=== PATIENT | male | born 1955 | race Hispanic/Latino ===

== ENCOUNTER 2017-12-30 21:04 | Inpatient (IN) | payer MEDICARE, BC ==
[2017-12-30 21:05] VITALS: PULSE 112; BMI 32.5
[2017-12-30 23:00] LABS: BASO % 0.5 % (0.0-2.0); EOS # 0.1 K/uL (0.0-0.7); EOS % 0.5 % (0.0-4.0); HEMOGLOBIN 10.9 g/dL (12.0-18.0); LYMPH # 0.4 K/uL (1.0-4.3); LYMPH % 4.2 % (20.0-40.0); MEAN CELL VOLUME 88.4 fL (80.0-94.0); MEAN CORPUSCULAR HEMOGLOBIN 29.1 pg (27.0-31.0); MEAN PLATELET VOLUME 7.4 fL (7.2-11.7); MONO # 0.8 K/uL (0.0-0.8); MONO % 8.1 % (0.0-10.0); NEUT # 8.3 K/uL (1.8-7.0); NEUT % 86.7 % (50.0-75.0); NRBC % 0.1 % (0.0-2.0); PLATELET COUNT 190 K/uL (130-400); RBC 3.73 Mil/uL (4.40-5.90); RED CELL DISTRIBUTION WIDTH 19.6 % (11.5-14.5); WHITE BLOOD COUNT 9.5 K/uL (4.8-10.8)
[2017-12-30 23:12] LABS: ALBUMIN 3.6 g/dL (3.5-5.0); CALCIUM 8.5 mg/dl (8.6-10.4)
--- NOTE | 2017-12-30 23:18 | C.PDOC ---
History Of Present Illness 62 year old male with a Hx of renal failure on dialysis presents to the ER for an infected port-a-cath. Patient has had multiple hospitalization in the past where they had a hard time getting blood drawn from him so he had a permanent port-a-cath put into his right upper chest wall; however, the port has not been used since 10/2017. Justusight his noticed he had purulent drainage from a pinpoint area on the port which prompted visit, on arrival patient was found with a temperature of 102. Denies cough, abdominal pain, or URI symptoms. Time Seen by Provider: 12/30/17 22:12 Chief Complaint (Nursing): Abnormal Skin Integrity History Per: Patient History/Exam Limitations: no limitations Onset/Duration Of Symptoms: Hrs Current Symptoms Are (Timing): Still Present Location Of Injury: Right: Chest Quality Of Symptoms: Draining Recent travel outside of the [place]: No Past Medical History Reviewed: Historical Data, Nursing Documentation, Vital Signs Vital Signs: Last Vital Signs Temp 102 F H 12/30/17 21:43 Pulse 121 H 12/30/17 21:24 Resp 17 12/30/17 21:24 BP Pulse Ox 100 12/30/17 21:24 - Medical History PMH: Anxiety, Arthritis, Asthma, Atrial Fibrillation, Cardia Arrhythmia (A FIB), CHF, COPD (uses CPAP for sleep apnea), Depression, Diabetes, Fractures, HTN, Malignancy (AML LEUKEMIA), Osteoporosis, Peripheral Edema, End Stage Renal Disease, Chronic Kidney Disease, Sleep Apnea (C-PAP) Surgical History: Back Surgery, Pacemaker - [facility] Procedures (10/29/17) BONE GRAFT NEC (08/23/13) BONE MARROW OPS NEC (08/23/13) CENTRAL VENOUS CATHETER PLACEMENT WITH GUIDANCE (08/23/13) CHEST CAGE BONE BIOPSY (08/23/13) DIALYSIS ARTERIOVENOSTOM (12/08/13) DORSAL & DORSOLUMBAR FUSION OF POSTERIOR COL/TECHNIQUE (08/23/13) DRAINAGE OF RIGHT LOWER LEG SKIN, EXTERNAL APPROACH, DIAGN (06/30/17) DX ULTRASOUND-HEART (08/23/13) EXCISE BONE FOR GFT NEC (08/23/13) EXCISION OF L FOOT SUBCU/FASCIA, OPEN APPROACH (09/15/16) EXCISION OF LEFT FOOT SKIN, EXTERNAL APPROACH (06/30/17) EXCISION OF LEFT TARSAL, OPEN APPROACH, DIAGNOSTIC (12/26/16) EXCISION OF RIGHT FOOT SKIN, EXTERNAL APPROACH (12/26/16) EXCISION OF RIGHT LOWER LEG SKIN, EXTERNAL APPROACH (06/30/17) EXTRACTION OF LEFT FOOT SKIN, EXTERNAL APPROACH (09/15/16) FUSION/REFUS OF 2-3 VERTEBRAE (08/23/13) HEAD SOFT TISS X-RAY NEC (12/08/13) HEMODIALYSIS (11/12/13) INSERTION OF INFUSION DEV INTO SUP VENA CAVA, PERC APPROACH (12/26/16) NON-INVASIVE MECHANICAL VENTILATION (11/12/13) OCCUPATIONAL THERAPY (09/27/13) PACKED CELL TRANSFUSION (08/23/13) PERFORMANCE OF URINARY FILTRATION, MULTIPLE (06/30/16) PHYSICAL THERAPY NEC (09/27/13) RECREATIONAL THERAPY (09/27/13) REPOSITION RIGHT BASILIC VEIN, OPEN APPROACH (06/30/16) SPINAL CANAL EXPLOR NEC (08/23/13) SUPPLEMENT LEFT FOOT WITH NONAUT SUB, OPEN APPROACH (06/30/17) THORACENTESIS (11/12/13) TRANSFUSE NONAUT RED BLOOD CELLS IN PERIPH VEIN, PERC (10/29/17) VACCINATION NEC (11/12/13) VENOUS CATHETERIZATION FOR RENAL DIALYSIS (12/08/13) Family History: States: Unknown Family Hx - Social History Hx Tobacco Use: No Hx Alcohol Use: No Hx Substance Use: No - Immunization History Hx Tetanus Toxoid Vaccination: Yes Hx Influenza Vaccination: Yes Hx Pneumococcal Vaccination: Yes Review Of Systems Constitutional: Positive for: Fever Cardiovascular: Negative for: Chest Pain, Palpitations Respiratory: Negative for: Cough, Shortness of Breath Gastrointestinal: Negative for: Nausea, Vomiting Skin: Positive for: Other (Drainage from right chest port) Physical Exam - Physical Exam Appears: Non-toxic Skin: Warm, Dry Head: Atraumatic, Normacephalic Eye(s): bilateral: Normal Inspection Oral Mucosa: Moist Neck: Normal, Supple Chest: Other (Right port-a-cath with tenderness, erythema, swelling, and purulent drainage) Cardiovascular: Rhythm Regular Respiratory: Normal Breath Sounds, No Rales, No Rhonchi, No Wheezing Gastrointestinal/Abdominal: Soft, No Tenderness Neurological/Psych: Oriented x3, Normal Speech ED Course And Treatment - Laboratory Results Result Diagrams: 12/30/17 22:57 12/30/17 22:57 Lab Interpretation: Abnormal (BUN 45, Cr 3.7,) O2 Sat by Pulse Oximetry: 100 (Room air) Pulse Ox Interpretation: Normal Progress Note: Blood work ordered. Tylenol administered. - Physician Consult Information Time Consulting Physician Contacted: 23:59 Physician Contacted: Jesus Hill Outcome Of Conversation: Patient to be admitted for infected port. Dr Olguin to be consulted for removal. Disposition - Disposition Disposition: HOSPITALIZED Disposition Time: 00:00 Condition: STABLE - POA Present On Arrival: None - Clinical Impression Clinical Impression: Fever, Infection due to Port-A-Cath - Scribe Statement The provider has reviewed the documentation as recorded by the Scribe Rodrigue Ho All medical record entries made by the Scribe were at my direction and personally dictated by me. I have reviewed the chart and agree that the record accurately reflects my personal performance of the history, physical exam, medical decision making, and the department course for this patient. I have also personally directed, reviewed, and agree with the discharge instructions and disposition.
[2017-12-30 23:27] LABS: BANDS 3 % (0-2); LYMPHOCYTE 5 % (20-40); MONOCYTE 4 % (0-10); NEUTROPHIL 88 % (50-75); TOTAL CELLS COUNTED 100
[2017-12-30 23:30] LABS: HYPOCHROMIC SLIGHT; MICROCYTOSIS SLIGHT; OVALOCYTES SLIGHT; PLATELET ESTIMATE NORMAL (NORMAL)
--- NOTE | 2017-12-31 00:27 | CP.PCM.HP ---
<Robyn Lock - Last Filed: 12/31/17 01:12> History of Present Illness - History of Present Illness History of Present Illness: Robyn Lock PG1 H&P for Dr. iNelson Pt is a 62M with PMH ESRD, DM, CHF, A FIB W/RVR, AML, HTN, COPD, sleep apnea presents to ED with port a cath infection s/p HD. He reports feeling a burning sensation two days ago and that today after HD his noticed some pus coming from the site. Pt reports nausea and dry heaving. He denies any fever, abdominal pain, shortness of breath, chest pain, diarrhea, constipation. In the ED, pt was given tylenol for Tmax 102F and BCx and wound Cx were obtained. SxH: back surgery, pacemaker FamH: mom heart disease, DM, dad CAD SocH: denies tobacco, etoh, recreational drug use Allergies: NKDA Meds: coumadin 1 daily, starlix 60 TID, procrit, metoprolol succinate 25 daily PMD: Dr. Rose Present on Admission - Present on Admission Any Indicators Present on Admission: No Review of Systems - Review of Systems Review of Systems: as per HPI Past Patient History - Infectious Disease Hx of Infectious Diseases: None - Tetanus Immunizations Tetanus Immunization: Unknown - Past Medical History & Family History Past Medical History?: Yes - Past Social History Smoking Status: Never Smoked - CARDIAC Hx Atrial Fibrillation: Yes Hx Cardia Arrhythmia: Yes (A FIB) Hx Congestive Heart Failure: Yes Hx Hypertension: Yes Hx Pacemaker: Yes Hx Peripheral Edema: Yes - PULMONARY Hx Asthma: Yes Hx Chronic Obstructive Pulmonary Disease (COPD): Yes (uses CPAP for sleep apnea) Hx Sleep Apnea: Yes (C-PAP) - NEUROLOGICAL Hx Neurological Disorder: Yes (PERIPHERAL NEUROPATHY) Hx Dizziness: Yes - HEENT Hx HEENT Problems: No - RENAL Hx Chronic Kidney Disease: Yes - ENDOCRINE/METABOLIC Hx Diabetes Mellitus Type 2: Yes - HEMATOLOGICAL/ONCOLOGICAL Hx Blood Disorders: Yes Hx Blood Transfusions: Yes Hx Cancer: Yes Hx Chemotherapy: Yes 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) - INTEGUMENTARY Hx Dermatological Problems: Yes Hx Cellulitis: Yes - MUSCULOSKELETAL/RHEUMATOLOGICAL Hx Arthritis: Yes Hx Fractures: Yes Hx Osteoporosis: Yes - GASTROINTESTINAL Hx Gastrointestinal Disorders: Yes Hx Constipation: Yes - GENITOURINARY/GYNECOLOGICAL Hx Genitourinary Disorders: Yes Other/Comment: dialysis TTS - PSYCHIATRIC Hx Anxiety: Yes Hx Depression: Yes Hx Substance Use: No - SURGICAL HISTORY Hx Surgeries: Yes Hx Angiogram: Yes Hx Arteriovenous Shunt: Yes Hx Cardiac Catheterization: Yes Hx Orthopedic Surgery: Yes (KNEE) Hx Vascular Access Device: Yes (RIGHT BOZENA CATH) Other/Comment: hx back surgery T5. defibrillator/pacemaker placement - ANESTHESIA Hx Anesthesia: Yes Hx Anesthesia Reactions: No Hx Malignant Hyperthermia: No Meds Allergies/Adverse Reactions: Allergies Allergy/AdvReac Type Severity Reaction Status Date / Time No Known Allergies Allergy Verified 10/29/17 04:19 Physical Exam - Constitutional Appears: Well, No Acute Distress - Head Exam Head Exam: ATRAUMATIC, NORMOCEPHALIC - Eye Exam Eye Exam: EOMI, PERRL Pupil Exam: NORMAL ACCOMODATION - ENT Exam ENT Exam: Mucous Membranes Moist - Neck Exam Neck exam: Positive for: Normal Inspection - Respiratory Exam Respiratory Exam: Clear to Auscultation Bilateral, NORMAL BREATHING PATTERN. absent: Rales, Rhonchi, Wheezes - Cardiovascular Exam Cardiovascular Exam: +S1, +S2. absent: Systolic Murmur - GI/Abdominal Exam GI & Abdominal Exam: Distended, Normal Bowel Sounds. absent: Soft, Tenderness - Extremities Exam Additional comments: R chest: 2x2cm open wound, draining milky white fluid. surrounding erythema. indurated lower extremities: xerosis, hyperpigmentation, stasis derm changes - Neurological Exam Neurological exam: Alert, Oriented x3 - Psychiatric Exam Psychiatric exam: Normal Affect, Normal Mood - Skin Skin Exam: Dry Results - Vital Signs Recent Vital Signs: Last Vital Signs Temp 102 F H 12/30/17 21:43 Pulse 121 H 12/30/17 21:24 Resp 17 12/30/17 21:24 BP Pulse Ox 100 12/31/17 00:01 - Labs Result Diagrams: 12/30/17 22:57 12/30/17 22:57 Labs: Laboratory Results - last 24 hr 12/30/17 12/30/17 22:57 22:57 WBC 9.5 D RBC 3.73 L Hgb 10.9 L D Hct 33.0 L MCV 88.4 MCH 29.1 MCHC 33.0 RDW 19.6 H Plt Count 190 MPV 7.4 Neut % (Auto) 86.7 H Lymph % (Auto) 4.2 L [place] % (Auto) 8.1 Eos % (Auto) 0.5 Baso % (Auto) 0.5 Neut # (Auto) 8.3 H Lymph # (Auto) 0.4 L [place] # (Auto) 0.8 Eos # (Auto) 0.1 Baso # (Auto) 0.0 Neutrophils % (Manual) 88 H Band Neutrophils % 3 H Lymphocytes % (Manual) 5 L Monocytes % (Manual) 4 Platelet Estimate Normal Hypochromasia (manual) Slight Microcytosis (manual) Slight Ovalocytes Slight Sodium 137 Potassium 3.6 Chloride 93 L Carbon Dioxide 29 Anion Gap 19 BUN 45 H Creatinine 3.7 H Est GFR ( Amer) 20 Est GFR (Non-Af Amer) 17 Random Glucose 126 H Calcium 8.5 L Total Bilirubin 1.6 H AST 16 L D ALT 17 L Alkaline Phosphatase 342 H D Total Protein 7.2 Albumin 3.6 Globulin 3.5 Albumin/Globulin Ratio 1.0 Assessment & Plan - Assessment and Plan (Free Text) Assessment: Pt is a 62M with PMH ESRD, DM, CHF, A FIB W/RVR, AML, HTN, COPD, sleep apnea presents to ED with port a cath infection s/p HD. Pt admitted for further treatment of abscess. Plan: Abscess - pt with port a cath, draining white purulent fluid on R chest - Tmax 1002F - WBC 9.5 - start vanco 1.5 IV daily - start rocephin 1g IV daily - f/u BCx, Wound Cx - hold coumadin - f/u coags - vascular surgery consulted, Dr. Olguin - f/u recs - ID consulted, Dr. Lozano - f/u recs ESRD - s/p HD - BUN 45 - Cr 3.7 - Nephro consulted, Dr. Rice - f/u recs DM - accuchecks q6h - low dose sliding scale - hypoglycemia protocol HTN - BP 97/52 - hold home metoprolol NIKOLE - pt uses CPAP at home - not ammenable to using bipap - to bring home CPAP PPX heparin 5000 SC q8h NPO except meds Pt seen with and case discussed with Dr. Nielson <Oswaldo Nielson P - Last Filed: 12/31/17 06:53> Results - Vital Signs Recent Vital Signs: Last Vital Signs Temp 98.6 F 12/31/17 02:22 Pulse 104 H 12/31/17 02:22 Resp 20 12/31/17 02:22 BP 98/65 L 12/31/17 02:22 Pulse Ox 99 12/31/17 02:22 - Labs Result Diagrams: 12/30/17 22:57 12/30/17 22:57 Labs: Laboratory Results - last 24 hr 12/30/17 12/30/17 12/31/17 22:57 22:57 06:07 WBC 9.5 D RBC 3.73 L Hgb 10.9 L D Hct 33.0 L MCV 88.4 MCH 29.1 MCHC 33.0 RDW 19.6 H Plt Count 190 MPV 7.4 Neut % (Auto) 86.7 H Lymph % (Auto) 4.2 L [place] % (Auto) 8.1 Eos % (Auto) 0.5 Baso % (Auto) 0.5 Neut # (Auto) 8.3 H Lymph # (Auto) 0.4 L [place] # (Auto) 0.8 Eos # (Auto) 0.1 Baso # (Auto) 0.0 Neutrophils % (Manual) 88 H Band Neutrophils % 3 H Lymphocytes % (Manual) 5 L Monocytes % (Manual) 4 Platelet Estimate Normal Hypochromasia (manual) Slight Microcytosis (manual) Slight Ovalocytes Slight Sodium 137 Potassium 3.6 Chloride 93 L Carbon Dioxide 29 Anion Gap 19 BUN 45 H Creatinine 3.7 H Est GFR ( Amer) 20 Est GFR (Non-Af Amer) 17 POC Glucose (mg/dL) 96 Random Glucose 126 H Calcium 8.5 L Total Bilirubin 1.6 H AST 16 L D ALT 17 L Alkaline Phosphatase 342 H D Total Protein 7.2 Albumin 3.6 Globulin 3.5 Albumin/Globulin Ratio 1.0 Attending/Attestation - Attestation I have personally seen and examined this patient.: Yes I have fully participated in the care of the patient.: Yes I have reviewed all pertinent clinical information: Yes Notes (Text): 12/31/17 06:47 All 12 system reviewed and were negative except as mentioned in HPI. Pt is a 62M with PMH ESRD left arm av graft, DM, CHF, A FIB W/RVR s/p AICD and warfarin, HTN, COPD, sleep apnea on CPAP presents to ED with port a cath infection, About 15 ml of puss expressed out from the site of the port, with surrounding erythema and warmth, Patient is mostly bed bound due to his b/l healing ulcers in the leg, DM Neuropathy in hands Chronic anasarca Abd distension suspect ascitis Plan Puss sent for culture Vancomycin and rocephin HD in hospital Surgery consult for port removal Hold on warfarin DVT prophylaxis mean while Will check prior record if need w/u for ascitis Patient is of Dr. Rose, who will resume care in about 2 days. See orders for detail
[2017-12-31] MEDS ORDERED: Dextrose 50% SYRINGE Inj (50 ml) IV PRN (01:24)
[2017-12-31] MEDS ORDERED: Glucagon Recombinant 1 mg Inj IM PRN (01:24)
[2017-12-31] MEDS: (Novolin R) Insulin Human Regular 100 units/ml vial SC SCH ×4 (07:30→22:09)
--- NOTE | 2017-12-31 07:58 | CP.PCM.CON ---
History of Present Illness - History of Present Illness History of Present Illness: General surgery consult for Dr. Clau PEDRAZA. Mr. Tyson is a 62M with a pmh of ESRD, COPD, DM, pacemaker/defibrillator, leukemia, CHF, CO and afib who presented to the ED yesterday because of purulent discharge arising fro his port-a-cath located on the right side of his neck. He reports mild pain at infection site and subjective fevers at home. It all began a few days ago when he felt a pinching/burning sensation to the area. Then yesterday afternoon he notice purulent fluid oozing from the site. Denies trauma, bug bites, dizziness, chest pain, SOB, palpations, or N/V/D/C. At ED, [id number]. The port-a-cath was inserted several months ago for osteomyelitis abx treatment but is currently not is use. Patients last dialysis was yesterday where they removed 3.5L. He is non-ambulatory and currently has at home PT. Pmh: CKD (on dialysis), DM, Pacemaker/defibrillator, CO (11y ago), Afib, AML (remission since 2007) Surg: Back surgery (metal plates), ulcer debridment in feet b/l, port-a-cath placement, AV fistula Family hx: Stated mother "has all his issues and not sure", father from an CO at elderly age. Allergies: none Social hx: smokes a cigar occasionally, no illicit drug use or alcohol. Review of Systems - Review of Systems Review of Systems: As per HPI Past Patient History - Infectious Disease Hx of Infectious Diseases: None - Tetanus Immunizations Tetanus Immunization: Unknown - Past Medical History & Family History Past Medical History?: Yes - Past Social History Smoking Status: Never Smoked - CARDIAC Hx Cardiac Disorders: Yes Hx Atrial Fibrillation: Yes Hx Cardia Arrhythmia: Yes (A FIB) Hx Congestive Heart Failure: Yes Hx Hypertension: Yes Hx Pacemaker: Yes Hx Peripheral Edema: Yes - PULMONARY Hx Respiratory Disorders: Yes Hx Asthma: Yes Hx Chronic Obstructive Pulmonary Disease (COPD): Yes (uses CPAP for sleep apnea) Hx Sleep Apnea: Yes (C-PAP) - NEUROLOGICAL Hx Neurological Disorder: Yes (PERIPHERAL NEUROPATHY) Hx Dizziness: Yes - HEENT Hx HEENT Problems: No - RENAL Hx Chronic Kidney Disease: Yes - ENDOCRINE/METABOLIC Hx Endocrine Disorders: Yes Hx Diabetes Mellitus Type 2: Yes - HEMATOLOGICAL/ONCOLOGICAL Hx Blood Disorders: Yes Hx Blood Transfusions: Yes Hx Cancer: Yes Hx Chemotherapy: Yes 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) - INTEGUMENTARY Hx Dermatological Problems: Yes Hx Cellulitis: Yes - MUSCULOSKELETAL/RHEUMATOLOGICAL Hx Musculoskeletal Disorders: Yes Hx Arthritis: Yes Hx Falls: Yes Hx Fractures: Yes Hx Osteoporosis: Yes - GASTROINTESTINAL Hx Gastrointestinal Disorders: Yes Hx Constipation: Yes - GENITOURINARY/GYNECOLOGICAL Hx Genitourinary Disorders: Yes Other/Comment: dialysis TTS - PSYCHIATRIC Hx Psychophysiologic Disorder: Yes Hx Anxiety: Yes Hx Depression: Yes Hx Substance Use: No - SURGICAL HISTORY Hx Surgeries: Yes Hx Angiogram: Yes Hx Arteriovenous Shunt: Yes Hx Cardiac Catheterization: Yes Hx Orthopedic Surgery: Yes (KNEE) Hx Vascular Access Device: Yes (RIGHT BOZENA CATH) Other/Comment: hx back surgery T5. defibrillator/pacemaker placement - ANESTHESIA Hx Anesthesia: Yes Hx Anesthesia Reactions: No Hx Malignant Hyperthermia: No Meds Allergies/Adverse Reactions: Allergies Allergy/AdvReac Type Severity Reaction Status Date / Time No Known Allergies Allergy Verified 10/29/17 04:19 - Medications Medications: Current Medications Acetaminophen (Tylenol 325mg Tab) 650 mg PO Q6 PRN PRN Reason: Fever >100.4 F Dextrose (Dextrose 50% Inj) 0 ml IV STAT PRN; Protocol PRN Reason: Hypoglycemia Protocol Dextrose (Glutose 15) 0 gm PO ONCE PRN; Protocol PRN Reason: Hypoglycemia Protocol Glucagon (Glucagen Diagnostic Kit) 0 mg IM STAT PRN; Protocol PRN Reason: Hypoglycemia Protocol Heparin Sodium (Porcine) (Heparin) 5,000 units SC Q8 AMBERLY Last Admin: 12/31/17 05:49 Dose: 5,000 units Ceftriaxone Sodium 1 gm/ (Sodium Chloride) 100 mls @ 100 mls/hr IVPB DAILY AMBERLY; Protocol Vancomycin HCl 1.5 gm/ Sodium (Chloride) 250 mls @ 166.7 mls/hr IVPB Q24H AMBERLY; Protocol Last Admin: 12/31/17 02:56 Dose: 166.7 mls/hr Dextrose (Dextrose 5% In Water 1000 Ml) 1,000 mls @ 0 mls/hr IV .Q0M PRN; Protocol PRN Reason: Hypoglycemia Protocol Insulin Human Regular (Novolin R) 0 unit SC ACHS AMBERLY; Protocol Ondansetron HCl (Zofran Inj) 4 mg IVP Q6 PRN PRN Reason: Nausea/Vomiting Physical Exam - Constitutional Appears: Non-toxic, Chronically Ill - Head Exam Head Exam: ATRAUMATIC, NORMOCEPHALIC - Eye Exam Eye Exam: Normal appearance. absent: Conjunctival injection - Neck Exam Neck exam: Positive for: Full Rom Additional comments: Tenderness to the infections site on the r mid clavicular line. - Respiratory Exam Respiratory Exam: Clear to Auscultation Bilateral, NORMAL BREATHING PATTERN. absent: Rales, Rhonchi, Wheezes - Cardiovascular Exam Cardiovascular Exam: REGULAR RHYTHM - GI/Abdominal Exam GI & Abdominal Exam: absent: Tenderness - Extremities Exam Additional comments: AV fistula located on the left upper arm. - Skin Additional comments: Area of infection at mid clavicular line at site of port-a-cath placement. Has mild swelling and erythema but without marked boarders. Expressed purulent fluid , non-bloody. Non-maloderous, no crepitus. Results - Vital Signs Recent Vital Signs: Last Vital Signs Temp 98.6 F 12/31/17 02:22 Pulse 104 H 12/31/17 02:22 Resp 20 12/31/17 02:22 BP 98/65 L 12/31/17 02:22 Pulse Ox 99 12/31/17 02:22 - Labs Result Diagrams: 12/30/17 22:57 12/30/17 22:57 Labs: Laboratory Results - last 24 hr 12/30/17 12/30/17 12/31/17 22:57 22:57 06:07 WBC 9.5 D RBC 3.73 L Hgb 10.9 L D Hct 33.0 L MCV 88.4 MCH 29.1 MCHC 33.0 RDW 19.6 H Plt Count 190 MPV 7.4 Neut % (Auto) 86.7 H Lymph % (Auto) 4.2 L [place] % (Auto) 8.1 Eos % (Auto) 0.5 Baso % (Auto) 0.5 Neut # (Auto) 8.3 H Lymph # (Auto) 0.4 L [place] # (Auto) 0.8 Eos # (Auto) 0.1 Baso # (Auto) 0.0 Neutrophils % (Manual) 88 H Band Neutrophils % 3 H Lymphocytes % (Manual) 5 L Monocytes % (Manual) 4 Platelet Estimate Normal Hypochromasia (manual) Slight Microcytosis (manual) Slight Ovalocytes Slight Sodium 137 Potassium 3.6 Chloride 93 L Carbon Dioxide 29 Anion Gap 19 BUN 45 H Creatinine 3.7 H Est GFR ( Amer) 20 Est GFR (Non-Af Amer) 17 POC Glucose (mg/dL) 96 Random Glucose 126 H Calcium 8.5 L Total Bilirubin 1.6 H AST 16 L D ALT 17 L Alkaline Phosphatase 342 H D Total Protein 7.2 Albumin 3.6 Globulin 3.5 Albumin/Globulin Ratio 1.0 Assessment & Plan - Assessment and Plan (Free Text) Assessment: Mr Tyson is a 62M with an infected port-a-cath. Plan: - Will schedule OR today for removal of the port-a-cath and debridment of any appropriate tissues to the infected site. Consent obtained. - NPO - f/u blood cultures - f/u INR - Pain and nausea control PRN - Continue abx treatment per primary - Continue medical treatment per various specialities. - Date & Time Date: 12/31/17 Time: 07:00
[2017-12-31 08:35] LABS: BASO % 0.6 % (0.0-2.0); EOS # 0.1 K/uL (0.0-0.7); EOS % 0.9 % (0.0-4.0); LYMPH # 0.6 K/uL (1.0-4.3); MEAN CELL VOLUME 88.4 fL (80.0-94.0); MEAN CORPUSCULAR HEMOGLOBIN 28.5 pg (27.0-31.0); MEAN CORPUSCULAR HGB CONC 32.3 g/dL (33.0-37.0); MEAN PLATELET VOLUME 6.9 fL (7.2-11.7); MONO # 0.7 K/uL (0.0-0.8); MONO % 8.9 % (0.0-10.0); NEUT # 6.9 K/uL (1.8-7.0); NEUT % 82.6 % (50.0-75.0); PLATELET COUNT 182 K/uL (130-400); RBC 3.52 Mil/uL (4.40-5.90); RED CELL DISTRIBUTION WIDTH 19.5 % (11.5-14.5); WHITE BLOOD COUNT 8.3 K/uL (4.8-10.8)
[2017-12-31 08:40] LABS: PROTHROMBIN TIME 22.1 SECONDS (9.7-12.2)
[2017-12-31 08:49] LABS: ALB/GLOB RATIO 1.1 (1.0-2.1); ALBUMIN 3.3 g/dL (3.5-5.0)
[2017-12-31 09:18] LABS: LYMPHOCYTE 3 % (20-40); MONOCYTE 3 % (0-10); NEUTROPHIL 94 % (50-75); TOTAL CELLS COUNTED 100
[2017-12-31 09:19] LABS: PLATELET ESTIMATE NORMAL (NORMAL)
[2017-12-31 09:20] LABS: ANISOCYTOSIS SLIGHT; HYPOCHROMIC SLIGHT
[2017-12-31 09:21] LABS: POLYCHROMIC SLIGHT
[2017-12-31 09:22] LABS: OVALOCYTES SLIGHT
--- NOTE | 2017-12-31 10:35 | RAD ---
Date of service: 12/31/2017 HISTORY: preop COMPARISON: Portable chest 06/30/2017. FINDINGS: LUNGS: No active pulmonary disease. Diminished pulmonary volumes identified. PLEURA: No significant pleural effusion identified, no pneumothorax apparent. CARDIOVASCULAR: Cardiomegaly is reiterated with borderline pulmonary vascular congestion. Vascular markings may be accentuated by limited pulmonary volume related overlap with bronchial markings however. Clinically correlate. Permanent pacemaker/AICD reiterated as well as right-sided MediPort placed by right internal jugular approach. OSSEOUS STRUCTURES: Posterior spinal fusion hardware is again seen in the thoracolumbar spine. VISUALIZED UPPER ABDOMEN: Normal. OTHER FINDINGS: None. IMPRESSION: There is pulmonary volumes however no infiltrate is identified bilaterally. Borderline pulmonary vascular congestion appears stable cardiomegaly.
--- NOTE | 2017-12-31 11:08 | CP.PCM.CON ---
History of Present Illness - History of Present Illness History of Present Illness: Pt is a 62M with PMH ESRD, DM, CHF, A FIB W/RVR, AML, HTN, COPD, sleep apnea presents to ED for evaluation of portacath site. He reports feeling a burning sensation two days ago and that today after HD his noticed some pus coming from the site. Pt reports nausea and dry heaving. He denies any fever, abdominal pain, shortness of breath, chest pain, diarrhea, constipation. In the ED, pt was given tylenol for Tmax 102F and BCx and wound Cx were obtained. Last HD yesterday. On anticoagulation for a fib Pt had an indwelling portacath for iv antibiotics and lab draws, difficult stick SxH: back surgery, pacemaker FamH: mom heart disease, DM, dad CAD SocH: denies tobacco, etoh, recreational drug use Allergies: NKDA Meds: coumadin 1 daily, starlix 60 TID, procrit, metoprolol succinate 25 daily Review of Systems - Review of Systems All systems: reviewed and no additional remarkable complaints except (as per HPI) Past Patient History - Infectious Disease Hx of Infectious Diseases: None - Tetanus Immunizations Tetanus Immunization: Unknown - Past Medical History & Family History Past Medical History?: Yes - Past Social History Smoking Status: Never Smoked - CARDIAC Hx Cardiac Disorders: Yes Hx Atrial Fibrillation: Yes Hx Cardia Arrhythmia: Yes (A FIB) Hx Congestive Heart Failure: Yes Hx Hypertension: Yes Hx Pacemaker: Yes Hx Peripheral Edema: Yes - PULMONARY Hx Respiratory Disorders: Yes Hx Asthma: Yes Hx Chronic Obstructive Pulmonary Disease (COPD): Yes (uses CPAP for sleep apnea) Hx Sleep Apnea: Yes (C-PAP) - NEUROLOGICAL Hx Neurological Disorder: Yes (PERIPHERAL NEUROPATHY) Hx Dizziness: Yes - HEENT Hx HEENT Problems: No - RENAL Hx Chronic Kidney Disease: Yes - ENDOCRINE/METABOLIC Hx Endocrine Disorders: Yes Hx Diabetes Mellitus Type 2: Yes - HEMATOLOGICAL/ONCOLOGICAL Hx Blood Disorders: Yes Hx Blood Transfusions: Yes Hx Cancer: Yes Hx Chemotherapy: Yes 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) - INTEGUMENTARY Hx Dermatological Problems: Yes Hx Cellulitis: Yes - MUSCULOSKELETAL/RHEUMATOLOGICAL Hx Musculoskeletal Disorders: Yes Hx Arthritis: Yes Hx Falls: Yes Hx Fractures: Yes Hx Osteoporosis: Yes - GASTROINTESTINAL Hx Gastrointestinal Disorders: Yes Hx Constipation: Yes - GENITOURINARY/GYNECOLOGICAL Hx Genitourinary Disorders: Yes Other/Comment: dialysis TTS - PSYCHIATRIC Hx Psychophysiologic Disorder: Yes Hx Anxiety: Yes Hx Depression: Yes Hx Substance Use: No - SURGICAL HISTORY Hx Surgeries: Yes Hx Angiogram: Yes Hx Arteriovenous Shunt: Yes Hx Cardiac Catheterization: Yes Hx Orthopedic Surgery: Yes (KNEE) Hx Vascular Access Device: Yes (RIGHT BOZENA CATH) Other/Comment: hx back surgery T5. defibrillator/pacemaker placement - ANESTHESIA Hx Anesthesia: Yes Hx Anesthesia Reactions: No Hx Malignant Hyperthermia: No Meds Allergies/Adverse Reactions: Allergies Allergy/AdvReac Type Severity Reaction Status Date / Time No Known Allergies Allergy Verified 10/29/17 04:19 - Medications Medications: Current Medications Acetaminophen (Tylenol 325mg Tab) 650 mg PO Q6 PRN PRN Reason: Fever >100.4 F Dextrose (Dextrose 50% Inj) 0 ml IV STAT PRN; Protocol PRN Reason: Hypoglycemia Protocol Dextrose (Glutose 15) 0 gm PO ONCE PRN; Protocol PRN Reason: Hypoglycemia Protocol Glucagon (Glucagen Diagnostic Kit) 0 mg IM STAT PRN; Protocol PRN Reason: Hypoglycemia Protocol Heparin Sodium (Porcine) (Heparin) 5,000 units SC Q8 [facility] Last Admin: 12/31/17 05:49 Dose: 5,000 units Dextrose (Dextrose 5% In Water 1000 Ml) 1,000 mls @ 0 mls/hr IV .Q0M PRN; Protocol PRN Reason: Hypoglycemia Protocol Cefepime HCl (Maxipime Iv 1 Gm Premix) 1 gm in 50 mls @ 100 mls/hr IVPB ONCE ONE; Protocol Stop: 12/31/17 11:59 Insulin Human Regular (Novolin R) 0 unit SC ACHS [facility]; Protocol Last Admin: 12/31/17 07:30 Dose: Not Given Ondansetron HCl (Zofran Inj) 4 mg IVP Q6 PRN PRN Reason: Nausea/Vomiting Physical Exam - Constitutional Appears: No Acute Distress, Chronically Ill (obese) - Head Exam Head Exam: NORMAL INSPECTION, NORMOCEPHALIC - Eye Exam Eye Exam: Normal appearance, PERRL - ENT Exam ENT Exam: Mucous Membranes Moist, Normal Exam - Neck Exam Neck exam: Positive for: Normal Inspection - Respiratory Exam Respiratory Exam: Clear to Auscultation Bilateral (decreased breath sounds bases. rt chest portacath), NORMAL BREATHING PATTERN - Cardiovascular Exam Cardiovascular Exam: Irregular Rhythm - GI/Abdominal Exam GI & Abdominal Exam: Distended, Normal Bowel Sounds, Soft - Extremities Exam Extremities exam: Positive for: pedal edema (b/l chronic venous stasis. ) - Neurological Exam Neurological exam: Alert, Oriented x3 - Psychiatric Exam Psychiatric exam: Normal Affect, Normal Mood - Skin Skin Exam: Dry, Intact Results - Vital Signs Recent Vital Signs: Last Vital Signs Temp 98.3 F 12/31/17 08:00 Pulse 105 H 12/31/17 10:39 Resp 20 12/31/17 08:00 BP 102/61 12/31/17 10:39 Pulse Ox 97 12/31/17 08:00 - Labs Result Diagrams: 12/31/17 08:23 12/31/17 08:23 Labs: Laboratory Results - last 24 hr 12/30/17 12/30/17 12/31/17 22:57 22:57 06:07 WBC 9.5 D RBC 3.73 L Hgb 10.9 L D Hct 33.0 L MCV 88.4 MCH 29.1 MCHC 33.0 RDW 19.6 H Plt Count 190 MPV 7.4 Neut % (Auto) 86.7 H Lymph % (Auto) 4.2 L [place] % (Auto) 8.1 Eos % (Auto) 0.5 Baso % (Auto) 0.5 Neut # (Auto) 8.3 H Lymph # (Auto) 0.4 L [place] # (Auto) 0.8 Eos # (Auto) 0.1 Baso # (Auto) 0.0 Neutrophils % (Manual) 88 H Band Neutrophils % 3 H Lymphocytes % (Manual) 5 L Monocytes % (Manual) 4 Platelet Estimate Normal Polychromasia Hypochromasia (manual) Slight Anisocytosis (manual) Microcytosis (manual) Slight Ovalocytes Slight PT INR APTT Sodium 137 Potassium 3.6 Chloride 93 L Carbon Dioxide 29 Anion Gap 19 BUN 45 H Creatinine 3.7 H Est GFR ( Amer) 20 Est GFR (Non-Af Amer) 17 POC Glucose (mg/dL) 96 Random Glucose 126 H Calcium 8.5 L Total Bilirubin 1.6 H AST 16 L D ALT 17 L Alkaline Phosphatase 342 H D Total Protein 7.2 Albumin 3.6 Globulin 3.5 Albumin/Globulin Ratio 1.0 12/31/17 12/31/17 12/31/17 08:23 08:23 08:23 WBC 8.3 RBC 3.52 L Hgb 10.0 L Hct 31.1 L MCV 88.4 MCH 28.5 MCHC 32.3 L RDW 19.5 H Plt Count 182 MPV 6.9 L Neut % (Auto) 82.6 H Lymph % (Auto) 7.0 L [place] % (Auto) 8.9 Eos % (Auto) 0.9 Baso % (Auto) 0.6 Neut # (Auto) 6.9 Lymph # (Auto) 0.6 L [place] # (Auto) 0.7 Eos # (Auto) 0.1 Baso # (Auto) 0.0 Neutrophils % (Manual) 94 H Band Neutrophils % Lymphocytes % (Manual) 3 L Monocytes % (Manual) 3 Platelet Estimate Normal Polychromasia Slight Hypochromasia (manual) Slight Anisocytosis (manual) Slight Microcytosis (manual) Ovalocytes Slight PT 22.1 H INR 2.0 APTT 39 H Sodium 135 Potassium 3.5 L Chloride 95 L Carbon Dioxide 27 Anion Gap 16 BUN 50 H Creatinine 4.1 H Est GFR ( Amer) 18 Est GFR (Non-Af Amer) 15 POC Glucose (mg/dL) Random Glucose 88 Calcium 8.0 L Total Bilirubin 1.6 H AST 15 L ALT 20 L Alkaline Phosphatase 288 H Total Protein 6.5 Albumin 3.3 L Globulin 3.1 Albumin/Globulin Ratio 1.1 Assessment & Plan (1) Fever Status: Acute (2) Infection due to Port-A-Cath Status: Acute (3) ESRD (end stage renal disease) Status: Acute (4) A-fib Status: Chronic (5) Anemia Status: Chronic - Assessment and Plan (Free Text) Assessment: maintain hd mwf follow blood cultures. ID evaluation. portacath removal james w/ hd
[2017-12-31] MEDS ORDERED: Cefepime IV 1 gm in Dextrose 1 GM/50 ML BAG IVPB ONE (11:30)
--- NOTE | 2017-12-31 11:30 | CP.PCM.PN ---
<PaolaMerrill - Last Filed: 12/31/17 17:24> Subjective - Date & Time of Evaluation Date of Evaluation: 12/31/17 Time of Evaluation: 09:45 - Subjective Subjective: Medicine Progress Note for Hospitalist Service Pt seen and examined at bedside this am. Denies any acute complaints. NPO, to go to OR today for removal of portacath. Denies fever, chills, pain at infection site, active bleeding, headache, dizziness, chest pain, sob, n/v/d/c, abd pain, urinary complaints, leg edema, or other symptoms. Objective - Vital Signs/Intake and Output Vital Signs (last 24 hours): Temp Pulse Resp BP Pulse Ox 98.3 F 105 H 20 102/61 97 12/31/17 08:00 12/31/17 10:39 12/31/17 08:00 12/31/17 10:39 12/31/17 08:00 - Medications Medications: Current Medications Acetaminophen (Tylenol 325mg Tab) 650 mg PO Q6 PRN PRN Reason: Fever >100.4 F Dextrose (Dextrose 50% Inj) 0 ml IV STAT PRN; Protocol PRN Reason: Hypoglycemia Protocol Dextrose (Glutose 15) 0 gm PO ONCE PRN; Protocol PRN Reason: Hypoglycemia Protocol Glucagon (Glucagen Diagnostic Kit) 0 mg IM STAT PRN; Protocol PRN Reason: Hypoglycemia Protocol Heparin Sodium (Porcine) (Heparin) 5,000 units SC Q8 [facility] Last Admin: 12/31/17 05:49 Dose: 5,000 units Dextrose (Dextrose 5% In Water 1000 Ml) 1,000 mls @ 0 mls/hr IV .Q0M PRN; Protocol PRN Reason: Hypoglycemia Protocol Cefepime HCl (Maxipime Iv 1 Gm Premix) 1 gm in 50 mls @ 100 mls/hr IVPB ONCE ONE; Protocol Stop: 12/31/17 11:59 Insulin Human Regular (Novolin R) 0 unit SC ACHS [facility]; Protocol Last Admin: 12/31/17 07:30 Dose: Not Given Ondansetron HCl (Zofran Inj) 4 mg IVP Q6 PRN PRN Reason: Nausea/Vomiting - Labs Labs: 12/31/17 08:23 12/31/17 08:23 PT 22.1 SECONDS (9.7-12.2) H 12/31/17 08:23 INR 2.0 12/31/17 08:23 APTT 39 SECONDS (21-34) H 12/31/17 08:23 - Constitutional Appears: Non-toxic, No Acute Distress - Head Exam Head Exam: ATRAUMATIC, NORMOCEPHALIC - Eye Exam Eye Exam: EOMI, Normal appearance, PERRL - ENT Exam ENT Exam: Mucous Membranes Moist - Respiratory Exam Respiratory Exam: Clear to Ausculation Bilateral, NORMAL BREATHING PATTERN. absent: Rales, Rhonchi, Wheezes - Cardiovascular Exam Cardiovascular Exam: REGULAR RHYTHM, +S1, +S2. absent: Gallop, Rubs, Murmur - GI/Abdominal Exam GI & Abdominal Exam: Soft, Normal Bowel Sounds. absent: Distended, Firm, Guarding, Rigid, Tenderness, Organomegaly, Rebound - Extremities Exam Extremities Exam: Full ROM, Normal Capillary Refill, Normal Inspection. absent: Calf Tenderness, Pedal Edema - Neurological Exam Neurological Exam: Alert, Awake, CN II-XII Intact, Oriented x3 - Psychiatric Exam Psychiatric exam: Normal Affect, Normal Mood - Skin Skin Exam: Dry, Intact, Warm Additional comments: Site of infected portacath covered with dressing, c/d/i, no active bleeding noted at site Assessment and Plan - Assessment and Plan (Free Text) Assessment: 62M with PMH ESRD, DM, CHF, A FIB W/RVR, AML, HTN, COPD, sleep apnea presents to ED with port a cath infection s/p HD. Pt admitted for further treatment of abscess. Plan: Abscess - Pt with port a cath, draining white purulent fluid on R chest on admission; s/p removal by Surgery today in OR, monitor post-op - Tmax 1002F on admission, cont to monitor temps today, currently afebrile - WBC 9.5 on admission; today 8.5 - C/w vanco 1.5 IV daily - C/w rocephin 1g IV daily - F/u BCx, Wound Cx - Ok to restart coumadin as per surgery - F/u coags - Vascular surgery consulted, Dr. Olguin - f/u recs - ID consulted, Dr. Lozano - f/u recs - Lactate and procal ordered, f/u ESRD - S/p HD - BUN/Cr today 50/4.1 - Nephro consulted, Dr. Rice - f/u recs DM - accuchecks q6h - low dose sliding scale - hypoglycemia protocol HTN - BP 97/52 on admission, BP stable today, pt states his normal bp at home is 90s/50s, currently asymptomatic - Hold home metoprolol NIKOLE - pt uses CPAP at home - not amenable to using bipap - to bring home CPAP today B/l LE Ulcers - On exam today noted in L heel superior aspect, R achilles tendon area - Podiatry consulted (Dr. Nunn) for wound care, recs appreciated Hx Pacemaker, CHF - Pt's noted today that pt has not followed with cardiology outpatient in a while - Cardiology (Dr. Stiles) consulted, recs appreciated - Metoprolol held for low bps, continue to monitor PPX Heparin d/c'd; restart Warfarin 3 mg PO @1800 tonight Renal diet Pt seen, examined with, and plan d/w Dr. Duong, attending physician. Merrill Guevara DO PGY1, Paper Reclaiming Machine Operator Pager #[phone] <John Duong - Last Filed: 01/02/18 18:58> Objective - Vital Signs/Intake and Output Vital Signs (last 24 hours): Temp Pulse Resp BP Pulse Ox 97.6 F 102 H 20 106/70 97 01/02/18 15:05 01/02/18 15:05 01/02/18 15:05 01/02/18 18:37 01/02/18 15:05 Intake and Output: 01/02/18 01/02/18 06:59 18:59 Intake Total 650 Balance 650 - Medications Medications: Current Medications Acetaminophen (Tylenol 325mg Tab) 650 mg PO Q6 PRN PRN Reason: Fever >100.4 F Calcium Acetate (Phoslo) 667 mg PO TIDCC [facility] Last Admin: 01/02/18 17:01 Dose: 667 mg Dextrose (Dextrose 50% Inj) 0 ml IV STAT PRN; Protocol PRN Reason: Hypoglycemia Protocol Dextrose (Glutose 15) 0 gm PO ONCE PRN; Protocol PRN Reason: Hypoglycemia Protocol Glucagon (Glucagen Diagnostic Kit) 0 mg IM STAT PRN; Protocol PRN Reason: Hypoglycemia Protocol Dextrose (Dextrose 5% In Water 1000 Ml) 1,000 mls @ 0 mls/hr IV .Q0M PRN; Protocol PRN Reason: Hypoglycemia Protocol Cefepime HCl 0.5 gm/ Dextrose 50 mls @ 100 mls/hr IVPB DAILY [facility]; Protocol Last Admin: 01/02/18 12:24 Dose: 100 mls/hr Insulin Human Regular (Novolin R) 0 unit SC ACHS [facility]; Protocol Last Admin: 01/02/18 16:30 Dose: Not Given Ondansetron HCl (Zofran Inj) 4 mg IVP Q6 PRN PRN Reason: Nausea/Vomiting - Labs Labs: 01/02/18 07:42 01/02/18 07:42 PT 24.5 SECONDS (9.7-12.2) H 01/02/18 07:42 INR 2.2 01/02/18 07:42 APTT 39 SECONDS (21-34) H 01/02/18 07:42 Attending/Attestation - Attestation I have personally seen and examined this patient.: Yes I have fully participated in the care of the patient.: Yes I have reviewed all pertinent clinical information, including history, physical exam and plan: Yes Notes (Text): 01/02/18 18:57 This is a late entry. Care of this patient was gone over in detail with resident Dr. Paola Duong D.O.
[2017-12-31] MEDS ORDERED: Bupivacaine 0.25% 20 ML INJ IJ ONE (12:33)
[2017-12-31] MEDS ORDERED: Lidocaine 2% MPF (5 ml) Inj ONE (12:33)
[2017-12-31] MEDS ORDERED: ceFAZolin IV 1 gm in Dextrose 0 GM/0 ML BAG IVPB ONE (12:34)
[2017-12-31] MEDS ORDERED: Midazolam 2 MG/2 ML VIAL ONE (12:50)
[2017-12-31] MEDS ORDERED: Phenylephrine 10 mg/ml Inj ONE (13:15)
--- NOTE | 2017-12-31 13:29 | PCM.SURG1 ---
Surgeon's Initial Post Op Note - Surgeon's Notes Surgeon: Dr. Cortez Olguin Fluid Jet Cutter Operator: Kaylan Obando, PGY2; Claudine Joya OMS3 Type of Anesthesia: Moderate Sedation{RN}, Local Pre-Operative Diagnosis: Infected right portacath Operative Findings: port and catheter removed intact, lauren/yellow purulent drainage in the pocket of the port, adequate hemostasis obtained by the end of the case with suture ligature Post-Operative Diagnosis: same Operation Performed: removal of infected portacath Specimen/Specimens Removed: portacath, fluid culture Estimated Blood Loss: EBL {In ML}: 35 Date of Surgery/Procedure: 12/31/17 Time of Surgery/Procedure: 12:30
[2017-12-31] MEDS ORDERED: HYDROmorphone 0.5 mg/0.5 ml ISec IVP PRN (13:47)
--- NOTE | 2017-12-31 19:58 | CP.PCM.CON ---
History of Present Illness - History of Present Illness History of Present Illness: INFECTIOUS DISEASE CONSULTATION IRIS DOMINGUEZ MD, FACP 5T 551-A 12/31/2017 CHART REVIEWED PT EXAMINED CASE DISCUSSED Pt is a 62M with PMH ESRD, DM, CHF, A FIB W/RVR, AML, HTN, COPD, sleep apnea presents to ED for evaluation of portacath site. He reports feeling a burning sensation two days ago and that today after HD his noticed some pus coming from the site. Pt reports nausea and dry heaving. He denies any fever, abdominal pain, shortness of breath, chest pain, diarrhea, constipation. In the ED, pt was given tylenol for Tmax 102F and BCx and wound Cx were obtained. Last HD yesterday. On anticoagulation for a fib Pt had an indwelling portacath for iv antibiotics and lab draws, difficult stick SxH: back surgery, pacemaker FamH: mom heart disease, DM, dad CAD SocH: denies tobacco, etoh, recreational drug use Allergies: NKDA Meds: coumadin 1 daily, starlix 60 TID, procrit, metoprolol succinate 25 daily PLEASE SEE EXTENSIVE ID HX FROM PREVIOUS CHARTS LEUKEMIA NEUROPATHY FROM CHEMIO THERAPY RENAL INSUFFICIENCY-FAILURE HX OF MULTIPLE WOUND INFECTIONS CARDIAC ISSUES PUS REPORTED FROM PORTACATH SITE TEMPS 102 R/O LINE SEPSIS COVER FOR MRSA AND GRAM NEGATIVES RENAL DOSES FOR VANCOMYCIN AND CEFEPIME DAILY IRIS DOMINGUEZ MD. FACP Past Patient History - Infectious Disease Hx of Infectious Diseases: None - Tetanus Immunizations Tetanus Immunization: Unknown - Past Medical History & Family History Past Medical History?: Yes - Past Social History Smoking Status: Never Smoked - CARDIAC Hx Cardiac Disorders: Yes Hx Atrial Fibrillation: Yes Hx Cardia Arrhythmia: Yes (A FIB) Hx Congestive Heart Failure: Yes Hx Hypertension: Yes Hx Pacemaker: Yes Hx Peripheral Edema: Yes - PULMONARY Hx Respiratory Disorders: Yes Hx Asthma: Yes Hx Chronic Obstructive Pulmonary Disease (COPD): Yes (uses CPAP for sleep apnea) Hx Sleep Apnea: Yes (C-PAP) - NEUROLOGICAL Hx Neurological Disorder: Yes (PERIPHERAL NEUROPATHY) Hx Dizziness: Yes - HEENT Hx HEENT Problems: No - RENAL Hx Chronic Kidney Disease: Yes - ENDOCRINE/METABOLIC Hx Endocrine Disorders: Yes Hx Diabetes Mellitus Type 2: Yes - HEMATOLOGICAL/ONCOLOGICAL Hx Blood Disorders: Yes Hx Blood Transfusions: Yes Hx Cancer: Yes Hx Chemotherapy: Yes 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) - INTEGUMENTARY Hx Dermatological Problems: Yes Hx Cellulitis: Yes - MUSCULOSKELETAL/RHEUMATOLOGICAL Hx Musculoskeletal Disorders: Yes Hx Arthritis: Yes Hx Falls: Yes Hx Fractures: Yes Hx Osteoporosis: Yes - GASTROINTESTINAL Hx Gastrointestinal Disorders: Yes Hx Constipation: Yes - GENITOURINARY/GYNECOLOGICAL Hx Genitourinary Disorders: Yes Other/Comment: dialysis TTS - PSYCHIATRIC Hx Psychophysiologic Disorder: Yes Hx Anxiety: Yes Hx Depression: Yes Hx Substance Use: No - SURGICAL HISTORY Hx Surgeries: Yes Hx Angiogram: Yes Hx Arteriovenous Shunt: Yes Hx Cardiac Catheterization: Yes Hx Orthopedic Surgery: Yes (KNEE) Hx Vascular Access Device: Yes (RIGHT BOZENA CATH) Other/Comment: hx back surgery T5. defibrillator/pacemaker placement - ANESTHESIA Hx Anesthesia: Yes Hx Anesthesia Reactions: No Hx Malignant Hyperthermia: No Meds Allergies/Adverse Reactions: Allergies Allergy/AdvReac Type Severity Reaction Status Date / Time No Known Allergies Allergy Verified 10/29/17 04:19 - Medications Medications: Current Medications Acetaminophen (Tylenol 325mg Tab) 650 mg PO Q6 PRN PRN Reason: Fever >100.4 F Calcium Acetate (Phoslo) 667 mg PO [facility] Dextrose (Dextrose 50% Inj) 0 ml IV STAT PRN; Protocol PRN Reason: Hypoglycemia Protocol Dextrose (Glutose 15) 0 gm PO ONCE PRN; Protocol PRN Reason: Hypoglycemia Protocol Glucagon (Glucagen Diagnostic Kit) 0 mg IM STAT PRN; Protocol PRN Reason: Hypoglycemia Protocol Dextrose (Dextrose 5% In Water 1000 Ml) 1,000 mls @ 0 mls/hr IV .Q0M PRN; Protocol PRN Reason: Hypoglycemia Protocol Cefepime HCl 0.5 gm/ Dextrose 50 mls @ 100 mls/hr IVPB DAILY [facility]; Protocol Insulin Human Regular (Novolin R) 0 unit SC ACHS [facility]; Protocol Last Admin: 12/31/17 18:01 Dose: 1 unit Ondansetron HCl (Zofran Inj) 4 mg IVP Q6 PRN PRN Reason: Nausea/Vomiting Results - Vital Signs Recent Vital Signs: Last Vital Signs Temp 97.8 F 12/31/17 15:00 Pulse 96 H 12/31/17 15:00 Resp 20 12/31/17 15:00 BP 111/77 12/31/17 15:00 Pulse Ox 99 12/31/17 15:00 - Labs Result Diagrams: 01/02/18 07:42 01/02/18 07:42 Labs: Laboratory Results - last 24 hr 12/30/17 12/30/17 12/31/17 22:57 22:57 06:07 WBC 9.5 D RBC 3.73 L Hgb 10.9 L D Hct 33.0 L MCV 88.4 MCH 29.1 MCHC 33.0 RDW 19.6 H Plt Count 190 MPV 7.4 Neut % (Auto) 86.7 H Lymph % (Auto) 4.2 L [place] % (Auto) 8.1 Eos % (Auto) 0.5 Baso % (Auto) 0.5 Neut # (Auto) 8.3 H Lymph # (Auto) 0.4 L [place] # (Auto) 0.8 Eos # (Auto) 0.1 Baso # (Auto) 0.0 Neutrophils % (Manual) 88 H Band Neutrophils % 3 H Lymphocytes % (Manual) 5 L Monocytes % (Manual) 4 Platelet Estimate Normal Polychromasia Hypochromasia (manual) Slight Anisocytosis (manual) Microcytosis (manual) Slight Ovalocytes Slight PT INR APTT Sodium 137 Potassium 3.6 Chloride 93 L Carbon Dioxide 29 Anion Gap 19 BUN 45 H Creatinine 3.7 H Est GFR ( Amer) 20 Est GFR (Non-Af Amer) 17 POC Glucose (mg/dL) 96 Random Glucose 126 H Lactic Acid Calcium 8.5 L Total Bilirubin 1.6 H AST 16 L D ALT 17 L Alkaline Phosphatase 342 H D Total Protein 7.2 Albumin 3.6 Globulin 3.5 Albumin/Globulin Ratio 1.0 12/31/17 12/31/17 12/31/17 08:23 08:23 08:23 WBC 8.3 RBC 3.52 L Hgb 10.0 L Hct 31.1 L MCV 88.4 MCH 28.5 MCHC 32.3 L RDW 19.5 H Plt Count 182 MPV 6.9 L Neut % (Auto) 82.6 H Lymph % (Auto) 7.0 L [place] % (Auto) 8.9 Eos % (Auto) 0.9 Baso % (Auto) 0.6 Neut # (Auto) 6.9 Lymph # (Auto) 0.6 L [place] # (Auto) 0.7 Eos # (Auto) 0.1 Baso # (Auto) 0.0 Neutrophils % (Manual) 94 H Band Neutrophils % Lymphocytes % (Manual) 3 L Monocytes % (Manual) 3 Platelet Estimate Normal Polychromasia Slight Hypochromasia (manual) Slight Anisocytosis (manual) Slight Microcytosis (manual) Ovalocytes Slight PT 22.1 H INR 2.0 APTT 39 H Sodium 135 Potassium 3.5 L Chloride 95 L Carbon Dioxide 27 Anion Gap 16 BUN 50 H Creatinine 4.1 H Est GFR ( Amer) 18 Est GFR (Non-Af Amer) 15 POC Glucose (mg/dL) Random Glucose 88 Lactic Acid Calcium 8.0 L Total Bilirubin 1.6 H AST 15 L ALT 20 L Alkaline Phosphatase 288 H Total Protein 6.5 Albumin 3.3 L Globulin 3.1 Albumin/Globulin Ratio 1.1 12/31/17 12/31/17 11:18 17:38 WBC RBC Hgb Hct MCV MCH MCHC RDW Plt Count MPV Neut % (Auto) Lymph % (Auto) [place] % (Auto) Eos % (Auto) Baso % (Auto) Neut # (Auto) Lymph # (Auto) [place] # (Auto) Eos # (Auto) Baso # (Auto) Neutrophils % (Manual) Band Neutrophils % Lymphocytes % (Manual) Monocytes % (Manual) Platelet Estimate Polychromasia Hypochromasia (manual) Anisocytosis (manual) Microcytosis (manual) Ovalocytes PT INR APTT Sodium Potassium Chloride Carbon Dioxide Anion Gap BUN Creatinine Est GFR ( Amer) Est GFR (Non-Af Amer) POC Glucose (mg/dL) 174 H Random Glucose Lactic Acid 0.9 Calcium Total Bilirubin AST ALT Alkaline Phosphatase Total Protein Albumin Globulin Albumin/Globulin Ratio
--- NOTE | 2017-12-31 22:22 | OP ---
PROCEDURE DATE: 12/31/2017 PREOPERATIVE DIAGNOSIS: Possible port infection. PROCEDURE CARRIED OUT: Removal of Port-A-Cath, right chest wall. SURGEON: Jerman Olguin MD ASSISTANTS: None. ANESTHESIOLOGIST: . TYPE OF ANESTHESIA: Local with sedation. INDICATIONS: The patient is a male with multiple medical problems, coming in with a port that has an opening in it and the port is exposed beneath. OPERATIVE FINDINGS: There was a small amount of pus around it, this was cultured, sent for bacteriology and the port inside was removed. Hemostasis was obtained after blood loss of 20 to 30 mL. The wound was partially closed, partially left opened. OPERATION CARRIED OUT: Removal of Port-A-Cath, right chest wall. Jerman Olguin Jr., MD
[2018-01-01] MEDS: (Novolin R) Insulin Human Regular 100 units/ml vial SC SCH ×4 (07:30→21:35)
--- NOTE | 2018-01-01 07:39 | CP.PCM.PN ---
Subjective - Date & Time of Evaluation Date of Evaluation: 01/01/18 Time of Evaluation: 06:50 - Subjective Subjective: Surgery progress note for Dr. Olguin Pt seen and examined at bedside this AM. No acute events overnight. patient denies any pain, fevers, SOB, chest pain Objective - Vital Signs/Intake and Output Vital Signs (last 24 hours): Temp Pulse Resp BP Pulse Ox 100.3 F H 99 H 20 103/52 L 97 01/01/18 07:26 01/01/18 07:26 01/01/18 07:26 01/01/18 07:26 01/01/18 07:26 Intake and Output: 01/01/18 01/01/18 06:59 18:59 Intake Total 100 Output Total 0 Balance 100 - Medications Medications: Current Medications Acetaminophen (Tylenol 325mg Tab) 650 mg PO Q6 PRN PRN Reason: Fever >100.4 F Calcium Acetate (Phoslo) 667 mg PO TIDCC [facility] Dextrose (Dextrose 50% Inj) 0 ml IV STAT PRN; Protocol PRN Reason: Hypoglycemia Protocol Dextrose (Glutose 15) 0 gm PO ONCE PRN; Protocol PRN Reason: Hypoglycemia Protocol Glucagon (Glucagen Diagnostic Kit) 0 mg IM STAT PRN; Protocol PRN Reason: Hypoglycemia Protocol Dextrose (Dextrose 5% In Water 1000 Ml) 1,000 mls @ 0 mls/hr IV .Q0M PRN; Protocol PRN Reason: Hypoglycemia Protocol Cefepime HCl 0.5 gm/ Dextrose 50 mls @ 100 mls/hr IVPB DAILY [facility]; Protocol Insulin Human Regular (Novolin R) 0 unit SC ACHS [facility]; Protocol Last Admin: 12/31/17 22:09 Dose: Not Given Ondansetron HCl (Zofran Inj) 4 mg IVP Q6 PRN PRN Reason: Nausea/Vomiting - Labs Labs: 12/31/17 08:23 12/31/17 08:23 PT 22.1 SECONDS (9.7-12.2) H 12/31/17 08:23 INR 2.0 12/31/17 08:23 APTT 39 SECONDS (21-34) H 12/31/17 08:23 - Constitutional Appears: Well, Non-toxic, No Acute Distress - Head Exam Head Exam: ATRAUMATIC, NORMOCEPHALIC - Eye Exam Eye Exam: Normal appearance. absent: Conjunctival injection, Scleral icterus - ENT Exam ENT Exam: Mucous Membranes Moist, Normal Oropharynx - Respiratory Exam Respiratory Exam: NORMAL BREATHING PATTERN. absent: Accessory Muscle Use, Respiratory Distress - Cardiovascular Exam Cardiovascular Exam: RRR - GI/Abdominal Exam GI & Abdominal Exam: Soft. absent: Distended, Tenderness - Extremities Exam Extremities Exam: absent: Calf Tenderness, Pedal Edema, Tenderness - Neurological Exam Neurological Exam: Alert, Awake, Oriented x3 - Psychiatric Exam Psychiatric exam: Normal Affect, Normal Mood - Skin Skin Exam: Dry, Normal Color, Warm Additional comments: dressing over site of port removal with mild amount of sanguinous saturation Assessment and Plan - Assessment and Plan (Free Text) Assessment: 62M POD#1 s/p infected portacath removal Plan: Continue antibiotics per ID F/U cultures F/U AM labs Medical management per primary No further surgical intervention necessary at this time Discussed with Dr. Clau Obando, PGY2
--- NOTE | 2018-01-01 08:55 | CP.PCM.CON ---
Past Patient History - Infectious Disease Hx of Infectious Diseases: None - Tetanus Immunizations Tetanus Immunization: Unknown - Past Medical History & Family History Past Medical History?: Yes - Past Social History Smoking Status: Never Smoked - CARDIAC Hx Cardiac Disorders: Yes Hx Atrial Fibrillation: Yes Hx Cardia Arrhythmia: Yes (A FIB) Hx Congestive Heart Failure: Yes Hx Hypertension: Yes Hx Pacemaker: Yes Hx Peripheral Edema: Yes - PULMONARY Hx Respiratory Disorders: Yes Hx Asthma: Yes Hx Chronic Obstructive Pulmonary Disease (COPD): Yes (uses CPAP for sleep apnea) Hx Sleep Apnea: Yes (C-PAP) - NEUROLOGICAL Hx Neurological Disorder: Yes (PERIPHERAL NEUROPATHY) Hx Dizziness: Yes - HEENT Hx HEENT Problems: No - RENAL Hx Chronic Kidney Disease: Yes - ENDOCRINE/METABOLIC Hx Endocrine Disorders: Yes Hx Diabetes Mellitus Type 2: Yes - HEMATOLOGICAL/ONCOLOGICAL Hx Blood Disorders: Yes Hx Blood Transfusions: Yes Hx Cancer: Yes Hx Chemotherapy: Yes 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) - INTEGUMENTARY Hx Dermatological Problems: Yes Hx Cellulitis: Yes - MUSCULOSKELETAL/RHEUMATOLOGICAL Hx Musculoskeletal Disorders: Yes Hx Arthritis: Yes Hx Falls: Yes Hx Fractures: Yes Hx Osteoporosis: Yes - GASTROINTESTINAL Hx Gastrointestinal Disorders: Yes Hx Constipation: Yes - GENITOURINARY/GYNECOLOGICAL Hx Genitourinary Disorders: Yes Other/Comment: dialysis TTS - PSYCHIATRIC Hx Psychophysiologic Disorder: Yes Hx Anxiety: Yes Hx Depression: Yes Hx Substance Use: No - SURGICAL HISTORY Hx Surgeries: Yes Hx Angiogram: Yes Hx Arteriovenous Shunt: Yes Hx Cardiac Catheterization: Yes Hx Orthopedic Surgery: Yes (KNEE) Hx Vascular Access Device: Yes (RIGHT BOZENA CATH) Other/Comment: hx back surgery T5. defibrillator/pacemaker placement - ANESTHESIA Hx Anesthesia: Yes Hx Anesthesia Reactions: No Hx Malignant Hyperthermia: No Meds Allergies/Adverse Reactions: Allergies Allergy/AdvReac Type Severity Reaction Status Date / Time No Known Allergies Allergy Verified 10/29/17 04:19 - Medications Medications: Current Medications Acetaminophen (Tylenol 325mg Tab) 650 mg PO Q6 PRN PRN Reason: Fever >100.4 F Calcium Acetate (Phoslo) 667 mg PO TIDCC [facility] Dextrose (Dextrose 50% Inj) 0 ml IV STAT PRN; Protocol PRN Reason: Hypoglycemia Protocol Dextrose (Glutose 15) 0 gm PO ONCE PRN; Protocol PRN Reason: Hypoglycemia Protocol Glucagon (Glucagen Diagnostic Kit) 0 mg IM STAT PRN; Protocol PRN Reason: Hypoglycemia Protocol Dextrose (Dextrose 5% In Water 1000 Ml) 1,000 mls @ 0 mls/hr IV .Q0M PRN; Protocol PRN Reason: Hypoglycemia Protocol Cefepime HCl 0.5 gm/ Dextrose 50 mls @ 100 mls/hr IVPB DAILY [facility]; Protocol Insulin Human Regular (Novolin R) 0 unit SC ACHS [facility]; Protocol Last Admin: 12/31/17 22:09 Dose: Not Given Ondansetron HCl (Zofran Inj) 4 mg IVP Q6 PRN PRN Reason: Nausea/Vomiting Results - Vital Signs Recent Vital Signs: Last Vital Signs Temp 99.3 F 01/01/18 08:20 Pulse 99 H 01/01/18 07:26 Resp 20 01/01/18 07:26 BP 103/52 L 01/01/18 07:26 Pulse Ox 97 01/01/18 07:26 - Labs Result Diagrams: 12/31/17 08:23 12/31/17 08:23 Labs: Laboratory Results - last 24 hr 12/31/17 12/31/17 12/31/17 08:23 11:18 17:38 Neutrophils % (Manual) 94 H Lymphocytes % (Manual) 3 L Monocytes % (Manual) 3 Platelet Estimate Normal Polychromasia Slight Hypochromasia (manual) Slight Anisocytosis (manual) Slight Ovalocytes Slight POC Glucose (mg/dL) 174 H Lactic Acid 0.9 12/31/17 01/01/18 21:17 06:14 Neutrophils % (Manual) Lymphocytes % (Manual) Monocytes % (Manual) Platelet Estimate Polychromasia Hypochromasia (manual) Anisocytosis (manual) Ovalocytes POC Glucose (mg/dL) 135 H 100 Lactic Acid
[2018-01-01 09:45] LABS: BASO # 0.1 K/uL (0.0-0.2); BASO % 1.1 % (0.0-2.0); EOS # 0.1 K/uL (0.0-0.7); EOS % 1.8 % (0.0-4.0); HEMOGLOBIN 9.9 g/dL (12.0-18.0); LYMPH # 0.6 K/uL (1.0-4.3); LYMPH % 9.4 % (20.0-40.0); MEAN CELL VOLUME 88.3 fL (80.0-94.0); MEAN CORPUSCULAR HEMOGLOBIN 29.9 pg (27.0-31.0); MEAN CORPUSCULAR HGB CONC 33.9 g/dL (33.0-37.0); MEAN PLATELET VOLUME 7.1 fL (7.2-11.7); MONO # 0.6 K/uL (0.0-0.8); MONO % 9.5 % (0.0-10.0); NEUT # 5.1 K/uL (1.8-7.0); NEUT % 78.2 % (50.0-75.0); PLATELET COUNT 186 K/uL (130-400); RBC 3.31 Mil/uL (4.40-5.90); RED CELL DISTRIBUTION WIDTH 20.1 % (11.5-14.5); WHITE BLOOD COUNT 6.5 K/uL (4.8-10.8)
[2018-01-01 09:57] LABS: INR 2.5; PROTHROMBIN TIME 27.5 SECONDS (9.7-12.2)
[2018-01-01 09:59] LABS: ALBUMIN 3.1 g/dL (3.5-5.0); CALCIUM 7.8 mg/dl (8.6-10.4)
[2018-01-01 10:18] LABS: BANDS 1 % (0-2); EOSINOPHIL 2 % (0-4); LYMPHOCYTE 10 % (20-40); MONOCYTE 3 % (0-10); NEUTROPHIL 84 % (50-75); TOTAL CELLS COUNTED 100
[2018-01-01 10:19] LABS: ANISOCYTOSIS SLIGHT; HYPOCHROMIC SLIGHT; PLATELET ESTIMATE NORMAL (NORMAL); POLYCHROMIC SLIGHT
[2018-01-01 10:20] LABS: OVALOCYTES SLIGHT
[2018-01-01] MEDS ORDERED: Potassium Chloride 20 mEq/15 ml LIQ UD PO ONE (10:25)
--- NOTE | 2018-01-01 10:38 | CP.PCM.PN ---
<Merrill Guevara - Last Filed: 01/01/18 17:45> Subjective - Date & Time of Evaluation Date of Evaluation: 01/01/18 Time of Evaluation: 09:15 - Subjective Subjective: Medicine Progress Note for Hospitalist Service Pt seen and examined at bedside this am. Denies any acute complaints, resting comfortably at bedside. No acute events reported overnight. S/p removal of portacath by Dr. Olguin POD#1. Pt denies any pain or fevers currently. 12- point ROS obtained, otherwise negative as per pt. Objective - Vital Signs/Intake and Output Vital Signs (last 24 hours): Temp Pulse Resp BP Pulse Ox 98.7 F 119 H 16 110/51 L 100 01/01/18 09:47 01/01/18 10:18 01/01/18 10:18 01/01/18 10:20 01/01/18 09:35 Intake and Output: 01/01/18 01/01/18 06:59 18:59 Intake Total 100 Output Total 0 Balance 100 - Medications Medications: Current Medications Acetaminophen (Tylenol 325mg Tab) 650 mg PO Q6 PRN PRN Reason: Fever >100.4 F Calcium Acetate (Phoslo) 667 mg PO TIDCC [facility] Last Admin: 01/01/18 08:07 Dose: Not Given Dextrose (Dextrose 50% Inj) 0 ml IV STAT PRN; Protocol PRN Reason: Hypoglycemia Protocol Dextrose (Glutose 15) 0 gm PO ONCE PRN; Protocol PRN Reason: Hypoglycemia Protocol Glucagon (Glucagen Diagnostic Kit) 0 mg IM STAT PRN; Protocol PRN Reason: Hypoglycemia Protocol Dextrose (Dextrose 5% In Water 1000 Ml) 1,000 mls @ 0 mls/hr IV .Q0M PRN; Protocol PRN Reason: Hypoglycemia Protocol Cefepime HCl 0.5 gm/ Dextrose 50 mls @ 100 mls/hr IVPB DAILY [facility]; Protocol Last Admin: 01/01/18 10:06 Dose: Not Given Insulin Human Regular (Novolin R) 0 unit SC ACHS [facility]; Protocol Last Admin: 01/01/18 07:30 Dose: Not Given Ondansetron HCl (Zofran Inj) 4 mg IVP Q6 PRN PRN Reason: Nausea/Vomiting - Labs Labs: 01/01/18 09:39 01/01/18 09:39 PT 27.5 SECONDS (9.7-12.2) H D 01/01/18 09:39 INR 2.5 D 01/01/18 09:39 APTT 40 SECONDS (21-34) H 01/01/18 09:39 - Constitutional Appears: Non-toxic, No Acute Distress - Head Exam Head Exam: ATRAUMATIC, NORMOCEPHALIC - Eye Exam Eye Exam: EOMI, Normal appearance, PERRL - ENT Exam ENT Exam: Mucous Membranes Moist - Respiratory Exam Respiratory Exam: Clear to Ausculation Bilateral, NORMAL BREATHING PATTERN. absent: Rales, Rhonchi, Wheezes - Cardiovascular Exam Cardiovascular Exam: REGULAR RHYTHM, +S1, +S2. absent: Gallop, Rubs, Murmur - GI/Abdominal Exam GI & Abdominal Exam: Soft, Normal Bowel Sounds. absent: Distended, Firm, Guarding, Rigid, Tenderness, Organomegaly, Rebound - Extremities Exam Extremities Exam: Full ROM, Normal Capillary Refill. absent: Calf Tenderness, Pedal Edema - Neurological Exam Neurological Exam: Alert, Awake, CN II-XII Intact, Oriented x3 - Psychiatric Exam Psychiatric exam: Normal Affect, Normal Mood - Skin Skin Exam: Dry, Intact, Normal Color, Warm Additional comments: Dressing c/d/i in area of former portacath placement Assessment and Plan - Assessment and Plan (Free Text) Assessment: 62M with PMH ESRD, DM, CHF, A FIB W/RVR, AML, HTN, COPD, sleep apnea presents to ED with port a cath infection s/p HD. Pt admitted for further treatment of abscess. Plan: Abscess - Pt with port a cath, draining white purulent fluid on R chest on admission; s/p removal by Surgery POD#1, pt doing well post-op - Tmax 1002F on admission, cont to monitor temps today, currently afebrile - WBC 9.5 on admission; today 6.5 - Cefepime 0.5 g daily started today as per ID recs - F/u BCx, Wound Cx growing S. aureus (f/u final sensitivities) - INR 2.5 today, will hold coumadin today - F/u coags - Vascular surgery consulted, Dr. Olguin - f/u recs; no further acute surgical management needed at this time - ID consulted, Dr. Lizarraga - f/u recs - Lactate wnl; procal ordered, f/u - 2D echo ordered to r/o endocarditis, f/u results ESRD - HD MWF - BUN/Cr today 59/5.2 - Nephro consulted, Dr. Rice - f/u recs DM - accuchecks q6h - low dose sliding scale - hypoglycemia protocol HTN - BP 97/52 on admission, BP stable today, pt states his normal bp at home is 90s/50s, currently asymptomatic - Hold home metoprolol NIKOLE - pt uses CPAP at home - not amenable to using bipap - to bring home CPAP for use inpatient B/l LE Ulcers - On exam noted in L heel superior aspect, R achilles tendon area - Podiatry consulted (Dr. Nunn) for wound care, recs appreciated Hx Pacemaker, CHF - Per Pt's pt has not followed with cardiology outpatient in a while - Cardiology (Dr. Stiles) consulted, recs appreciated - Metoprolol held for low bps, continue to monitor PPX Warfarin held today due to INR 2.5 Renal diet Pt seen, examined with, and plan d/w Dr. Duong, attending physician. Merrill Guevara DO PGY1, [employer] Pager #[phone] <John Duong - Last Filed: 01/02/18 18:57> Objective - Vital Signs/Intake and Output Vital Signs (last 24 hours): Temp Pulse Resp BP Pulse Ox 97.6 F 102 H 20 106/70 97 01/02/18 15:05 01/02/18 15:05 01/02/18 15:05 01/02/18 18:37 01/02/18 15:05 Intake and Output: 01/02/18 01/02/18 06:59 18:59 Intake Total 650 Balance 650 - Medications Medications: Current Medications Acetaminophen (Tylenol 325mg Tab) 650 mg PO Q6 PRN PRN Reason: Fever >100.4 F Calcium Acetate (Phoslo) 667 mg PO TIDCC [facility] Last Admin: 01/02/18 17:01 Dose: 667 mg Dextrose (Dextrose 50% Inj) 0 ml IV STAT PRN; Protocol PRN Reason: Hypoglycemia Protocol Dextrose (Glutose 15) 0 gm PO ONCE PRN; Protocol PRN Reason: Hypoglycemia Protocol Glucagon (Glucagen Diagnostic Kit) 0 mg IM STAT PRN; Protocol PRN Reason: Hypoglycemia Protocol Dextrose (Dextrose 5% In Water 1000 Ml) 1,000 mls @ 0 mls/hr IV .Q0M PRN; Protocol PRN Reason: Hypoglycemia Protocol Cefepime HCl 0.5 gm/ Dextrose 50 mls @ 100 mls/hr IVPB DAILY [facility]; Protocol Last Admin: 01/02/18 12:24 Dose: 100 mls/hr Insulin Human Regular (Novolin R) 0 unit SC ACHS [facility]; Protocol Last Admin: 01/02/18 16:30 Dose: Not Given Ondansetron HCl (Zofran Inj) 4 mg IVP Q6 PRN PRN Reason: Nausea/Vomiting - Labs Labs: 01/02/18 07:42 01/02/18 07:42 PT 24.5 SECONDS (9.7-12.2) H 01/02/18 07:42 INR 2.2 01/02/18 07:42 APTT 39 SECONDS (21-34) H 01/02/18 07:42 Attending/Attestation - Attestation I have personally seen and examined this patient.: Yes I have fully participated in the care of the patient.: Yes I have reviewed all pertinent clinical information, including history, physical exam and plan: Yes Notes (Text): 01/02/18 18:56 This is a late entry. Care of this patient was gone over in detail with resident Dr. Paola Duong D.O.
[2018-01-01] MEDS ORDERED: Vancomycin 1 gm/NS 200 ml 1 GM/200 ML BAG IVPB ONE (11:25)
--- NOTE | 2018-01-01 13:12 | CP.PCM.PN ---
Subjective - Date & Time of Evaluation Date of Evaluation: 01/01/18 Time of Evaluation: 13:09 - Subjective Subjective: seen and examiendin hd s/p portacath removal afebrile, bp chronically low denies any pain sob cp dizziness palpitations f/c/n/v/d Objective - Vital Signs/Intake and Output Vital Signs (last 24 hours): Temp Pulse Resp BP Pulse Ox 98.7 F 119 H 16 86/32 L 100 01/01/18 09:47 01/01/18 10:18 01/01/18 10:18 01/01/18 11:35 01/01/18 09:35 Intake and Output: 01/01/18 01/01/18 06:59 18:59 Intake Total 100 Output Total 0 Balance 100 - Medications Medications: Current Medications Acetaminophen (Tylenol 325mg Tab) 650 mg PO Q6 PRN PRN Reason: Fever >100.4 F Calcium Acetate (Phoslo) 667 mg PO TIDCC [facility] Last Admin: 01/01/18 08:07 Dose: Not Given Dextrose (Dextrose 50% Inj) 0 ml IV STAT PRN; Protocol PRN Reason: Hypoglycemia Protocol Dextrose (Glutose 15) 0 gm PO ONCE PRN; Protocol PRN Reason: Hypoglycemia Protocol Glucagon (Glucagen Diagnostic Kit) 0 mg IM STAT PRN; Protocol PRN Reason: Hypoglycemia Protocol Dextrose (Dextrose 5% In Water 1000 Ml) 1,000 mls @ 0 mls/hr IV .Q0M PRN; Protocol PRN Reason: Hypoglycemia Protocol Cefepime HCl 0.5 gm/ Dextrose 50 mls @ 100 mls/hr IVPB DAILY [facility]; Protocol Last Admin: 01/01/18 10:06 Dose: Not Given Insulin Human Regular (Novolin R) 0 unit SC ACHS [facility]; Protocol Last Admin: 01/01/18 07:30 Dose: Not Given Ondansetron HCl (Zofran Inj) 4 mg IVP Q6 PRN PRN Reason: Nausea/Vomiting - Labs Labs: 01/01/18 09:39 01/01/18 09:39 PT 27.5 SECONDS (9.7-12.2) H D 01/01/18 09:39 INR 2.5 D 01/01/18 09:39 APTT 40 SECONDS (21-34) H 01/01/18 09:39 - Constitutional Appears: Non-toxic, No Acute Distress, Older Than Stated Age, Chronically Ill - Head Exam Head Exam: NORMAL INSPECTION, NORMOCEPHALIC - Eye Exam Eye Exam: Normal appearance, PERRL - ENT Exam ENT Exam: Mucous Membranes Moist, Normal Exam - Neck Exam Neck Exam: Full ROM, Normal Inspection - Respiratory Exam Respiratory Exam: Decreased Breath Sounds, NORMAL BREATHING PATTERN - Cardiovascular Exam Cardiovascular Exam: Irregular Rhythm - GI/Abdominal Exam GI & Abdominal Exam: Distended, Soft - Extremities Exam Extremities Exam: Normal Inspection, Pedal Edema (chronic stasis skin changes) - Neurological Exam Neurological Exam: Alert, Awake - Psychiatric Exam Psychiatric exam: Normal Affect, Normal Mood - Skin Skin Exam: Intact Assessment and Plan (1) Fever Status: Acute (2) Infection due to Port-A-Cath Status: Acute (3) ESRD (end stage renal disease) Status: Acute (4) A-fib Status: Chronic (5) Anemia Status: Chronic - Assessment and Plan (Free Text) Assessment: staph bacteremia, catheter associated esrd dm hypotension plan: recommend echo - r/o endocarditis, antibiotics hd mwf james w/ hd
--- NOTE | 2018-01-01 19:44 | CP.PCM.PN ---
Subjective - Date & Time of Evaluation Date of Evaluation: 01/01/18 Time of Evaluation: 19:40 - Subjective Subjective: INFECTIOUS DISEASE PROGRESS NOTES IRIS DOMINGUEZ MD, FACP 01/01/2018 CHART REVIEWED PT EXAMINED CASE DISCUSSED ADJUSTING VANCOMYCIN DOSING, KEEP TROUGH LEVELS BETWEEN 15-20. W/U DISCUSSED, C/S STAPH AURUS-SENSITIVITES PENDING. s/p portacath removal afebrile, bp chronically low denies any pain sob cp dizziness palpitations f/c/n/v/d Objective - Vital Signs/Intake and Output Vital Signs (last 24 hours): Temp Pulse Resp BP Pulse Ox 98.7 F 119 H 16 86/32 L 100 01/01/18 09:47 01/01/18 10:18 01/01/18 10:18 01/01/18 11:35 01/01/18 09:35 Intake and Output: 01/01/18 01/01/18 06:59 18:59 Intake Total 100 Output Total 0 Balance 100 - Medications Medications: Current Medications Acetaminophen (Tylenol 325mg Tab) 650 mg PO Q6 PRN PRN Reason: Fever >100.4 F Calcium Acetate (Phoslo) 667 mg PO [facility] Last Admin: 01/01/18 08:07 Dose: Not Given Dextrose (Dextrose 50% Inj) 0 ml IV STAT PRN; Protocol PRN Reason: Hypoglycemia Protocol Dextrose (Glutose 15) 0 gm PO ONCE PRN; Protocol PRN Reason: Hypoglycemia Protocol Glucagon (Glucagen Diagnostic Kit) 0 mg IM STAT PRN; Protocol PRN Reason: Hypoglycemia Protocol Dextrose (Dextrose 5% In Water 1000 Ml) 1,000 mls @ 0 mls/hr IV .Q0M PRN; Protocol PRN Reason: Hypoglycemia Protocol Cefepime HCl 0.5 gm/ Dextrose 50 mls @ 100 mls/hr IVPB DAILY [facility]; Protocol Last Admin: 01/01/18 10:06 Dose: Not Given Insulin Human Regular (Novolin R) 0 unit SC ACHS [facility]; Protocol Last Admin: 01/01/18 07:30 Dose: Not Given Ondansetron HCl (Zofran Inj) 4 mg IVP Q6 PRN PRN Reason: Nausea/Vomiting - Labs Labs: 01/01/18 09:39 01/01/18 09:39 PT 27.5 SECONDS (9.7-12.2) H D 01/01/18 09:39 INR 2.5 D 01/01/18 09:39 APTT 40 SECONDS (21-34) H 01/01/18 09:39 - Constitutional Appears: Non-toxic, No Acute Distress, Older Than Stated Age, Chronically Ill - Head Exam Head Exam: NORMAL INSPECTION, NORMOCEPHALIC - Eye Exam Eye Exam: Normal appearance, PERRL - ENT Exam ENT Exam: Mucous Membranes Moist, Normal Exam - Neck Exam Neck Exam: Full ROM, Normal Inspection - Respiratory Exam Respiratory Exam: Decreased Breath Sounds, NORMAL BREATHING PATTERN - Cardiovascular Exam Cardiovascular Exam: Irregular Rhythm - GI/Abdominal Exam GI & Abdominal Exam: Distended, Soft - Extremities Exam Extremities Exam: Normal Inspection, Pedal Edema (chronic stasis skin changes) - Neurological Exam Neurological Exam: Alert, Awake - Psychiatric Exam Psychiatric exam: Normal Affect, Normal Mood - Skin Skin Exam: Intact Assessment and Plan (1) Fever Status: Acute (2) Infection due to Port-A-Cath Status: Acute (3) ESRD (end stage renal disease) Status: Acute (4) A-fib Status: Chronic (5) Anemia Status: Chronic - Assessment and Plan (Free Text) Assessment: staph bacteremia, catheter associated esrd dm hypotension plan: recommend echo - r/o endocarditis, antibiotics hd mwf james w/ hd Objective - Vital Signs/Intake and Output Vital Signs (last 24 hours): Temp Pulse Resp BP Pulse Ox 98.1 F 119 H 20 106/74 98 01/01/18 15:00 01/01/18 15:00 01/01/18 15:00 01/01/18 15:00 01/01/18 15:00 - Medications Medications: Current Medications Acetaminophen (Tylenol 325mg Tab) 650 mg PO Q6 PRN PRN Reason: Fever >100.4 F Calcium Acetate (Phoslo) 667 mg PO [facility] Last Admin: 01/01/18 17:53 Dose: 667 mg Dextrose (Dextrose 50% Inj) 0 ml IV STAT PRN; Protocol PRN Reason: Hypoglycemia Protocol Dextrose (Glutose 15) 0 gm PO ONCE PRN; Protocol PRN Reason: Hypoglycemia Protocol Glucagon (Glucagen Diagnostic Kit) 0 mg IM STAT PRN; Protocol PRN Reason: Hypoglycemia Protocol Dextrose (Dextrose 5% In Water 1000 Ml) 1,000 mls @ 0 mls/hr IV .Q0M PRN; Protocol PRN Reason: Hypoglycemia Protocol Cefepime HCl 0.5 gm/ Dextrose 50 mls @ 100 mls/hr IVPB DAILY [facility]; Protocol Last Admin: 01/01/18 14:05 Dose: 100 mls/hr Insulin Human Regular (Novolin R) 0 unit SC ACHS [facility]; Protocol Last Admin: 01/01/18 17:53 Dose: Not Given Ondansetron HCl (Zofran Inj) 4 mg IVP Q6 PRN PRN Reason: Nausea/Vomiting - Labs Labs: 01/01/18 09:39 01/01/18 09:39 PT 27.5 SECONDS (9.7-12.2) H D 01/01/18 09:39 INR 2.5 D 01/01/18 09:39 APTT 40 SECONDS (21-34) H 01/01/18 09:39
--- NOTE | 2018-01-01 21:24 | CARD ---
APPROVED REPORT Date of service: 01/01/2018 EXAM: Two-dimensional and M-mode echocardiogram with Doppler and color Doppler. Other Information Quality : TDSRhythm : INDICATION Infection:Rule out subacute bacterial endocarditis ESRD 2D DIMENSIONS IVSd1.1 (0.7-1.1cm)LVDd4.6 (3.9-5.9cm) PWd1.1 (0.7-1.1cm)LVDs3.4 (2.5-4.0cm) FS (%) 26.5 %LVEF (%)51.9 (>50%) LVEF (Downing's)50 % M-Mode DIMENSIONS Left Atrium (MM)5.38 (2.5-4.0cm)IVSd1.18 (0.7-1.1cm) Aortic Root3.51 (2.2-3.7cm)LVDd4.48 (4.0-5.6cm) Aortic Cusp Exc.1.46 (1.5-2.0cm)PWd1.18 (0.7-1.1cm) FS (%) 27 %LVDs3.28 (2.0-3.8cm) LVEF (%)53 (>50%) Mitral Valve MV E Fgfjgdid68.5cm/sMV A Ezvqokbo55.0cm/sE/A ratio3.1 TDI Lateral E' Peak V11.34cm/sMedial E' Peak V6.42cm/sE/Lateral E'7.4 E/Medial E'13.0 Tricuspid Valve TR Peak Plhyetyk170ps/sTR Peak Gr.[id number] LEFT VENTRICLE The left ventricle is normal size. There is mildly increasedleft ventricular wall thickness. The left ventricular function is mils to modderately reduced, with anteroseptal hypokinesis, and septal flattening c/w elevated RV pressure. The left ventricular ejection fraction is about 40-45% The left ventricular diastolic function is indeterminate No left ventricle thrombus noted on this study. There is no ventricular septal defect visualized. There is no left ventricular aneurysm. There is no mass noted in the left ventricle. RIGHT VENTRICLE The right ventricle is severely dilated. Systolic function is severely reduced. A ppm wire is noted. ATRIA The left atrium size is normal. The right atrium size is normal. The interatrial septum is intact with no evidence for an atrial septal defect. AORTIC VALVE The aortic valve is calcified, and demonstrates mildly to moderately reduced opening. Peak gradient was 12 mm Hg, valve area was not performed. No aortic regurgitation is present. There is no aortic valvular vegetation. MITRAL VALVE The mitral valve is normal in structure and function. There is no evidence of mitral valve prolapse. There is no mitral valve stenosis. There is no mitral valve regurgitation noted. TRICUSPID VALVE The tricuspid valve is normal in structure and function. There is mild tricuspid valve regurgitation noted. Gradient is 30 mm H. There is no tricuspid valve prolapse or vegetation. There is no tricuspid valve stenosis. PULMONIC VALVE The pulmonary valve is normal in structure and function. There is no pulmonic valvular regurgitation. There is no pulmonic valvular stenosis. GREAT VESSELS The aortic root is normal in size. The ascending aorta is normal in size. The pulmonary artery is normal. The IVC is dilated n size and collapses <50% with inspiration. PERICARDIAL EFFUSION The pericardium appears normal. There is no pleural effusion. <Conclusion> The left ventricular function is mild to moderately reduced, with anteroseptal hypokinesis, and septal flattening c/w elevated RV pressure. The aortic valve is calcified, and demonstrates mildly to moderately reduced opening. Peak gradient was 12 mm Hg, valve area was not performed. There is mildly increasedleft ventricular wall thickness. The right ventricle is severely dilated. Systolic function is severely reduced. There is likely severe pulmonary HTN, underestimated by coppler.
--- NOTE | 2018-01-01 23:11 | CP.PCM.CON ---
History of Present Illness - History of Present Illness History of Present Illness: This is a 62 years old male who is hospitalized for a fever, and appearance of pus at the site of the bozena-cath for the past 3 days. He is known to have a chronic atrial fibrillation, a cardiomyopathy, a COPD, an NIKOLE, a leukemia in [place], a ventricular with ICD insertion. Blood culture revealed Gram positive bacteria. An echocardiogram done today shows a slightly hypertrophic LV with a hypokinetic septum, and a slightly reduced overall LVEF, a severe pulmonary hypertension, with dilated RV,RA, IVC. The aortic valve is sclerotic with mild stenosis, no obvious vegetation, no insufficiency. There is also mild MR, TR and LA dilatation. PT: INR: 2.5 Review of Systems - Constitutional Constitutional: Fatigue, Fever - Musculoskeletal Additional comments: Edema of both lower legs. Past Patient History - Infectious Disease Hx of Infectious Diseases: None - Tetanus Immunizations Tetanus Immunization: Unknown - Past Medical History & Family History Past Medical History?: Yes - Past Social History Smoking Status: Never Smoked Alcohol: None Drugs: Denies Home Situation {Lives}: With Family Domestic Violence: Negative - CARDIAC Hx Cardiac Disorders: Yes Hx Atrial Fibrillation: Yes Hx Cardia Arrhythmia: Yes (A FIB) Hx Congestive Heart Failure: Yes Hx Hypertension: Yes Hx Internal Defibrillator: Yes Hx Pacemaker: Yes Hx Peripheral Edema: Yes - PULMONARY Hx Respiratory Disorders: Yes Hx Asthma: Yes Hx Chronic Obstructive Pulmonary Disease (COPD): Yes (uses CPAP for sleep apnea) Hx Sleep Apnea: Yes (C-PAP) - NEUROLOGICAL Hx Neurological Disorder: Yes (PERIPHERAL NEUROPATHY) Hx Dizziness: Yes - HEENT Hx HEENT Problems: No - RENAL Hx Chronic Kidney Disease: Yes - ENDOCRINE/METABOLIC Hx Endocrine Disorders: Yes Hx Diabetes Mellitus Type 2: Yes - HEMATOLOGICAL/ONCOLOGICAL Hx Blood Disorders: Yes Hx Blood Transfusions: Yes Hx Cancer: Yes Hx Chemotherapy: Yes 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) - INTEGUMENTARY Hx Dermatological Problems: Yes Hx Cellulitis: Yes - MUSCULOSKELETAL/RHEUMATOLOGICAL Hx Musculoskeletal Disorders: Yes Hx Arthritis: Yes Hx Falls: Yes Hx Fractures: Yes Hx Osteoporosis: Yes - GASTROINTESTINAL Hx Gastrointestinal Disorders: Yes Hx Constipation: Yes - GENITOURINARY/GYNECOLOGICAL Hx Genitourinary Disorders: Yes Other/Comment: dialysis TTS - PSYCHIATRIC Hx Psychophysiologic Disorder: Yes Hx Anxiety: Yes Hx Depression: Yes Hx Substance Use: No - SURGICAL HISTORY Hx Surgeries: Yes Hx Angiogram: Yes Hx Arteriovenous Shunt: Yes Hx Cardiac Catheterization: Yes Hx Musculoskeletal Surgery: Yes (spinal surgery for an abscess of the yhoracic spines.) Hx Orthopedic Surgery: Yes (KNEE) Hx Vascular Access Device: Yes (RIGHT BOZENA CATH) Other/Comment: hx back surgery T5. defibrillator/pacemaker placement - ANESTHESIA Hx Anesthesia: Yes Hx Anesthesia Reactions: No Hx Malignant Hyperthermia: No Meds Allergies/Adverse Reactions: Allergies Allergy/AdvReac Type Severity Reaction Status Date / Time No Known Allergies Allergy Verified 10/29/17 04:19 - Medications Medications: Current Medications Acetaminophen (Tylenol 325mg Tab) 650 mg PO Q6 PRN PRN Reason: Fever >100.4 F Calcium Acetate (Phoslo) 667 mg PO TIDCC [facility] Last Admin: 01/01/18 17:53 Dose: 667 mg Dextrose (Dextrose 50% Inj) 0 ml IV STAT PRN; Protocol PRN Reason: Hypoglycemia Protocol Dextrose (Glutose 15) 0 gm PO ONCE PRN; Protocol PRN Reason: Hypoglycemia Protocol Glucagon (Glucagen Diagnostic Kit) 0 mg IM STAT PRN; Protocol PRN Reason: Hypoglycemia Protocol Dextrose (Dextrose 5% In Water 1000 Ml) 1,000 mls @ 0 mls/hr IV .Q0M PRN; Protocol PRN Reason: Hypoglycemia Protocol Cefepime HCl 0.5 gm/ Dextrose 50 mls @ 100 mls/hr IVPB DAILY [facility]; Protocol Last Admin: 01/01/18 14:05 Dose: 100 mls/hr Insulin Human Regular (Novolin R) 0 unit SC ACHS [facility]; Protocol Last Admin: 01/01/18 21:35 Dose: Not Given Ondansetron HCl (Zofran Inj) 4 mg IVP Q6 PRN PRN Reason: Nausea/Vomiting Physical Exam - Constitutional Appears: Toxic, No Acute Distress, Chronically Ill - Head Exam Head Exam: NORMAL INSPECTION - Eye Exam Eye Exam: Normal appearance Pupil Exam: NORMAL ACCOMODATION - Neck Exam Neck exam: Positive for: Normal Inspection - Respiratory Exam Respiratory Exam: Clear to Auscultation Bilateral - Cardiovascular Exam Cardiovascular Exam: Tachycardia, Irregular Rhythm, Systolic Murmur - GI/Abdominal Exam GI & Abdominal Exam: Normal Bowel Sounds - Rectal Exam Rectal Exam: Deferred - Extremities Exam Extremities exam: Positive for: pedal edema - Back Exam Back exam: NORMAL INSPECTION - Neurological Exam Neurological exam: Alert, Oriented x3 - Psychiatric Exam Psychiatric exam: Anxious - Skin Skin Exam: Dry, Intact, Warm Results - Vital Signs Recent Vital Signs: Last Vital Signs Temp 98.1 F 01/01/18 15:00 Pulse 119 H 01/01/18 15:00 Resp 20 01/01/18 15:00 BP 106/74 01/01/18 15:00 Pulse Ox 98 01/01/18 15:00 - Labs Result Diagrams: 01/01/18 09:39 01/01/18 09:39 Labs: Laboratory Results - last 24 hr 01/01/18 01/01/18 01/01/18 06:14 09:39 09:39 WBC 6.5 RBC 3.31 L Hgb 9.9 L Hct 29.3 L MCV 88.3 MCH 29.9 MCHC 33.9 RDW 20.1 H Plt Count 186 MPV 7.1 L Neut % (Auto) 78.2 H Lymph % (Auto) 9.4 L [place] % (Auto) 9.5 Eos % (Auto) 1.8 Baso % (Auto) 1.1 Neut # (Auto) 5.1 Lymph # (Auto) 0.6 L [place] # (Auto) 0.6 Eos # (Auto) 0.1 Baso # (Auto) 0.1 Neutrophils % (Manual) 84 H Band Neutrophils % 1 Lymphocytes % (Manual) 10 L Monocytes % (Manual) 3 Eosinophils % (Manual) 2 Platelet Estimate Normal Polychromasia Slight Hypochromasia (manual) Slight Anisocytosis (manual) Slight Ovalocytes Slight PT INR APTT Sodium Potassium Chloride Carbon Dioxide Anion Gap BUN Creatinine Est GFR ( Amer) Est GFR (Non-Af Amer) POC Glucose (mg/dL) 100 Random Glucose Calcium Total Bilirubin AST ALT Alkaline Phosphatase Total Protein Albumin Globulin Albumin/Globulin Ratio Procalcitonin 4.31 H Random Vancomycin 01/01/18 01/01/18 01/01/18 09:39 09:39 09:39 WBC RBC Hgb Hct MCV MCH MCHC RDW Plt Count MPV Neut % (Auto) Lymph % (Auto) [place] % (Auto) Eos % (Auto) Baso % (Auto) Neut # (Auto) Lymph # (Auto) [place] # (Auto) Eos # (Auto) Baso # (Auto) Neutrophils % (Manual) Band Neutrophils % Lymphocytes % (Manual) Monocytes % (Manual) Eosinophils % (Manual) Platelet Estimate Polychromasia Hypochromasia (manual) Anisocytosis (manual) Ovalocytes PT 27.5 H D INR 2.5 D APTT 40 H Sodium 132 Potassium 3.5 L Chloride 93 L Carbon Dioxide 24 Anion Gap 19 BUN 59 H Creatinine 5.2 H Est GFR ( Amer) 14 Est GFR (Non-Af Amer) 11 POC Glucose (mg/dL) Random Glucose 167 H Calcium 7.8 L Total Bilirubin 1.1 AST 18 ALT 20 L Alkaline Phosphatase 307 H Total Protein 6.3 Albumin 3.1 L Globulin 3.1 Albumin/Globulin Ratio 1.0 Procalcitonin Random Vancomycin 7.4 01/01/18 01/01/18 01/01/18 11:10 16:17 21:07 WBC RBC Hgb Hct MCV MCH MCHC RDW Plt Count MPV Neut % (Auto) Lymph % (Auto) [place] % (Auto) Eos % (Auto) Baso % (Auto) Neut # (Auto) Lymph # (Auto) [place] # (Auto) Eos # (Auto) Baso # (Auto) Neutrophils % (Manual) Band Neutrophils % Lymphocytes % (Manual) Monocytes % (Manual) Eosinophils % (Manual) Platelet Estimate Polychromasia Hypochromasia (manual) Anisocytosis (manual) Ovalocytes PT INR APTT Sodium Potassium Chloride Carbon Dioxide Anion Gap BUN Creatinine Est GFR ( Amer) Est GFR (Non-Af Amer) POC Glucose (mg/dL) 132 H 223 H 160 H Random Glucose Calcium Total Bilirubin AST ALT Alkaline Phosphatase Total Protein Albumin Globulin Albumin/Globulin Ratio Procalcitonin Random Vancomycin Assessment & Plan (1) Sepsis associated with vascular access catheter Assessment and Plan: Patient is on Cefepime by Dr Lizarraga. Status: Acute (2) Fever Status: Acute (3) ESRD needing dialysis Status: Acute (4) Atrial fibrillation Assessment and Plan: Coumadin is on hold for possible bozena-cath insertion after sepsis is eradicate d. To start IV heparin instead, if PT/INR start to go down. Status: Acute
[2018-01-02] MEDS: (Novolin R) Insulin Human Regular 100 units/ml vial SC SCH ×4 (07:37→21:33)
[2018-01-02 07:52] LABS: BASO % 0.7 % (0.0-2.0); EOS # 0.3 K/uL (0.0-0.7); EOS % 4.4 % (0.0-4.0); HEMOGLOBIN 9.8 g/dL (12.0-18.0); LYMPH # 0.8 K/uL (1.0-4.3); LYMPH % 12.9 % (20.0-40.0); MEAN CELL VOLUME 88.8 fL (80.0-94.0); MEAN CORPUSCULAR HEMOGLOBIN 28.2 pg (27.0-31.0); MEAN CORPUSCULAR HGB CONC 31.8 g/dL (33.0-37.0); MEAN PLATELET VOLUME 7.2 fL (7.2-11.7); MONO # 0.7 K/uL (0.0-0.8); NEUT # 4.1 K/uL (1.8-7.0); NRBC % 0.1 % (0.0-2.0); RBC 3.49 Mil/uL (4.40-5.90); RED CELL DISTRIBUTION WIDTH 19.4 % (11.5-14.5); WHITE BLOOD COUNT 5.9 K/uL (4.8-10.8)
[2018-01-02 08:14] LABS: INR 2.2; PROTHROMBIN TIME 24.5 SECONDS (9.7-12.2)
[2018-01-02 08:22] LABS: CALCIUM 7.9 mg/dl (8.6-10.4)
--- NOTE | 2018-01-02 08:38 | CP.PCM.PN ---
Subjective - Date & Time of Evaluation Date of Evaluation: 01/02/18 Time of Evaluation: 07:10 - Subjective Subjective: surgery progress note for Dr. Olguin Pt seen and examined this AM. No adverse events overnight. Pt denies any chest pain, SOB, fevers or chills. Objective - Vital Signs/Intake and Output Vital Signs (last 24 hours): Temp Pulse Resp BP Pulse Ox 98.5 F 118 H 20 104/70 97 01/02/18 08:10 01/02/18 08:10 01/02/18 08:10 01/02/18 08:10 01/02/18 08:10 - Medications Medications: Current Medications Acetaminophen (Tylenol 325mg Tab) 650 mg PO Q6 PRN PRN Reason: Fever >100.4 F Calcium Acetate (Phoslo) 667 mg PO TIDCC [facility] Last Admin: 01/01/18 17:53 Dose: 667 mg Dextrose (Dextrose 50% Inj) 0 ml IV STAT PRN; Protocol PRN Reason: Hypoglycemia Protocol Dextrose (Glutose 15) 0 gm PO ONCE PRN; Protocol PRN Reason: Hypoglycemia Protocol Glucagon (Glucagen Diagnostic Kit) 0 mg IM STAT PRN; Protocol PRN Reason: Hypoglycemia Protocol Dextrose (Dextrose 5% In Water 1000 Ml) 1,000 mls @ 0 mls/hr IV .Q0M PRN; Protocol PRN Reason: Hypoglycemia Protocol Cefepime HCl 0.5 gm/ Dextrose 50 mls @ 100 mls/hr IVPB DAILY [facility]; Protocol Last Admin: 01/01/18 14:05 Dose: 100 mls/hr Insulin Human Regular (Novolin R) 0 unit SC ACHS [facility]; Protocol Last Admin: 01/02/18 07:37 Dose: Not Given Ondansetron HCl (Zofran Inj) 4 mg IVP Q6 PRN PRN Reason: Nausea/Vomiting - Labs Labs: 01/02/18 07:42 01/02/18 07:42 PT 24.5 SECONDS (9.7-12.2) H 01/02/18 07:42 INR 2.2 01/02/18 07:42 APTT 39 SECONDS (21-34) H 01/02/18 07:42 - Constitutional Appears: Well, Non-toxic, No Acute Distress - Head Exam Head Exam: ATRAUMATIC, NORMOCEPHALIC - Eye Exam Eye Exam: Normal appearance. absent: Conjunctival injection, Scleral icterus - ENT Exam ENT Exam: Mucous Membranes Moist, Normal Oropharynx - Respiratory Exam Respiratory Exam: NORMAL BREATHING PATTERN. absent: Accessory Muscle Use, Respiratory Distress - Cardiovascular Exam Cardiovascular Exam: Tachycardia, REGULAR RHYTHM - GI/Abdominal Exam GI & Abdominal Exam: Soft. absent: Distended - Neurological Exam Neurological Exam: Alert, Awake, Oriented x3 - Psychiatric Exam Psychiatric exam: Anxious, Normal Affect - Skin Skin Exam: Dry, Warm Additional comments: incision site in the right upper chest with minimal erythema, no purulent drainage expressed, no bleeding Assessment and Plan - Assessment and Plan (Free Text) Assessment: 62M with infected portacath POD#2 s/p removal of portacath Plan: Continue antibiotics per ID F/U wound cultures from OR PRN pain medication Daily dressing changes Medical management per primary Discussed with Dr. Clau Obando, PGY2
--- NOTE | 2018-01-02 09:41 | CP.PCM.CON ---
<Isreal Nunn - Last Filed: 01/02/18 09:41> Past Patient History - Infectious Disease Hx of Infectious Diseases: None - Tetanus Immunizations Tetanus Immunization: Unknown - Past Medical History & Family History Past Medical History?: Yes - Past Social History Smoking Status: Never Smoked Alcohol: None Drugs: Denies Home Situation {Lives}: With Family Domestic Violence: Negative - CARDIAC Hx Cardiac Disorders: Yes Hx Atrial Fibrillation: Yes Hx Cardia Arrhythmia: Yes (A FIB) Hx Congestive Heart Failure: Yes Hx Hypertension: Yes Hx Internal Defibrillator: Yes Hx Pacemaker: Yes Hx Peripheral Edema: Yes - PULMONARY Hx Respiratory Disorders: Yes Hx Asthma: Yes Hx Chronic Obstructive Pulmonary Disease (COPD): Yes (uses CPAP for sleep apnea) Hx Sleep Apnea: Yes (C-PAP) - NEUROLOGICAL Hx Neurological Disorder: Yes (PERIPHERAL NEUROPATHY) Hx Dizziness: Yes - HEENT Hx HEENT Problems: No - RENAL Hx Chronic Kidney Disease: Yes - ENDOCRINE/METABOLIC Hx Endocrine Disorders: Yes Hx Diabetes Mellitus Type 2: Yes - HEMATOLOGICAL/ONCOLOGICAL Hx Blood Disorders: Yes Hx Blood Transfusions: Yes Hx Cancer: Yes Hx Chemotherapy: Yes 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) - INTEGUMENTARY Hx Dermatological Problems: Yes Hx Cellulitis: Yes - MUSCULOSKELETAL/RHEUMATOLOGICAL Hx Musculoskeletal Disorders: Yes Hx Arthritis: Yes Hx Falls: Yes Hx Fractures: Yes Hx Osteoporosis: Yes - GASTROINTESTINAL Hx Gastrointestinal Disorders: Yes Hx Constipation: Yes - GENITOURINARY/GYNECOLOGICAL Hx Genitourinary Disorders: Yes Other/Comment: dialysis TTS - PSYCHIATRIC Hx Psychophysiologic Disorder: Yes Hx Anxiety: Yes Hx Depression: Yes Hx Substance Use: No - SURGICAL HISTORY Hx Surgeries: Yes Hx Angiogram: Yes Hx Arteriovenous Shunt: Yes Hx Cardiac Catheterization: Yes Hx Musculoskeletal Surgery: Yes (spinal surgery for an abscess of the yhoracic spines.) Hx Orthopedic Surgery: Yes (KNEE) Hx Vascular Access Device: Yes (RIGHT BOZENA CATH) Other/Comment: hx back surgery T5. defibrillator/pacemaker placement - ANESTHESIA Hx Anesthesia: Yes Hx Anesthesia Reactions: No Hx Malignant Hyperthermia: No Meds Allergies/Adverse Reactions: Allergies Allergy/AdvReac Type Severity Reaction Status Date / Time No Known Allergies Allergy Verified 10/29/17 04:19 - Medications Medications: Current Medications Acetaminophen (Tylenol 325mg Tab) 650 mg PO Q6 PRN PRN Reason: Fever >100.4 F Calcium Acetate (Phoslo) 667 mg PO TIDCC [facility] Last Admin: 01/02/18 09:12 Dose: Not Given Dextrose (Dextrose 50% Inj) 0 ml IV STAT PRN; Protocol PRN Reason: Hypoglycemia Protocol Dextrose (Glutose 15) 0 gm PO ONCE PRN; Protocol PRN Reason: Hypoglycemia Protocol Glucagon (Glucagen Diagnostic Kit) 0 mg IM STAT PRN; Protocol PRN Reason: Hypoglycemia Protocol Dextrose (Dextrose 5% In Water 1000 Ml) 1,000 mls @ 0 mls/hr IV .Q0M PRN; Protocol PRN Reason: Hypoglycemia Protocol Cefepime HCl 0.5 gm/ Dextrose 50 mls @ 100 mls/hr IVPB DAILY [facility]; Protocol Last Admin: 01/01/18 14:05 Dose: 100 mls/hr Insulin Human Regular (Novolin R) 0 unit SC ACHS [facility]; Protocol Last Admin: 01/02/18 07:37 Dose: Not Given Ondansetron HCl (Zofran Inj) 4 mg IVP Q6 PRN PRN Reason: Nausea/Vomiting Results - Vital Signs Recent Vital Signs: Last Vital Signs Temp 98.5 F 01/02/18 08:10 Pulse 118 H 01/02/18 08:10 Resp 20 01/02/18 08:10 BP 104/70 01/02/18 08:10 Pulse Ox 97 01/02/18 08:10 - Labs Result Diagrams: 01/02/18 07:42 01/02/18 07:42 Labs: Laboratory Results - last 24 hr 01/01/18 01/01/18 01/01/18 09:39 09:39 09:39 WBC 6.5 RBC 3.31 L Hgb 9.9 L Hct 29.3 L MCV 88.3 MCH 29.9 MCHC 33.9 RDW 20.1 H Plt Count 186 MPV 7.1 L Neut % (Auto) 78.2 H Lymph % (Auto) 9.4 L [place] % (Auto) 9.5 Eos % (Auto) 1.8 Baso % (Auto) 1.1 Neut # (Auto) 5.1 Lymph # (Auto) 0.6 L [place] # (Auto) 0.6 Eos # (Auto) 0.1 Baso # (Auto) 0.1 Neutrophils % (Manual) 84 H Band Neutrophils % 1 Lymphocytes % (Manual) 10 L Monocytes % (Manual) 3 Eosinophils % (Manual) 2 Platelet Estimate Normal Polychromasia Slight Hypochromasia (manual) Slight Anisocytosis (manual) Slight Ovalocytes Slight PT 27.5 H D INR 2.5 D APTT 40 H Sodium Potassium Chloride Carbon Dioxide Anion Gap BUN Creatinine Est GFR ( Amer) Est GFR (Non-Af Amer) POC Glucose (mg/dL) Random Glucose Calcium Total Bilirubin AST ALT Alkaline Phosphatase Total Protein Albumin Globulin Albumin/Globulin Ratio Procalcitonin 4.31 H Random Vancomycin 01/01/18 01/01/18 01/01/18 09:39 09:39 11:10 WBC RBC Hgb Hct MCV MCH MCHC RDW Plt Count MPV Neut % (Auto) Lymph % (Auto) [place] % (Auto) Eos % (Auto) Baso % (Auto) Neut # (Auto) Lymph # (Auto) [place] # (Auto) Eos # (Auto) Baso # (Auto) Neutrophils % (Manual) Band Neutrophils % Lymphocytes % (Manual) Monocytes % (Manual) Eosinophils % (Manual) Platelet Estimate Polychromasia Hypochromasia (manual) Anisocytosis (manual) Ovalocytes PT INR APTT Sodium 132 Potassium 3.5 L Chloride 93 L Carbon Dioxide 24 Anion Gap 19 BUN 59 H Creatinine 5.2 H Est GFR ( Amer) 14 Est GFR (Non-Af Amer) 11 POC Glucose (mg/dL) 132 H Random Glucose 167 H Calcium 7.8 L Total Bilirubin 1.1 AST 18 ALT 20 L Alkaline Phosphatase 307 H Total Protein 6.3 Albumin 3.1 L Globulin 3.1 Albumin/Globulin Ratio 1.0 Procalcitonin Random Vancomycin 7.4 01/01/18 01/01/18 01/02/18 16:17 21:07 06:24 WBC RBC Hgb Hct MCV MCH MCHC RDW Plt Count MPV Neut % (Auto) Lymph % (Auto) [place] % (Auto) Eos % (Auto) Baso % (Auto) Neut # (Auto) Lymph # (Auto) [place] # (Auto) Eos # (Auto) Baso # (Auto) Neutrophils % (Manual) Band Neutrophils % Lymphocytes % (Manual) Monocytes % (Manual) Eosinophils % (Manual) Platelet Estimate Polychromasia Hypochromasia (manual) Anisocytosis (manual) Ovalocytes PT INR APTT Sodium Potassium Chloride Carbon Dioxide Anion Gap BUN Creatinine Est GFR ( Amer) Est GFR (Non-Af Amer) POC Glucose (mg/dL) 223 H 160 H 137 H Random Glucose Calcium Total Bilirubin AST ALT Alkaline Phosphatase Total Protein Albumin Globulin Albumin/Globulin Ratio Procalcitonin Random Vancomycin 01/02/18 01/02/18 01/02/18 07:42 07:42 07:42 WBC 5.9 RBC 3.49 L Hgb 9.8 L Hct 31.0 L MCV 88.8 MCH 28.2 MCHC 31.8 L RDW 19.4 H Plt Count 195 MPV 7.2 Neut % (Auto) 70.0 Lymph % (Auto) 12.9 L [place] % (Auto) 12.0 H Eos % (Auto) 4.4 H Baso % (Auto) 0.7 Neut # (Auto) 4.1 Lymph # (Auto) 0.8 L [place] # (Auto) 0.7 Eos # (Auto) 0.3 Baso # (Auto) 0.0 Neutrophils % (Manual) Band Neutrophils % Lymphocytes % (Manual) Monocytes % (Manual) Eosinophils % (Manual) Platelet Estimate Polychromasia Hypochromasia (manual) Anisocytosis (manual) Ovalocytes PT 24.5 H INR 2.2 APTT 39 H Sodium 135 Potassium 3.9 Chloride 96 L Carbon Dioxide 24 Anion Gap 19 BUN 47 H Creatinine 4.0 H Est GFR ( Amer) 19 Est GFR (Non-Af Amer) 15 POC Glucose (mg/dL) Random Glucose 119 H Calcium 7.9 L Total Bilirubin 0.9 AST 21 ALT 21 Alkaline Phosphatase 281 H Total Protein 6.2 L Albumin 3.0 L Globulin 3.2 Albumin/Globulin Ratio 1.0 Procalcitonin Random Vancomycin <Caryn Weems - Last Filed: 01/02/18 12:38> History of Present Illness - History of Present Illness History of Present Illness: Podiatry Consult Note for Dr. Nunn 61 yo male patient, seen and evaluated at bedside for B/L lower extremity ulcerations. Patient present to ED with port a cath infection s/p HD; patient admitted for further treatment of abscess. Patient is AAOx3, in NAD, and well known to Dr. Nunn. He reports getting his dressing changed daily by his at home. Denies any pain to b/l lower extremities. Denies N/V/F. Review of Systems - Review of Systems Review of Systems: As per HPI Meds - Medications Medications: Current Medications Acetaminophen (Tylenol 325mg Tab) 650 mg PO Q6 PRN PRN Reason: Fever >100.4 F Calcium Acetate (Phoslo) 667 mg PO TIDCC [facility] Last Admin: 01/02/18 12:24 Dose: 667 mg Dextrose (Dextrose 50% Inj) 0 ml IV STAT PRN; Protocol PRN Reason: Hypoglycemia Protocol Dextrose (Glutose 15) 0 gm PO ONCE PRN; Protocol PRN Reason: Hypoglycemia Protocol Glucagon (Glucagen Diagnostic Kit) 0 mg IM STAT PRN; Protocol PRN Reason: Hypoglycemia Protocol Dextrose (Dextrose 5% In Water 1000 Ml) 1,000 mls @ 0 mls/hr IV .Q0M PRN; Protocol PRN Reason: Hypoglycemia Protocol Cefepime HCl 0.5 gm/ Dextrose 50 mls @ 100 mls/hr IVPB DAILY [facility]; Protocol Last Admin: 01/02/18 12:24 Dose: 100 mls/hr Insulin Human Regular (Novolin R) 0 unit SC ACHS [facility]; Protocol Last Admin: 01/02/18 12:04 Dose: Not Given Ondansetron HCl (Zofran Inj) 4 mg IVP Q6 PRN PRN Reason: Nausea/Vomiting Physical Exam - Constitutional Appears: Well, Non-toxic, No Acute Distress - Head Exam Head Exam: ATRAUMATIC, NORMOCEPHALIC - Extremities Exam Additional comments: Vasc: Nonpalpable pulses to the DP and PT, delayed CFT to the digits, temperature gradient WNL, +1 pitting pedal edema Derm: chronic skin changes with hyperpigmented skin to entire lower extremity, skin thickening and flaking bilateral lower legs. Left: Left posterior heel ulceration with mixture granular and fibrotic wound base to the posterior distal lower extremity. Right: Full thickness ulceration measuring approximately 3x2x.3, with mixture granular and fibrotic wound base. Serous drainage noted to the ulceration. No fluctuance noted. Minor ibeth-wound erythem, non- streaking appreciated. Neuro: Gross sensation absent bilaterally, protective sensation absent Ortho: no pain appreciated with palpation to surrounding ulceration sites. No pain with calf palpation bilaterally. Results - Vital Signs Recent Vital Signs: Last Vital Signs Temp 98.5 F 01/02/18 08:10 Pulse 118 H 01/02/18 08:10 Resp 20 01/02/18 08:10 BP 104/70 01/02/18 08:10 Pulse Ox 97 01/02/18 08:10 - Labs Result Diagrams: 01/02/18 07:42 01/02/18 07:42 Labs: Laboratory Results - last 24 hr 01/01/18 01/01/18 01/01/18 09:39 11:10 16:17 WBC RBC Hgb Hct MCV MCH MCHC RDW Plt Count MPV Neut % (Auto) Lymph % (Auto) [place] % (Auto) Eos % (Auto) Baso % (Auto) Neut # (Auto) Lymph # (Auto) [place] # (Auto) Eos # (Auto) Baso # (Auto) PT INR APTT Sodium Potassium Chloride Carbon Dioxide Anion Gap BUN Creatinine Est GFR ( Amer) Est GFR (Non-Af Amer) POC Glucose (mg/dL) 132 H 223 H Random Glucose Calcium Total Bilirubin AST ALT Alkaline Phosphatase Total Protein Albumin Globulin Albumin/Globulin Ratio Procalcitonin 4.31 H 01/01/18 01/02/18 01/02/18 21:07 06:24 07:42 WBC 5.9 RBC 3.49 L Hgb 9.8 L Hct 31.0 L MCV 88.8 MCH 28.2 MCHC 31.8 L RDW 19.4 H Plt Count 195 MPV 7.2 Neut % (Auto) 70.0 Lymph % (Auto) 12.9 L [place] % (Auto) 12.0 H Eos % (Auto) 4.4 H Baso % (Auto) 0.7 Neut # (Auto) 4.1 Lymph # (Auto) 0.8 L [place] # (Auto) 0.7 Eos # (Auto) 0.3 Baso # (Auto) 0.0 PT INR APTT Sodium Potassium Chloride Carbon Dioxide Anion Gap BUN Creatinine Est GFR ( Amer) Est GFR (Non-Af Amer) POC Glucose (mg/dL) 160 H 137 H Random Glucose Calcium Total Bilirubin AST ALT Alkaline Phosphatase Total Protein Albumin Globulin Albumin/Globulin Ratio Procalcitonin 01/02/18 01/02/18 01/02/18 07:42 07:42 11:07 WBC RBC Hgb Hct MCV MCH MCHC RDW Plt Count MPV Neut % (Auto) Lymph % (Auto) [place] % (Auto) Eos % (Auto) Baso % (Auto) Neut # (Auto) Lymph # (Auto) [place] # (Auto) Eos # (Auto) Baso # (Auto) PT 24.5 H INR 2.2 APTT 39 H Sodium 135 Potassium 3.9 Chloride 96 L Carbon Dioxide 24 Anion Gap 19 BUN 47 H Creatinine 4.0 H Est GFR ( Amer) 19 Est GFR (Non-Af Amer) 15 POC Glucose (mg/dL) 97 Random Glucose 119 H Calcium 7.9 L Total Bilirubin 0.9 AST 21 ALT 21 Alkaline Phosphatase 281 H Total Protein 6.2 L Albumin 3.0 L Globulin 3.2 Albumin/Globulin Ratio 1.0 Procalcitonin Assessment & Plan - Assessment and Plan (Free Text) Assessment: 61 yo male patient, seen and evaluated at bedside for B/L lower extremity ulcerations. Plan: Patient seen and evaluated with Dr. Nunn Patient afebrile, absent leukocytosis Evaluation of b/l lower exremitiy ulcerations and local wound care: wounds cleansed with saline and dressed with DSD - Wounds stable, no current signs of infection No surgical intervention at this time Patient to wear multipodus boots at all times while in bed Will continue to follow Thank you for the consult - Date & Time Date: 01/02/18 Time: 12:36
--- NOTE | 2018-01-02 11:06 | CP.PCM.PN ---
Subjective - Date & Time of Evaluation Date of Evaluation: 01/02/18 Time of Evaluation: 11:03 - Subjective Subjective: Notes reviewed Awakes on command Sleepy, does not want to speak much No distress Tolerating diallysis treatments 10 point ROS negative when questioned Objective - Vital Signs/Intake and Output Vital Signs (last 24 hours): Temp Pulse Resp BP Pulse Ox 98.5 F 118 H 20 104/70 97 01/02/18 08:10 01/02/18 08:10 01/02/18 08:10 01/02/18 08:10 01/02/18 08:10 - Medications Medications: Current Medications Acetaminophen (Tylenol 325mg Tab) 650 mg PO Q6 PRN PRN Reason: Fever >100.4 F Calcium Acetate (Phoslo) 667 mg PO TIDCC [facility] Last Admin: 01/02/18 09:12 Dose: Not Given Dextrose (Dextrose 50% Inj) 0 ml IV STAT PRN; Protocol PRN Reason: Hypoglycemia Protocol Dextrose (Glutose 15) 0 gm PO ONCE PRN; Protocol PRN Reason: Hypoglycemia Protocol Glucagon (Glucagen Diagnostic Kit) 0 mg IM STAT PRN; Protocol PRN Reason: Hypoglycemia Protocol Dextrose (Dextrose 5% In Water 1000 Ml) 1,000 mls @ 0 mls/hr IV .Q0M PRN; Protocol PRN Reason: Hypoglycemia Protocol Cefepime HCl 0.5 gm/ Dextrose 50 mls @ 100 mls/hr IVPB DAILY [facility]; Protocol Last Admin: 01/01/18 14:05 Dose: 100 mls/hr Insulin Human Regular (Novolin R) 0 unit SC ACHS [facility]; Protocol Last Admin: 01/02/18 07:37 Dose: Not Given Ondansetron HCl (Zofran Inj) 4 mg IVP Q6 PRN PRN Reason: Nausea/Vomiting - Labs Labs: 01/02/18 07:42 01/02/18 07:42 PT 24.5 SECONDS (9.7-12.2) H 01/02/18 07:42 INR 2.2 01/02/18 07:42 APTT 39 SECONDS (21-34) H 01/02/18 07:42 - Constitutional Appears: Non-toxic, Chronically Ill - Head Exam Head Exam: ATRAUMATIC, NORMAL INSPECTION - Eye Exam Eye Exam: EOMI, Normal appearance - ENT Exam ENT Exam: Mucous Membranes Moist, Normal Oropharynx - Neck Exam Neck Exam: absent: Lymphadenopathy, Thyromegaly - Respiratory Exam Respiratory Exam: absent: Rales, Rhonchi - Cardiovascular Exam Cardiovascular Exam: +S1, +S2. absent: Rubs - GI/Abdominal Exam GI & Abdominal Exam: Soft, Normal Bowel Sounds - Extremities Exam Extremities Exam: Pedal Edema. absent: Joint Swelling - Neurological Exam Neurological Exam: Awake - Psychiatric Exam Psychiatric exam: Flat Affect - Skin Skin Exam: Dry, Intact Assessment and Plan (1) Atrial fibrillation Status: Acute (2) Fever Status: Acute (3) Infection due to Port-A-Cath Status: Acute (4) Sepsis associated with vascular access catheter Status: Acute (5) ESRD (end stage renal disease) Status: Acute (6) ESRD needing dialysis Status: Acute - Assessment and Plan (Free Text) Assessment: Maintain dialysis schedule Abx as ordered Monitor bp Labs with dialysis NAZ with dialysis Continue supportive care
--- NOTE | 2018-01-02 15:33 | CP.PCM.PN ---
<Karolina Mason P - Last Filed: 01/02/18 17:20> Subjective - Date & Time of Evaluation Date of Evaluation: 01/02/18 Time of Evaluation: 15:19 - Subjective Subjective: PGY-[address] Fito Duong. Patient seen and examined at bedside. Patient is resting comfortably in bed in no acute distress. Denies fever, chills, chest pain, shortness of breath, nausea, vomiting, abdominal pain and extremity pain. Objective - Vital Signs/Intake and Output Vital Signs (last 24 hours): Temp Pulse Resp BP Pulse Ox 98.5 F 118 H 20 104/70 97 01/02/18 08:10 01/02/18 08:10 01/02/18 08:10 01/02/18 08:10 01/02/18 08:10 Intake and Output: 01/02/18 01/02/18 06:59 18:59 Intake Total 530 Balance 530 - Medications Medications: Current Medications Acetaminophen (Tylenol 325mg Tab) 650 mg PO Q6 PRN PRN Reason: Fever >100.4 F Calcium Acetate (Phoslo) 667 mg PO TIDCC [facility] Last Admin: 01/02/18 12:24 Dose: 667 mg Dextrose (Dextrose 50% Inj) 0 ml IV STAT PRN; Protocol PRN Reason: Hypoglycemia Protocol Dextrose (Glutose 15) 0 gm PO ONCE PRN; Protocol PRN Reason: Hypoglycemia Protocol Glucagon (Glucagen Diagnostic Kit) 0 mg IM STAT PRN; Protocol PRN Reason: Hypoglycemia Protocol Dextrose (Dextrose 5% In Water 1000 Ml) 1,000 mls @ 0 mls/hr IV .Q0M PRN; Protocol PRN Reason: Hypoglycemia Protocol Cefepime HCl 0.5 gm/ Dextrose 50 mls @ 100 mls/hr IVPB DAILY [facility]; Protocol Last Admin: 01/02/18 12:24 Dose: 100 mls/hr Insulin Human Regular (Novolin R) 0 unit SC ACHS [facility]; Protocol Last Admin: 01/02/18 12:04 Dose: Not Given Ondansetron HCl (Zofran Inj) 4 mg IVP Q6 PRN PRN Reason: Nausea/Vomiting - Labs Labs: 01/02/18 07:42 01/02/18 07:42 PT 24.5 SECONDS (9.7-12.2) H 01/02/18 07:42 INR 2.2 01/02/18 07:42 APTT 39 SECONDS (21-34) H 01/02/18 07:42 - Constitutional Appears: Non-toxic, No Acute Distress - Head Exam Head Exam: ATRAUMATIC, NORMOCEPHALIC - Eye Exam Eye Exam: EOMI, Normal appearance - ENT Exam ENT Exam: Mucous Membranes Moist - Neck Exam Neck Exam: Normal Inspection - Respiratory Exam Respiratory Exam: Clear to Ausculation Bilateral. absent: Rales, Rhonchi, Wheezes - Cardiovascular Exam Cardiovascular Exam: Irregular Rhythm, +S1, +S2 - GI/Abdominal Exam GI & Abdominal Exam: Soft, Normal Bowel Sounds. absent: Guarding, Tenderness, Rebound - Extremities Exam Extremities Exam: Pedal Edema (1+ bilaterally). absent: Normal Inspection (chronic venous stasis changes bilaterally), Tenderness Additional comments: heel protecting boots in place - Neurological Exam Neurological Exam: Alert, Awake, Oriented x3 - Psychiatric Exam Psychiatric exam: Normal Affect, Normal Mood - Skin Skin Exam: Dry, Normal Color (except for stated in extremities exam), Warm Additional comments: dressing to previous kimi cath site is clean, dry and intact. Assessment and Plan - Assessment and Plan (Free Text) Plan: 62M with PMH ESRD, DM, CHF, A FIB W/RVR, AML, HTN, COPD, sleep apnea presents to ED with port a cath infection s/p HD. Pt admitted for further treatment of abscess. Abscess - Pt with port a cath, draining white purulent fluid on R chest on admission; s/p removal by Surgery POD#2, pt doing well post-op - Tmax 100.2F on admission, cont to monitor temps today, currently afebrile - WBC 9.5 on admission; today 5.9 - Cefepime 0.5 g daily started today as per ID recs - BCx: NGTD - Wound Cx growing S. aureus - INR 2.5 01/01-> 2.2 01/02, will hold coumadin - F/u repeat INR - Vascular surgery consulted, Dr. Olguin - f/u recs; no further acute surgical management needed at this time - ID consulted, Dr. Lizarraga - f/u recs - Lactate wnl; procal: 4.31 elevated - 2D echo ordered to r/o endocarditis: LVEF 53%, LV function is mild to moderately reduced with anteroseptal hypokinesis, and septal flattening c/w elevated RV pressure. The aortic root is calcified and demonstrates mildly to moderately reduced opening. Peak gradient was 12mmHg, valve area was not performed. There is mildly increased left ventricular wall thickness. The right ventricle is severely dilated. Systolic function is severely reduced. There is likely severe pulmonary HTN, underestimated by doppler. ESRD - HD MWF - BUN/Cr today 47/4.0 - Nephro consulted, Dr. Rice - f/u recs DM - accuchecks q6h - low dose sliding scale - hypoglycemia protocol HTN - BP 97/52 on admission, BP stable today, pt states his normal bp at home is 90s/50s, currently asymptomatic - Hold home metoprolol NIKOLE - pt uses CPAP at home - not amenable to using bipap - to bring home CPAP for use inpatient B/l LE Ulcers - On exam noted in L heel superior aspect, R achilles tendon area - Podiatry consulted (Dr. Nunn) for wound care, recs appreciated Hx Pacemaker, CHF - Per Pt's pt has not followed with cardiology outpatient in a while - Cardiology (Dr. Stiles) consulted, recs appreciated Coumadin on hold for possible portacath insertion - Metoprolol held for low bps, continue to monitor PPX Warfarin held today due to INR 2.2 Renal diet <John Duong - Last Filed: 01/02/18 18:56> Objective - Vital Signs/Intake and Output Vital Signs (last 24 hours): Temp Pulse Resp BP Pulse Ox 97.6 F 102 H 20 106/70 97 01/02/18 15:05 01/02/18 15:05 01/02/18 15:05 01/02/18 18:37 01/02/18 15:05 Intake and Output: 01/02/18 01/02/18 06:59 18:59 Intake Total 650 Balance 650 - Medications Medications: Current Medications Acetaminophen (Tylenol 325mg Tab) 650 mg PO Q6 PRN PRN Reason: Fever >100.4 F Calcium Acetate (Phoslo) 667 mg PO TIDCC [facility] Last Admin: 01/02/18 17:01 Dose: 667 mg Dextrose (Dextrose 50% Inj) 0 ml IV STAT PRN; Protocol PRN Reason: Hypoglycemia Protocol Dextrose (Glutose 15) 0 gm PO ONCE PRN; Protocol PRN Reason: Hypoglycemia Protocol Glucagon (Glucagen Diagnostic Kit) 0 mg IM STAT PRN; Protocol PRN Reason: Hypoglycemia Protocol Dextrose (Dextrose 5% In Water 1000 Ml) 1,000 mls @ 0 mls/hr IV .Q0M PRN; Protocol PRN Reason: Hypoglycemia Protocol Cefepime HCl 0.5 gm/ Dextrose 50 mls @ 100 mls/hr IVPB DAILY [facility]; Protocol Last Admin: 01/02/18 12:24 Dose: 100 mls/hr Insulin Human Regular (Novolin R) 0 unit SC ACHS [facility]; Protocol Last Admin: 01/02/18 16:30 Dose: Not Given Ondansetron HCl (Zofran Inj) 4 mg IVP Q6 PRN PRN Reason: Nausea/Vomiting - Labs Labs: 01/02/18 07:42 01/02/18 07:42 PT 24.5 SECONDS (9.7-12.2) H 01/02/18 07:42 INR 2.2 01/02/18 07:42 APTT 39 SECONDS (21-34) H 01/02/18 07:42 Attending/Attestation - Attestation I have personally seen and examined this patient.: Yes I have fully participated in the care of the patient.: Yes I have reviewed all pertinent clinical information, including history, physical exam and plan: Yes Notes (Text): 01/02/18 18:45 Patient was seen and examined at 4:30 PM 01/02/18 551 A Care of this patient was gone over in detail with resident Dr. Mason. Also on Exam: At time of my exam, patient asked if I could bypass examination of his feet as the bandages were already changed by Podiatry Team earlier today, so they were not examined. Cardio: irregularly irregular Resp: CTA B/L, NO R/R/W GI: Central Obesity, Soft, NT, Liver and Spleen could not be palpated, NO guarding/rebound tenderness Ext: Right Arm AVF with (+) [facility] and patient is on Cefepime as per Dr. Padilla. Blood Culture is negative to date. Will need to follow up with Vascular Surgery Dr. Olguin as to when they plan to reinsert catheter after finalization of blood culture Spoke with Dining Room Server Dr. Stiles on 01/01/18 and he recommended patient be Eliquis. I also spoke with patient's on 01/01/18 and she would prefer the patient not be on Eliquis as patient has been on Coumadin for some time and she does not want to change regimen. Currently Coumadin on hold due to potential PortaCath reinsertion. INR is 2.2 and this should be followed daily Home Medications as confirmed with : Metoprolol XR 25 mg PO 1x/day is being held due to low blood pressure Sensipar 30 mg PO 1x/day is being held due low calcium Netiglinide 60 mg PO 3x/day is being held due to not being carried by our pharmacy Coumadin 3 mg PO 1x/day is being held due to reasons mentioned in previous paragraph Calcium Acetate 667 mg PO 3x/day with meals is currently on board John Duong D.O.
--- NOTE | 2018-01-02 23:44 | CP.PCM.PN ---
Subjective - Date & Time of Evaluation Date of Evaluation: 01/02/18 Time of Evaluation: 17:00 - Subjective Subjective: Patient has no complaint, on IV Cefepime, receiving HD. Warfarin on hold. PT/INR: 2.2. Will start IV Heparin if New portacath is contemplated soon. Objective - Vital Signs/Intake and Output Vital Signs (last 24 hours): Temp Pulse Resp BP Pulse Ox 97.6 F 102 H 20 106/70 97 01/02/18 15:05 01/02/18 15:05 01/02/18 15:05 01/02/18 18:37 01/02/18 15:05 Intake and Output: 01/02/18 01/03/18 18:59 06:59 Intake Total 650 Balance 650 - Medications Medications: Current Medications Acetaminophen (Tylenol 325mg Tab) 650 mg PO Q6 PRN PRN Reason: Fever >100.4 F Calcium Acetate (Phoslo) 667 mg PO TIDCC [facility] Last Admin: 01/02/18 17:01 Dose: 667 mg Dextrose (Dextrose 50% Inj) 0 ml IV STAT PRN; Protocol PRN Reason: Hypoglycemia Protocol Dextrose (Glutose 15) 0 gm PO ONCE PRN; Protocol PRN Reason: Hypoglycemia Protocol Glucagon (Glucagen Diagnostic Kit) 0 mg IM STAT PRN; Protocol PRN Reason: Hypoglycemia Protocol Dextrose (Dextrose 5% In Water 1000 Ml) 1,000 mls @ 0 mls/hr IV .Q0M PRN; Protocol PRN Reason: Hypoglycemia Protocol Cefepime HCl 0.5 gm/ Dextrose 50 mls @ 100 mls/hr IVPB DAILY [facility]; Protocol Last Admin: 01/02/18 12:24 Dose: 100 mls/hr [facility]ulin [facility]; Protocol Last Admin: 01/02/18 21:33 Dose: Not Given Ondansetron HCl (Zofran Inj) 4 mg IVP Q6 PRN PRN Reason: Nausea/Vomiting - Labs Labs: 01/02/18 07:42 01/02/18 07:42 PT 24.5 SECONDS (9.7-12.2) H 01/02/18 07:42 INR 2.2 01/02/18 07:42 APTT 39 SECONDS (21-34) H 01/02/18 07:42 - Constitutional Appears: No Acute Distress, Chronically Ill - Head Exam Head Exam: NORMAL INSPECTION - Eye Exam Eye Exam: Normal appearance - ENT Exam ENT Exam: Normal Exam - Neck Exam Neck Exam: Normal Inspection - Respiratory Exam Respiratory Exam: Clear to Ausculation Bilateral - Cardiovascular Exam Cardiovascular Exam: Irregular Rhythm, Murmur - GI/Abdominal Exam GI & Abdominal Exam: Soft, Normal Bowel Sounds - Rectal Exam Rectal Exam: Deferred - Extremities Exam Additional comments: 2-3 + pedal edema. - Back Exam Back Exam: NORMAL INSPECTION - Neurological Exam Neurological Exam: Awake, Oriented x3 - Psychiatric Exam Psychiatric exam: Anxious - Skin Skin Exam: Dry, Intact, Warm Assessment and Plan (1) Sepsis associated with vascular access catheter Status: Acute (2) Fever Status: Acute (3) ESRD needing dialysis Status: Acute (4) Atrial fibrillation Status: Acute
--- NOTE | 2018-01-02 23:57 | CP.PCM.PN ---
Subjective - Date & Time of Evaluation Date of Evaluation: 01/02/18 Time of Evaluation: 21:00 - Subjective Subjective: INFECTIOUS DISEASE PROGRESS NOTE IRIS DOMINGUEZ MD, FACP 01/02/2018 5T 551-A CHART REVIEWED EXAMINE NOTED Awakes on command Sleepy, does not want to speak much No distress Tolerating diallysis treatments 10 point ROS negative when questioned RECEIVING VANCOMYCIN WITH DIALYSIS AND CEFEPIME DAILY CLINICALLY STABLE OFFERS NO COMPLAINTS BUT APPEARS DEPRESSED WILL DISCUSSED FURTHER RX ID OPTIONS RECHECK VANCO RANDOM LEVEL THURSDAY AFTER DISLYSIS OBSERVE RESPONSE Objective - Vital Signs/Intake and Output Vital Signs (last 24 hours): Temp Pulse Resp BP Pulse Ox 97.6 F 102 H 20 106/70 97 01/02/18 15:05 01/02/18 15:05 01/02/18 15:05 01/02/18 18:37 01/02/18 15:05 Intake and Output: 01/02/18 01/03/18 18:59 06:59 Intake Total 650 Balance 650 - Medications Medications: Current Medications Acetaminophen (Tylenol 325mg Tab) 650 mg PO Q6 PRN PRN Reason: Fever >100.4 F Calcium Acetate (Phoslo) 667 mg PO TIDCC [facility] Last Admin: 01/02/18 17:01 Dose: 667 mg Dextrose (Dextrose 50% Inj) 0 ml IV STAT PRN; Protocol PRN Reason: Hypoglycemia Protocol Dextrose (Glutose 15) 0 gm PO ONCE PRN; Protocol PRN Reason: Hypoglycemia Protocol Glucagon (Glucagen Diagnostic Kit) 0 mg IM STAT PRN; Protocol PRN Reason: Hypoglycemia Protocol Dextrose (Dextrose 5% In Water 1000 Ml) 1,000 mls @ 0 mls/hr IV .Q0M PRN; Protocol PRN Reason: Hypoglycemia Protocol Cefepime HCl 0.5 gm/ Dextrose 50 mls @ 100 mls/hr IVPB DAILY [facility]; Protocol Last Admin: 01/02/18 12:24 Dose: 100 mls/hr Insulin Human Regular (Novolin R) 0 unit SC ACHS [facility]; Protocol Last Admin: 01/02/18 21:33 Dose: Not Given Ondansetron HCl (Zofran Inj) 4 mg IVP Q6 PRN PRN Reason: Nausea/Vomiting - Labs Labs: 01/02/18 07:42 01/02/18 07:42 PT 24.5 SECONDS (9.7-12.2) H 01/02/18 07:42 INR 2.2 01/02/18 07:42 APTT 39 SECONDS (21-34) H 01/02/18 07:42
[2018-01-03] MEDS: (Novolin R) Insulin Human Regular 100 units/ml vial SC SCH ×4 (07:00→21:24)
[2018-01-03 08:36] LABS: BASO # 0.1 K/uL (0.0-0.2); BASO % 1.2 % (0.0-2.0); EOS # 0.3 K/uL (0.0-0.7); EOS % 6.4 % (0.0-4.0); HEMOGLOBIN 10.3 g/dL (12.0-18.0); LYMPH # 0.7 K/uL (1.0-4.3); LYMPH % 14.4 % (20.0-40.0); MEAN CELL VOLUME 88.3 fL (80.0-94.0); MEAN CORPUSCULAR HEMOGLOBIN 28.7 pg (27.0-31.0); MEAN CORPUSCULAR HGB CONC 32.5 g/dL (33.0-37.0); MEAN PLATELET VOLUME 7.1 fL (7.2-11.7); MONO # 0.6 K/uL (0.0-0.8); NEUT # 3.5 K/uL (1.8-7.0); NRBC % 0.1 % (0.0-2.0); RBC 3.59 Mil/uL (4.40-5.90); RED CELL DISTRIBUTION WIDTH 19.1 % (11.5-14.5); WHITE BLOOD COUNT 5.2 K/uL (4.8-10.8)
[2018-01-03 08:43] LABS: INR 1.8; PROTHROMBIN TIME 19.2 SECONDS (9.7-12.2)
--- NOTE | 2018-01-03 08:50 | CP.PCM.PN ---
Subjective - Date & Time of Evaluation Date of Evaluation: 01/03/18 Time of Evaluation: 06:40 - Subjective Subjective: Surgery progress note for Dr. Olguin Pt seen and examined at bedside this AM. Denies any pain, SOB, chest pain, fevers Objective - Vital Signs/Intake and Output Vital Signs (last 24 hours): Temp Pulse Resp BP Pulse Ox 97.4 F L 92 H 20 99/49 L 98 01/03/18 07:36 01/03/18 07:36 01/03/18 07:36 01/03/18 07:36 01/03/18 07:36 - Medications Medications: Current Medications Acetaminophen (Tylenol 325mg Tab) 650 mg PO Q6 PRN PRN Reason: Fever >100.4 F Calcium Acetate (Phoslo) 667 mg PO TIDCC [facility] Last Admin: 01/02/18 17:01 Dose: 667 mg Dextrose (Dextrose 50% Inj) 0 ml IV STAT PRN; Protocol PRN Reason: Hypoglycemia Protocol Dextrose (Glutose 15) 0 gm PO ONCE PRN; Protocol PRN Reason: Hypoglycemia Protocol Glucagon (Glucagen Diagnostic Kit) 0 mg IM STAT PRN; Protocol PRN Reason: Hypoglycemia Protocol Dextrose (Dextrose 5% In Water 1000 Ml) 1,000 mls @ 0 mls/hr IV .Q0M PRN; Protocol PRN Reason: Hypoglycemia Protocol Cefepime HCl 0.5 gm/ Dextrose 50 mls @ 100 mls/hr IVPB DAILY [facility]; Protocol Last Admin: 01/02/18 12:24 Dose: 100 mls/hr Insulin Human Regular (Novolin R) 0 unit SC ACHS [facility]; Protocol Last Admin: 01/03/18 07:00 Dose: Not Given Ondansetron HCl (Zofran Inj) 4 mg IVP Q6 PRN PRN Reason: Nausea/Vomiting - Labs Labs: 01/03/18 08:24 01/02/18 07:42 PT 19.2 SECONDS (9.7-12.2) H D 01/03/18 08:24 INR 1.8 01/03/18 08:24 APTT 40 SECONDS (21-34) H 01/03/18 08:24 - Constitutional Appears: Non-toxic, No Acute Distress, Chronically Ill - Head Exam Head Exam: ATRAUMATIC, NORMOCEPHALIC - Eye Exam Eye Exam: Normal appearance. absent: Conjunctival injection, Scleral icterus - ENT Exam ENT Exam: Mucous Membranes Moist, Normal Oropharynx - Respiratory Exam Respiratory Exam: NORMAL BREATHING PATTERN. absent: Accessory Muscle Use, Respiratory Distress - Cardiovascular Exam Cardiovascular Exam: RRR - GI/Abdominal Exam GI & Abdominal Exam: Soft. absent: Distended - Neurological Exam Neurological Exam: Alert, Awake, Oriented x3 - Psychiatric Exam Psychiatric exam: Normal Affect, Normal Mood - Skin Skin Exam: Dry, Warm Additional comments: surgical site with minimal erythema, no active drainage, no fluctuance or edema Assessment and Plan - Assessment and Plan (Free Text) Assessment: 62M POD#3 S/P removal of infected portacath Plan: Patient improving, no sign of active infection and surgical site Continue medical management per primary and ID PRN pain medications No further surgical intervention indicated at this time. Please re-contact the surgery team for any further questions or concerns Discussed with Dr. Clau Obando, PGY2
[2018-01-03 08:56] LABS: ALBUMIN 3.2 g/dL (3.5-5.0); CALCIUM 8.3 mg/dl (8.6-10.4)
--- NOTE | 2018-01-03 12:18 | CP.PCM.PN ---
<Karolina Mason P - Last Filed: 01/03/18 13:40> Subjective - Date & Time of Evaluation Date of Evaluation: 01/03/18 Time of Evaluation: 09:00 - Subjective Subjective: PGY-[address] Duong. Patient seen with Dr. Duong. Patient laying in bed, in no acute distress. He states he does not want to have the portacath replaced. He denies chest pain, shortness of breath, dizziness, lightheadedness, weakness, nausea, vomiting, abdominal pain, change in vision, numbness, tingling, fevers and chills. Patient complaining of having multiple providers examining him daily, it was explained to him that daily exams are a necessity, however he declined a full examination. Objective - Vital Signs/Intake and Output Vital Signs (last 24 hours): Temp Pulse Resp BP Pulse Ox 97.4 F L 92 H 20 99/49 L 98 01/03/18 07:36 01/03/18 07:36 01/03/18 07:36 01/03/18 07:36 01/03/18 07:36 - Medications Medications: Current Medications Acetaminophen (Tylenol 325mg Tab) 650 mg PO Q6 PRN PRN Reason: Fever >100.4 F Calcium Acetate (Phoslo) 667 mg PO TIDCC [facility] Last Admin: 01/03/18 08:53 Dose: 667 mg Dextrose (Dextrose 50% Inj) 0 ml IV STAT PRN; Protocol PRN Reason: Hypoglycemia Protocol Dextrose (Glutose 15) 0 gm PO ONCE PRN; Protocol PRN Reason: Hypoglycemia Protocol Glucagon (Glucagen Diagnostic Kit) 0 mg IM STAT PRN; Protocol PRN Reason: Hypoglycemia Protocol Dextrose (Dextrose 5% In Water 1000 Ml) 1,000 mls @ 0 mls/hr IV .Q0M PRN; Protocol PRN Reason: Hypoglycemia Protocol Cefepime HCl 0.5 gm/ Dextrose 50 mls @ 100 mls/hr IVPB DAILY [facility]; Protocol Last Admin: 01/03/18 11:32 Dose: 100 mls/hr Vancomycin HCl 1 gm/ Sodium (Chloride) 250 mls @ 166.7 mls/hr IVPB MWF [facility]; Protocol Insulin Human Regular (Novolin R) 0 unit SC ACHS [facility]; Protocol Last Admin: 01/03/18 07:00 Dose: Not Given Ondansetron HCl (Zofran Inj) 4 mg IVP Q6 PRN PRN Reason: Nausea/Vomiting Warfarin Sodium (Coumadin) 3 mg PO 1800 [facility] Stop: 01/03/18 18:01 - Labs Labs: 01/03/18 08:24 01/03/18 08:24 PT 19.2 SECONDS (9.7-12.2) H D 01/03/18 08:24 INR 1.8 01/03/18 08:24 APTT 40 SECONDS (21-34) H 01/03/18 08:24 - Constitutional Appears: No Acute Distress - Head Exam Head Exam: ATRAUMATIC, NORMOCEPHALIC - Respiratory Exam Respiratory Exam: Clear to Ausculation Bilateral, NORMAL BREATHING PATTERN. absent: Rales, Rhonchi, Wheezes - Cardiovascular Exam Cardiovascular Exam: Irregular Rhythm, +S1, +S2 Additional comments: dressing to previous R chest kimi cath site is clean, dry and intact. - GI/Abdominal Exam GI & Abdominal Exam: Soft. absent: Guarding, Tenderness, Rebound - Psychiatric Exam Additional comments: uncooperative - Additional Findings Additional findings: Other than listed above, unable to fully assess as patient declined remainder of exam. Assessment and Plan - Assessment and Plan (Free Text) Plan: 62M with PMH ESRD, DM, CHF, A FIB W/RVR, AML, HTN, COPD, sleep apnea presents to ED with port a cath infection s/p HD. Pt admitted for further treatment of abscess. Abscess - Pt with port a cath, draining white purulent fluid on R chest on admission; s/p removal by Surgery POD#3, pt doing well post-op. No further surgical interventions needed at this time. - Tmax 100.2F on admission, cont to monitor temps today, currently afebrile - WBC 9.5 on admission; today 5.2 - Cefepime 0.5 g daily started today as per ID recs - Added vanco 1gm MWF with HD as per ID recs f/u random vanco levels 18:00 on 01/04 - BCx: NG x3 days - Wound Cx: S. aureus - INR 2.5 01/01-> 1.8 01/03, Will restart coumadin as no further surgical interventions planned. - F/u repeat INR - Vascular surgery consulted, Dr. Olguin - f/u recs; no further acute surgical management needed at this time - ID consulted, Dr. Lizarraga - f/u recs - Lactate wnl; procal: 4.31 elevated - 2D echo ordered to r/o endocarditis: LVEF 53%, LV function is mild to moderately reduced with anteroseptal hypokinesis, and septal flattening c/w elevated RV pressure. The aortic root is calcified and demonstrates mildly to moderately reduced opening. Peak gradient was 12mmHg, valve area was not performed. There is mildly increased left ventricular wall thickness. The right ventricle is severely dilated. Systolic function is severely reduced. There is likely severe pulmonary HTN, underestimated by doppler. ESRD - HD MWF - BUN/Cr today 59/5.3 - Nephro consulted, Dr. Rice - f/u recs DM - accuchecks q6h - low dose sliding scale - hypoglycemia protocol HTN - BP 97/52 on admission, BP stable today, pt states his normal bp at home is 90s/50s, currently asymptomatic - Hold home metoprolol NIKOLE - pt uses CPAP at home - not amenable to using bipap - to bring home CPAP for use inpatient B/l LE Ulcers - On exam noted in L heel superior aspect, R achilles tendon area - Podiatry consulted (Dr. Nunn) for wound care, recs appreciated Hx Pacemaker, CHF - Per Pt's pt has not followed with cardiology outpatient in a while - Cardiology (Dr. Stiles) consulted, recs appreciated - Metoprolol held for low bps, continue to monitor PPX Warfarin 3mg PO daily restarted today, as no further surgical interventions are planned. Renal diet Dispo: Blood cultures negative x3. Vancomycin 1g IV MWF added. Possible discharge after negative blood cultures x 5 days and clearance from ID. Case discussed with attending, Dr. Fito Duong. <John Duong - Last Filed: 01/03/18 18:44> Objective - Vital Signs/Intake and Output Vital Signs (last 24 hours): Temp Pulse Resp BP Pulse Ox 97.8 F 98 H 20 104/63 99 01/03/18 15:00 01/03/18 15:00 01/03/18 15:00 01/03/18 15:00 01/03/18 15:00 Intake and Output: 01/03/18 01/03/18 06:59 18:59 Intake Total 730 Balance 730 - Medications Medications: Current Medications Acetaminophen (Tylenol 325mg Tab) 650 mg PO Q6 PRN PRN Reason: Fever >100.4 F Calcium Acetate (Phoslo) 667 mg PO TIDCC [facility] Last Admin: 01/03/18 17:27 Dose: 667 mg Dextrose (Dextrose 50% Inj) 0 ml IV STAT PRN; Protocol PRN Reason: Hypoglycemia Protocol Dextrose (Glutose 15) 0 gm PO ONCE PRN; Protocol PRN Reason: Hypoglycemia Protocol Glucagon (Glucagen Diagnostic Kit) 0 mg IM STAT PRN; Protocol PRN Reason: Hypoglycemia Protocol Dextrose (Dextrose 5% In Water 1000 Ml) 1,000 mls @ 0 mls/hr IV .Q0M PRN; Protocol PRN Reason: Hypoglycemia Protocol Cefepime HCl 0.5 gm/ Dextrose 50 mls @ 100 mls/hr IVPB DAILY [facility]; Protocol Last Admin: 01/03/18 11:32 Dose: 100 mls/hr Vancomycin HCl 1 gm/ Sodium (Chloride) 250 mls @ 166.7 mls/hr [facility]; Protocol Insulin Human Regular (Novolin R) 0 unit SC ACHS [facility]; Protocol Last Admin: 01/03/18 16:56 Dose: Not Given Ondansetron HCl (Zofran Inj) 4 mg IVP Q6 PRN PRN Reason: Nausea/Vomiting - Labs Labs: 01/03/18 08:24 01/03/18 08:24 PT 19.2 SECONDS (9.7-12.2) H D 01/03/18 08:24 INR 1.8 01/03/18 08:24 APTT 40 SECONDS (21-34) H 01/03/18 08:24 Attending/Attestation - Attestation I have personally seen and examined this patient.: Yes I have fully participated in the care of the patient.: Yes I have reviewed all pertinent clinical information, including history, physical exam and plan: Yes Notes (Text): 01/03/18 18:37 Patient was seen and examined with resident Dr. Mason Care of this patient was gone over in detail with resident Dr. Mason. Please see note above for details Wound Culture from [facility] shows S. aureus and patient is on Cefepime as per Dr. Padilla and Vancomycin has been added to be given at the time of HD Blood Culture is negative to date. Patient has expressed that he does NOT want PortACath reinserted. Spoke with his via phone after exam today and informed her and updated her. Therefore we have restarted the Warfarin 3 mg PO 1x/day evening starting tonight 01/03/18 Spoke with Helicopter Pilot Dr. Stiles on 01/01/18 and he recommended patient be Eliquis. I also spoke with patient's on 01/01/18 and she would prefer the patient not be on Eliquis as patient has been on Coumadin for some time and she does not want to change regimen. When is here, she performs the daily wound care to his chronic bilateral lower leg ulcers. Currently being performed by his outpatient Building And Construction Manager Dr. Nunn. Please be aware that the patient has not allowed examination of these areas by me. Plan would be to make sure that the blood culture is finalized as negative, update ID Dr. Lizarraga and get his recommendations for IV to PO switch of appropriate antibiotic (consider fluoroquinole with renal dosing?) Please make sure that upon discharge, patient is instructed on proper use of over the counter probiotic. Home Medications as confirmed with at the time of admission: Metoprolol XR 25 mg PO 1x/day is being held due to low blood pressure Sensipar 30 mg PO 1x/day is being held due low calcium Netiglinide 60 mg PO 3x/day is being held due to not being carried by our pharmacy Coumadin 3 mg PO 1x/day is being held due to reasons mentioned in previous paragraph Calcium Acetate 667 mg PO 3x/day with meals is currently on board John Duong D.O.
--- NOTE | 2018-01-03 12:42 | CP.PCM.PN ---
Subjective - Date & Time of Evaluation Date of Evaluation: 01/03/18 Time of Evaluation: 12:42 - Subjective Subjective: Podiatry Progress Note for Dr. Nunn 61 yo male patient, seen and evaluated at bedside for B/L lower extremity ulcerations. Patient present to ED with port a cath infection s/p HD; patient admitted for further treatment of abscess. Patient is AAOx3, in NAD, and well known to Dr. Nunn. He reports getting his dressing changed daily by his at home. Denies any pain to b/l lower extremities. Denies N/V/F. Vasc: Nonpalpable pulses to the DP and PT, delayed CFT to the digits, temperature gradient WNL, +1 pitting pedal edema Derm: chronic skin changes with hyperpigmented skin to entire lower extremity, skin thickening and flaking bilateral lower legs. Left: Left posterior heel ulceration with mixture granular and fibrotic wound base to the posterior distal lower extremity. Right: Full thickness ulceration measuring approximately 3x2x.3, with mixture granular and fibrotic wound base. Serous drainage noted to the ulceration. No fluctuance noted. Minor ibeth-wound erythem, non- streaking appreciated. Neuro: Gross sensation absent bilaterally, protective sensation absent Ortho: no pain appreciated with palpation to surrounding ulceration sites. No pain with calf palpation bilaterally. 61 yo male patient, seen and evaluated at bedside for B/L lower extremity ulcerations. Patient seen and evaluated with Dr. Nunn Patient afebrile, absent leukocytosis Evaluation of b/l lower exremitiy ulcerations and local wound care: wounds cleansed with saline and dressed with DSD - Wounds stable, no current signs of infection No surgical intervention at this time Patient to wear multipodus boots at all times while in bed Will continue to follow Thank you for the consult Objective - Vital Signs/Intake and Output Vital Signs (last 24 hours): Temp Pulse Resp BP Pulse Ox 97.4 F L 92 H 20 99/49 L 98 01/03/18 07:36 01/03/18 07:36 01/03/18 07:36 01/03/18 07:36 01/03/18 07:36 - Medications Medications: Current Medications Acetaminophen (Tylenol 325mg Tab) 650 mg PO Q6 PRN PRN Reason: Fever >100.4 F Calcium Acetate (Phoslo) 667 mg PO T[facility]CC [facility] Last Admin: 10/21/18 08:53 Dose: 667 mg Dextrose (Dextrose 50% Inj) 0 ml IV STAT PRN; Protocol PRN Reason: Hypoglycemia Protocol Dextrose (Glutose 15) 0 gm PO ONCE PRN; Protocol PRN Reason: Hypoglycemia Protocol Glucagon (Glucagen Diagnostic Kit) 0 mg IM STAT PRN; Protocol PRN Reason: Hypoglycemia Protocol Dextrose (Dextrose 5% In Water 1000 Ml) 1,000 mls @ 0 mls/hr IV .Q0M PRN; Protocol PRN Reason: Hypoglycemia Protocol Cefepime HCl 0.5 gm/ Dextrose 50 mls @ 100 mls/hr IVPB DAILY [facility]; Protocol Last Admin: 01/03/18 11:32 Dose: 100 mls/hr Vancomycin HCl 1 gm/ Sodium (Chloride) 250 mls @ 166.7 mls/hr IVPB MWF [facility]; Protocol Insulin Human Regular (Novolin R) 0 unit SC ACHS [facility]; Protocol Last Admin: 01/03/18 12:23 Dose: Not Given Ondansetron HCl (Zofran Inj) 4 mg IVP Q6 PRN PRN Reason: Nausea/Vomiting Warfarin Sodium (Coumadin) 3 mg PO 1800 [facility] Stop: 01/03/18 18:01 - Labs Labs: 01/03/18 08:24 01/03/18 08:24 PT 19.2 SECONDS (9.7-12.2) H D 01/03/18 08:24 INR 1.8 01/03/18 08:24 APTT 40 SECONDS (21-34) H 01/03/18 08:24
[2018-01-04] MEDS: (Novolin R) Insulin Human Regular 100 units/ml vial SC SCH ×4 (07:33→22:50)
--- NOTE | 2018-01-04 08:15 | CP.PCM.PN ---
<Ankush Sy - Last Filed: 01/04/18 16:48> Subjective - Date & Time of Evaluation Date of Evaluation: 01/04/18 Time of Evaluation: 11:03 - Subjective Subjective: PGY-[address] Cuevas Patient seen and examined in dialysis this morning. Patient has no medical complaints at this time. No acute events overnight. Patient states he is tired of being questioned and examined by health care providers. Patient stating that he does not want to have portacath replaced. Patient denies any fevers, chills, shortness of breath, headaches, nausea, vomiting, chest pain, back pain. Objective - Vital Signs/Intake and Output Vital Signs (last 24 hours): Temp Pulse Resp BP Pulse Ox 97.4 F L 90 20 98/49 L 100 01/03/18 23:00 01/03/18 23:00 01/03/18 23:00 01/03/18 23:00 01/03/18 23:00 Intake and Output: 01/04/18 01/04/18 06:59 18:59 Output Total 0 Balance 0 - Medications Medications: Current Medications Acetaminophen (Tylenol 325mg Tab) 650 mg PO Q6 PRN PRN Reason: Fever >100.4 F Calcium Acetate (Phoslo) 667 mg PO TIDCC [facility] Last Admin: 01/03/18 17:27 Dose: 667 mg Dextrose (Dextrose 50% Inj) 0 ml IV STAT PRN; Protocol PRN Reason: Hypoglycemia Protocol Dextrose (Glutose 15) 0 gm PO ONCE PRN; Protocol PRN Reason: Hypoglycemia Protocol Glucagon (Glucagen Diagnostic Kit) 0 mg IM STAT PRN; Protocol PRN Reason: Hypoglycemia Protocol Dextrose (Dextrose 5% In Water 1000 Ml) 1,000 mls @ 0 mls/hr IV .Q0M PRN; Protocol PRN Reason: Hypoglycemia Protocol Cefepime HCl 0.5 gm/ Dextrose 50 mls @ 100 mls/hr IVPB DAILY [facility]; Protocol Last Admin: 01/03/18 11:32 Dose: 100 mls/hr Vancomycin HCl 1 gm/ Sodium (Chloride) 250 mls @ 166.7 mls/hr IVPB MWF [facility]; Protocol Insulin Human Regular (Novolin R) 0 unit SC ACHS [facility]; Protocol Last Admin: 01/03/18 21:24 Dose: Not Given Ondansetron HCl (Zofran Inj) 4 mg IVP Q6 PRN PRN Reason: Nausea/Vomiting - Labs Labs: 01/03/18 08:24 01/03/18 08:24 PT 19.2 SECONDS (9.7-12.2) H D 01/03/18 08:24 INR 1.8 01/03/18 08:24 APTT 40 SECONDS (21-34) H 01/03/18 08:24 - Constitutional Appears: Well, Non-toxic - Head Exam Head Exam: ATRAUMATIC, NORMAL INSPECTION - Eye Exam Eye Exam: EOMI, Normal appearance - ENT Exam ENT Exam: Mucous Membranes Moist - Neck Exam Neck Exam: Full ROM, Normal Inspection. absent: Tenderness - Respiratory Exam Additional comments: Patient declined respiratory exam - Cardiovascular Exam Cardiovascular Exam: REGULAR RHYTHM, +S1, +S2. absent: Murmur Additional comments: Dressing to previous R chest kimi cath site is clean, dry and intact. No erythema or exudates at former portacath site. - GI/Abdominal Exam GI & Abdominal Exam: Soft, Normal Bowel Sounds. absent: Tenderness Additional comments: Obese - Extremities Exam Extremities Exam: Pedal Edema (1+ Pedal edema b/l). absent: Tenderness Additional comments: chronic venous stasis changes b/l LE - Neurological Exam Neurological Exam: Alert, Awake, CN II-XII Intact, Oriented x3 - Psychiatric Exam Psychiatric exam: Anxious, Normal Affect - Skin Skin Exam: Dry, Intact, Warm Additional comments: Chronic venous stasis changes b/l LE Assessment and Plan - Assessment and Plan (Free Text) Assessment: Plan: 62M with PMH ESRD, DM, CHF, A FIB W/RVR, AML, HTN, COPD, sleep apnea presents to ED with port a cath infection s/p HD. Pt admitted for further treatment of abscess. Abscess/Infection of Portacath - Pt with port a cath, draining white purulent fluid on R chest on admission; s/p removal by Surgery POD#4, pt doing well post-op. No further surgical int erventions needed at this time. - Tmax 100.2F on admission, cont to monitor temps today, currently afebrile - WBC 9.5 on admission; today 5.4 - Continue Cefepime 0.5 g per ID recs - Continue Vanco 1gm MWF with HD as per ID recs f/u random vanco levels 18:00 - BCx: NG x4 days - Wound Cx: S. aureus - INR 2.5 01/01-> 1.8 01/03, Will restart coumadin as no further surgical interventions planned. - F/u repeat INR - Vascular surgery consulted, Dr. Olguin - f/u recs; no further acute surgical management needed at this time - ID consulted, Dr. Lizarraga - f/u recs - Lactate wnl; procal: 4.31 elevated - 2D echo ordered to r/o endocarditis: LVEF 53%, LV function is mild to moderately reduced with anteroseptal hypokinesis, and septal flattening c/w elevated RV pressure. The aortic root is calcified and demonstrates mildly to moderately reduced opening. Peak gradient was 12mmHg, valve area was not performed. There is mildly increased left ventricular wall thickness. The right ventricle is severely dilated. Systolic function is severely reduced. There is likely severe pulmonary HTN, underestimated by doppler. ESRD - HD MWF - BUN/Cr today 59/5.3 - Nephro consulted, Dr. Rice - f/u recs DM - accuchecks q6h - low dose sliding scale - hypoglycemia protocol HTN - BP 97/52 on admission, BP stable today, pt states his normal bp at home is 90s/50s, currently asymptomatic - Hold home metoprolol - Avoid IV fluid boluses if possible NIKOLE - pt uses CPAP at home - not amenable to using bipap - to bring home CPAP for use inpatient B/l LE Ulcers - On exam noted in L heel superior aspect, R achilles tendon area - Podiatry consulted (Dr. Nunn) for wound care, recs appreciated Hx Pacemaker, CHF - Per Pt's pt has not followed with cardiology outpatient in a while - Cardiology (Dr. Stiles) consulted, recs appreciated - Metoprolol held for low bps, continue to monitor PPX Warfarin 3mg PO daily restarted today, as no further surgical interventions are planned. Renal diet Dispo: Blood cultures negative x4. Vancomycin 1g IV MWF added. Possible discharge after negative blood cultures x 5 days and clearance from ID. Case discussed with attending, Dr. Cuevas <Jody Cuevas V - Last Filed: 01/04/18 22:32> Objective - Vital Signs/Intake and Output Vital Signs (last 24 hours): Temp Pulse Resp BP Pulse Ox 97.6 F 86 20 105/53 L 97 01/04/18 16:25 01/04/18 16:25 01/04/18 16:25 01/04/18 18:16 01/04/18 16:25 - Medications Medications: Current Medications Acetaminophen (Tylenol 325mg Tab) 650 mg PO Q6 PRN PRN Reason: Fever >100.4 F Calcium Acetate (Phoslo) 667 mg PO TIDCC [facility] Last Admin: 01/04/18 18:10 Dose: 667 mg Dextrose (Dextrose 50% Inj) 0 ml IV STAT PRN; Protocol PRN Reason: Hypoglycemia Protocol Dextrose (Glutose 15) 0 gm PO ONCE PRN; Protocol PRN Reason: Hypoglycemia Protocol Glucagon (Glucagen Diagnostic Kit) 0 mg IM STAT PRN; Protocol PRN Reason: Hypoglycemia Protocol Dextrose (Dextrose 5% In Water 1000 Ml) 1,000 mls @ 0 mls/hr IV .Q0M PRN; Protocol PRN Reason: Hypoglycemia Protocol Cefepime HCl 0.5 gm/ Dextrose 50 mls @ 100 mls/hr IVPB DAILY [facility]; Protocol Last Admin: 01/04/18 13:49 Dose: 100 mls/hr Vancomycin HCl 1 gm/ Sodium (Chloride) 250 mls @ 166.7 mls/hr IVPB MWF [facility]; Protocol Last Admin: 01/04/18 11:15 Dose: 166.7 mls/hr Insulin Human Regular (Novolin R) 0 unit SC ACHS [facility]; Protocol Last Admin: 01/04/18 17:33 Dose: Not Given Ondansetron HCl (Zofran Inj) 4 mg IVP Q6 PRN PRN Reason: Nausea/Vomiting - Labs Labs: 01/04/18 09:39 01/04/18 09:39 PT 18.4 SECONDS (9.7-12.2) H 01/04/18 09:39 INR 1.7 01/04/18 09:39 APTT 38 SECONDS (21-34) H 01/04/18 09:39 Attending/Attestation - Attestation I have personally seen and examined this patient.: Yes I have fully participated in the care of the patient.: Yes I have reviewed all pertinent clinical information, including history, physical exam and plan: Yes Notes (Text): Patient seen and case discussed with day-time resident. Patient refused physical examination from me. He is quite anxious and reports he is seeing too many doctors. I did indicate to him I work with Dr. Duong who is my partner and we alternate weekly. Patient had finished dialysis this morning and had a bowel movement which he was eager to shoo us away to give him time to recuperate. Patient had received coumadin last night; INR: 1.7; we have reordered for Coumadin 3mg PO once for tonight. We have ordered for vancomycin level. I have spoken with Dr. Hill given he does see the patient but there was an issue regarding the blue list which prevent from admitting the patient to his service. Surgery and podiatry have both signed off. Patient seen by his hand shaker who is aware family refused Eliquis; only Coumadin. Patient was seen by infectious disease Wound Culture from [facility] shows S. aureus and patient is on Cefepime as per Dr. Padilla and Vancomycin has been added to be given at the time of HD Blood Culture is negative to date. Infectious disease noting: MAY CONSIDER SWITCHING TO ANCEF 2GM DAILY WITH 1 GM GIVEN POST DIALYSIS, TO CHECK WITH PHARMACY. and on IV vanco for MSSA in wound, due to cath infection. patient is very eager to go home as soon as possible.
[2018-01-04 09:53] LABS: BASO # 0.1 K/uL (0.0-0.2); EOS # 0.3 K/uL (0.0-0.7); EOS % 5.6 % (0.0-4.0); HEMOGLOBIN 9.5 g/dL (12.0-18.0); LYMPH # 0.6 K/uL (1.0-4.3); LYMPH % 11.7 % (20.0-40.0); MEAN CELL VOLUME 87.1 fL (80.0-94.0); MEAN CORPUSCULAR HEMOGLOBIN 28.9 pg (27.0-31.0); MEAN CORPUSCULAR HGB CONC 33.2 g/dL (33.0-37.0); MEAN PLATELET VOLUME 7.4 fL (7.2-11.7); MONO # 0.6 K/uL (0.0-0.8); MONO % 10.5 % (0.0-10.0); NEUT # 3.8 K/uL (1.8-7.0); NEUT % 71.2 % (50.0-75.0); RBC 3.29 Mil/uL (4.40-5.90); RED CELL DISTRIBUTION WIDTH 19.2 % (11.5-14.5); WHITE BLOOD COUNT 5.4 K/uL (4.8-10.8)
[2018-01-04 10:01] LABS: INR 1.7; PROTHROMBIN TIME 18.4 SECONDS (9.7-12.2)
[2018-01-04 10:25] LABS: ALB/GLOB RATIO 1.1 (1.0-2.1); ALBUMIN 3.3 g/dL (3.5-5.0)
--- NOTE | 2018-01-04 12:07 | CP.PCM.PN ---
Subjective - Date & Time of Evaluation Date of Evaluation: 01/04/18 Time of Evaluation: 12:05 - Subjective Subjective: Seen at HD Still very weak On IV vanco for MSSA in wound, due to cath infection UF 3400ml with HD Objective - Vital Signs/Intake and Output Vital Signs (last 24 hours): Temp Pulse Resp BP Pulse Ox 97.3 F L 99 H 16 100/45 L 100 01/04/18 09:10 01/04/18 09:10 01/04/18 09:10 01/04/18 10:10 01/04/18 09:10 Intake and Output: 01/04/18 01/04/18 06:59 18:59 Output Total 0 Balance 0 - Medications Medications: Current Medications Acetaminophen (Tylenol 325mg Tab) 650 mg PO Q6 PRN PRN Reason: Fever >100.4 F Calcium Acetate (Phoslo) 667 mg PO TIDCC [facility] Last Admin: 01/04/18 08:44 Dose: Not Given Dextrose (Dextrose 50% Inj) 0 ml IV STAT PRN; Protocol PRN Reason: Hypoglycemia Protocol Dextrose (Glutose 15) 0 gm PO ONCE PRN; Protocol PRN Reason: Hypoglycemia Protocol Glucagon (Glucagen Diagnostic Kit) 0 mg IM STAT PRN; Protocol PRN Reason: Hypoglycemia Protocol Dextrose (Dextrose 5% In Water 1000 Ml) 1,000 mls @ 0 mls/hr IV .Q0M PRN; Protocol PRN Reason: Hypoglycemia Protocol Cefepime HCl 0.5 gm/ Dextrose 50 mls @ 100 mls/hr IVPB DAILY [facility]; Protocol Last Admin: 01/03/18 11:32 Dose: 100 mls/hr Vancomycin HCl 1 gm/ Sodium (Chloride) 250 mls @ 166.7 mls/hr IVPB MWF [facility]; Protocol Last Admin: 01/04/18 11:15 Dose: 166.7 mls/hr Insulin Human Regular (Novolin R) 0 unit SC ACHS [facility]; Protocol Last Admin: 01/04/18 07:33 Dose: Not Given Ondansetron HCl (Zofran Inj) 4 mg IVP Q6 PRN PRN Reason: Nausea/Vomiting - Labs Labs: 01/04/18 09:39 01/04/18 09:39 PT 18.4 SECONDS (9.7-12.2) H 01/04/18 09:39 INR 1.7 01/04/18 09:39 APTT 38 SECONDS (21-34) H 01/04/18 09:39 - Constitutional Appears: No Acute Distress, Chronically Ill - Head Exam Head Exam: ATRAUMATIC, NORMAL INSPECTION - Eye Exam Eye Exam: EOMI, Normal appearance - Neck Exam Neck Exam: Normal Inspection. absent: Tenderness - Respiratory Exam Respiratory Exam: Clear to Ausculation Bilateral, NORMAL BREATHING PATTERN - Cardiovascular Exam Cardiovascular Exam: REGULAR RHYTHM, +S1 - GI/Abdominal Exam GI & Abdominal Exam: Soft. absent: Tenderness - Extremities Exam Extremities Exam: Normal Inspection. absent: Tenderness - Neurological Exam Neurological Exam: Alert, CN II-XII Intact - Skin Skin Exam: Dry, Warm Assessment and Plan (1) Infection due to Port-A-Cath Status: Acute (2) ESRD (end stage renal disease) Status: Acute (3) Fluid overload Status: Acute (4) History of non-Hodgkin's lymphoma Status: Acute - Assessment and Plan (Free Text) Plan: Same dialysis MWF Adequate UF with HD IV ABs as per ID
--- NOTE | 2018-01-04 12:50 | CP.PCM.PN ---
Subjective - Date & Time of Evaluation Date of Evaluation: 01/04/18 Time of Evaluation: 12:48 - Subjective Subjective: INFECTIOUS DISEASE PROGRESS NOTES IRIS DOMINGUEZ MD, FACP 01/05/2108 CHART REVIEWED PT EXAMINED CASE DISCUSSED WITH HD AND DR PORTILLO, Seen at HD, MAY CONSIDER SWITCHING TO ANCEF 2GM DAILY WITH 1 GM GIVEN POST DIALYSIS, TO CHECK WITH PHARMACY. Still very weak On IV vanco for MSSA in wound, due to cath infection UF 3400ml with HD Objective - Vital Signs/Intake and Output Vital Signs (last 24 hours): Temp Pulse Resp BP Pulse Ox 97.3 F L 99 H 16 100/45 L 100 01/04/18 09:10 01/04/18 09:10 01/04/18 09:10 01/04/18 10:10 01/04/18 09:10 Intake and Output: 01/04/18 01/04/18 06:59 18:59 Output Total 0 Balance 0 - Medications Medications: Current Medications Acetaminophen (Tylenol 325mg Tab) 650 mg PO Q6 PRN PRN Reason: Fever >100.4 F Calcium Acetate (Phoslo) 667 mg PO TIDCC [facility] Last Admin: 01/04/18 08:44 Dose: Not Given Dextrose (Dextrose 50% Inj) 0 ml IV STAT PRN; Protocol PRN Reason: Hypoglycemia Protocol Dextrose (Glutose 15) 0 gm PO ONCE PRN; Protocol PRN Reason: Hypoglycemia Protocol Glucagon (Glucagen Diagnostic Kit) 0 mg IM STAT PRN; Protocol PRN Reason: Hypoglycemia Protocol Dextrose (Dextrose 5% In Water 1000 Ml) 1,000 mls @ 0 mls/hr IV .Q0M PRN; Protocol PRN Reason: Hypoglycemia Protocol Cefepime HCl 0.5 gm/ Dextrose 50 mls @ 100 mls/hr IVPB DAILY [facility]; Protocol Last Admin: 01/03/18 11:32 Dose: 100 mls/hr Vancomycin HCl 1 gm/ Sodium (Chloride) 250 mls @ 166.7 mls/hr IVPB MWF [facility]; Protocol Last Admin: 01/04/18 11:15 Dose: 166.7 mls/hr Insulin Human Regular (Novolin R) 0 unit SC ACHS [facility]; Protocol Last Admin: 01/04/18 07:33 Dose: Not Given Ondansetron HCl (Zofran Inj) 4 mg IVP Q6 PRN PRN Reason: Nausea/Vomiting - Labs Labs: 01/04/18 09:39 01/04/18 09:39 PT 18.4 SECONDS (9.7-12.2) H 01/04/18 09:39 INR 1.7 01/04/18 09:39 APTT 38 SECONDS (21-34) H 01/04/18 09:39 - Constitutional Appears: No Acute Distress, Chronically Ill - Head Exam Head Exam: ATRAUMATIC, NORMAL INSPECTION - Eye Exam Eye Exam: EOMI, Normal appearance - Neck Exam Neck Exam: Normal Inspection. absent: Tenderness - Respiratory Exam Respiratory Exam: Clear to Ausculation Bilateral, NORMAL BREATHING PATTERN - Cardiovascular Exam Cardiovascular Exam: REGULAR RHYTHM, +S1 - GI/Abdominal Exam GI & Abdominal Exam: Soft. absent: Tenderness - Extremities Exam Extremities Exam: Normal Inspection. absent: Tenderness - Neurological Exam Neurological Exam: Alert, CN II-XII Intact - Skin Skin Exam: Dry, Warm Assessment and Plan (1) Infection due to Port-A-Cath Status: Acute (2) ESRD (end stage renal disease) Status: Acute (3) Fluid overload Status: Acute (4) History of non-Hodgkin's lymphoma Status: Acute - Assessment and Plan (Free Text) Plan: Same dialysis MWF Adequate UF with HD IV ABs as per ID Objective - Vital Signs/Intake and Output Vital Signs (last 24 hours): Temp Pulse Resp BP Pulse Ox 97.3 F L 99 H 16 83/75 L 100 01/04/18 09:10 01/04/18 09:10 01/04/18 09:10 01/04/18 11:40 01/04/18 09:10 Intake and Output: 01/04/18 01/04/18 06:59 18:59 Output Total 0 Balance 0 - Medications Medications: Current Medications Acetaminophen (Tylenol 325mg Tab) 650 mg PO Q6 PRN PRN Reason: Fever >100.4 F Calcium Acetate (Phoslo) 667 mg PO TIDCC [facility] Last Admin: 01/04/18 08:44 Dose: Not Given Dextrose (Dextrose 50% Inj) 0 ml IV STAT PRN; Protocol PRN Reason: Hypoglycemia Protocol Dextrose (Glutose 15) 0 gm PO ONCE PRN; Protocol PRN Reason: Hypoglycemia Protocol Glucagon (Glucagen Diagnostic Kit) 0 mg IM STAT PRN; Protocol PRN Reason: Hypoglycemia Protocol Dextrose (Dextrose 5% In Water 1000 Ml) 1,000 mls @ 0 mls/hr IV .Q0M PRN; Protocol PRN Reason: Hypoglycemia Protocol Cefepime HCl 0.5 gm/ Dextrose 50 mls @ 100 mls/hr IVPB DAILY [facility]; Protocol Last Admin: 01/03/18 11:32 Dose: 100 mls/hr Vancomycin HCl 1 gm/ Sodium (Chloride) 250 mls @ 166.7 mls/hr IVPB MWF [facility]; Protocol Last Admin: 01/04/18 11:15 Dose: 166.7 mls/hr Insulin Human Regular (Novolin R) 0 unit SC ACHS [facility]; Protocol Last Admin: 01/04/18 07:33 Dose: Not Given Ondansetron HCl (Zofran Inj) 4 mg IVP Q6 PRN PRN Reason: Nausea/Vomiting - Labs Labs: 01/04/18 09:39 01/04/18 09:39 PT 18.4 SECONDS (9.7-12.2) H 01/04/18 09:39 INR 1.7 01/04/18 09:39 APTT 38 SECONDS (21-34) H 01/04/18 09:39
--- NOTE | 2018-01-04 21:47 | CP.PCM.PN ---
Subjective - Date & Time of Evaluation Date of Evaluation: 01/04/18 Time of Evaluation: 13:30 - Subjective Subjective: Patient still weak but afebrile, on Vancomycin IV, refuses a new Fran-cath. Patient was started on Warfarin ( he refuses Eliquis ), Objective - Vital Signs/Intake and Output Vital Signs (last 24 hours): Temp Pulse Resp BP Pulse Ox 97.6 F 86 20 105/53 L 97 01/04/18 16:25 01/04/18 16:25 01/04/18 16:25 01/04/18 18:16 01/04/18 16:25 - Medications Medications: Current Medications Acetaminophen (Tylenol 325mg Tab) 650 mg PO Q6 PRN PRN Reason: Fever >100.4 F Calcium Acetate (Phoslo) 667 mg PO TIDCC [facility] Last Admin: 01/04/18 18:10 Dose: 667 mg Dextrose (Dextrose 50% Inj) 0 ml IV STAT PRN; Protocol PRN Reason: Hypoglycemia Protocol Dextrose (Glutose 15) 0 gm PO ONCE PRN; Protocol PRN Reason: Hypoglycemia Protocol Glucagon (Glucagen Diagnostic Kit) 0 mg IM STAT PRN; Protocol PRN Reason: Hypoglycemia Protocol Dextrose (Dextrose 5% In Water 1000 Ml) 1,000 mls @ 0 mls/hr IV .Q0M PRN; Protocol PRN Reason: Hypoglycemia Protocol Cefepime HCl 0.5 gm/ Dextrose 50 mls @ 100 mls/hr IVPB DAILY [facility]; Protocol Last Admin: 01/04/18 13:49 Dose: 100 mls/hr Vancomycin HCl 1 gm/ Sodium (Chloride) 250 mls @ 166.7 mls/hr IVPB MWF [facility]; Protocol Last Admin: 01/04/18 11:15 Dose: 166.7 mls/hr Insulin Human Regular (Novolin R) 0 unit SC ACHS [facility]; Protocol Last Admin: 01/04/18 17:33 Dose: Not Given Ondansetron HCl (Zofran Inj) 4 mg IVP Q6 PRN PRN Reason: Nausea/Vomiting - Labs Labs: 01/04/18 09:39 01/04/18 09:39 PT 18.4 SECONDS (9.7-12.2) H 01/04/18 09:39 INR 1.7 01/04/18 09:39 APTT 38 SECONDS (21-34) H 01/04/18 09:39 - Constitutional Appears: No Acute Distress, Chronically Ill - Head Exam Head Exam: NORMAL INSPECTION - Eye Exam Eye Exam: Normal appearance - ENT Exam ENT Exam: Normal Exam - Neck Exam Neck Exam: Normal Inspection - Respiratory Exam Respiratory Exam: Clear to Ausculation Bilateral, NORMAL BREATHING PATTERN - Cardiovascular Exam Cardiovascular Exam: Irregular Rhythm - GI/Abdominal Exam GI & Abdominal Exam: Soft, Normal Bowel Sounds - Rectal Exam Rectal Exam: Deferred - Extremities Exam Extremities Exam: Pedal Edema - Back Exam Back Exam: NORMAL INSPECTION - Neurological Exam Neurological Exam: Alert, Awake, Oriented x3 - Psychiatric Exam Psychiatric exam: Anxious - Skin Skin Exam: Dry, Intact, Warm Assessment and Plan (1) Sepsis associated with vascular access catheter Assessment & Plan: On IV Vancomycin. Status: Resolved (2) Fever Status: Resolved (3) ESRD needing dialysis Status: Acute (4) Atrial fibrillation Assessment & Plan: Back on Warfarin. Status: Acute
[2018-01-05 07:35] LABS: BASO # 0.1 K/uL (0.0-0.2); BASO % 0.9 % (0.0-2.0); EOS # 0.2 K/uL (0.0-0.7); EOS % 4.4 % (0.0-4.0); HEMOGLOBIN 9.9 g/dL (12.0-18.0); LYMPH # 0.7 K/uL (1.0-4.3); LYMPH % 11.6 % (20.0-40.0); MEAN CELL VOLUME 87.6 fL (80.0-94.0); MEAN CORPUSCULAR HEMOGLOBIN 28.9 pg (27.0-31.0); MEAN CORPUSCULAR HGB CONC 33.1 g/dL (33.0-37.0); MEAN PLATELET VOLUME 7.3 fL (7.2-11.7); MONO # 0.5 K/uL (0.0-0.8); MONO % 8.9 % (0.0-10.0); NEUT # 4.2 K/uL (1.8-7.0); NEUT % 74.2 % (50.0-75.0); RBC 3.4 Mil/uL (4.40-5.90); RED CELL DISTRIBUTION WIDTH 19.2 % (11.5-14.5); WHITE BLOOD COUNT 5.7 K/uL (4.8-10.8)
[2018-01-05 07:41] LABS: INR 1.6; PROTHROMBIN TIME 17.9 SECONDS (9.7-12.2)
[2018-01-05] MEDS: (Novolin R) Insulin Human Regular 100 units/ml vial SC SCH ×4 (07:41→22:16)
[2018-01-05 08:10] LABS: ALBUMIN 3.2 g/dL (3.5-5.0); CALCIUM 8.1 mg/dl (8.6-10.4)
--- NOTE | 2018-01-05 09:37 | CP.PCM.PN ---
<Ankush Sy - Last Filed: 01/05/18 14:14> Subjective - Date & Time of Evaluation Date of Evaluation: 01/05/18 Time of Evaluation: 14:28 - Subjective Subjective: PGY-[address] Cuevas Patient seen and examined at bedside. Patient appears comfortable and much less anxious than yesterday. He is tolerating meals. Patient is amenable to staying in hospital until he is medically optimized. Patient has no other complaints. Denies chest pain, fevers, headaches, fatigue, nausea, vomiting, dizziness. Objective - Vital Signs/Intake and Output Vital Signs (last 24 hours): Temp Pulse Resp BP Pulse Ox 98.3 F 112 H 20 97/61 L 98 01/05/18 07:00 01/05/18 07:00 01/05/18 07:00 01/05/18 07:00 01/05/18 07:00 Intake and Output: 01/05/18 01/05/18 06:59 18:59 Intake Total 480 Balance 480 - Medications Medications: Current Medications Acetaminophen (Tylenol 325mg Tab) 650 mg PO Q6 PRN PRN Reason: Fever >100.4 F Calcium Acetate (Phoslo) 667 mg PO TIDCC [facility] Last Admin: 01/05/18 08:37 Dose: 667 mg Dextrose (Dextrose 50% Inj) 0 ml IV STAT PRN; Protocol PRN Reason: Hypoglycemia Protocol Dextrose (Glutose 15) 0 gm PO ONCE PRN; Protocol PRN Reason: Hypoglycemia Protocol Glucagon (Glucagen Diagnostic Kit) 0 mg IM STAT PRN; Protocol PRN Reason: Hypoglycemia Protocol Dextrose (Dextrose 5% In Water 1000 Ml) 1,000 mls @ 0 mls/hr IV .Q0M PRN; Protocol PRN Reason: Hypoglycemia Protocol Cefepime HCl 0.5 gm/ Dextrose 50 mls @ 100 mls/hr IVPB DAILY [facility]; Protocol Last Admin: 01/04/18 13:49 Dose: 100 mls/hr Vancomycin HCl 1 gm/ Sodium (Chloride) 250 mls @ 166.7 mls/hr IVPB MWF [facility]; Protocol Last Admin: 01/04/18 11:15 Dose: 166.7 mls/hr Insulin Human Regular (Novolin R) 0 unit SC ACHS [facility]; Protocol Last Admin: 01/05/18 07:41 Dose: Not Given Ondansetron HCl (Zofran Inj) 4 mg IVP Q6 PRN PRN Reason: Nausea/Vomiting - Labs Labs: 01/05/18 07:17 01/05/18 07:17 PT 17.9 SECONDS (9.7-12.2) H 01/05/18 07:17 INR 1.6 01/05/18 07:17 APTT 37 SECONDS (21-34) H 01/05/18 07:17 - Constitutional Appears: Non-toxic, No Acute Distress, Other (Obese) - Head Exam Head Exam: ATRAUMATIC, NORMOCEPHALIC - Eye Exam Eye Exam: EOMI, Normal appearance Pupil Exam: PERRL - ENT Exam ENT Exam: Mucous Membranes Moist - Neck Exam Neck Exam: Full ROM. absent: Tenderness - Respiratory Exam Respiratory Exam: Clear to Ausculation Bilateral, NORMAL BREATHING PATTERN - Cardiovascular Exam Cardiovascular Exam: +S1, +S2. absent: Murmur Additional comments: Dressing to previous R chest kimi cath site is clean, dry and intact. No erythema or exudates at former portacath site. - GI/Abdominal Exam GI & Abdominal Exam: Soft, Normal Bowel Sounds. absent: Tenderness - Extremities Exam Extremities Exam: Full ROM Additional comments: chronic venous stasis changes b/l LE - Neurological Exam Neurological Exam: Alert, Awake, CN II-XII Intact, Oriented x3 - Psychiatric Exam Psychiatric exam: Normal Affect, Normal Mood - Skin Skin Exam: Dry, Intact Additional comments: chronic venous stasis changes b/l LE Assessment and Plan - Assessment and Plan (Free Text) Assessment: 62M with PMH ESRD, DM, CHF, A FIB W/RVR, AML, HTN, COPD, sleep apnea presents to ED with port a cath infection s/p HD. Pt admitted for further treatment of abscess. Abscess/Infection of Portacath - Pt with port a cath, draining white purulent fluid on R chest on admission; s/p removal by Surgery POD#5, pt doing well post-op. No further surgical interventions needed at this time. - Tmax 100.3F on admission, cont to monitor temps today, currently afebrile - Leukocytosis resolved - ID consulted, Dr. Lizarraga - Continue Cefepime 0.5 g per ID recs - Continue Vanco 1gm MWF with HD as per ID recs random vanc level 10/22 18:00 11.9 - Per ID, will consider switching to Ancef 2mg IV daily with 1mg additional dose given after dialysis. - BCx: NG x4 days - Wound Cx: S. aureus - INR 2.5 01/01-> 1.8 01/03 --> 1.6 01/05. Patient has been receiving daily co umadin 3mg PO with INR continuing to decrease. 5mg Coumadin to be given tonight, will recheck INR tomorrow and continue to monitor. - Vascular surgery consulted, Dr. Ogluin - f/u recs; no further acute surgical management needed at this time - Lactate wnl; procal: 4.31 elevated - 2D echo ordered to r/o endocarditis: LVEF 53%, LV function is mild to moderately reduced with anteroseptal hypokinesis, and septal flattening c/w elevated RV pressure. The aortic root is calcified and demonstrates mildly to moderately reduced opening. Peak gradient was 12mmHg, valve area was not performed. There is mildly increased left ventricular wall thickness. The right ventricle is severely dilated. Systolic function is severely reduced. There is likely severe pulmonary HTN, underestimated by doppler. ESRD - HD MWF - BUN/Cr today 59/5.4 - Nephro consulted, Dr. Rice - f/u recs DM - accuchecks q6h - low dose sliding scale - hypoglycemia protocol HTN - BP 97/52 on admission, BP stable today, pt states his normal bp at home is 90s/50s, currently asymptomatic - Home metoprolol held - Avoid IV fluid boluses if possible NIKOLE - pt uses CPAP at home - not amenable to using bipap - to bring home CPAP for use inpatient B/l LE Ulcers - On exam noted in L heel superior aspect, R achilles tendon area - Podiatry consulted (Dr. Nunn) for wound care, recs appreciated Hx Pacemaker, CHF - Per Pt's pt has not followed with cardiology outpatient in a while - Cardiology (Dr. Stiles) consulted, recs appreciated - Metoprolol held for low bps, continue to monitor PPX Warfarin 5mg PO daily Renal diet Dispo: Blood cultures negative x5. INR has not been optimized on Coumadin 3mg daily. To receive 5mg PO Coumadin dose tonight and reassess tomorrow. Case discussed with attending, Dr. Mason Sy, PGY-1 <Jody Cuevas V - Last Filed: 01/06/18 16:40> Objective - Vital Signs/Intake and Output Vital Signs (last 24 hours): Temp Pulse Resp BP Pulse Ox 97.8 F 112 H 20 95/54 L 99 01/06/18 16:00 01/06/18 16:00 01/06/18 16:00 01/06/18 16:00 01/06/18 16:00 Intake and Output: 01/06/18 01/06/18 06:59 18:59 Intake Total 100 Output Total 0 Balance 100 - Medications Medications: Current Medications Acetaminophen (Tylenol 325mg Tab) 650 mg PO Q6 PRN PRN Reason: Fever >100.4 F Calcium Acetate (Phoslo) 667 mg PO TIDCC [facility] Last Admin: 01/06/18 12:00 Dose: Not Given Dextrose (Dextrose 50% Inj) 0 ml IV STAT PRN; Protocol PRN Reason: Hypoglycemia Protocol Dextrose (Glutose 15) 0 gm PO ONCE PRN; Protocol PRN Reason: Hypoglycemia Protocol Glucagon (Glucagen Diagnostic Kit) 0 mg IM STAT PRN; Protocol PRN Reason: Hypoglycemia Protocol Cefepime HCl 0.5 gm/ Dextrose 50 mls @ 100 mls/hr IVPB DAILY [facility]; Protocol Last Admin: 01/06/18 12:57 Dose: 100 mls/hr Vancomycin HCl 1 gm/ Sodium (Chloride) 250 mls @ 166.7 mls/hr IVPB MWF [facility]; Protocol Last Admin: 01/06/18 10:48 Dose: 166.7 mls/hr Insulin Human Regular (Novolin R) 0 unit SC ACHS [facility]; Protocol Last Admin: 01/06/18 11:30 Dose: Not Given Ondansetron HCl (Zofran Inj) 4 mg IVP Q6 PRN PRN Reason: Nausea/Vomiting Warfarin Sodium (Coumadin) 5 mg PO 1800 [facility] Stop: 01/06/18 18:01 - Labs Labs: 01/06/18 09:15 01/06/18 09:15 PT 15.9 SECONDS (9.7-12.2) H 01/06/18 09:15 INR 1.5 01/06/18 09:15 APTT 36 SECONDS (21-34) H 01/06/18 09:15 Attending/Attestation - Attestation I have personally seen and examined this patient.: Yes I have fully participated in the care of the patient.: Yes I have reviewed all pertinent clinical information, including history, physical exam and plan: Yes Notes (Text): This is late computer entry for 01/05/18. Patient seen and case discussed with day-time resident. Patient seen this morning. Patient very eager to go home. I saw patient again in the afternoon. Patient upset over heparin drip. He is very concerned about bleeding. I did indicate to him that his INR is not at a therapuetic level to send him home and it would be temporary as we bridge him back to Coumadin. I spoke with his as well last night to explain that the heparin drip and again echoed concerns regarding bleeding given prior hospitalization and reque sting heme onc to be involved. I spoke with Dr. Samuel who will come see the patient. I did indicate to her that in spite of the daily coumadin dose, he is not therapuetic but he refusing the heparin bridge. We agreed to increase to 5mg and will comes and see the patient. Patient to continue Iv abx until cleared by infectious disease.
--- NOTE | 2018-01-05 11:00 | CP.PCM.PN ---
Subjective - Date & Time of Evaluation Date of Evaluation: 01/05/18 Time of Evaluation: 11:00 - Subjective Subjective: Podiatry Progress Note- Dr. Nunn 62 y/o male seen at bedside this morning for bilateral lower extremity ulcerations. Pt has multipodus boots and dressings in place. He states he feels fine and has no discomfort or pain in the lower extremities. Denies F/C/N/V/CP/SOB Objective - Vital Signs/Intake and Output Vital Signs (last 24 hours): Temp Pulse Resp BP Pulse Ox 98.3 F 112 H 20 97/61 L 98 01/05/18 07:00 01/05/18 07:00 01/05/18 07:00 01/05/18 07:00 01/05/18 07:00 Intake and Output: 01/05/18 01/05/18 06:59 18:59 Intake Total 480 Balance 480 - Medications Medications: Current Medications Acetaminophen (Tylenol 325mg Tab) 650 mg PO Q6 PRN PRN Reason: Fever >100.4 F Calcium Acetate (Phoslo) 667 mg PO TIDCC [facility] Last Admin: 01/05/18 08:37 Dose: 667 mg Dextrose (Dextrose 50% Inj) 0 ml IV STAT PRN; Protocol PRN Reason: Hypoglycemia Protocol Dextrose (Glutose 15) 0 gm PO ONCE PRN; Protocol PRN Reason: Hypoglycemia Protocol Glucagon (Glucagen Diagnostic Kit) 0 mg IM STAT PRN; Protocol PRN Reason: Hypoglycemia Protocol Dextrose (Dextrose 5% In Water 1000 Ml) 1,000 mls @ 0 mls/hr IV .Q0M PRN; Protocol PRN Reason: Hypoglycemia Protocol Cefepime HCl 0.5 gm/ Dextrose 50 mls @ 100 mls/hr IVPB DAILY [facility]; Protocol Last Admin: 01/04/18 13:49 Dose: 100 mls/hr Vancomycin HCl 1 gm/ Sodium (Chloride) 250 mls @ 166.7 mls/hr IVPB MWF [facility]; Protocol Last Admin: 01/04/18 11:15 Dose: 166.7 mls/hr Insulin Human Regular (Novolin R) 0 unit SC ACHS [facility]; Protocol Last Admin: 01/05/18 07:41 Dose: Not Given Ondansetron HCl (Zofran Inj) 4 mg IVP Q6 PRN PRN Reason: Nausea/Vomiting - Labs Labs: 01/05/18 07:17 01/05/18 07:17 PT 17.9 SECONDS (9.7-12.2) H 01/05/18 07:17 INR 1.6 01/05/18 07:17 APTT 37 SECONDS (21-34) H 01/05/18 07:17 - Constitutional Appears: Well, Non-toxic, No Acute Distress - Extremities Exam Additional comments: Lower extremity focused exam: Vasc: Nonpalpable pulses to the DP and PT, delayed CFT to the digits, temperature gradient WNL, +1 pitting pedal edema Derm: chronic skin changes with hyperpigmented skin to entire lower extremity, skin thickening and flaking bilateral lower legs. Left: Left posterior heel ulceration now fully healed with overlying thin fragile skin. Mild dark discoloration noted to skin area at site of prior ulceration. Right: Full thickness ulceration noted to posterior ankle at level of Achilles insertion measuring approximately 3 cm x 2 cm x 0.3cm, with mixture granular and fibrotic wound base. No active drainage noted. No fluctuance noted. Minor ibeth- wound erythema, no streaking appreciated. Neuro: Gross sensation absent B/L. protective sensation absent Ortho: no pain appreciated with palpation to surrounding ulceration sites. No pain with calf palpation bilaterally. - Neurological Exam Neurological Exam: Alert, Awake, Oriented x3 - Psychiatric Exam Psychiatric exam: Normal Affect, Normal Mood Assessment and Plan - Assessment and Plan (Free Text) Assessment: 61 y/o male patient, seen and evaluated at bedside for B/L lower extremity ulcerations Plan: Patient seen and evaluated at bedside Discussed plan with Dr. Nunn Patient afebrile, absent leukocytosis Will continue with local wound care: wounds cleansed with saline and dressed with ABD, DSD; betadine applied to right posterior heel wound Wounds stable, no current signs of infection No surgical intervention at this time Patient to wear multipodus boots at all times while in bed Will continue to follow
--- NOTE | 2018-01-05 11:01 | CP.PCM.PN ---
Subjective - Date & Time of Evaluation Date of Evaluation: 01/05/18 Time of Evaluation: 11:00 - Subjective Subjective: seen and examined afebrile denies any pain n/v/d/f/c/dizziness/headache Objective - Vital Signs/Intake and Output Vital Signs (last 24 hours): Temp Pulse Resp BP Pulse Ox 98.3 F 112 H 20 97/61 L 98 01/05/18 07:00 01/05/18 07:00 01/05/18 07:00 01/05/18 07:00 01/05/18 07:00 Intake and Output: 01/05/18 01/05/18 06:59 18:59 Intake Total 480 Balance 480 - Medications Medications: Current Medications Acetaminophen (Tylenol 325mg Tab) 650 mg PO Q6 PRN PRN Reason: Fever >100.4 F Calcium Acetate (Phoslo) 667 mg PO TIDCC [facility] Last Admin: 01/05/18 08:37 Dose: 667 mg Dextrose (Dextrose 50% Inj) 0 ml IV STAT PRN; Protocol PRN Reason: Hypoglycemia Protocol Dextrose (Glutose 15) 0 gm PO ONCE PRN; Protocol PRN Reason: Hypoglycemia Protocol Glucagon (Glucagen Diagnostic Kit) 0 mg IM STAT PRN; Protocol PRN Reason: Hypoglycemia Protocol Dextrose (Dextrose 5% In Water 1000 Ml) 1,000 mls @ 0 mls/hr IV .Q0M PRN; Protocol PRN Reason: Hypoglycemia Protocol Cefepime HCl 0.5 gm/ Dextrose 50 mls @ 100 mls/hr IVPB DAILY [facility]; Protocol Last Admin: 01/04/18 13:49 Dose: 100 mls/hr Vancomycin HCl 1 gm/ Sodium (Chloride) 250 mls @ 166.7 mls/hr IVPB MWF [facility]; Pro tocol Last Admin: 01/04/18 11:15 Dose: 166.7 mls/hr Insulin Human Regular (Novolin R) 0 unit SC ACHS [facility]; Protocol Last Admin: 01/05/18 07:41 Dose: Not Given Ondansetron HCl (Zofran Inj) 4 mg IVP Q6 PRN PRN Reason: Nausea/Vomiting - Labs Labs: 01/05/18 07:17 01/05/18 07:17 PT 17.9 SECONDS (9.7-12.2) H 01/05/18 07:17 INR 1.6 01/05/18 07:17 APTT 37 SECONDS (21-34) H 01/05/18 07:17 - Constitutional Appears: Non-toxic, No Acute Distress, Chronically Ill - Head Exam Head Exam: NORMAL INSPECTION - Eye Exam Eye Exam: Normal appearance, PERRL - ENT Exam ENT Exam: Mucous Membranes Moist, Normal Exam - Neck Exam Neck Exam: Normal Inspection - Respiratory Exam Respiratory Exam: Clear to Ausculation Bilateral, NORMAL BREATHING PATTERN - Cardiovascular Exam Cardiovascular Exam: Irregular Rhythm - GI/Abdominal Exam GI & Abdominal Exam: Distended, Soft - Extremities Exam Extremities Exam: Pedal Edema (b/l LE edema stasis) - Neurological Exam Neurological Exam: Alert, Awake, Oriented x3 - Psychiatric Exam Psychiatric exam: Normal Affect, Normal Mood - Skin Skin Exam: Intact, Warm Assessment and Plan (1) Fever Status: Resolved (2) Infection due to Port-A-Cath Status: Acute (3) ESRD (end stage renal disease) Status: Acute (4) A-fib Status: Chronic (5) Anemia Status: Chronic - Assessment and Plan (Free Text) Assessment: hd mwf antibiotics per ID, blood cultures negative
[2018-01-05] MEDS ORDERED: Heparin25000 units/250ml 1/2NS 25,000 UNITS/250 ML BAG IV PRN (13:24)
--- NOTE | 2018-01-05 19:39 | CARD ---
APPROVED REPORT Date of service: 12/31/2017 EKG Measurement Heart [id number] <Conclusion> Atrial fibrillation with premature ventricular or aberrantly conducted complexes Left axis deviation Low voltage QRS Inferior infarct, age undetermined Possible Anterolateral infarct, age undetermined Abnormal ECG
[2018-01-06] MEDS: (Novolin R) Insulin Human Regular 100 units/ml vial SC SCH ×4 (08:26→21:53)
--- NOTE | 2018-01-06 09:04 | CP.PCM.PN ---
<Ankush Sy - Last Filed: 01/06/18 15:40> Subjective - Date & Time of Evaluation Date of Evaluation: 01/06/18 Time of Evaluation: 15:40 - Subjective Subjective: PGY-[address] Cuevas Patient seen and examined at bedside. Patient has no medical complaints at this time, in no acute distress. No acute events overnight. He is tolerating meals. Heparin bridge was ordered yesterday as INR is sub-therapeutic in lieu of history of A Fib, however patient refused heparin. I Spoke on the phone with Dr. Samuel, who has been consulted and her help is much appreciated. She will see the patient and speak with the patient's family in hopes that he will agree to heparin bridge. Otherwise patient will have to remain hospitalized until coumadin levels become therapeutic without bridge. Patient denies chest pain, palpitations, headache, dizziness, nausea, vomiting. Objective - Vital Signs/Intake and Output Vital Signs (last 24 hours): Temp Pulse Resp BP Pulse Ox 97.9 F 100 H 20 99/43 L 99 01/06/18 07:00 01/06/18 07:00 01/06/18 07:00 01/06/18 07:00 01/06/18 07:00 Intake and Output: 01/06/18 01/06/18 06:59 18:59 Intake Total 100 Output Total 0 Balance 100 - Medications Medications: Current Medications Acetaminophen (Tylenol 325mg Tab) 650 mg PO Q6 PRN PRN Reason: Fever >100.4 F Calcium Acetate (Phoslo) 667 mg PO TIDCC [facility] Last Admin: 01/06/18 08:26 Dose: Not Given Dextrose (Dextrose 50% Inj) 0 ml IV STAT PRN; Protocol PRN Reason: Hypoglycemia Protocol Dextrose (Glutose 15) 0 gm PO ONCE PRN; Protocol PRN Reason: Hypoglycemia Protocol Glucagon (Glucagen Diagnostic Kit) 0 mg IM STAT PRN; Protocol PRN Reason: Hypoglycemia Protocol Cefepime HCl 0.5 gm/ Dextrose 50 mls @ 100 mls/hr IVPB DAILY [facility]; Protocol Last Admin: 01/05/18 10:39 Dose: 100 mls/hr Vancomycin HCl 1 gm/ Sodium (Chloride) 250 mls @ 166.7 mls/hr IVPB MWF [facility]; Protocol Last Admin: 01/04/18 11:15 Dose: 166.7 mls/hr Insulin Human Regular (Novolin R) 0 unit SC ACHS [facility]; Protocol Last Admin: 01/06/18 08:26 Dose: Not Given Ondansetron HCl (Zofran Inj) 4 mg IVP Q6 PRN PRN Reason: Nausea/Vomiting - Labs Labs: 01/05/18 07:17 01/05/18 07:17 PT 17.9 SECONDS (9.7-12.2) H 01/05/18 07:17 INR 1.6 01/05/18 07:17 APTT 37 SECONDS (21-34) H 01/05/18 07:17 - Constitutional Appears: No Acute Distress, Other (Obese) - Head Exam Head Exam: ATRAUMATIC, NORMAL INSPECTION - Eye Exam Eye Exam: EOMI, Normal appearance - ENT Exam ENT Exam: Mucous Membranes Moist - Respiratory Exam Respiratory Exam: Clear to Ausculation Bilateral, NORMAL BREATHING PATTERN - Cardiovascular Exam Cardiovascular Exam: RRR, +S1, +S2. absent: Murmur - GI/Abdominal Exam GI & Abdominal Exam: Soft, Normal Bowel Sounds. absent: Tenderness - Extremities Exam Additional comments: chronic venous stasis changes b/l LE - Neurological Exam Neurological Exam: Alert, Awake, Oriented x3 - Psychiatric Exam Psychiatric exam: Normal Affect, Normal Mood - Skin Skin Exam: Dry, Intact Assessment and Plan - Assessment and Plan (Free Text) Assessment: 62M with PMH ESRD, DM, CHF, A FIB W/RVR, AML, HTN, COPD, sleep apnea who presented with permacath ifection, now s/p removal of port-a-cath. INR is sub- therapeutic in setting of A Fib with RVR. Abscess/Infection of Portacath - Pt with portacath, draining white purulent fluid on R chest on admission; s/p removal by Surgery POD#6, pt doing well post-op. No further surgical interventions needed at this time. - Tmax 100.3F on admission. Now afebrile x5 days - Leukocytosis resolved - ID consulted, Dr. Lizarraga - Continue Cefepime 0.5 g per ID recs - Continue Vanco 1gm MWF with HD as per ID recs random vanc level 01/04 18:00 11.9 - Spoke with Dr. Lozano will recheck random vanc Thursday before dialysis. If vancomycin is at safe blood levels, then patient may be treated as an outpatient with vancomycin MWF, thus not requiring daily Abx. - BCx: NG x5 days - Wound Cx: S. aureus - INR 2.5 01/01-> 1.8 01/03 --> 1.6 01/05 --> 1.5 01/06. Patient has been receiving daily coumadin 3mg PO with INR continuing to decrease. 5mg Coumadin given yesterday as patient refused heparin bridge. INR continues to decrease. -I Spoke with Dr. Samuel, who has been consulted and her help is much appreciated. She will see the patient and speak with the patient's family in hopes that he will agree to heparin bridge, otherwise patient will have to rem ain hospitalized until coumadin levels become therapeutic without bridge. - Vascular surgery consulted, Dr. Olguin - no further acute surgical management needed at this time - 2D echo ordered to r/o endocarditis: LVEF 53%, LV function is mild to moderately reduced with anteroseptal hypokinesis, and septal flattening c/w elevated RV pressure. The aortic root is calcified and demonstrates mildly to moderately reduced opening. Peak gradient was 12mmHg, valve area was not performed. There is mildly increased left ventricular wall thickness. The right ventricle is severely dilated. Systolic function is severely reduced. There is likely severe pulmonary HTN, underestimated by doppler. ESRD - Nephro consulted, Dr. Rice, help appreciated. Pt to continue HD MWF. - BUN/Cr today 70/5.6 DM - accuchecks q6h - low dose sliding scale - hypoglycemia protocol HTN - BP 97/52 on admission, BP stable today, pt states his normal bp at home is 90s/50s, currently asymptomatic - Home metoprolol held - Avoid IV fluid boluses if possible NIKOLE - pt uses CPAP at home - not amenable to using bipap - to bring home CPAP for use inpatient B/l LE Ulcers - On exam noted in L heel superior aspect, R achilles tendon area - Podiatry consulted (Dr. Nunn) for wound care, recs appreciated - Podiatry c/w wound care. Wounds stable, no signs of infection, no surgical intervention indicated. Hx Pacemaker, CHF - Per Pt's pt has not followed with cardiology outpatient in a while - Cardiology (Dr. Stiles) consulted, recs appreciated - Metoprolol held for low bps, continue to monitor PPX Warfarin 5mg PO daily Renal diet Dispo: Blood cultures negative x5. INR had not been optimized on Coumadin 3mg daily. 5mg Coumadin given yesterday as patient refused heparin. If patient is amenable to heparin, will initiate bridge, otherwise continue coumadin only until therapeutic levels are reached. Case discussed with attending, Dr. Mason Sy, PGY-1 <Jody Cuevas V - Last Filed: 01/06/18 16:55> Objective - Vital Signs/Intake and Output Vital Signs (last 24 hours): Temp Pulse Resp BP Pulse Ox 97.8 F 112 H 20 95/54 L 99 01/06/18 16:00 01/06/18 16:00 01/06/18 16:00 01/06/18 16:00 01/06/18 16:00 Intake and Output: 01/06/18 01/06/18 06:59 18:59 Intake Total 100 Output Total 0 Balance 100 - Medications Medications: Current Medications Acetaminophen (Tylenol 325mg Tab) 650 mg PO Q6 PRN PRN Reason: Fever >100.4 F Calcium Acetate (Phoslo) 667 mg PO TIDCC [facility] Last Admin: 01/06/18 12:00 Dose: Not Given Dextrose (Dextrose 50% Inj) 0 ml IV STAT PRN; Protocol PRN Reason: Hypoglycemia Protocol Dextrose (Glutose 15) 0 gm PO ONCE PRN; Protocol PRN Reason: Hypoglycemia Protocol Glucagon (Glucagen Diagnostic Kit) 0 mg IM STAT PRN; Protocol PRN Reason: Hypoglycemia Protocol Cefepime HCl 0.5 gm/ Dextrose 50 mls @ 100 mls/hr IVPB DAILY [facility]; Protocol Last Admin: 01/06/18 12:57 Dose: 100 mls/hr Vancomycin HCl 1 gm/ Sodium (Chloride) 250 mls @ 166.7 mls/hr IVPB MWF [facility]; Protocol Last Admin: 01/06/18 10:48 Dose: 166.7 mls/hr Insulin Human Regular (Novolin R) 0 unit SC ACHS [facility]; Protocol Last Admin: 01/06/18 11:30 Dose: Not Given Ondansetron HCl (Zofran Inj) 4 mg IVP Q6 PRN PRN Reason: Nausea/Vomiting Warfarin Sodium (Coumadin) 5 mg PO 1800 [facility] Stop: 01/06/18 18:01 - Labs Labs: 01/06/18 09:15 01/06/18 09:15 PT 15.9 SECONDS (9.7-12.2) H 01/06/18 09:15 INR 1.5 01/06/18 09:15 APTT 36 SECONDS (21-34) H 01/06/18 09:15 Attending/Attestation - Attestation I have personally seen and examined this patient.: Yes I have fully participated in the care of the patient.: Yes I have reviewed all pertinent clinical information, including history, physical exam and plan: Yes Notes (Text): Patient seen, examined and case discussed with clinical specialist medical device. Patient seen this morning during dialysis. Patient is very calm and sleeping at dialysis. Vitals are stable. Patient's INR subtherapeutic at 1.5 in spite of increase in Coumadin level; resident has followed-up with heme-onc to see if he will agree to bridge since patient is subtherapuetic while on Coumadin for atrial fibrillation. Resident has also reached out to infectious disease, will have random vancomycin level post dialysis on Thursday to determine antibiotics with dialysis only for discharge planning. Assessment/Plan 1) Abscess and nfection of Portacath Assessment/Plan * Pt with portacath, draining white purulent fluid on R chest on admission; s/p removal by Surgery on 12/31/17 pt doing well post-op. No further surgical interventions needed at this time. * Remains afebrile since initial fever at 102F * Infectious Disease (Dr. Lizarraga) on board--> help appreciated * Cefepime 0.5gm IVPB qdaily (active since 01/01/18) * Vancomycin 1gm IVPB MWF (active since 01/04/18) * Resident spoke with Dr. Lozano will recheck random vanc Thursday before dialysis. If vancomycin is at safe blood levels, then patient may be treated as an outpatient with vancomycin MWF, thus not requiring daily Abx. * Blood culture (12/30/17): no growth after 5 days X2 * Skin/Chest (12/30/17): Staph Aureus * Chest (12/31/17): Staph Aureus * Echocardiogram: LVEF 53%, LV function is mild to moderately reduced with anteroseptal hypokinesis, and septal flattening c/w elevated RV pressure. The aortic root is calcified and demonstrates mildly to moderately reduced opening. Peak gradient was 12mmHg, valve area was not performed. There is mildly increased left ventricular wall thickness. The right ventricle is severely dilated. Systolic function is severely reduced. There is likely severe pulmonary HTN, underestimated by doppler. 2) Atrial Fibrillation Subtherapuetic INR Assessment/Plan * Dr. Samuel (Heme-oncology) on board-->help appreciated * I explained to her patient and had refused Eliquis because of bleeding risk and had refused heparin drip because of bleeding risk * Dr. Stiles (Cardiology) on board-->help appreciated * Recommended for Eliquis; patient and refused * Echo: LVEF 53%, LV function is mild to moderately reduced with anteroseptal hypokinesis, and septal flattening c/w elevated RV pressure. The aortic root is calcified and demonstrates mildly to moderately reduced opening. Peak gradient was 12mmHg, valve area was not performed. There is mildly increased left ventricular wall thickness. The right ventricle is severely dilated. Systolic function is severely reduced. There is likely severe pulmonary HTN, underestimated by doppler. * Patient refusing heparin bridge secondary to bleeding risk; though he is not therapuetic on Coumadin * Patient ordered for Coumadin 5mg tonight; INR: 1.5 * off rate control agent secondary to borderline low BP 3) ESRD Assessment/Plan * Nephro consulted, Dr. Rice, help appreciated. Pt to continue HD MWF. * BUN/Cr today 70/5.6 * Phoslo 667mg PO TIDCC 4) Diabetes Assessment/Plan * accuchecks q6h * low dose sliding scale * hypoglycemia protocol * check a1c 5) HTN Assessment/Plan * BP 97/52 on admission, BP stable today, pt states his normal bp at home is 90s/50s, currently asymptomatic * Home metoprolol held 6. History of NIKOLE Assessment/Plan * pt uses CPAP at home * not amenable to using bipap * to bring home CPAP for use inpatient 7. B/l LE Ulcers Assessment/Plan * On exam noted in L heel superior aspect, R achilles tendon area * Podiatry consulted (Dr. Nunn) for wound care, recs appreciated * Podiatry c/w wound care. Wounds stable, no signs of infection, no surgical intervention indicated. 8. Hx Pacemaker, Systolic CHF Assessment/Plan * Per Pt's pt has not followed with cardiology outpatient in a while * Cardiology (Dr. Stiles) consulted, recs appreciated * Metoprolol held for low bps, continue to monitor * Echo: LVEF 53%, LV function is mild to moderately reduced with anteroseptal hypokinesis, and septal flattening c/w elevated RV pressure. The aortic root is calcified and demonstrates mildly to moderately reduced opening. Peak gradient was 12mmHg, valve area was not performed. There is mildly increased left ventricular wall thickness. The right ventricle is severely dilated. Systolic function is severely reduced. There is likely severe pulmonary HTN, underestimated by doppler. 9. PPX * Warfarin 5mg PO daily; patient is refusing heparin drip; heme-oncology to speak with him * Renal diet Dispo: Blood cultures negative x5. INR had not been optimized on Coumadin 3mg daily. 5mg Coumadin given yesterday as patient refused heparin drip. If patient is amenable to heparin drip, will initiate bridge, otherwise continue coumadin only until therapeutic levels are reached. hematology to speak with patient and . Patient is awaiting ID clearance regarding determine antibiotics with dialysis.
--- NOTE | 2018-01-06 09:14 | CP.PCM.DIS ---
Provider - Provider Date of Admission: 12/31/17 00:01 Attending physician: Jody Cuevas DO Time Spent in preparation of Discharge (in minutes): 45 Diagnosis - Discharge Diagnosis (1) Infection due to Port-A-Cath Status: Acute Hospital Course - Lab Results Lab Results: Micro Results 12/30/17 09:33 Blood Blood Culture - Final NO GROWTH AFTER 5 DAYS 12/30/17 09:33 Blood Gram Stain - Final TEST NOT PERFORMED 12/30/17 09:33 Blood Blood Culture - Final NO GROWTH AFTER 5 DAYS 12/30/17 09:33 Blood Gram Stain - Final TEST NOT PERFORMED 12/31/17 Unknown Chest Gram Stain - Final 12/31/17 Unknown Chest Wound Culture - Final Staphylococcus Aureus 12/30/17 Unknown Skin - Chest Gram Stain - Final 12/30/17 Unknown Skin - Chest Wound Culture - Final Staphylococcus Aureus Most Recent Lab Values WBC 5.7 K/uL (4.8-10.8) 01/05/18 07:17 RBC 3.40 Mil/uL (4.40-5.90) L 01/05/18 07:17 Hgb 9.9 g/dL (12.0-18.0) L 01/05/18 07:17 Hct 29.8 % (35.0-51.0) L 01/05/18 07:17 MCV 87.6 fL (80.0-94.0) 01/05/18 07:17 MCH 28.9 pg (27.0-31.0) 01/05/18 07:17 MCHC 33.1 g/dL (33.0-37.0) 01/05/18 07:17 RDW 19.2 % (11.5-14.5) H 01/05/18 07:17 Plt Count 207 K/uL (130-400) 01/05/18 07:17 MPV 7.3 fL (7.2-11.7) 01/05/18 07:17 Neut % (Auto) 74.2 % (50.0-75.0) 01/05/18 07:17 Lymph % (Auto) 11.6 % (20.0-40.0) L 01/05/18 07:17 Davie % (Auto) 8.9 % (0.0-10.0) 01/05/18 07:17 Eos % (Auto) 4.4 % (0.0-4.0) H 01/05/18 07:17 Baso % (Auto) 0.9 % (0.0-2.0) 01/05/18 07:17 Neut # (Auto) 4.2 K/uL (1.8-7.0) 01/05/18 07:17 Lymph # (Auto) 0.7 K/uL (1.0-4.3) L 01/05/18 07:17 Davie # (Auto) 0.5 K/uL (0.0-0.8) 01/05/18 07:17 Eos # (Auto) 0.2 K/uL (0.0-0.7) 01/05/18 07:17 Baso # (Auto) 0.1 K/uL (0.0-0.2) 01/05/18 07:17 Neutrophils % (Manual) 84 % (50-75) H 01/01/18 09:39 Band Neutrophils % 1 % (0-2) 01/01/18 09:39 Lymphocytes % (Manual) 10 % (20-40) L 01/01/18 09:39 Monocytes % (Manual) 3 % (0-10) 01/01/18 09:39 Eosinophils % (Manual) 2 % (0-4) 01/01/18 09:39 Platelet Estimate Normal (NORMAL) 01/01/18 09:39 Polychromasia Slight 01/01/18 09:39 Hypochromasia (manual) Slight 01/01/18 09:39 Anisocytosis (manual) Slight 01/01/18 09:39 Microcytosis (manual) Slight 12/30/17 22:57 Ovalocytes Slight 01/01/18 09:39 PT 17.9 SECONDS (9.7-12.2) H 01/05/18 07:17 INR 1.6 01/05/18 07:17 APTT 37 SECONDS (21-34) H 01/05/18 07:17 Sodium 137 mmol/L (132-148) 01/05/18 07:17 Potassium 4.2 mmol/L (3.6-5.2) 01/05/18 07:17 Chloride 97 mmol/L (98-107) L 01/05/18 07:17 Carbon Dioxide 25 mmol/L (22-30) 01/05/18 07:17 Anion Gap 19 (10-20) 01/05/18 07:17 BUN 59 mg/dL (9-20) H 01/05/18 07:17 Creatinine 4.4 mg/dL (0.8-1.5) H 01/05/18 07:17 Est GFR ( Amer) 17 01/05/18 07:17 Est GFR (Non-Af Amer) 14 01/05/18 07:17 POC Glucose (mg/dL) 160 mg/dL (65-110) H 01/05/18 16:27 Random Glucose 115 mg/dL (75-110) H 01/05/18 07:17 Lactic Acid 0.9 mmol/L (0.7-2.1) 12/31/17 11:18 Calcium 8.1 mg/dl (8.6-10.4) L 01/05/18 07:17 Total Bilirubin 1.0 mg/dL (0.2-1.3) 01/05/18 07:17 AST 26 U/L (17-59) 01/05/18 07:17 ALT 19 U/L (21-72) L 01/05/18 07:17 Alkaline Phosphatase 314 U/L (38-126) H 01/05/18 07:17 Total Protein 6.5 g/dL (6.3-8.3) 01/05/18 07:17 Albumin 3.2 g/dL (3.5-5.0) L 01/05/18 07:17 Globulin 3.3 gm/dL (2.2-3.9) 01/05/18 07:17 Albumin/Globulin Ratio 1.0 (1.0-2.1) 01/05/18 07:17 Procalcitonin 4.31 NG/ML (0.19-0.49) H 01/01/18 09:39 Random Vancomycin 11.9 ug/mL 01/04/18 16:49 - Hospital Course Hospital Course: Initial HPI: Pt is a 62M with PMH ESRD, DM, CHF, A FIB W/RVR, AML, HTN, COPD, sleep apnea presents to ED with port a cath infection s/p HD. He reports feeling a burning sensation two days ago and that today after HD his noticed some pus coming from the site. Pt reports nausea and dry heaving. He denies any fever, abdominal pain, shortness of breath, chest pain, diarrhea, constipation. In the ED, pt was given tylenol for Tmax 102F and BCx and wound Cx were obtained. SxH: back surgery, pacemaker FamH: mom heart disease, DM, dad CAD SocH: denies tobacco, etoh, recreational drug use Allergies: NKDA Meds: coumadin 1 daily, starlix 60 TID, procrit, metoprolol succinate 25 daily PMD: Dr. Rose This patient had initially presented to [facility] for port-a-cath infection, was treated with antibiotics, and then patient signed out AMA as he felt that the infection was improving. When the infection began to worsen again, patient came to [facility] ER on 12/30 and was admitted for infection/abscess of port-a-cath site with fever of 102.0. Patient had port-a-cath placed due to difficulty obtaining vascular access during patient's multiple prior hospitalizations. Of note, patient has a history of multiple hospitalizations for infected wounds Surgery was consulted (Dr. Olguin) for possible I&D/port-a-cath removal. Port-a-cath was removed by the surgical team on 12/31, and a large amount of purulent drainage was pulled out within the pocket of the port. It was recommended to the patient that he have a new port-a-cath placed following removal, however patient refused. ID was consulted (Dr. Lizarraga), and per his recommendations, patient was treated throughout hospital course with IV Cefepime daily and IV Vancomycin MWF. Aside from initial temperature of 102.0, patient remained afebrile for the remainder of his hospital course. 2D echo was ordered to rule out endocarditis, and was negative for any valvular lesions or calcifications. Patient's has a history of hypertension, however was persistently hypotensive during hospital course with lower readings of about 90s/50-60s. Patient stated that these were normal pressures for him, and he remained assymptomatic. Home metoprolol was held. Podiatry was consulted for b/l LE ulcerations and wound care. Wounds were cleaned and dressed, requiring no further intervention. Patient is on chronic anticoagulation for Afib. Discharge Exam - Head Exam Head Exam: ATRAUMATIC, NORMOCEPHALIC Discharge Plan - Follow Up Plan Condition: STABLE Disposition: HOME/ ROUTINE Instructions: Heart Failure, Adult (DC), Central Line Infections (DC) Referrals: Radha Lizarraga MD [Staff Provider] - Peng Rice MD [Staff Provider] - Isreal Nunn DPM [Staff Provider] -
[2018-01-06 09:18] LABS: BASO # 0.1 K/uL (0.0-0.2); BASO % 1.5 % (0.0-2.0); EOS # 0.3 K/uL (0.0-0.7); EOS % 4.8 % (0.0-4.0); HEMOGLOBIN 9.6 g/dL (12.0-18.0); LYMPH # 0.7 K/uL (1.0-4.3); LYMPH % 11.3 % (20.0-40.0); MEAN CELL VOLUME 87.9 fL (80.0-94.0); MEAN CORPUSCULAR HEMOGLOBIN 28.4 pg (27.0-31.0); MEAN CORPUSCULAR HGB CONC 32.3 g/dL (33.0-37.0); MEAN PLATELET VOLUME 7.1 fL (7.2-11.7); MONO # 0.5 K/uL (0.0-0.8); MONO % 8.7 % (0.0-10.0); NEUT # 4.3 K/uL (1.8-7.0); NEUT % 73.7 % (50.0-75.0); NRBC % 0.1 % (0.0-2.0); RBC 3.39 Mil/uL (4.40-5.90); WHITE BLOOD COUNT 5.9 K/uL (4.8-10.8)
[2018-01-06 09:28] LABS: INR 1.5; PROTHROMBIN TIME 15.9 SECONDS (9.7-12.2)
[2018-01-06 09:43] LABS: ALB/GLOB RATIO 1.1 (1.0-2.1); ALBUMIN 3.3 g/dL (3.5-5.0); CALCIUM 8.3 mg/dl (8.6-10.4)
--- NOTE | 2018-01-06 13:43 | CP.PCM.PN ---
Subjective - Date & Time of Evaluation Date of Evaluation: 01/06/18 Time of Evaluation: 13:41 - Subjective Subjective: seen on HD tolerated treatment 3 kg UF not toxic cleared for discharge no f/c no n/v/d no headache no rash no sinus tenderness Objective - Vital Signs/Intake and Output Vital Signs (last 24 hours): Temp Pulse Resp BP Pulse Ox 97.9 F 110 H 20 92/57 L 97 01/06/18 13:00 01/06/18 13:00 01/06/18 13:00 01/06/18 13:00 01/06/18 13:00 Intake and Output: 01/06/18 01/06/18 06:59 18:59 Intake Total 100 Output Total 0 Balance 100 - Medications Medications: Current Medications Acetaminophen (Tylenol 325mg Tab) 650 mg PO Q6 PRN PRN Reason: Fever >100.4 F Calcium Acetate (Phoslo) 667 mg PO TIDCC [facility] Last Admin: 01/06/18 12:00 Dose: Not Given Dextrose (Dextrose 50% Inj) 0 ml IV STAT PRN; Protocol PRN Reason: Hypoglycemia Protocol Dextrose (Glutose 15) 0 gm PO ONCE PRN; Protocol PRN Reason: Hypoglycemia Protocol Glucagon (Glucagen Diagnostic Kit) 0 mg IM STAT PRN; Protocol PRN Reason: Hypoglycemia Protocol Cefepime HCl 0.5 gm/ Dextrose 50 mls @ 100 mls/hr IVPB DAILY [facility]; Protocol Last Admin: 01/06/18 12:57 Dose: 100 mls/hr Vancomycin HCl 1 gm/ Sodium (Chloride) 250 mls @ 166.7 mls/hr IVPB MWF [facility]; Protocol Last Admin: 01/06/18 10:48 Dose: 166.7 mls/hr Insulin Human Regular (Novolin R) 0 unit SC ACHS [facility]; Protocol Last Admin: 01/06/18 11:30 Dose: Not Given Ondansetron HCl (Zofran Inj) 4 mg IVP Q6 PRN PRN Reason: Nausea/Vomiting - Labs Labs: 01/06/18 09:15 01/06/18 09:15 PT 15.9 SECONDS (9.7-12.2) H 01/06/18 09:15 INR 1.5 01/06/18 09:15 APTT 36 SECONDS (21-34) H 01/06/18 09:15 - Constitutional Appears: No Acute Distress, Chronically Ill - Head Exam Head Exam: ATRAUMATIC, NORMAL INSPECTION - Eye Exam Eye Exam: EOMI - Neck Exam Neck Exam: Full ROM. absent: Lymphadenopathy - Cardiovascular Exam Cardiovascular Exam: REGULAR RHYTHM. absent: Rubs - GI/Abdominal Exam GI & Abdominal Exam: Distended. absent: Tenderness - Extremities Exam Extremities Exam: Pedal Edema - Neurological Exam Neurological Exam: Alert, Awake, Oriented x3 Assessment and Plan - Assessment and Plan (Free Text) Assessment: esrd, maint therapy s/p AB for portacath related bacteremia chronic leg cellullitis
--- NOTE | 2018-01-06 19:37 | CP.PCM.CON ---
History of Present Illness - History of Present Illness History of Present Illness: This is a a 62M with PMH ESRD, DM, CHF, A FIB W/RVR, AML, HTN, COPD, sleep apnea, h/o AML s/p chemotherapy around 10 years ago, came to the ED for evaluation of portacath site. He reports feeling a burning sensation two days ago and that today after HD his noticed some pus coming from the site. Pt reports nausea and dry heaving. He denies any fever, abdominal pain, shortness of breath, chest pain, diarrhea, constipation. In the ED, pt was given tylenol for Tmax 102F and BCx and wound Cx were obtained. Last HD yesterday. On anticoagulation for a fib Pt had an indwelling portacath for iv antibiotics and lab draws, difficult stick. Heme called because of the difficulty in getting the INR to therapeutic levels and because of the patient's reluctance in getting the Heparin and concern about bleeding. SxH: back surgery, pacemaker FamH: mom heart disease, DM, dad CAD SocH: denies tobacco, etoh, recreational drug use Allergies: NKDA Meds: coumadin 1 daily, starlix 60 TID, procrit, metoprolol succinate 25 daily Past Patient History - Infectious Disease Hx of Infectious Diseases: None - Tetanus Immunizations Tetanus Immunization: Unknown - Past Medical History & Family History Past Medical History?: Yes - Past Social History Smoking Status: Never Smoked - CARDIAC Hx Cardiac Disorders: Yes Hx Atrial Fibrillation: Yes Hx Cardia Arrhythmia: Yes (A FIB) Hx Congestive Heart Failure: Yes Hx Hypertension: Yes Hx Pacemaker: Yes Hx Peripheral Edema: Yes - PULMONARY Hx Respiratory Disorders: Yes Hx Asthma: Yes Hx Chronic Obstructive Pulmonary Disease (COPD): Yes (uses CPAP for sleep apnea) Hx Sleep Apnea: Yes (C-PAP) - NEUROLOGICAL Hx Neurological Disorder: Yes (PERIPHERAL NEUROPATHY) Hx Dizziness: Yes - HEENT Hx HEENT Problems: No - RENAL Hx Chronic Kidney Disease: Yes - ENDOCRINE/METABOLIC Hx Endocrine Disorders: Yes Hx Diabetes Mellitus Type 2: Yes - HEMATOLOGICAL/ONCOLOGICAL Hx Blood Disorders: Yes Hx Blood Transfusions: Yes Hx Cancer: Yes Hx Chemotherapy: Yes 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) - INTEGUMENTARY Hx Dermatological Problems: Yes Hx Cellulitis: Yes - MUSCULOSKELETAL/RHEUMATOLOGICAL Hx Musculoskeletal Disorders: Yes Hx Arthritis: Yes Hx Falls: Yes Hx Fractures: Yes Hx Osteoporosis: Yes - GASTROINTESTINAL Hx Gastrointestinal Disorders: Yes Hx Constipation: Yes - GENITOURINARY/GYNECOLOGICAL Hx Genitourinary Disorders: Yes Other/Comment: dialysis TTS - PSYCHIATRIC Hx Psychophysiologic Disorder: Yes Hx Anxiety: Yes Hx Depression: Yes Hx Substance Use: No - SURGICAL HISTORY Hx Surgeries: Yes Hx Angiogram: Yes Hx Arteriovenous Shunt: Yes Hx Cardiac Catheterization: Yes Hx Orthopedic Surgery: Yes (KNEE) Hx Vascular Access Device: Yes (RIGHT BOZENA CATH) Other/Comment: hx back surgery T5. defibrillator/pacemaker placement - ANESTHESIA Hx Anesthesia: Yes Hx Anesthesia Reactions: No Hx Malignant Hyperthermia: No Meds Allergies/Adverse Reactions: Allergies Allergy/AdvReac Type Severity Reaction Status Date / Time No Known Allergies Allergy Verified 10/29/17 04:19 - Medications Medications: Current Medications Acetaminophen (Tylenol 325mg Tab) 650 mg PO Q6 PRN PRN Reason: Fever >100.4 F Calcium Acetate (Phoslo) 667 mg PO TIDCC [facility] Last Admin: 01/06/18 17:00 Dose: 667 mg Dextrose (Dextrose 50% Inj) 0 ml IV STAT PRN; Protocol PRN Reason: Hypoglycemia Protocol Dextrose (Glutose 15) 0 gm PO ONCE PRN; Protocol PRN Reason: Hypoglycemia Protocol Glucagon (Glucagen Diagnostic Kit) 0 mg IM STAT PRN; Protocol PRN Reason: Hypoglycemia Protocol Cefepime HCl 0.5 gm/ Dextrose 50 mls @ 100 mls/hr IVPB DAILY [facility]; Protocol Last Admin: 01/06/18 12:57 Dose: 100 mls/hr Vancomycin HCl 1 gm/ Sodium (Chloride) 250 mls @ 166.7 mls/hr IVPB MWF [facility]; Protocol Last Admin: 01/06/18 10:48 Dose: 166.7 mls/hr Insulin Human Regular (Novolin R) 0 unit SC ACHS [facility]; Protocol Last Admin: 01/06/18 19:23 Dose: Not Given Ondansetron HCl (Zofran Inj) 4 mg IVP Q6 PRN PRN Reason: Nausea/Vomiting Warfarin Sodium (Coumadin) 5 mg PO 1800 [facility] Stop: 01/07/18 19:46 Results - Vital Signs Recent Vital Signs: Last Vital Signs Temp 97.8 F 01/06/18 16:00 Pulse 112 H 01/06/18 16:00 Resp 20 01/06/18 16:00 BP 95/54 L 01/06/18 16:00 Pulse Ox 99 01/06/18 16:00 - Labs Result Diagrams: 01/06/18 09:15 01/06/18 09:15 Labs: Laboratory Results - last 24 hr 01/05/18 01/06/18 01/06/18 21:10 06:03 09:15 WBC 5.9 RBC 3.39 L Hgb 9.6 L Hct 29.8 L MCV 87.9 MCH 28.4 MCHC 32.3 L RDW 19.0 H Plt Count 213 MPV 7.1 L Neut % (Auto) 73.7 Lymph % (Auto) 11.3 L Clayton % (Auto) 8.7 Eos % (Auto) 4.8 H Baso % (Auto) 1.5 Neut # (Auto) 4.3 Lymph # (Auto) 0.7 L Clayton # (Auto) 0.5 Eos # (Auto) 0.3 Baso # (Auto) 0.1 PT INR APTT Sodium Potassium Chloride Carbon Dioxide Anion Gap BUN Creatinine Est GFR ( Amer) Est GFR (Non-Af Amer) POC Glucose (mg/dL) 141 H 97 Random Glucose Calcium Magnesium Total Bilirubin AST ALT Alkaline Phosphatase Total Protein Albumin Globulin Albumin/Globulin Ratio 01/06/18 01/06/18 01/06/18 09:15 09:15 11:09 WBC RBC Hgb Hct MCV MCH MCHC RDW Plt Count MPV Neut % (Auto) Lymph % (Auto) Clayton % (Auto) Eos % (Auto) Baso % (Auto) Neut # (Auto) Lymph # (Auto) Clayton # (Auto) Eos # (Auto) Baso # (Auto) PT 15.9 H INR 1.5 APTT 36 H Sodium 135 Potassium 4.1 Chloride 98 Carbon Dioxide 21 L Anion Gap 21 H BUN 70 H Creatinine 5.6 H Est GFR ( Amer) 13 Est GFR (Non-Af Amer) 10 POC Glucose (mg/dL) 114 H Random Glucose 121 H Calcium 8.3 L Magnesium 2.1 Total Bilirubin 1.0 AST 21 ALT 20 L Alkaline Phosphatase 311 H Total Protein 6.5 Albumin 3.3 L Globulin 3.2 Albumin/Globulin Ratio 1.1 01/06/18 16:40 WBC RBC Hgb Hct MCV MCH MCHC RDW Plt Count MPV Neut % (Auto) Lymph % (Auto) Clayton % (Auto) Eos % (Auto) Baso % (Auto) Neut # (Auto) Lymph # (Auto) Clayton # (Auto) Eos # (Auto) Baso # (Auto) PT INR APTT Sodium Potassium Chloride Carbon Dioxide Anion Gap BUN Creatinine Est GFR ( Amer) Est GFR (Non-Af Amer) POC Glucose (mg/dL) 223 H Random Glucose Calcium Magnesium Total Bilirubin AST ALT Alkaline Phosphatase Total Protein Albumin Globulin Albumin/Globulin Ratio Assessment & Plan (1) On Coumadin for atrial fibrillation Assessment and Plan: 62 yo man with atrial fibrillation, restarted on Coumadin after recent port removal, with difficulty in getting the INR to therapeutic levels, had discussion with the patient who is concerned about he risks of heparin and the need for phlebotomy several times a day. Have informed the patient that the Coumadin alone may take several days to get to therapeutic level and that the bridging with Heparin will decrease the time, also that he has the outpatient option of low dose Eliquis , so he can avoid weekly phlebotomy, but the Factor Xa level monitoring may be necessary. Also spoke to his over the phone, he is still undecided and said he will discuss with his and let us know by tomorrow Status: Acute
[2018-01-07 07:29] LABS: BASO # 0.1 K/uL (0.0-0.2); EOS # 0.3 K/uL (0.0-0.7); EOS % 4.4 % (0.0-4.0); HEMOGLOBIN 9.6 g/dL (12.0-18.0); LYMPH # 0.7 K/uL (1.0-4.3); LYMPH % 11.3 % (20.0-40.0); MEAN CELL VOLUME 87.7 fL (80.0-94.0); MEAN CORPUSCULAR HGB CONC 33.1 g/dL (33.0-37.0); MEAN PLATELET VOLUME 7.2 fL (7.2-11.7); MONO # 0.6 K/uL (0.0-0.8); MONO % 8.9 % (0.0-10.0); NEUT # 4.7 K/uL (1.8-7.0); NEUT % 74.4 % (50.0-75.0); RBC 3.31 Mil/uL (4.40-5.90); RED CELL DISTRIBUTION WIDTH 19.3 % (11.5-14.5); WHITE BLOOD COUNT 6.4 K/uL (4.8-10.8)
[2018-01-07 07:34] LABS: INR 1.6; PROTHROMBIN TIME 17.1 SECONDS (9.7-12.2)
[2018-01-07] MEDS: (Novolin R) Insulin Human Regular 100 units/ml vial SC SCH ×4 (07:39→21:23)
[2018-01-07 08:05] LABS: ALB/GLOB RATIO 1.1 (1.0-2.1); ALBUMIN 3.4 g/dL (3.5-5.0); CALCIUM 8.5 mg/dl (8.6-10.4)
--- NOTE | 2018-01-07 09:27 | CP.PCM.PN ---
Subjective - Date & Time of Evaluation Date of Evaluation: 01/07/18 Time of Evaluation: 09:25 - Subjective Subjective: s/p dialysis 01/06 Seen by miri suarez being considered on IV ABs for cath infection as per ID appears same Objective - Vital Signs/Intake and Output Vital Signs (last 24 hours): Temp Pulse Resp BP Pulse Ox 98.3 F 105 H 20 86/56 L 100 01/07/18 08:28 01/07/18 08:28 01/07/18 08:28 01/07/18 09:20 01/07/18 08:28 Intake and Output: 01/07/18 01/07/18 06:59 18:59 Intake Total 240 Balance 240 - Medications Medications: Current Medications Acetaminophen (Tylenol 325mg Tab) 650 mg PO Q6 PRN PRN Reason: Fever >100.4 F Calcium Acetate (Phoslo) 667 mg PO TIDCC [facility] Last Admin: 01/07/18 08:44 Dose: 667 mg Dextrose (Dextrose 50% Inj) 0 ml IV STAT PRN; Protocol PRN Reason: Hypoglycemia Protocol Dextrose (Glutose 15) 0 gm PO ONCE PRN; Protocol PRN Reason: Hypoglycemia Protocol Glucagon (Glucagen Diagnostic Kit) 0 mg IM STAT PRN; Protocol PRN Reason: Hypoglycemia Protocol Cefepime HCl 0.5 gm/ Dextrose 50 mls @ 100 mls/hr IVPB DAILY [facility]; Protocol Last Admin: 01/06/18 12:57 Dose: 100 mls/hr Vancomycin HCl 1 gm/ Sodium (Chloride) 250 mls @ 166.7 mls/hr IVPB MWF [facility]; Protocol Last Admin: 01/06/18 10:48 Dose: 166.7 mls/hr Insulin Human Regular (Novolin R) 0 unit SC ACHS [facility]; Protocol Last Admin: 01/07/18 07:39 Dose: Not Given Ondansetron HCl (Zofran Inj) 4 mg IVP Q6 PRN PRN Reason: Nausea/Vomiting - Labs Labs: 01/07/18 07:20 01/07/18 07:20 PT 17.1 SECONDS (9.7-12.2) H 01/07/18 07:20 INR 1.6 01/07/18 07:20 APTT 38 SECONDS (21-34) H 01/07/18 07:20 - Constitutional Appears: No Acute Distress, Chronically Ill - Head Exam Head Exam: ATRAUMATIC, NORMAL INSPECTION - Eye Exam Eye Exam: EOMI, Normal appearance - Neck Exam Neck Exam: Normal Inspection. absent: Tenderness - Respiratory Exam Respiratory Exam: Clear to Ausculation Bilateral, NORMAL BREATHING PATTERN - Cardiovascular Exam Cardiovascular Exam: REGULAR RHYTHM, +S1 - GI/Abdominal Exam GI & Abdominal Exam: Soft. absent: Tenderness - Extremities Exam Extremities Exam: Normal Inspection. absent: Tenderness - Neurological Exam Neurological Exam: Awake, CN II-XII Intact - Skin Skin Exam: Dry, Warm Assessment and Plan (1) Infection due to Port-A-Cath Status: Acute (2) ESRD (end stage renal disease) Status: Acute (3) Fluid overload Status: Acute (4) History of non-Hodgkin's lymphoma Status: Acute - Assessment and Plan (Free Text) Plan: Dialysis MWF IV ABs Considering eliquis for AFib
--- NOTE | 2018-01-07 14:30 | CP.PCM.PN ---
Subjective - Date & Time of Evaluation Date of Evaluation: 01/07/18 Time of Evaluation: 14:30 - Subjective Subjective: Podiatry Progress Note- Dr. Nunn 62 y/o male seen at bedside this morning for bilateral lower extremity ulcerations. Pt has multipodus boots and dressings in place. Pt asleep at time of visit in NAD. Denies pain to his lower extremities. Denies F/C/N/V/CP/SOB Objective - Vital Signs/Intake and Output Vital Signs (last 24 hours): Temp Pulse Resp BP Pulse Ox 98.3 F 105 H 20 86/56 L 100 01/07/18 08:28 01/07/18 08:28 01/07/18 08:28 01/07/18 09:20 01/07/18 08:28 Intake and Output: 01/07/18 01/07/18 06:59 18:59 Intake Total 240 Balance 240 - Medications Medications: Current Medications Acetaminophen (Tylenol 325mg Tab) 650 mg PO Q6 PRN PRN Reason: Fever >100.4 F Calcium Acetate (Phoslo) 667 mg PO TIDCC [facility] Last Admin: 01/07/18 12:34 Dose: Not Given Dextrose (Dextrose 50% Inj) 0 ml IV STAT PRN; Protocol PRN Reason: Hypoglycemia Protocol Dextrose (Glutose 15) 0 gm PO ONCE PRN; Protocol PRN Reason: Hypoglycemia Protocol Glucagon (Glucagen Diagnostic Kit) 0 mg IM STAT PRN; Protocol PRN Reason: Hypoglycemia Protocol Cefepime HCl 0.5 gm/ Dextrose 50 mls @ 100 mls/hr IVPB DAILY [facility]; Protocol Last Admin: 01/07/18 10:23 Dose: 100 mls/hr Vancomycin HCl 1 gm/ Sodium (Chloride) 250 mls @ 166.7 mls/hr IVPB MWF [facility]; Protocol Last Admin: 01/06/18 10:48 Dose: 166.7 mls/hr Insulin Human Regular (Novolin R) 0 unit SC ACHS [facility]; Protocol Last Admin: 01/07/18 11:30 Dose: Not Given Ondansetron HCl (Zofran Inj) 4 mg IVP Q6 PRN PRN Reason: Nausea/Vomiting - Labs Labs: 01/07/18 07:20 01/07/18 07:20 PT 17.1 SECONDS (9.7-12.2) H 01/07/18 07:20 INR 1.6 01/07/18 07:20 APTT 38 SECONDS (21-34) H 01/07/18 07:20 - Constitutional Appears: Well, Non-toxic, No Acute Distress - Extremities Exam Additional comments: Lower extremity focused exam: Vasc: Nonpalpable pulses to the DP and PT, delayed CFT to the digits, temperatur e gradient WNL, +1 pitting pedal edema Derm: chronic skin changes with hyperpigmented skin to entire lower extremity, skin thickening and flaking bilateral lower legs. Left: Left posterior heel ulceration now fully healed with overlying thin fragile skin. Mild dark discoloration noted to skin area at site of prior ulceration. Right: Full thickness ulceration noted to posterior ankle at level of Achilles insertion measuring approximately 3 cm x 2 cm x 0.3cm, with mixture granular and fibrotic wound base. No active drainage noted. No fluctuance noted. Minor ibeth- wound erythema, no streaking appreciated. Neuro: Gross sensation absent B/L. protective sensation absent Ortho: no pain appreciated with palpation to surrounding ulceration sites. No pain with calf palpation bilaterally. - Neurological Exam Neurological Exam: Alert, Awake, Oriented x3 - Psychiatric Exam Psychiatric exam: Normal Affect, Normal Mood Assessment and Plan - Assessment and Plan (Free Text) Assessment: 61 y/o male patient, seen and evaluated at bedside for B/L lower extremity ulcerations Plan: Patient seen and evaluated at bedside Discussed plan with Dr. Nunn Patient afebrile, absent leukocytosis Podiatry to continue with local wound care: wounds cleansed with saline and dressed with ABD, DSD; betadine applied to R posterior ankle wound Wounds stable, no current signs of infection No surgical intervention at this time Patient to wear multipodus boots at all times while in bed Will continue to follow
--- NOTE | 2018-01-07 14:31 | CP.PCM.PN ---
Subjective - Date & Time of Evaluation Date of Evaluation: 01/07/18 Time of Evaluation: 14:57 - Subjective Subjective: PGY-[address] Cuevas Patient seen and examined at bedside. Patient appears slightly anxious and states he has not been able to sleep. We discussed with patient and his and explained that the anticoagulation options are Coumadin alone vs. Heparin bride vs. low-dose eliquis (renal dosing). Patient and patient's were explained the relevant risks and benefits of all options and patient is still deciding which option he prefers. Patient is apprehensive because of past experience where he was discharged and subsequently had a major bleed. Will continue to assess. Will continue to follow up regarding patient choice of anticoagulation. Per nursing, patient has been experiencing some watery non- bloody diarrhea, but is not complaining of any other symptoms including abdominal pain, nausea, vomiting, or fevers. Patient denies any dizziness or lightheadedness, chest pain, palpitations. Objective - Vital Signs/Intake and Output Vital Signs (last 24 hours): Temp Pulse Resp BP Pulse Ox 98.3 F 105 H 20 86/56 L 100 01/07/18 08:28 01/07/18 08:28 01/07/18 08:28 01/07/18 09:20 01/07/18 08:28 Intake and Output: 01/07/18 01/07/18 06:59 18:59 Intake Total 240 Balance 240 - Medications Medications: Current Medications Acetaminophen (Tylenol 325mg Tab) 650 mg PO Q6 PRN PRN Reason: Fever >100.4 F Calcium Acetate (Phoslo) 667 mg PO TIDCC [facility] Last Admin: 01/07/18 12:34 Dose: Not Given Dextrose (Dextrose 50% Inj) 0 ml IV STAT PRN; Protocol PRN Reason: Hypoglycemia Protocol Dextrose (Glutose 15) 0 gm PO ONCE PRN; Protocol PRN Reason: Hypoglycemia Protocol Glucagon (Glucagen Diagnostic Kit) 0 mg IM STAT PRN; Protocol PRN Reason: Hypoglycemia Protocol Cefepime HCl 0.5 gm/ Dextrose 50 mls @ 100 mls/hr IVPB DAILY [facility]; Protocol Last Admin: 01/07/18 10:23 Dose: 100 mls/hr Vancomycin HCl 1 gm/ Sodium (Chloride) 250 mls @ 166.7 mls/hr IVPB MWF [facility]; Protocol Last Admin: 01/06/18 10:48 Dose: 166.7 mls/hr Insulin Human Regular (Novolin R) 0 unit SC ACHS [facility]; Protocol Last Admin: 01/07/18 11:30 Dose: Not Given Ondansetron HCl (Zofran Inj) 4 mg IVP Q6 PRN PRN Reason: Nausea/Vomiting - Labs Labs: 01/07/18 07:20 01/07/18 07:20 PT 17.1 SECONDS (9.7-12.2) H 01/07/18 07:20 INR 1.6 01/07/18 07:20 APTT 38 SECONDS (21-34) H 01/07/18 07:20 - Constitutional Appears: Non-toxic, Other (Obese) - Head Exam Head Exam: ATRAUMATIC, NORMAL INSPECTION - Eye Exam Eye Exam: EOMI, Normal appearance Pupil Exam: NORMAL ACCOMODATION, PERRL - ENT Exam ENT Exam: Mucous Membranes Moist - Respiratory Exam Respiratory Exam: Clear to Ausculation Bilateral, NORMAL BREATHING PATTERN. absent: Rales, Wheezes - Cardiovascular Exam Cardiovascular Exam: RRR, +S1, +S2. absent: Murmur - GI/Abdominal Exam GI & Abdominal Exam: Soft, Normal Bowel Sounds. absent: Tenderness - Extremities Exam Additional comments: Chronic venous stasis changes bilaterally - Neurological Exam Neurological Exam: Alert, Awake, Oriented x3 - Psychiatric Exam Psychiatric exam: Normal Affect, Normal Mood - Skin Skin Exam: Dry, Intact, Normal Color, Warm Assessment and Plan - Assessment and Plan (Free Text) Assessment: Assessment: 62M with PMH ESRD, DM, CHF, A FIB W/RVR, AML, HTN, COPD, sleep apnea who presented with portacath infection, now s/p removal of portacath. INR is sub- therapeutic in setting of A Fib with RVR. Abscess/Infection of Portacath - Pt with portacath, draining white purulent fluid on R chest on admission; s/p removal by Surgery POD#7, pt doing well post-op. No further surgical interventions needed at this time. - Tmax 100.3F on admission. Now afebrile x6 days - Leukocytosis resolved - ID consulted, Dr. Lizarraga - Continue Cefepime 0.5 g per ID recs - Continue Vanco 1gm MWF with HD as per ID recs random vanc level 10/22 18:00 11.9 - Spoke with Dr. Lozano will recheck random vanc Thursday before dialysis. If vancomycin is at safe blood levels, then patient may be treated as an outpatient with vancomycin MWF, thus not requiring daily Abx. - BCx: NG - FINAL - Wound Cx: S. aureus - 2D echo ordered to r/o endocarditis: LVEF 53%, LV function is mild to moderately reduced with anteroseptal hypokinesis, and septal flattening c/w elevated RV pressure. The aortic root is calcified and demonstrates mildly to moderately reduced opening. Peak gradient was 12mmHg, valve area was not performed. There is mildly increased left ventricular wall thickness. The right ventricle is severely dilated. Systolic function is severely reduced. There is likely severe pulmonary HTN, underestimated by doppler. - INR 2.5 01/01-> 1.8 01/03 --> 1.6 01/05 --> 1.5 01/06. --> 1.6 01/07 --Patient had been receiving daily coumadin 3mg PO with INR continuing to decrease. 5mg Coumadin given yesterday. -I Spoke with Dr. Samuel, who has been consulted and her help is much appreciated. She will see the patient and speak with the patient's family in hopes that he will agree to heparin bridge or low-dose Eliquis otherwise patient will have to remain hospitalized until Coumadin levels become therapeutic without bridge. -Anticoagulation options are Coumadin alone vs. Heparin bride vs. low-dose eliquis (renal dosing). Patient and patient's were explained the relevant risks and benefits of all options and patient is still deciding which option he prefers. Patient is apprehensive because of past experience where he was discharged and subsequently had a major bleed. Will continue to follow up regarding patient choice of anticoagulation. ESRD - Nephro consulted, Dr. Rice, help appreciated. Pt to continue HD MWF. - BUN/Cr today 54/4.6 DM - accuchecks q6h - low dose sliding scale - hypoglycemia protocol HTN - BP 97/52 on admission, BP 86/56 this morning today, but patient remains asymptomatic. Patient states his normal bp at home is 90s/50s. - Home metoprolol held - Avoid IV fluid boluses if possible NIKOLE - Patient uses CPAP at home - not amenable to using bipap - to bring home CPAP for use inpatient B/l LE Ulcers - On exam noted in L heel superior aspect, R achilles tendon area - Podiatry consulted (Dr. Nunn) for wound care, recs appreciated - Podiatry c/w wound care. Wounds stable, no signs of infection, no surgical intervention indicated. Hx Pacemaker, CHF - Per Pt's pt has not followed with cardiology outpatient in a while - Cardiology (Dr. Stiles) consulted, recs appreciated - Metoprolol held for low bps, continue to monitor PPX Warfarin 5mg PO daily Renal diet Dispo: Blood cultures negative x5. INR had not been optimized on Coumadin 3mg daily. 5mg Coumadin given yesterday as patient refused heparin. If patient is amenable to heparin or low-dose eliquis, we will adjust anticoagulation. Otherwise continue Coumadin only until therapeutic levels are reached. Case discussed with attending, Dr. Mason Sy, PGY-1
--- NOTE | 2018-01-08 07:18 | CP.PCM.PN ---
Addendum entered and electronically signed by Murtaza Leyva 01/08/18 23:20: Patient was questioning about Coumadin. Dr. Martinez who is covering for Dr. Samuel ordered Eliquis 5mg BID. Patient received Eliquis instead of Coumadin. Will continue Eliquis 5mg PO BID for patient and discontinue Coumadin. Original Note: <Murtaza Leyva - Last Filed: 01/08/18 18:09> Subjective - Date & Time of Evaluation Date of Evaluation: 01/08/18 Time of Evaluation: 07:18 - Subjective Subjective: Murtaza Leyva Medicine progress note for Dr. Cuevas Patient seen and examined at bedside. No acute events overnight. Patient has no complaints at this time. He denies fevers, chills, shortness of breath, chest pain, abdominal pain, nausea, or vomiting. Objective - Vital Signs/Intake and Output Vital Signs (last 24 hours): Temp Pulse Resp BP Pulse Ox 98.1 F 96 H 20 118/80 98 01/07/18 15:00 01/07/18 15:00 01/07/18 15:00 01/07/18 15:00 01/07/18 15:00 - Medications Medications: Current Medications Acetaminophen (Tylenol 325mg Tab) 650 mg PO Q6 PRN PRN Reason: Fever >100.4 F Calcium Acetate (Phoslo) 667 mg PO TIDCC [facility] Last Admin: 01/07/18 17:39 Dose: 667 mg Dextrose (Dextrose 50% Inj) 0 ml IV STAT PRN; Protocol PRN Reason: Hypoglycemia Protocol Dextrose (Glutose 15) 0 gm PO ONCE PRN; Protocol PRN Reason: Hypoglycemia Protocol Glucagon (Glucagen Diagnostic Kit) 0 mg IM STAT PRN; Protocol PRN Reason: Hypoglycemia Protocol Cefepime HCl 0.5 gm/ Dextrose 50 mls @ 100 mls/hr IVPB DAILY [facility]; Protocol Last Admin: 01/07/18 10:23 Dose: 100 mls/hr Vancomycin HCl 1 gm/ Sodium (Chloride) 250 mls @ 166.7 mls/hr IVPB MWF [facility]; Protocol Last Admin: 01/06/18 10:48 Dose: 166.7 mls/hr Insulin Human Regular (Novolin R) 0 unit SC ACHS [facility]; Protocol Last Admin: 01/07/18 21:23 Dose: Not Given Ondansetron HCl (Zofran Inj) 4 mg IVP Q6 PRN PRN Reason: Nausea/Vomiting - Labs Labs: 01/07/18 07:20 01/07/18 07:20 PT 17.1 SECONDS (9.7-12.2) H 01/07/18 07:20 INR 1.6 01/07/18 07:20 APTT 38 SECONDS (21-34) H 01/07/18 07:20 - Additional Findings Additional findings: - Constitutional Appears: Non-toxic, Other (Obese) - Head Exam Head Exam: ATRAUMATIC, NORMAL INSPECTION - Eye Exam Eye Exam: EOMI, Normal appearance Pupil Exam: NORMAL ACCOMODATION, PERRL - ENT Exam ENT Exam: Mucous Membranes Moist - Respiratory Exam Respiratory Exam: Clear to Ausculation Bilateral, NORMAL BREATHING PATTERN. absent: Rales, Wheezes - Cardiovascular Exam Cardiovascular Exam: RRR, +S1, +S2. absent: Murmur - GI/Abdominal Exam GI & Abdominal Exam: Soft, Normal Bowel Sounds. absent: Tenderness - Extremities Exam Additional comments: Chronic venous stasis changes bilaterally - Neurological Exam Neurological Exam: Alert, Awake, Oriented x3 - Psychiatric Exam Psychiatric exam: Normal Affect, Normal Mood - Skin Skin Exam: Dry, Intact, Normal Color, Warm Assessment and Plan - Assessment and Plan (Free Text) Assessment: Patient is a 62 year old male with PMH of ESRD on HD, DM, CHF, A Fib, AML, HTN, COPD, and sleep apnea presenting with portacath infection, now s/p removal of portacath. INR is sub-therapeutic in setting of A Fib with RVR. Plan: Abscess/Infection of Portacath: - Patient with portacath, draining white purulent fluid on right chest on admission - Surgery, Dr. Olguin consulted - S/p removal by surgery, no further surgical interventions needed at this time - ID consulted, Dr. Lizarraga - C/w Cefepime 0.5 g IV QD - Random Vancomycin level (01/08): 9.4 - Increase dose to Vancomycin 1.5gm IV MWF with HD as per ID - Spoke with Dr. Lozano will recheck random vanc Thursday before dialysis. If vancomycin is at safe blood levels, then patient may be treated as an outpatient with vancomycin MWF, thus not requiring daily Abx. - Blood culture: negative - Wound Culture: S. aureus - 2D echo (01/01): LVEF 53%, LV function is mild to moderately reduced with anteroseptal hypokinesis, and septal flattening c/w elevated RV pressure. The aortic root is calcified and demonstrates mildly to moderately reduced opening. Peak gradient was 12mmHg, valve area was not performed. There is mildly increased left ventricular wall thickness. The right ventricle is severely dilated. Systolic function is severely reduced. There is likely severe pulmonary HTN, underestimated by doppler. Sub-therapeutic INR: - INR: 1.6 (01/05) --> 1.5 (01/06) --> 1.6 (01/07) --> 1.8 (01/08) - C/w 5mg Coumadin PO QD - Heme/onc, Dr. Samuel consulted - Spoke with Dr. Samuel, will continue 5mg of Coumadin since INR is going up. 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 Rice - BUN/Cr today 64/5.4 DM: - Accuchecks q6h - ISS low - Hypoglycemia protocol HTN: - Home metoprolol held due to blood pressure in the 90's/50's - Avoid IV fluid boluses if possible NIKOLE: - Patient uses CPAP at home - Not amenable to using bipap - to bring home CPAP for use inpatient B/l LE Ulcers: - Podiatry, Dr. Nunn consulted - C/w local wound care, no signs of infection, no surgical intervention indicated CHF: - Patient has a pacemaker - Cardiology, Dr. Stiles consulted - Metoprolol held for hypotension - Continue to monitor Prophylaxis/diet: - Warfarin 5mg PO daily - Renal diet Case discussed with Dr. Mason Leyva PGY-1 <Jody Cuevas V - Last Filed: 01/09/18 19:43> Objective - Vital Signs/Intake and Output Vital Signs (last 24 hours): Temp Pulse Resp BP Pulse Ox 98.2 F 99 H 20 103/44 L 100 01/09/18 15:00 01/09/18 15:00 01/09/18 15:00 01/09/18 15:00 01/09/18 15:00 - Medications Medications: Current Medications Acetaminophen (Tylenol 325mg Tab) 650 mg PO Q6 PRN PRN Reason: Fever >100.4 F Apixaban (Eliquis) 2.5 mg PO BID [facility] Last Admin: 01/09/18 17:47 Dose: 2.5 mg Calcium Acetate (Phoslo) 667 mg PO TIDCC [facility] Last Admin: 01/09/18 17:47 Dose: 667 mg Dextrose (Dextrose 50% Inj) 0 ml IV STAT PRN; Protocol PRN Reason: Hypoglycemia Protocol Dextrose (Glutose 15) 0 gm PO ONCE PRN; Protocol PRN Reason: Hypoglycemia Protocol Glucagon (Glucagen Diagnostic Kit) 0 mg IM STAT PRN; Protocol PRN Reason: Hypoglycemia Protocol Cefepime HCl 0.5 gm/ Dextrose 50 mls @ 100 mls/hr IVPB DAILY [facility]; Protocol Last Admin: 01/09/18 10:13 Dose: 100 mls/hr Vancomycin HCl 1.5 gm/ Sodium (Chloride) 500 mls @ 166.7 mls/hr IVPB MWF [facility]; Protocol Insulin Human Regular (Novolin R) 0 unit SC ACHS [facility]; Protocol Last Admin: 01/09/18 17:47 Dose: Not Given Ondansetron HCl (Zofran Inj) 4 mg IVP Q6 PRN PRN Reason: Nausea/Vomiting - Labs Labs: 01/09/18 06:29 01/09/18 06:29 PT 28.2 SECONDS (9.7-12.2) H D 01/09/18 06:29 INR 2.6 D 01/09/18 06:29 APTT 43 SECONDS (21-34) H D 01/09/18 06:29 Attending/Attestation - Attestation I have personally seen and examined this patient.: Yes I have fully participated in the care of the patient.: Yes I have reviewed all pertinent clinical information, including history, physical exam and plan: Yes Notes (Text): This is late computer entry for 01/08/18. Patient seen, examined and case discussed with medical safety director. Patient seen this morning during dialysis. Patient is very calm and sleeping at dialysis. Vitals are stable. Patient's INR subtherapeutic at 1.8 status post coumadin 5mg last night. Hematology-oncology has had a discussion with family; they have ultimately decided for Eliquis. Will cancel our coumadin dose for tonight. I have spoken with Dr. Lizarraga; patient is not therapuetic on Vancomycin; recommends increase to Vancomycin 1.5gm MWF. Patient is pending ID clearance for discharge planning. Assessment/Plan 1) Abscess and nfection of Portacath Assessment/Plan * Pt with portacath, draining white purulent fluid on R chest on admission; s/p removal by Surgery on 12/31/17 pt doing well post-op. No further surgical interventions needed at this time. * Remains afebrile since initial fever at 102F * Infectious Disease (Dr. Lizarraga) on board--> help appreciated * Cefepime 0.5gm IVPB qdaily (active since 01/01/18) * Increase Vancomycin 1.5gm IVPB MWF (active since 01/08/18) * I have spoke with Dr. Lizarraga in light of random vanc Thursday before dialysis. Increase in Vancomycin to 1.5gm. * Blood culture (12/30/17): no growth after 5 days X2 * Skin/Chest (12/30/17): Staph Aureus * Chest (12/31/17): Staph Aureus * Echocardiogram: LVEF 53%, LV function is mild to moderately reduced with anteroseptal hypokinesis, and septal flattening c/w elevated RV pressure. The aortic root is calcified and demonstrates mildly to moderately reduced opening. Peak gradient was 12mmHg, valve area was not performed. There is m ildly increased left ventricular wall thickness. The right ventricle is severely dilated. Systolic function is severely reduced. There is likely severe pulmonary HTN, underestimated by doppler. 2) Atrial Fibrillation Subtherapuetic INR Assessment/Plan * Dr. Samuel (Heme-oncology) on board-->help appreciated * I explained to her patient and had refused Eliquis because of bleeding risk and had refused heparin drip because of bleeding risk * Heme oncology has had discussion with family-->they have decided on Eliquis. * Dr. Stiles (Cardiology) on board-->help appreciated * Recommended for Eliquis; patient and refused * Echo: LVEF 53%, LV function is mild to moderately reduced with anteroseptal hypokinesis, and septal flattening c/w elevated RV pressure. The aortic root is calcified and demonstrates mildly to moderately reduced opening. Peak gradient was 12mmHg, valve area was not performed. There is mildly increased left ventricular wall thickness. The right ventricle is severely dilated. Systolic function is severely reduced. There is likely severe pulmonary HTN, underestimated by doppler. 3) ESRD Assessment/Plan * Nephro consulted, Dr. Rice, help appreciated. Pt to continue HD MWF. * Phoslo 667mg PO TIDCC 4) Diabetes Assessment/Plan * accuchecks q6h * low dose sliding scale * hypoglycemia protocol * a1c: 4.8 5) HTN Assessment/Plan * monitor vital signs * Home metoprolol held 6. History of NIKOLE Assessment/Plan * pt uses CPAP at home * not amenable to using bipap * to bring home CPAP for use inpatient 7. B/l LE Ulcers Assessment/Plan * On exam noted in L heel superior aspect, R achilles tendon area * Podiatry consulted (Dr. Nunn) for wound care, recs appreciated * Podiatry c/w wound care. Wounds stable, no signs of infection, no surgical intervention indicated. 8. Hx Pacemaker, Systolic CHF Assessment/Plan * Per Pt's pt has not followed with cardiology outpatient in a while * Cardiology (Dr. Stiles) consulted, recs appreciated * Metoprolol held for low bps, continue to monitor * Echo: LVEF 53%, LV function is mild to moderately reduced with anteroseptal h ypokinesis, and septal flattening c/w elevated RV pressure. The aortic root is calcified and demonstrates mildly to moderately reduced opening. Peak gradient was 12mmHg, valve area was not performed. There is mildly increased left ventricular wall thickness. The right ventricle is severely dilated. Systolic function is severely reduced. There is likely severe pulmonary HTN, underestimated by doppler. 9. PPX * upon discussion between patient and hematology, ultimately decided on Eliquis. * Renal diet Dispo: Awaiting infectious disease clearance in light of non therapuetic dosing of Vancomycin. Vancomycin increased per discussion with ID.
[2018-01-08] MEDS: (Novolin R) Insulin Human Regular 100 units/ml vial SC SCH ×4 (08:11→22:44)
[2018-01-08 09:45] LABS: BASO # 0.1 K/uL (0.0-0.2); BASO % 1.2 % (0.0-2.0); EOS # 0.2 K/uL (0.0-0.7); HEMOGLOBIN 9.6 g/dL (12.0-18.0); LYMPH # 0.6 K/uL (1.0-4.3); LYMPH % 10.6 % (20.0-40.0); MEAN CELL VOLUME 88.6 fL (80.0-94.0); MEAN CORPUSCULAR HGB CONC 32.7 g/dL (33.0-37.0); MEAN PLATELET VOLUME 7.1 fL (7.2-11.7); MONO # 0.4 K/uL (0.0-0.8); MONO % 7.3 % (0.0-10.0); NEUT # 4.1 K/uL (1.8-7.0); NEUT % 76.9 % (50.0-75.0); RBC 3.3 Mil/uL (4.40-5.90); RED CELL DISTRIBUTION WIDTH 19.2 % (11.5-14.5); WHITE BLOOD COUNT 5.3 K/uL (4.8-10.8)
[2018-01-08 09:54] LABS: INR 1.8; PROTHROMBIN TIME 19.9 SECONDS (9.7-12.2)
[2018-01-08 09:58] LABS: ALBUMIN 3.3 g/dL (3.5-5.0); CALCIUM 8.4 mg/dl (8.6-10.4)
--- NOTE | 2018-01-08 13:49 | CP.PCM.PN ---
Subjective - Date & Time of Evaluation Date of Evaluation: 01/08/18 Time of Evaluation: 13:47 - Subjective Subjective: Stable dialysis now; tolerated well Afebrile course can give IV ABs at outpt HD if ok with ID pt agrees for eliquis in lieu of coumadin no new complaint Objective - Vital Signs/Intake and Output Vital Signs (last 24 hours): Temp Pulse Resp BP Pulse Ox 96.8 F L 102 H 16 87/38 L 99 01/08/18 09:54 01/08/18 09:54 01/08/18 09:54 01/08/18 10:30 01/08/18 08:00 - Medications Medications: Current Medications Acetaminophen (Tylenol 325mg Tab) 650 mg PO Q6 PRN PRN Reason: Fever >100.4 F Calcium Acetate (Phoslo) 667 mg PO TIDCC [facility] Last Admin: 01/08/18 11:36 Dose: Not Given Dextrose (Dextrose 50% Inj) 0 ml IV STAT PRN; Protocol PRN Reason: Hypoglycemia Protocol Dextrose (Glutose 15) 0 gm PO ONCE PRN; Protocol PRN Reason: Hypoglycemia Protocol Glucagon (Glucagen Diagnostic Kit) 0 mg IM STAT PRN; Protocol PRN Reason: Hypoglycemia Protocol Cefepime HCl 0.5 gm/ Dextrose 50 mls @ 100 mls/hr IVPB DAILY [facility]; Protocol Last Admin: 01/07/18 10:23 Dose: 100 mls/hr Vancomycin HCl 1 gm/ Sodium (Chloride) 250 mls @ 166.7 mls/hr IVPB MWF [facility]; Protocol Last Admin: 01/08/18 11:34 Dose: 166.7 mls/hr Insulin Human Regular (Novolin R) 0 unit SC ACHS [facility]; Protocol Last Admin: 01/08/18 11:36 Dose: Not Given Ondansetron HCl (Zofran Inj) 4 mg IVP Q6 PRN PRN Reason: Nausea/Vomiting - Labs Labs: 01/08/18 09:39 01/08/18 09:39 PT 19.9 SECONDS (9.7-12.2) H 01/08/18 09:39 INR 1.8 01/08/18 09:39 APTT 38 SECONDS (21-34) H 01/08/18 09:39 - Constitutional Appears: No Acute Distress, Chronically Ill - Head Exam Head Exam: ATRAUMATIC, NORMAL INSPECTION - Eye Exam Eye Exam: EOMI, Normal appearance - Neck Exam Neck Exam: Normal Inspection. absent: Tenderness - Respiratory Exam Respiratory Exam: Clear to Ausculation Bilateral, NORMAL BREATHING PATTERN - Cardiovascular Exam Cardiovascular Exam: REGULAR RHYTHM, +S1 - GI/Abdominal Exam GI & Abdominal Exam: Soft. absent: Tenderness - Extremities Exam Extremities Exam: Normal Inspection. absent: Tenderness - Neurological Exam Neurological Exam: Awake, CN II-XII Intact - Skin Skin Exam: Dry, Warm Assessment and Plan (1) Infection due to Port-A-Cath Status: Acute (2) ESRD (end stage renal disease) Status: Acute (3) Fluid overload Status: Acute (4) History of non-Hodgkin's lymphoma Status: Acute - Assessment and Plan (Free Text) Plan: Same dialysis MWF Consider eliquis- as per heme ABs as per ID
[2018-01-08] MEDS ORDERED: Vancomycin 1.5 GM in Sodium Chloride 0.9% 500 ML IVPB SCH (16:00)
[2018-01-09 06:43] LABS: BASO # 0.1 K/uL (0.0-0.2); BASO % 1.2 % (0.0-2.0); EOS # 0.2 K/uL (0.0-0.7); HEMOGLOBIN 9.5 g/dL (12.0-18.0); LYMPH # 0.7 K/uL (1.0-4.3); LYMPH % 12.3 % (20.0-40.0); MEAN CELL VOLUME 88.8 fL (80.0-94.0); MEAN CORPUSCULAR HEMOGLOBIN 28.5 pg (27.0-31.0); MEAN CORPUSCULAR HGB CONC 32.2 g/dL (33.0-37.0); MONO # 0.5 K/uL (0.0-0.8); MONO % 9.3 % (0.0-10.0); NEUT # 4.2 K/uL (1.8-7.0); NEUT % 73.2 % (50.0-75.0); NRBC % 0.1 % (0.0-2.0); RBC 3.34 Mil/uL (4.40-5.90); RED CELL DISTRIBUTION WIDTH 19.5 % (11.5-14.5); WHITE BLOOD COUNT 5.7 K/uL (4.8-10.8)
[2018-01-09 06:45] LABS: INR 2.6; PROTHROMBIN TIME 28.2 SECONDS (9.7-12.2)
[2018-01-09 06:53] LABS: ALBUMIN 3.2 g/dL (3.5-5.0); CALCIUM 8.5 mg/dl (8.6-10.4)
[2018-01-09] MEDS: (Novolin R) Insulin Human Regular 100 units/ml vial SC SCH ×4 (07:30→21:20)
--- NOTE | 2018-01-09 10:18 | CP.PCM.PN ---
Subjective - Date & Time of Evaluation Date of Evaluation: 01/09/18 Time of Evaluation: 10:20 - Subjective Subjective: afebrile dialysis last PM no leukocytosis comfortable in bed ROS no chills fever no chest pain or sob no abd pain,n,v,d anuric Objective - Vital Signs/Intake and Output Vital Signs (last 24 hours): Temp Pulse Resp BP Pulse Ox 98.2 F 102 H 20 91/42 L 96 01/09/18 07:57 01/09/18 07:57 01/09/18 07:57 01/09/18 07:57 01/09/18 07:57 - Medications Medications: Current Medications Acetaminophen (Tylenol 325mg Tab) 650 mg PO Q6 PRN PRN Reason: Fever >100.4 F Apixaban (Eliquis) 5 mg PO BID [facility] Last Admin: 01/08/18 19:42 Dose: 5 mg Calcium Acetate (Phoslo) 667 mg PO TIDCC [facility] Last Admin: 01/09/18 08:51 Dose: 667 mg Dextrose (Dextrose 50% Inj) 0 ml IV STAT PRN; Protocol PRN Reason: Hypoglycemia Protocol Dextrose (Glutose 15) 0 gm PO ONCE PRN; Protocol PRN Reason: Hypoglycemia Protocol Glucagon (Glucagen Diagnostic Kit) 0 mg IM STAT PRN; Protocol PRN Reason: Hypoglycemia Protocol Cefepime HCl 0.5 gm/ Dextrose 50 mls @ 100 mls/hr IVPB DAILY [facility]; Protocol Last Admin: 01/08/18 13:58 Dose: 100 mls/hr Vancomycin HCl 1.5 gm/ Sodium (Chloride) 500 mls @ 166.7 mls/hr IVPB MWF [facility]; Protocol Insulin Human Regular (Novolin R) 0 unit SC ACHS [facility]; Protocol Last Admin: 01/09/18 07:30 Dose: Not Given Ondansetron HCl (Zofran Inj) 4 mg IVP Q6 PRN PRN Reason: Nausea/Vomiting - Labs Labs: 01/09/18 06:29 01/09/18 06:29 PT 28.2 SECONDS (9.7-12.2) H D 01/09/18 06:29 INR 2.6 D 01/09/18 06:29 APTT 43 SECONDS (21-34) H D 01/09/18 06:29 - Constitutional Appears: No Acute Distress - ENT Exam ENT Exam: Mucous Membranes Moist - Respiratory Exam Respiratory Exam: Clear to Ausculation Bilateral, NORMAL BREATHING PATTERN - Cardiovascular Exam Cardiovascular Exam: Irregular Rhythm - GI/Abdominal Exam GI & Abdominal Exam: Distended, Soft. absent: Tenderness Additional comments: dull distended - Extremities Exam Additional comments: feet in boots 1-2+ leg edema - Neurological Exam Neurological Exam: Alert - Psychiatric Exam Psychiatric exam: Flat Affect - Skin Skin Exam: Dry Assessment and Plan (1) Atrial fibrillation Status: Acute (2) Sepsis associated with vascular access catheter Status: Resolved (3) Cellulitis Status: Acute (4) ESRD needing dialysis Status: Acute (5) Non-ischemic cardiomyopathy Status: Acute (6) PVD (peripheral vascular disease) Status: Acute - Assessment and Plan (Free Text) Plan: continue supportive care follow cardiology recommendations next dialysis 01/11
--- NOTE | 2018-01-09 10:56 | CP.PCM.PN ---
Subjective - Date & Time of Evaluation Date of Evaluation: 01/09/18 Time of Evaluation: 10:56 Objective - Vital Signs/Intake and Output Vital Signs (last 24 hours): Temp Pulse Resp BP Pulse Ox 98.2 F 102 H 20 91/42 L 96 01/09/18 07:57 01/09/18 07:57 01/09/18 07:57 01/09/18 07:57 01/09/18 07:57 - Medications Medications: Current Medications Acetaminophen (Tylenol 325mg Tab) 650 mg PO Q6 PRN PRN Reason: Fever >100.4 F Apixaban (Eliquis) 5 mg PO BID [facility] Last Admin: 01/09/18 10:15 Dose: 5 mg Calcium Acetate (Phoslo) 667 mg PO TIDCC [facility] Last Admin: 01/09/18 08:51 Dose: 667 mg Dextrose (Dextrose 50% Inj) 0 ml IV STAT PRN; Protocol PRN Reason: Hypoglycemia Protocol Dextrose (Glutose 15) 0 gm PO ONCE PRN; Protocol PRN Reason: Hypoglycemia Protocol Glucagon (Glucagen Diagnostic Kit) 0 mg IM STAT PRN; Protocol PRN Reason: Hypoglycemia Protocol Cefepime HCl 0.5 gm/ Dextrose 50 mls @ 100 mls/hr IVPB DAILY [facility]; Protocol Last Admin: 01/09/18 10:13 Dose: 100 mls/hr Vancomycin HCl 1.5 gm/ Sodium (Chloride) 500 mls @ 166.7 mls/hr IVPB MWF [facility]; Protocol Insulin Human Regular (Novolin R) 0 unit SC ACHS [facility]; Protocol Last Admin: 01/09/18 07:30 Dose: Not Given Ondansetron HCl (Zofran Inj) 4 mg IVP Q6 PRN PRN Reason: Nausea/Vomiting - Labs Labs: 01/09/18 06:29 01/09/18 06:29 PT 28.2 SECONDS (9.7-12.2) H D 01/09/18 06:29 INR 2.6 D 01/09/18 06:29 APTT 43 SECONDS (21-34) H D 01/09/18 06:29
--- NOTE | 2018-01-09 16:10 | CP.PCM.PN ---
Subjective - Date & Time of Evaluation Date of Evaluation: 01/09/18 Time of Evaluation: 16:09 - Subjective Subjective: Podiatry Progress Note- Dr. Nunn 62 y/o male seen at bedside this morning for bilateral lower extremity ulcerations. Dressing is clean, dry and intact. multipodus boots are on. NAD. Denies pain to his lower extremities. Denies F/C/N/V/CP/SOB Objective - Vital Signs/Intake and Output Vital Signs (last 24 hours): Temp Pulse Resp BP Pulse Ox 98.2 F 102 H 20 91/42 L 96 01/09/18 07:57 01/09/18 07:57 01/09/18 07:57 01/09/18 07:57 01/09/18 07:57 - Medications Medications: Current Medications Acetaminophen (Tylenol 325mg Tab) 650 mg PO Q6 PRN PRN Reason: Fever >100.4 F Apixaban (Eliquis) 2.5 mg PO BID [facility] Calcium Acetate (Phoslo) 667 mg PO TIDCC [facility] Last Admin: 01/09/18 12:19 Dose: 667 mg Dextrose (Dextrose 50% Inj) 0 ml IV STAT PRN; Protocol PRN Reason: Hypoglycemia Protocol Dextrose (Glutose 15) 0 gm PO ONCE PRN; Protocol PRN Reason: Hypoglycemia Protocol Glucagon (Glucagen Diagnostic Kit) 0 mg IM STAT PRN; Protocol PRN Reason: Hypoglycemia Protocol Cefepime HCl 0.5 gm/ Dextrose 50 mls @ 100 mls/hr IVPB DAILY [facility]; Protocol Last Admin: 01/09/18 10:13 Dose: 100 mls/hr Vancomycin HCl 1.5 gm/ Sodium (Chloride) 500 mls @ 166.7 mls/hr IVPB MWF [facility]; Protocol Insulin Human Regular (Novolin R) 0 unit SC ACHS [facility]; Protocol Last Admin: 01/09/18 12:40 Dose: Not Given Ondansetron HCl (Zofran Inj) 4 mg IVP Q6 PRN PRN Reason: Nausea/Vomiting - Labs Labs: 01/09/18 06:29 01/09/18 06:29 PT 28.2 SECONDS (9.7-12.2) H D 01/09/18 06:29 INR 2.6 D 01/09/18 06:29 APTT 43 SECONDS (21-34) H D 01/09/18 06:29 - Constitutional Appears: Well, Non-toxic - Head Exam Head Exam: ATRAUMATIC - Extremities Exam Additional comments: Lower extremity focused exam: Vasc: Nonpalpable pulses to the DP and PT, delayed CFT to the digits, tempe rature gradient WNL, +1 pitting pedal edema Derm: chronic skin changes with hyperpigmented skin to entire lower extremity, skin thickening and flaking bilateral lower legs. Left: Left posterior heel ulceration now fully healed with overlying thin fragile skin. Mild dark discoloration noted to skin area at site of prior ulceration. Right: Full thickness ulceration noted to posterior ankle at level of Achilles insertion measuring approximately 3 cm x 2 cm x 0.3cm, with mixture granular and fibrotic wound base. No active drainage noted. No fluctuance noted. Minor ibeth- wound erythema, no streaking appreciated. Neuro: Gross sensation absent B/L. protective sensation absent Ortho: no pain appreciated with palpation to surrounding ulceration sites. No pain with calf palpation bilaterally. Assessment and Plan - Assessment and Plan (Free Text) Assessment: 61 y/o male patient, seen and evaluated at bedside for B/L lower extremity ulcerations Plan: Patient seen and evaluated at bedside Discussed plan with Dr. Nunn Patient afebrile, absent leukocytosis Podiatry to continue with local wound care: wounds cleansed with saline and dressed with ABD, DSD; betadine applied to R posterior ankle wound Wounds stable, no current signs of infection plan: No surgical intervention at this time Patient to wear multipodus boots at all times while in bed Will continue to follow
--- NOTE | 2018-01-09 17:26 | CP.PCM.PN ---
<Alanis Cody - Last Filed: 01/09/18 17:23> Subjective - Date & Time of Evaluation Date of Evaluation: 01/09/18 Time of Evaluation: 17:23 - Subjective Subjective: Patient seen and examined at bedside this morning. He was resting in bed and wants to go to sleep. He did not want to see another physician provider at the time. Denies chest pain, palpitations, shortness of breath, abdominal pain. Objective - Vital Signs/Intake and Output Vital Signs (last 24 hours): Temp Pulse Resp BP Pulse Ox 98.2 F 99 H 20 103/44 L 100 01/09/18 15:00 01/09/18 15:00 01/09/18 15:00 01/09/18 15:00 01/09/18 15:00 - Medications Medications: Current Medications Acetaminophen (Tylenol 325mg Tab) 650 mg PO Q6 PRN PRN Reason: Fever >100.4 F Apixaban (Eliquis) 2.5 mg PO BID [facility] Calcium Acetate (Phoslo) 667 mg PO TIDCC [facility] Last Admin: 01/09/18 12:19 Dose: 667 mg Dextrose (Dextrose 50% Inj) 0 ml IV STAT PRN; Protocol PRN Reason: Hypoglycemia Protocol Dextrose (Glutose 15) 0 gm PO ONCE PRN; Protocol PRN Reason: Hypoglycemia Protocol Glucagon (Glucagen Diagnostic Kit) 0 mg IM STAT PRN; Protocol PRN Reason: Hypoglycemia Protocol Cefepime HCl 0.5 gm/ Dextrose 50 mls @ 100 mls/hr IVPB DAILY [facility]; Protocol Last Admin: 01/09/18 10:13 Dose: 100 mls/hr Vancomycin HCl 1.5 gm/ Sodium (Chloride) 500 mls @ 166.7 mls/hr IVPB MWF [facility]; Protocol Insulin Human Regular (Novolin R) 0 unit SC ACHS [facility]; Protocol Last Admin: 01/09/18 12:40 Dose: Not Given Ondansetron HCl (Zofran Inj) 4 mg IVP Q6 PRN PRN Reason: Nausea/Vomiting - Labs Labs: 01/09/18 06:29 01/09/18 06:29 PT 28.2 SECONDS (9.7-12.2) H D 01/09/18 06:29 INR 2.6 D 01/09/18 06:29 APTT 43 SECONDS (21-34) H D 01/09/18 06:29 - Constitutional Appears: No Acute Distress - Head Exam Head Exam: ATRAUMATIC, NORMAL INSPECTION - Eye Exam Eye Exam: EOMI, Normal appearance - Neck Exam Neck Exam: Normal Inspection - Respiratory Exam Respiratory Exam: Clear to Ausculation Bilateral, NORMAL BREATHING PATTERN - Cardiovascular Exam Cardiovascular Exam: Irregular Rhythm - GI/Abdominal Exam GI & Abdominal Exam: Soft, Normal Bowel Sounds - Extremities Exam Additional comments: feet had multipodus boots on bilaterally - Neurological Exam Neurological Exam: Alert, Awake - Psychiatric Exam Psychiatric exam: Normal Affect, Normal Mood Assessment and Plan - Assessment and Plan (Free Text) Assessment: Patient is a 62 year old male with PMH of ESRD on HD, DM, CHF, A Fib, HTN, COPD, and NIKOLE now s/p removal of infected portacath. Abscess/Infection of Portacath: - S/p removal by surgery - ID consulted, Dr. Lizarraga - Continue with Cefepime 0.5 g IV QD - Vancomycin level 01/08: 9.4, subtherapeutic (ideal 15-20). Order trough 30 min to 1 hour before MWF vanc schedule. Ordered for Thursday 01/11. - Increase dose to Vancomycin 1.5gm IV MWF with HD per ID recs - Per ID patient can be discharged once random vanc is at target level hx Afib at therapeutic INR: - INR: 1.8 (01/08) -> 2.6 (01/09) -goal range 2-2.5, has been on coumadin and was recommended for INR check twice a week as outpatient - patient agrees to take 5 mg apixaban instead of 5mg warfarin PO QD - Heme/onc following ESRD: - HD on MWF - Nephro consulted, Dr. Rice seen 01/08 - BUN/Cr downtrending 64/5.4 -> 48/4.1 DM: -BG has been 100s and well-controlled - ISS - Hypoglycemia protocol CHF: - Patient has a pacemaker - Cardiology, Dr. Stiles consulted - Metoprolol held for hypotension - Continue to monitor NIKOLE/pHTN: - ECHO 01/01: LVEF 53%, LV function is mild to moderately reduced with anteroseptal hypokinesis, and septal flattening c/w elevated RV pressure. The aortic root is calcified and demonstrates mildly to moderately reduced opening. Peak gradient was 12mmHg, valve area was not performed. There is mildly increased left ventricular wall thickness. The right ventricle is severely dilated. Systolic function is severely reduced. There is likely severe pulmonary HTN, underestimated by doppler. - Patient uses CPAP at home HTN: - Home metoprolol held due to blood pressure in the 90's/50's - Avoid IV fluid boluses if possible B/l LE Ulcers: - Podiatry, Dr. Nunn consulted and was seen by podiatry today - Continue local wound care -has on multipodus boots bilaterally Case discussed with Dr. Mason Cody PGY-1 <Jody Cuevas V - Last Filed: 01/09/18 19:45> Objective - Vital Signs/Intake and Output Vital Signs (last 24 hours): Temp Pulse Resp BP Pulse Ox 98.2 F 99 H 20 103/44 L 100 01/09/18 15:00 01/09/18 15:00 01/09/18 15:00 01/09/18 15:00 01/09/18 15:00 - Medications Medications: Current Medications Acetaminophen (Tylenol 325mg Tab) 650 mg PO Q6 PRN PRN Reason: Fever >100.4 F Apixaban (Eliquis) 2.5 mg PO BID [facility] Last Admin: 01/09/18 17:47 Dose: 2.5 mg Calcium Acetate (Phoslo) 667 mg PO TIDCC [facility] Last Admin: 01/09/18 17:47 Dose: 667 mg Dextrose (Dextrose 50% Inj) 0 ml IV STAT PRN; Protocol PRN Reason: Hypoglycemia Protocol Dextrose (Glutose 15) 0 gm PO ONCE PRN; Protocol PRN Reason: Hypoglycemia Protocol Glucagon (Glucagen Diagnostic Kit) 0 mg IM STAT PRN; Protocol PRN Reason: Hypoglycemia Protocol Cefepime HCl 0.5 gm/ Dextrose 50 mls @ 100 mls/hr IVPB DAILY [facility]; Protocol Last Admin: 01/09/18 10:13 Dose: 100 mls/hr Vancomycin HCl 1.5 gm/ Sodium (Chloride) 500 mls @ 166.7 mls/hr IVPB MWF [facility]; Protocol Insulin Human Regular (Novolin R) 0 unit SC ACHS [facility]; Protocol Last Admin: 01/09/18 17:47 Dose: Not Given Ondansetron HCl (Zofran Inj) 4 mg IVP Q6 PRN PRN Reason: Nausea/Vomiting - Labs Labs: 01/09/18 06:29 01/09/18 06:29 PT 28.2 SECONDS (9.7-12.2) H D 01/09/18 06:29 INR 2.6 D 01/09/18 06:29 APTT 43 SECONDS (21-34) H D 01/09/18 06:29 Attending/Attestation - Attestation I have personally seen and examined this patient.: Yes I have fully participated in the care of the patient.: Yes I have reviewed all pertinent clinical information, including history, physical exam and plan: Yes Notes (Text): Patient seen, examined and case discussed with day-time resident. Patient seen with resident this morning during my rounds. patient denies acute complaints. Patient denies bleeding episodes. I have adjusted Eliquis to 2.5mg PO bid in light of dialysis. We are awaiting infectious disease clearance for discharge planning. Assessment/Plan 1) Abscess and nfection of Portacath Assessment/Plan * Pt with portacath, draining white purulent fluid on R chest on admission; s/p removal by Surgery on 12/31/17 pt doing well post-op. No further surgical interventions needed at this time. * Remains afebrile since initial fever at 102F * Infectious Disease (Dr. Lizarraga) on board--> help appreciated * Cefepime 0.5gm IVPB qdaily (active since 01/01/18) * Increase Vancomycin 1.5gm IVPB MWF (active since 01/08/18) * I have spoke with Dr. Lizarraga in light of random vanc Thursday before dialysis. Increase in Vancomycin to 1.5gm. * Blood culture (12/30/17): no growth after 5 days X2 * Skin/Chest (12/30/17): Staph Aureus * Chest (12/31/17): Staph Aureus * Echocardiogram: LVEF 53%, LV function is mild to moderately reduced with anteroseptal hypokinesis, and septal flattening c/w elevated RV pressure. The aortic root is calcified and demonstrates mildly to moderately reduced opening. Peak gradient was 12mmHg, valve area was not performed. There is m ildly increased left ventricular wall thickness. The right ventricle is severely dilated. Systolic function is severely reduced. There is likely severe pulmonary HTN, underestimated by doppler. 2) Atrial Fibrillation-->therapuetic Assessment/Plan * Dr. Samuel (Heme-oncology) on board-->help appreciated * I explained to her patient and had refused Eliquis because of bleeding risk and had refused heparin drip because of bleeding risk * Heme oncology has had discussion with family-->they have decided on Eliquis. * Dr. Stiles (Cardiology) on board-->help appreciated * Recommended for Eliquis; patient and refused * Echo: LVEF 53%, LV function is mild to moderately reduced with anteroseptal hypokinesis, and septal flattening c/w elevated RV pressure. The aortic root is calcified and demonstrates mildly to moderately reduced opening. Peak gradient was 12mmHg, valve area was not performed. There is mildly increased left ventricular wall thickness. The right ventricle is severely dilated. Systolic function is severely reduced. There is likely severe pulmonary HTN, underestimated by doppler. 3) ESRD Assessment/Plan * Nephro consulted, Dr. Rice, help appreciated. Pt to continue HD MWF. * Phoslo 667mg PO TIDCC 4) Diabetes Assessment/Plan * accuchecks q6h * low dose sliding scale * hypoglycemia protocol * a1c: 4.8 5) HTN Assessment/Plan * monitor vital signs * Home metoprolol held 6. History of NIKOLE Assessment/Plan * pt uses CPAP at home * not amenable to using bipap * to bring home CPAP for use inpatient 7. B/l LE Ulcers Assessment/Plan * On exam noted in L heel superior aspect, R achilles tendon area * Podiatry consulted (Dr. Nunn) for wound care, recs appreciated * Podiatry c/w wound care. Wounds stable, no signs of infection, no surgical intervention indicated. 8. Hx Pacemaker, Systolic CHF Assessment/Plan * Per Pt's pt has not followed with cardiology outpatient in a while * Cardiology (Dr. Stiles) consulted, recs appreciated * Metoprolol held for low bps, continue to monitor * Echo: LVEF 53%, LV function is mild to moderately reduced with anteroseptal hypokinesis, and septal flattening c/w elevated RV pressure. The aortic root is calcified and demonstrates mildly to moderately reduced opening. Peak gradient was 12mmHg, valve area was not performed. There is mildly increased left ventricular wall thickness. The right ventricle is severely dilated. Systolic function is severely reduced. There is likely severe pulmonary HTN, underestimated by doppler. 9. PPX * upon discussion between patient and hematology, ultimately decided on Eliquis. * Renal diet Dispo: Awaiting infectious disease clearance in light of non therapuetic dosing of Vancomycin. Vancomycin increased per discussion with ID.
[2018-01-10] MEDS: (Novolin R) Insulin Human Regular 100 units/ml vial SC SCH ×4 (07:20→23:37)
[2018-01-10 07:33] LABS: BASO # 0.1 K/uL (0.0-0.2); BASO % 1.2 % (0.0-2.0); EOS # 0.2 K/uL (0.0-0.7); EOS % 4.3 % (0.0-4.0); HEMOGLOBIN 9.6 g/dL (12.0-18.0); INR 2.6; LYMPH # 0.6 K/uL (1.0-4.3); LYMPH % 11.4 % (20.0-40.0); MEAN CELL VOLUME 88.1 fL (80.0-94.0); MEAN CORPUSCULAR HEMOGLOBIN 28.7 pg (27.0-31.0); MEAN CORPUSCULAR HGB CONC 32.6 g/dL (33.0-37.0); MONO # 0.5 K/uL (0.0-0.8); NEUT # 4.1 K/uL (1.8-7.0); NEUT % 74.1 % (50.0-75.0); PROTHROMBIN TIME 28.1 SECONDS (9.7-12.2); RBC 3.34 Mil/uL (4.40-5.90); RED CELL DISTRIBUTION WIDTH 19.1 % (11.5-14.5); WHITE BLOOD COUNT 5.6 K/uL (4.8-10.8)
[2018-01-10 07:50] LABS: ALBUMIN 3.1 g/dL (3.5-5.0); CALCIUM 8.5 mg/dl (8.6-10.4)
--- NOTE | 2018-01-10 20:39 | CP.PCM.PN ---
Subjective - Date & Time of Evaluation Date of Evaluation: 01/10/18 Time of Evaluation: 20:37 - Subjective Subjective: Patient without any pain. Without any complaints. Objective - Vital Signs/Intake and Output Vital Signs (last 24 hours): Temp Pulse Resp BP Pulse Ox 98.2 F 100 H 20 108/52 L 99 01/10/18 16:00 01/10/18 16:00 01/10/18 16:00 01/10/18 16:00 01/10/18 16:00 - Medications Medications: Current Medications Acetaminophen (Tylenol 325mg Tab) 650 mg PO Q6 PRN PRN Reason: Fever >100.4 F Apixaban (Eliquis) 2.5 mg PO BID [facility] Last Admin: 01/10/18 17:46 Dose: 2.5 mg Calcium Acetate (Phoslo) 667 mg PO TIDCC [facility] Last Admin: 01/10/18 17:46 Dose: 667 mg Dextrose (Dextrose 50% Inj) 0 ml IV STAT PRN; Protocol PRN Reason: Hypoglycemia Protocol Dextrose (Glutose 15) 0 gm PO ONCE PRN; Protocol PRN Reason: Hypoglycemia Protocol Glucagon (Glucagen Diagnostic Kit) 0 mg IM STAT PRN; Protocol PRN Reason: Hypoglycemia Protocol Cefepime HCl 0.5 gm/ Dextrose 50 mls @ 100 mls/hr IVPB DAILY [facility]; Protocol Last Admin: 01/10/18 10:01 Dose: 100 mls/hr Vancomycin HCl 1.5 gm/ Sodium (Chloride) 500 mls @ 166.7 mls/hr IVPB MWF [facility]; Protocol Insulin Human Regular (Novolin R) 0 unit SC ACHS [facility]; Protocol Last Admin: 01/10/18 17:46 Dose: Not Given Ondansetron HCl (Zofran Inj) 4 mg IVP Q6 PRN PRN Reason: Nausea/Vomiting - Labs Labs: 01/10/18 07:19 01/10/18 07:19 PT 28.1 SECONDS (9.7-12.2) H 01/10/18 07:19 INR 2.6 01/10/18 07:19 APTT 43 SECONDS (21-34) H 01/10/18 07:19 - Head Exam Head Exam: ATRAUMATIC, NORMAL INSPECTION - Eye Exam Eye Exam: EOMI, Normal appearance - Respiratory Exam Respiratory Exam: Clear to Ausculation Bilateral, NORMAL BREATHING PATTERN - Cardiovascular Exam Cardiovascular Exam: REGULAR RHYTHM - GI/Abdominal Exam GI & Abdominal Exam: Soft, Normal Bowel Sounds - Extremities Exam Additional comments: mutipodus boots on bilaterally - Psychiatric Exam Psychiatric exam: Normal Affect, Normal Mood Assessment and Plan - Assessment and Plan (Free Text) Assessment: Patient is a 62 year old male with PMH of ESRD on HD, DM, CHF, A Fib, HTN, COPD, and NIKOLE now s/p removal of infected portacath. Abscess/Infection of Portacath: - S/p removal by surgery - ID consulted, Dr. Lizarraga - Continue with Cefepime 0.5 g IV QD - Vancomycin level 01/08: 9.4. Order trough 30 min to 1 hour before MWF vanc schedule. Ordered for Thursday 01/11. Confirmed verbally with RN today to ensure it be done. - Increase dose to Vancomycin 1.5gm IV MWF with HD per ID recs - Per ID patient can be discharged once random vanc is at target level hx Afib at therapeutic INR: - INR: 1.8 (01/08) -> 2.6 (01/09) -> 2.6 on 01/10 -goal range 2-2.5, has been on coumadin and was recommended for INR check twice a week as outpatient - patient agrees to take 5 mg apixaban instead of 5mg warfarin PO QD - Heme/onc following ESRD: - HD on MWF - Nephro consulted, Dr. Rice seen 01/08 - BUN/Cr downtrending 64/5.4 -> 48/4.1 DM: -BG has been 100s and well-controlled - ISS - Hypoglycemia protocol CHF: - Patient has a pacemaker - Cardiology, Dr. Stiles consulted - Metoprolol held for hypotension - Continue to monitor NIKOLE/pHTN: - ECHO 01/01: LVEF 53%, LV function is mild to moderately reduced with anteroseptal hypokinesis, and septal flattening c/w elevated RV pressure. The aortic root is calcified and demonstrates mildly to moderately reduced opening. Peak gradient was 12mmHg, valve area was not performed. There is mildly increased left ventricular wall thickness. The right ventricle is severely dilated. Systolic function is severely reduced. There is likely severe pulmonary HTN, underestimated by doppler. - Patient uses CPAP at home HTN: - Home metoprolol held due to blood pressure in the 90's/50's - Avoid IV fluid boluses if possible B/l LE Ulcers: - Podiatry, Dr. Nunn consulted and was seen by podiatry today - Continue local wound care -has on multipodus boots bilaterally Case discussed with Dr. Mason Cody PGY-1
[2018-01-11 07:51] LABS: BASO # 0.1 K/uL (0.0-0.2); BASO % 1.4 % (0.0-2.0); EOS # 0.2 K/uL (0.0-0.7); EOS % 3.4 % (0.0-4.0); HEMOGLOBIN 9.5 g/dL (12.0-18.0); LYMPH # 0.8 K/uL (1.0-4.3); LYMPH % 11.3 % (20.0-40.0); MEAN CELL VOLUME 88.7 fL (80.0-94.0); MEAN CORPUSCULAR HEMOGLOBIN 28.4 pg (27.0-31.0); MONO # 0.5 K/uL (0.0-0.8); NEUT # 5.1 K/uL (1.8-7.0); NEUT % 75.9 % (50.0-75.0); NRBC % 0.1 % (0.0-2.0); RBC 3.35 Mil/uL (4.40-5.90); RED CELL DISTRIBUTION WIDTH 19.5 % (11.5-14.5); WHITE BLOOD COUNT 6.7 K/uL (4.8-10.8)
[2018-01-11 07:57] LABS: INR 2.1; PROTHROMBIN TIME 23.3 SECONDS (9.7-12.2)
[2018-01-11 08:07] LABS: ALB/GLOB RATIO 1.1 (1.0-2.1); ALBUMIN 3.3 g/dL (3.5-5.0); CALCIUM 8.4 mg/dl (8.6-10.4)
[2018-01-11] MEDS: (Novolin R) Insulin Human Regular 100 units/ml vial SC SCH ×4 (08:13→21:41)
[2018-01-11] MEDS: Vancomycin 1.5 GM in Sodium Chloride 0.9% 500 ML IVPB SCH ×2 (11:21→18:03)
--- NOTE | 2018-01-11 11:55 | CP.PCM.PN ---
Subjective - Date & Time of Evaluation Date of Evaluation: 01/11/18 Time of Evaluation: 13:27 - Subjective Subjective: PGY-[address] Prajapati Patient seen and examamined at dialysis. Patient appeared comfortable. Nurse endorsed to me that his most recent blood pressure was in 60s/20s. However patient did not appear symptomatic on review of systems or on exam. When asked if patient felt at all dizzy or lightheaded, he responded "I'm fine". Subsequent blood pressures have increased to a normal range. Patient denies any chest pain, shortness of breath, headaches, nausea, vomiting. Objective - Vital Signs/Intake and Output Vital Signs (last 24 hours): Temp Pulse Resp BP Pulse Ox 97.4 F L 112 H 18 141/45 L 100 01/11/18 09:15 01/11/18 09:15 01/11/18 09:15 01/11/18 11:15 01/11/18 09:15 - Medications Medications: Current Medications Acetaminophen (Tylenol 325mg Tab) 650 mg PO Q6 PRN PRN Reason: Fever >100.4 F Apixaban (Eliquis) 2.5 mg PO BID [facility] Last Admin: 01/11/18 10:17 Dose: Not Given Calcium Acetate (Phoslo) 667 mg PO TIDCC [facility] Last Admin: 01/11/18 08:46 Dose: 667 mg Dextrose (Dextrose 50% Inj) 0 ml IV STAT PRN; Protocol PRN Reason: Hypoglycemia Protocol Dextrose (Glutose 15) 0 gm PO ONCE PRN; Protocol PRN Reason: Hypoglycemia Protocol Glucagon (Glucagen Diagnostic Kit) 0 mg IM STAT PRN; Protocol PRN Reason: Hypoglycemia Protocol Vancomycin HCl 1.5 gm/ Sodium (Chloride) 500 mls @ 166.7 mls/hr IVPB MWF [facility]; Protocol Last Admin: 01/11/18 11:21 Dose: 166.7 mls/hr Insulin Human Regular (Novolin R) 0 unit SC [facility]; Protocol Last Admin: 01/11/18 08:13 Dose: Not Given Ondansetron HCl (Zofran Inj) 4 mg IVP Q6 PRN PRN Reason: Nausea/Vomiting - Labs Labs: 01/11/18 07:44 01/11/18 07:44 PT 23.3 SECONDS (9.7-12.2) H 01/11/18 07:44 INR 2.1 D 01/11/18 07:44 APTT 40 SECONDS (21-34) H 01/11/18 07:44 - Constitutional Appears: Non-toxic, No Acute Distress - Head Exam Head Exam: ATRAUMATIC, NORMAL INSPECTION - Eye Exam Eye Exam: EOMI, Normal appearance - ENT Exam ENT Exam: Mucous Membranes Moist - Respiratory Exam Respiratory Exam: Clear to Ausculation Bilateral, NORMAL BREATHING PATTERN - Cardiovascular Exam Cardiovascular Exam: RRR, +S1, +S2 - GI/Abdominal Exam GI & Abdominal Exam: Soft, Normal Bowel Sounds. absent: Tenderness Additional comments: Obese - Extremities Exam Additional comments: Chronic venous stasis changes b/l - Neurological Exam Neurological Exam: Alert, Awake, Oriented x3 - Psychiatric Exam Psychiatric exam: Normal Affect, Normal Mood - Skin Skin Exam: Dry, Intact Assessment and Plan - Assessment and Plan (Free Text) Assessment: Assessment: 62M with PMH ESRD, DM, CHF, A FIB W/RVR, AML, HTN, COPD, sleep apnea who presented with portacath infection, now s/p removal of portacath. INR therapeutic on low-dose eliquis. Vancomycin levels sub-therapeutic. Abscess/Infection of Portacath - Pt with portacath, draining white purulent fluid on R chest on admission; s/p removal by Surgery - Tmax 100.3F on admission. Patient continue to be afebrile. - Leukocytosis resolved - ID consulted, Dr. Lizarraga, help appreciated. - Cefepime discontinued - Vancomycin increased to 1.5 gm MWF with HD as per ID recs random vanc level 01/08 18:00 9.4; Random vanc level today 9.2, continues to be subtherapeutic. Will recheck a vanc level Thursday before dialysis. Per Dr. Lizarraga, patient may be discharged to receive IV vanc MWF at dialysis once he is at a therapeutic dose (ideally 15-20). - BCx: NG - FINAL - Wound Cx: S. aureus, penicillin resistent - 2D echo ordered to r/o endocarditis: LVEF 53%, LV function is mild to moderately reduced with anteroseptal hypokinesis, and septal flattening c/w elevated RV pressure. The aortic root is calcified and demonstrates mildly to moderately reduced opening. Peak gradient was 12mmHg, valve area was not performed. There is mildly increased left ventricular wall thickness. The right ventricle is severely dilated. Systolic function is severely reduced. There is likely severe pulmonary HTN, underestimated by doppler. ESRD - Nephro consulted, Dr. Rice, help appreciated. Pt to continue HD MWF. - BUN/Cr today 54/4.6 Atrial Fibrillation - INR now therapeutic at 2.1 - recommended for INR check twice a week as outpatient - Patient now amenanable to low-dose eliquis - receiving 2.5 mg PO BID - Coumadin discontinued - Heme/onc following DM - accuchecks q6h - low dose sliding scale - hypoglycemia protocol HTN - BP 97/52 on admission, BP 110/74 - 141/45 today. Patient states his normal bp at home is 90s/50s. - Home metoprolol held for asymptomatic hypotension - Avoid IV fluid boluses if possible NIKOLE - Using home CPAP B/l LE Ulcers - On exam noted in L heel superior aspect, R achilles tendon area - Podiatry consulted (Dr. Nunn) for wound care, recs appreciated - Podiatry c/w wound care. Wounds stable, no signs of infection, no surgical intervention indicated. - Multipodus boots Hx Pacemaker, CHF - Per Pt's pt has not followed with cardiology outpatient in a while - Cardiology (Dr. Stiles) consulted, recs appreciated - Metoprolol held for low bps, continue to monitor PPX Eliquis 2.5 mg PO BID Renal diet Dispo: Blood cultures final. INR is now therapeutic. Vancomycin levels remain sub-therapeutic. Recheck vanc levels Thursday prior to HD. Case discussed with Dr. Alo Sy, PGY-1
--- NOTE | 2018-01-11 11:58 | CP.PCM.PN ---
Subjective - Date & Time of Evaluation Date of Evaluation: 01/11/18 Time of Evaluation: 11:56 - Subjective Subjective: Seen at dialysis Trying UF 3500ml Feels better Accepted eliquis use On IV vanco for cath infection No new complaint Objective - Vital Signs/Intake and Output Vital Signs (last 24 hours): Temp Pulse Resp BP Pulse Ox 97.4 F L 112 H 18 141/45 L 100 01/11/18 09:15 01/11/18 09:15 01/11/18 09:15 01/11/18 11:15 01/11/18 09:15 - Medications Medications: Current Medications Acetaminophen (Tylenol 325mg Tab) 650 mg PO Q6 PRN PRN Reason: Fever >100.4 F Apixaban (Eliquis) 2.5 mg PO BID [facility] Last Admin: 01/11/18 10:17 Dose: Not Given Calcium Acetate (Phoslo) 667 mg PO TIDCC [facility] Last Admin: 01/11/18 11:54 Dose: Not Given Dextrose (Dextrose 50% Inj) 0 ml IV STAT PRN; Protocol PRN Reason: Hypoglycemia Protocol Dextrose (Glutose 15) 0 gm PO ONCE PRN; Protocol PRN Reason: Hypoglycemia Protocol Glucagon (Glucagen Diagnostic Kit) 0 mg IM STAT PRN; Protocol PRN Reason: Hypoglycemia Protocol Vancomycin HCl 1.5 gm/ Sodium (Chloride) 500 mls @ 166.7 mls/hr IVPB MWF [facility]; Protocol Last Admin: 01/11/18 11:21 Dose: 166.7 mls/hr Insulin Human Regular (Novolin R) 0 unit SC [facility]; Protocol Last Admin: 01/11/18 11:54 Dose: Not Given Ondansetron HCl (Zofran Inj) 4 mg IVP Q6 PRN PRN Reason: Nausea/Vomiting - Labs Labs: 01/11/18 07:44 01/11/18 07:44 PT 23.3 SECONDS (9.7-12.2) H 01/11/18 07:44 INR 2.1 D 01/11/18 07:44 APTT 40 SECONDS (21-34) H 01/11/18 07:44 - Constitutional Appears: No Acute Distress, Chronically Ill - Head Exam Head Exam: ATRAUMATIC, NORMAL INSPECTION - Eye Exam Eye Exam: EOMI, Normal appearance - Neck Exam Neck Exam: Normal Inspection. absent: Tenderness - Respiratory Exam Respiratory Exam: Clear to Ausculation Bilateral, NORMAL BREATHING PATTERN - Cardiovascular Exam Cardiovascular Exam: REGULAR RHYTHM, +S1 - GI/Abdominal Exam GI & Abdominal Exam: Soft. absent: Tenderness - Extremities Exam Extremities Exam: Normal Inspection. absent: Tenderness - Neurological Exam Neurological Exam: Awake, CN II-XII Intact - Skin Skin Exam: Dry, Warm Assessment and Plan (1) Infection due to Port-A-Cath Status: Acute (2) ESRD (end stage renal disease) Status: Acute (3) Fluid overload Status: Acute (4) History of non-Hodgkin's lymphoma Status: Acute - Assessment and Plan (Free Text) Plan: Same dialysis MWF IV vanco uf goal recently increased
--- NOTE | 2018-01-11 13:37 | CP.PCM.PN ---
Subjective - Date & Time of Evaluation Date of Evaluation: 01/11/18 Time of Evaluation: 13:34 - Subjective Subjective: PGY-[address] Prajapati Patient seen and examined at bedside. Patient was receiving duoneb treatment during encounter. She stated that her breathing has been much better today. Patient also endorsed that she has not had any vaginal bleeding since around midnight last night. She has been feeling comfortable, has been tolerating meals. Patient denies chest pain, headache, dizziness, lightheadedness, nausea, vomiting. Objective - Vital Signs/Intake and Output Vital Signs (last 24 hours): Temp Pulse Resp BP Pulse Ox 97.9 F 83 18 90/56 L 100 01/11/18 12:45 01/11/18 12:45 01/11/18 12:45 01/11/18 12:45 01/11/18 12:45 - Medications Medications: Current Medications Acetaminophen (Tylenol 325mg Tab) 650 mg PO Q6 PRN PRN Reason: Fever >100.4 F Apixaban (Eliquis) 2.5 mg PO BID [facility] Last Admin: 01/11/18 10:17 Dose: Not Given Calcium Acetate (Phoslo) 667 mg PO TIDCC [facility] Last Admin: 01/11/18 11:54 Dose: Not Given Dextrose (Dextrose 50% Inj) 0 ml IV STAT PRN; Protocol PRN Reason: Hypoglycemia Protocol Dextrose (Glutose 15) 0 gm PO ONCE PRN; Protocol PRN Reason: Hypoglycemia Protocol Glucagon (Glucagen Diagnostic Kit) 0 mg IM STAT PRN; Protocol PRN Reason: Hypoglycemia Protocol Vancomycin HCl 1.5 gm/ Sodium (Chloride) 500 mls @ 166.7 mls/hr IVPB MWF [facility]; Protocol Last Admin: 01/11/18 11:21 Dose: 166.7 mls/hr Insulin Human Regular (Novolin R) 0 unit SC ACHS [facility]; Protocol Last Admin: 01/11/18 11:54 Dose: Not Given Ondansetron HCl (Zofran Inj) 4 mg IVP Q6 PRN PRN Reason: Nausea/Vomiting - Labs Labs: 01/11/18 07:44 01/11/18 07:44 PT 23.3 SECONDS (9.7-12.2) H 01/11/18 07:44 INR 2.1 D 01/11/18 07:44 APTT 40 SECONDS (21-34) H 01/11/18 07:44
--- NOTE | 2018-01-11 15:19 | CP.PCM.PN ---
Subjective - Date & Time of Evaluation Date of Evaluation: 01/05/18 Time of Evaluation: 20:15 - Subjective Subjective: INFECTIOUS DISEASE 5T 551-A PROGRESS NOTES IRIS DOMINGUEZ MD, FACP 5T 551-A 01/05/2018 CHART REVIEWED PT EXAMINED CASE DISCUSSED afebrile denies any pain n/v/d/f/c/dizziness/headache reviewed with staff, including RN'S. Objective - Vital Signs/Intake and Output Vital Signs (last 24 hours): Temp Pulse Resp BP Pulse Ox 98.3 F 112 H 20 97/61 L 98 01/05/18 07:00 01/05/18 07:00 01/05/18 07:00 01/05/18 07:00 01/05/18 07:00 Intake and Output: 01/05/18 01/05/18 06:59 18:59 Intake Total 480 Balance 480 - Medications Medications: Current Medications Acetaminophen (Tylenol 325mg Tab) 650 mg PO Q6 PRN PRN Reason: Fever >100.4 F Calcium Acetate (Phoslo) 667 mg PO TIDCC [facility] Last Admin: 01/05/18 08:37 Dose: 667 mg Dextrose (Dextrose 50% Inj) 0 ml IV STAT PRN; Protocol PRN Reason: Hypoglycemia Protocol Dextrose (Glutose 15) 0 gm PO ONCE PRN; Protocol PRN Reason: Hypoglycemia Protocol Glucagon (Glucagen Diagnostic Kit) 0 mg IM STAT PRN; Protocol PRN Reason: Hypoglycemia Protocol Dextrose (Dextrose 5% In Water 1000 Ml) 1,000 mls @ 0 mls/hr IV .Q0M PRN; Protocol PRN Reason: Hypoglycemia Protocol Cefepime HCl 0.5 gm/ Dextrose 50 mls @ 100 mls/hr IVPB DAILY [facility]; Protocol Last Admin: 01/04/18 13:49 Dose: 100 mls/hr Vancomycin HCl 1 gm/ Sodium (Chloride) 250 mls @ 166.7 mls/hr IVPB MWF [facility]; Protocol Last Admin: 01/04/18 11:15 Dose: 166.7 mls/hr Insulin Human Regular (Novolin R) 0 unit SC ACHS [facility]; Protocol Last Admin: 01/05/18 07:41 Dose: Not Given Ondansetron HCl (Zofran Inj) 4 mg IVP Q6 PRN PRN Reason: Nausea/Vomiting - Labs Labs: 01/05/18 07:17 01/05/18 07:17 PT 17.9 SECONDS (9.7-12.2) H 01/05/18 07:17 INR 1.6 01/05/18 07:17 APTT 37 SECONDS (21-34) H 01/05/18 07:17 - Constitutional Appears: Non-toxic, No Acute Distress, Chronically Ill - Head Exam Head Exam: NORMAL INSPECTION - Eye Exam Eye Exam: Normal appearance, PERRL - ENT Exam ENT Exam: Mucous Membranes Moist, Normal Exam - Neck Exam Neck Exam: Normal Inspection - Respiratory Exam Respiratory Exam: Clear to Ausculation Bilateral, NORMAL BREATHING PATTERN - Cardiovascular Exam Cardiovascular Exam: Irregular Rhythm, WOUND HEALING - GI/Abdominal Exam GI & Abdominal Exam: Distended, Soft - Extremities Exam Extremities Exam: Pedal Edema (b/l LE edema stasis) - Neurological Exam Neurological Exam: Alert, Awake, Oriented x3 - Psychiatric Exam Psychiatric exam: Normal Affect, Normal Mood - Skin Skin Exam: Intact, Warm Assessment and Plan (1) Fever Status: Resolved (2) Infection due to Port-A-Cath Status: Acute (3) ESRD (end stage renal disease) Status: Acute (4) A-fib Status: Chronic (5) Anemia Status: Chronic - Assessment and Plan (Free Text) Assessment: hd mwf, PLEAE ADJUST VANCOMYCIN AND KEEP THE LEVEL AROUND 15 OR SO. Bienvenido DOMINGUEZ MD, FACP Objective - Vital Signs/Intake and Output Vital Signs (last 24 hours): Temp Pulse Resp BP Pulse Ox 96.9 F L 115 H 20 134/91 H 98 01/11/18 13:48 01/11/18 13:48 01/11/18 13:48 01/11/18 13:48 01/11/18 13:48 - Medications Medications: Current Medications Acetaminophen (Tylenol 325mg Tab) 650 mg PO Q6 PRN PRN Reason: Fever >100.4 F Apixaban (Eliquis) 2.5 mg PO BID [facility] Last Admin: 01/11/18 10:17 Dose: Not Given Calcium Acetate (Phoslo) 667 mg PO TIDCC [facility] Last Admin: 01/11/18 11:54 Dose: Not Given Dextrose (Dextrose 50% Inj) 0 ml IV STAT PRN; Protocol PRN Reason: Hypoglycemia Protocol Dextrose (Glutose 15) 0 gm PO ONCE PRN; Protocol PRN Reason: Hypoglycemia Protocol Glucagon (Glucagen Diagnostic Kit) 0 mg IM STAT PRN; Protocol PRN Reason: Hypoglycemia Protocol Vancomycin HCl 1.5 gm/ Sodium (Chloride) 500 mls @ 166.7 mls/hr IVPB [facility]; Protocol Last Admin: 01/11/18 11:21 Dose: 166.7 mls/hr Insulin Human Regular (Novolin R) 0 unit SC [facility]; Protocol Last Admin: 01/11/18 11:54 Dose: Not Given Ondansetron HCl (Zofran Inj) 4 mg IVP Q6 PRN PRN Reason: Nausea/Vomiting - Labs Labs: 01/11/18 07:44 01/11/18 07:44 PT 23.3 SECONDS (9.7-12.2) H 01/11/18 07:44 INR 2.1 D 01/11/18 07:44 APTT 40 SECONDS (21-34) H 01/11/18 07:44
--- NOTE | 2018-01-11 15:27 | CP.PCM.PN ---
Subjective - Date & Time of Evaluation Date of Evaluation: 01/06/18 Time of Evaluation: 15:22 - Subjective Subjective: INFECTIOUS DISEASE PROGRESS NOTES IRIS LIZARRAGA MD, FACP 5T 551-A CHART REVIEWED PT EXAMINED CASE DISCUSSED CLINCIALLY RESPONDING TO IV VANCOMYCIN GIVEN AT THE END OF DIALYSIS WOUND RESPONDING KEEP THE VANCO RANDOM LEVEL AROUND 15! Assessment/Plan 1) Abscess and nfection of Portacath Assessment/Plan * Pt with portacath, draining white purulent fluid on R chest on admission; s/p removal by Surgery on 12/31/17 pt doing well post-op. No further surgical interventions needed at this time. * Remains afebrile since initial fever at 102F * Infectious Disease (Dr. Lizarraga) on board--> help appreciated * Cefepime 0.5gm IVPB qdaily (active since 01/01/18) * Vancomycin 1gm IVPB MWF (active since 01/04/18) * Resident spoke with Dr. Lozano will recheck random vanc Thursday before dialysis. If vancomycin is at safe blood levels, then patient may be treated as an outpatient with vancomycin MWF, thus not requiring daily Abx. * Blood culture (12/30/17): no growth after 5 days X2 * Skin/Chest (12/30/17): Staph Aureus * Chest (12/31/17): Staph Aureus * Echocardiogram: LVEF 53%, LV function is mild to moderately reduced with anteroseptal hypokinesis, and septal flattening c/w elevated RV pressure. The aortic root is calcified and demonstrates mildly to moderately reduced opening. Peak gradient was 12mmHg, valve area was not performed. There is mildly increased left ventricular wall thickness. The right ventricle is severely dilated. Systolic function is severely reduced. There is likely severe pulmonary HTN, underestimated by doppler. 2) Atrial Fibrillation Subtherapuetic INR Assessment/Plan * Dr. Samuel (Heme-oncology) on board-->help appreciated * I explained to her patient and had refused Eliquis because of bleeding risk and had refused heparin drip because of bleeding risk * Dr. Stiles (Cardiology) on board-->help appreciated * Recommended for Eliquis; patient and refused * Echo: LVEF 53%, LV function is mild to moderately reduced with anteroseptal hypokinesis, and septal flattening c/w elevated RV pressure. The aortic root is calcified and demonstrates mildly to moderately reduced opening. Peak gradient was 12mmHg, valve area was not performed. There is mildly increased left ventricular wall thickness. The right ventricle is severely dilated. Systolic function is severely reduced. There is likely severe pulmonary HTN, underestimated by doppler. * Patient refusing heparin bridge secondary to bleeding risk; though he is not therapuetic on Coumadin * Patient ordered for Coumadin 5mg tonight; INR: 1.5 * off rate control agent secondary to borderline low BP 3) ESRD Assessment/Plan * Nephro consulted, Dr. Rice, help appreciated. Pt to continue HD MWF. * BUN/Cr today 70/5.6 * Phoslo 667mg PO TIDCC 4) Diabetes Assessment/Plan * accuchecks q6h * low dose sliding scale * hypoglycemia protocol * check a1c 5) HTN Assessment/Plan * BP 97/52 on admission, BP stable today, pt states his normal bp at home is 90s/50s, currently asymptomatic * Home metoprolol held 6. History of NIKOLE Assessment/Plan * pt uses CPAP at home * not amenable to using bipap * to bring home CPAP for use inpatient 7. B/l LE Ulcers Assessment/Plan * On exam noted in L heel superior aspect, R achilles tendon area * Podiatry consulted (Dr. Nunn) for wound care, recs appreciated * Podiatry c/w wound care. Wounds stable, no signs of infection, no surgical intervention indicated. 8. Hx Pacemaker, Systolic CHF Assessment/Plan * Per Pt's pt has not followed with cardiology outpatient in a while * Cardiology (Dr. Stiles) consulted, recs appreciated * Metoprolol held for low bps, continue to monitor * Echo: LVEF 53%, LV function is mild to moderately reduced with anteroseptal hypokinesis, and septal flattening c/w elevated RV pressure. The aortic root is calcified and demonstrates mildly to moderately reduced opening. Peak gradient was 12mmHg, valve area was not performed. There is mildly increased left ventricular wall thickness. The right ventricle is severely dilated. Systolic function is severely reduced. There is likely severe pulmonary HTN, underestimated by doppler. 9. PPX * Warfarin 5mg PO daily; patient is refusing heparin drip; heme-oncology to speak with him * Renal diet Dispo: Blood cultures negative x5. INR had not been optimized on Coumadin 3mg daily. 5mg Coumadin given yesterday as patient refused heparin drip. If patient is amenable to heparin drip, will initiate bridge, otherwise continue coumadin only until therapeutic levels are reached. hematology to speak with patient and . RESIDENTS AND HOSPITALIST AWARE OF ID RECOMMENDATIONS! IRIS LIZARRAGA MD, FACP Objective - Vital Signs/Intake and Output Vital Signs (last 24 hours): Temp Pulse Resp BP Pulse Ox 96.9 F L 115 H 20 134/91 H 98 01/11/18 13:48 01/11/18 13:48 01/11/18 13:48 01/11/18 13:48 01/11/18 13:48 - Medications Medications: Current Medications Acetaminophen (Tylenol 325mg Tab) 650 mg PO Q6 PRN PRN Reason: Fever >100.4 F Apixaban (Eliquis) 2.5 mg PO BID [facility] Last Admin: 01/11/18 10:17 Dose: Not Given Calcium Acetate (Phoslo) 667 mg PO TIDCC [facility] Last Admin: 01/11/18 11:54 Dose: Not Given Dextrose (Dextrose 50% Inj) 0 ml IV STAT PRN; Protocol PRN Reason: Hypoglycemia Protocol Dextrose (Glutose 15) 0 gm PO ONCE PRN; Protocol PRN Reason: Hypoglycemia Protocol Glucagon (Glucagen Diagnostic Kit) 0 mg IM STAT PRN; Protocol PRN Reason: Hypoglycemia Protocol Vancomycin HCl 1.5 gm/ Sodium (Chloride) 500 mls @ 166.7 mls/hr IVPB [facility]; Protocol Last Admin: 01/11/18 11:21 Dose: 166.7 mls/hr Insulin Human Regular (Novolin R) 0 unit SC [facility]; Protocol Last Admin: 01/11/18 11:54 Dose: Not Given Ondansetron HCl (Zofran Inj) 4 mg IVP Q6 PRN PRN Reason: Nausea/Vomiting - Labs Labs: 01/11/18 07:44 01/11/18 07:44 PT 23.3 SECONDS (9.7-12.2) H 01/11/18 07:44 INR 2.1 D 01/11/18 07:44 APTT 40 SECONDS (21-34) H 01/11/18 07:44
--- NOTE | 2018-01-11 15:33 | CP.PCM.PN ---
Subjective - Date & Time of Evaluation Date of Evaluation: 01/08/18 Time of Evaluation: 19:30 - Subjective Subjective: INFECTIOUS DISEASE PROGRESS NOTES IRIS DOMINGUEZ MD, FACP 01/08/2018 5T 551-A CHART REVIEWED PT EXAMINED CASE DISCUSSED WITH DR CLOVIS MARTE This is a a 62M with PMH ESRD, DM, CHF, A FIB W/RVR, AML, HTN, COPD, sleep apnea, h/o AML s/p chemotherapy around 10 years ago, came to the ED for evaluation of portacath site. He reports feeling a burning sensation two days ago and that today after HD his noticed some pus coming from the site. Pt reports nausea and dry heaving. He denies any fever, abdominal pain, shortness of breath, chest pain, diarrhea, constipation. In the ED, pt was given tylenol for Tmax 102F and BCx and wound Cx were obtained. Last HD yesterday. On anticoagulation for a fib Pt had an indwelling portacath for iv antibiotics and lab draws, difficult stick. Heme called because of the difficulty in getting the INR to therapeutic levels and because of the patient's reluctance in getting the Heparin and concern about bleeding. SxH: back surgery, pacemaker FamH: mom heart disease, DM, dad CAD SocH: denies tobacco, etoh, recreational drug use Allergies: NKDA Meds: coumadin 1 daily, starlix 60 TID, procrit, metoprolol succinate 25 daily Past Patient History - Infectious Disease Hx of Infectious Diseases: None - Tetanus Immunizations Tetanus Immunization: Unknown - Past Medical History & Family History Past Medical History?: Yes - Past Social History Smoking Status: Never Smoked - CARDIAC Hx Cardiac Disorders: Yes Hx Atrial Fibrillation: Yes Hx Cardia Arrhythmia: Yes (A FIB) Hx Congestive Heart Failure: Yes Hx Hypertension: Yes Hx Pacemaker: Yes Hx Peripheral Edema: Yes - PULMONARY Hx Respiratory Disorders: Yes Hx Asthma: Yes Hx Chronic Obstructive Pulmonary Disease (COPD): Yes (uses CPAP for sleep apnea) Hx Sleep Apnea: Yes (C-PAP) - NEUROLOGICAL Hx Neurological Disorder: Yes (PERIPHERAL NEUROPATHY) Hx Dizziness: Yes - HEENT Hx HEENT Problems: No - RENAL Hx Chronic Kidney Disease: Yes - ENDOCRINE/METABOLIC Hx Endocrine Disorders: Yes Hx Diabetes Mellitus Type 2: Yes - HEMATOLOGICAL/ONCOLOGICAL Hx Blood Disorders: Yes Hx Blood Transfusions: Yes Hx Cancer: Yes Hx Chemotherapy: Yes 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) - INTEGUMENTARY Hx Dermatological Problems: Yes Hx Cellulitis: Yes - MUSCULOSKELETAL/RHEUMATOLOGICAL Hx Musculoskeletal Disorders: Yes Hx Arthritis: Yes Hx Falls: Yes Hx Fractures: Yes Hx Osteoporosis: Yes - GASTROINTESTINAL Hx Gastrointestinal Disorders: Yes Hx Constipation: Yes - GENITOURINARY/GYNECOLOGICAL Hx Genitourinary Disorders: Yes Other/Comment: dialysis TTS - PSYCHIATRIC Hx Psychophysiologic Disorder: Yes Hx Anxiety: Yes Hx Depression: Yes Hx Substance Use: No - SURGICAL HISTORY Hx Surgeries: Yes Hx Angiogram: Yes Hx Arteriovenous Shunt: Yes Hx Cardiac Catheterization: Yes Hx Orthopedic Surgery: Yes (KNEE) Hx Vascular Access Device: Yes (RIGHT BOZENA CATH) Other/Comment: hx back surgery T5. defibrillator/pacemaker placement - ANESTHESIA Hx Anesthesia: Yes Hx Anesthesia Reactions: No Hx Malignant Hyperthermia: No Meds Allergies/Adverse Reactions: Allergies Allergy/AdvReac Type Severity Reaction Status Date / Time No Known Allergies Allergy Verified 10/29/17 04:19 - Medications Medications: Current Medications Acetaminophen (Tylenol 325mg Tab) 650 mg PO Q6 PRN PRN Reason: Fever >100.4 F Calcium Acetate (Phoslo) 667 mg PO TIDCC [facility] Last Admin: 01/06/18 17:00 Dose: 667 mg Dextrose (Dextrose 50% Inj) 0 ml IV STAT PRN; Protocol PRN Reason: Hypoglycemia Protocol Dextrose (Glutose 15) 0 gm PO ONCE PRN; Protocol PRN Reason: Hypoglycemia Protocol Glucagon (Glucagen Diagnostic Kit) 0 mg IM STAT PRN; Protocol PRN Reason: Hypoglycemia Protocol Cefepime HCl 0.5 gm/ Dextrose 50 mls @ 100 mls/hr IVPB DAILY [facility]; Protocol Last Admin: 01/06/18 12:57 Dose: 100 mls/hr Vancomycin HCl 1 gm/ Sodium (Chloride) 250 mls @ 166.7 mls/hr IVPB MWF [facility]; Protocol Last Admin: 01/06/18 10:48 Dose: 166.7 mls/hr Insulin Human Regular (Novolin R) 0 unit SC ACHS [facility]; Protocol Last Admin: 01/06/18 19:23 Dose: Not Given Ondansetron HCl (Zofran Inj) 4 mg IVP Q6 PRN PRN Reason: Nausea/Vomiting Warfarin Sodium (Coumadin) 5 mg PO 1800 [facility] Stop: 01/07/18 19:46 Results - Vital Signs Recent Vital Signs: Last Vital Signs Temp 97.8 F 01/06/18 16:00 Pulse 112 H 01/06/18 16:00 Resp 20 01/06/18 16:00 BP 95/54 L 01/06/18 16:00 Pulse Ox 99 01/06/18 16:00 - Labs Result Diagrams: 01/06/18 09:15 01/06/18 09:15 Labs: Laboratory Results - last 24 hr 01/05/18 01/06/18 01/06/18 21:10 06:03 09:15 WBC 5.9 RBC 3.39 L Hgb 9.6 L Hct 29.8 L MCV 87.9 MCH 28.4 MCHC 32.3 L RDW 19.0 H Plt Count 213 MPV 7.1 L Neut % (Auto) 73.7 Lymph % (Auto) 11.3 L [place] % (Auto) 8.7 Eos % (Auto) 4.8 H Baso % (Auto) 1.5 Neut # (Auto) 4.3 Lymph # (Auto) 0.7 L [place] # (Auto) 0.5 Eos # (Auto) 0.3 Baso # (Auto) 0.1 PT INR APTT Sodium Potassium Chloride Carbon Dioxide Anion Gap BUN Creatinine Est GFR ( Amer) Est GFR (Non-Af Amer) POC Glucose (mg/dL) 141 H 97 Random Glucose Calcium Magnesium Total Bilirubin AST ALT Alkaline Phosphatase Total Protein Albumin Globulin Albumin/Globulin Ratio 01/06/18 01/06/18 01/06/18 09:15 09:15 11:09 WBC RBC Hgb Hct MCV MCH MCHC RDW Plt Count MPV Neut % (Auto) Lymph % (Auto) [place] % (Auto) Eos % (Auto) Baso % (Auto) Neut # (Auto) Lymph # (Auto) [place] # (Auto) Eos # (Auto) Baso # (Auto) PT 15.9 H INR 1.5 APTT 36 H Sodium 135 Potassium 4.1 Chloride 98 Carbon Dioxide 21 L Anion Gap 21 H BUN 70 H Creatinine 5.6 H Est GFR ( Amer) 13 Est GFR (Non-Af Amer) 10 POC Glucose (mg/dL) 114 H Random Glucose 121 H Calcium 8.3 L Magnesium 2.1 Total Bilirubin 1.0 AST 21 ALT 20 L Alkaline Phosphatase 311 H Total Protein 6.5 Albumin 3.3 L Globulin 3.2 Albumin/Globulin Ratio 1.1 01/06/18 16:40 WBC RBC Hgb Hct MCV MCH MCHC RDW Plt Count MPV Neut % (Auto) Lymph % (Auto) [place] % (Auto) Eos % (Auto) Baso % (Auto) Neut # (Auto) Lymph # (Auto) [place] # (Auto) Eos # (Auto) Baso # (Auto) PT INR APTT Sodium Potassium Chloride Carbon Dioxide Anion Gap BUN Creatinine Est GFR ( Amer) Est GFR (Non-Af Amer) POC Glucose (mg/dL) 223 H Random Glucose Calcium Magnesium Total Bilirubin AST ALT Alkaline Phosphatase Total Protein Albumin Globulin Albumin/Globulin Ratio Assessment & Plan (1) On Coumadin for atrial fibrillation Assessment and Plan: 62 yo man with atrial fibrillation, restarted on Coumadin after recent port removal, with difficulty in getting the INR to therapeutic levels, had discussion with the patient who is concerned about he risks of heparin and the need for phlebotomy several times a day. Have informed the patient that the Coumadin alone may take several days to get to therapeutic level and that the bridging with Heparin will decrease the time, also that he has the outpatient option of low dose Eliquis , so he can avoid weekly phlebotomy, but the Factor Xa level monitoring may be necessary. Also spoke to his over the phone, he is still undecided and said he will discuss with his and let us know by tomorrow Status: Acute MONITOR VANCOMYCIN LEVELS DISCUSSED WITH PHARMACY CONCERNING THE FLUX DIALYSIS SYSTEM, DISCUSSION WITH DR RANKIN TO BE DONE. PLEASE STOP THE CEFEPIME IRIS DOMINGUEZ MD Objective - Vital Signs/Intake and Output Vital Signs (last 24 hours): Temp Pulse Resp BP Pulse Ox 96.9 F L 115 H 20 134/91 H 98 01/11/18 13:48 01/11/18 13:48 01/11/18 13:48 01/11/18 13:48 01/11/18 13:48 - Medications Medications: Current Medications Acetaminophen (Tylenol 325mg Tab) 650 mg PO Q6 PRN PRN Reason: Fever >100.4 F Apixaban (Eliquis) 2.5 mg PO BID [facility] Last Admin: 01/11/18 10:17 Dose: Not Given Calcium Acetate (Phoslo) 667 mg PO TIDCC [facility] Last Admin: 01/11/18 11:54 Dose: Not Given Dextrose (Dextrose 50% Inj) 0 ml IV STAT PRN; Protocol PRN Reason: Hypoglycemia Protocol Dextrose (Glutose 15) 0 gm PO ONCE PRN; Protocol PRN Reason: Hypoglycemia Protocol Glucagon (Glucagen Diagnostic Kit) 0 mg IM STAT PRN; Protocol PRN Reason: Hypoglycemia Protocol Vancomycin HCl 1.5 gm/ Sodium (Chloride) 500 mls @ 166.7 mls/hr IVPB MWF [facility]; Protocol Last Admin: 01/11/18 11:21 Dose: 166.7 mls/hr Insulin Human Regular (Novolin R) 0 unit SC [facility]; Protocol Last Admin: 01/11/18 11:54 Dose: Not Given Ondansetron HCl (Zofran Inj) 4 mg IVP Q6 PRN PRN Reason: Nausea/Vomiting - Labs Labs: 01/11/18 07:44 01/11/18 07:44 PT 23.3 SECONDS (9.7-12.2) H 01/11/18 07:44 INR 2.1 D 01/11/18 07:44 APTT 40 SECONDS (21-34) H 01/11/18 07:44
--- NOTE | 2018-01-11 15:37 | CP.PCM.PN ---
Subjective - Date & Time of Evaluation Date of Evaluation: 01/09/18 Time of Evaluation: 12:30 - Subjective Subjective: INFECTIOUS DISEASE PROGRESS NOTES IRIS DOMINGUEZ MD, FACP 01/09/2018 5T 551-A CHART REVIEWED EXAMINE NOTED CASE DISCUSSED afebrile, SLEEPY AT TIMES dialysis last PM no leukocytosis comfortable in bed ROS no chills fever no chest pain or sob no abd pain,n,v,d anuric Objective - Vital Signs/Intake and Output Vital Signs (last 24 hours): Temp Pulse Resp BP Pulse Ox 98.2 F 102 H 20 91/42 L 96 01/09/18 07:57 01/09/18 07:57 01/09/18 07:57 01/09/18 07:57 01/09/18 07:57 - Medications Medications: Current Medications Acetaminophen (Tylenol 325mg Tab) 650 mg PO Q6 PRN PRN Reason: Fever >100.4 F Apixaban (Eliquis) 5 mg PO BID [facility] Last Admin: 01/08/18 19:42 Dose: 5 mg Calcium Acetate (Phoslo) 667 mg PO TIDCC [facility] Last Admin: 01/09/18 08:51 Dose: 667 mg Dextrose (Dextrose 50% Inj) 0 ml IV STAT PRN; Protocol PRN Reason: Hypoglycemia Protocol Dextrose (Glutose 15) 0 gm PO ONCE PRN; Protocol PRN Reason: Hypoglycemia Protocol Glucagon (Glucagen Diagnostic Kit) 0 mg IM STAT PRN; Protocol PRN Reason: Hypoglycemia Protocol Cefepime HCl 0.5 gm/ Dextrose 50 mls @ 100 mls/hr IVPB DAILY [facility]; Protocol Last Admin: 01/08/18 13:58 Dose: 100 mls/hr Vancomycin HCl 1.5 gm/ Sodium (Chloride) 500 mls @ 166.7 mls/hr IVPB MWF [facility]; Protocol Insulin Human Regular (Novolin R) 0 unit SC ACHS [facility]; Protocol Last Admin: 01/09/18 07:30 Dose: Not Given Ondansetron HCl (Zofran Inj) 4 mg IVP Q6 PRN PRN Reason: Nausea/Vomiting - Labs Labs: 01/09/18 06:29 01/09/18 06:29 PT 28.2 SECONDS (9.7-12.2) H D 01/09/18 06:29 INR 2.6 D 01/09/18 06:29 APTT 43 SECONDS (21-34) H D 01/09/18 06:29 - Constitutional Appears: No Acute Distress - ENT Exam ENT Exam: Mucous Membranes Moist - Respiratory Exam Respiratory Exam: Clear to Ausculation Bilateral, NORMAL BREATHING PATTERN - Cardiovascular Exam Cardiovascular Exam: Irregular Rhythm - GI/Abdominal Exam GI & Abdominal Exam: Distended, Soft. absent: Tenderness Additional comments: dull distended - Extremities Exam Additional comments: feet in boots 1-2+ leg edema - Neurological Exam Neurological Exam: Alert - Psychiatric Exam Psychiatric exam: Flat Affect - Skin Skin Exam: Dry Assessment and Plan (1) Atrial fibrillation Status: Acute (2) Sepsis associated with vascular access catheter Status: Resolved (3) Cellulitis Status: Acute (4) ESRD needing dialysis Status: Acute (5) Non-ischemic cardiomyopathy Status: Acute (6) PVD (peripheral vascular disease) Status: Acute - Assessment and Plan (Free Text) Plan: continue supportive care; VANCO ADJUSTED DISCUSSED-PLEASE, STOP CEFEPIME. follow cardiology recommendations next dialysis 01/11 IRIS DOMINGUEZ MD, FACP Objective - Vital Signs/Intake and Output Vital Signs (last 24 hours): Temp Pulse Resp BP Pulse Ox 96.9 F L 115 H 20 134/91 H 98 01/11/18 13:48 01/11/18 13:48 01/11/18 13:48 01/11/18 13:48 01/11/18 13:48 - Medications Medications: Current Medications Acetaminophen (Tylenol 325mg Tab) 650 mg PO Q6 PRN PRN Reason: Fever >100.4 F Apixaban (Eliquis) 2.5 mg PO BID [facility] Last Admin: 01/11/18 10:17 Dose: Not Given Calcium Acetate (Phoslo) 667 mg PO TIDCC [facility] Last Admin: 01/11/18 11:54 Dose: Not Given Dextrose (Dextrose 50% Inj) 0 ml IV STAT PRN; Protocol PRN Reason: Hypoglycemia Protocol Dextrose (Glutose 15) 0 gm PO ONCE PRN; Protocol PRN Reason: Hypoglycemia Protocol Glucagon (Glucagen Diagnostic Kit) 0 mg IM STAT PRN; Protocol PRN Reason: Hypoglycemia Protocol Vancomycin HCl 1.5 gm/ Sodium (Chloride) 500 mls @ 166.7 mls/hr IVPB [facility]; Protocol Last Admin: 01/11/18 11:21 Dose: 166.7 mls/hr Insulin Human Regular (Novolin R) 0 unit SC [facility]; Protocol Last Admin: 01/11/18 11:54 Dose: Not Given Ondansetron HCl (Zofran Inj) 4 mg IVP Q6 PRN PRN Reason: Nausea/Vomiting - Labs Labs: 01/11/18 07:44 01/11/18 07:44 PT 23.3 SECONDS (9.7-12.2) H 01/11/18 07:44 INR 2.1 D 01/11/18 07:44 APTT 40 SECONDS (21-34) H 01/11/18 07:44
--- NOTE | 2018-01-11 15:42 | CP.PCM.PN ---
Subjective - Date & Time of Evaluation Date of Evaluation: 01/11/18 Time of Evaluation: 14:35 - Subjective Subjective: INFECTIOUS DISEASE PROGRESS NOTES IRIS DOMINGUEZ MD, FACP 01/11/2018 5T 551-A CHART REVIEWED PT EXAMINED CASE DISCUSSED WITH RN'S X 2, RESIDENT AND HOSPITALIST. Feels better Accepted eliquis use On IV vanco for cath infection; VANCO 1.5 GRAMS GIVEN POST DIALYSIS No new complaint Objective - Vital Signs/Intake and Output Vital Signs (last 24 hours): Temp Pulse Resp BP Pulse Ox 97.4 F L 112 H 18 141/45 L 100 01/11/18 09:15 01/11/18 09:15 01/11/18 09:15 01/11/18 11:15 01/11/18 09:15 - Medications Medications: Current Medications Acetaminophen (Tylenol 325mg Tab) 650 mg PO Q6 PRN PRN Reason: Fever >100.4 F Apixaban (Eliquis) 2.5 mg PO BID [facility] Last Admin: 01/11/18 10:17 Dose: Not Given Calcium Acetate (Phoslo) 667 mg PO TIDCC [facility] Last Admin: 01/11/18 11:54 Dose: Not Given Dextrose (Dextrose 50% Inj) 0 ml IV STAT PRN; Protocol PRN Reason: Hypoglycemia Protocol Dextrose (Glutose 15) 0 gm PO ONCE PRN; Protocol PRN Reason: Hypoglycemia Protocol Glucagon (Glucagen Diagnostic Kit) 0 mg IM STAT PRN; Protocol PRN Reason: Hypoglycemia Protocol Vancomycin HCl 1.5 gm/ Sodium (Chloride) 500 mls @ 166.7 mls/hr IVPB MWF [facility]; Protocol Last Admin: 01/11/18 11:21 Dose: 166.7 mls/hr Insulin Human Regular (Novolin R) 0 unit SC [facility]; Protocol Last Admin: 01/11/18 11:54 Dose: Not Given Ondansetron HCl (Zofran Inj) 4 mg IVP Q6 PRN PRN Reason: Nausea/Vomiting - Labs Labs: 01/11/18 07:44 01/11/18 07:44 PT 23.3 SECONDS (9.7-12.2) H 01/11/18 07:44 INR 2.1 D 01/11/18 07:44 APTT 40 SECONDS (21-34) H 01/11/18 07:44 - Constitutional Appears: No Acute Distress, Chronically Ill - Head Exam Head Exam: ATRAUMATIC, NORMAL INSPECTION - Eye Exam Eye Exam: EOMI, Normal appearance - Neck Exam Neck Exam: Normal Inspection. absent: Tenderness - Respiratory Exam Respiratory Exam: Clear to Ausculation Bilateral, NORMAL BREATHING PATTERN - Cardiovascular Exam Cardiovascular Exam: REGULAR RHYTHM, +S1 - GI/Abdominal Exam GI & Abdominal Exam: Soft. absent: Tenderness - Extremities Exam Extremities Exam: Normal Inspection. absent: Tenderness - Neurological Exam Neurological Exam: Awake, CN II-XII Intact - Skin Skin Exam: Dry, Warm Assessment and Plan (1) Infection due to Port-A-Cath Status: Acute (2) ESRD (end stage renal disease) Status: Acute (3) Fluid overload Status: Acute (4) History of non-Hodgkin's lymphoma Status: Acute - Assessment and Plan (Free Text) Plan: Same dialysis MWF IV vanco-PLEASE GIVE VANCO 1.5 GMS POST EACH DIALYSIS M/W/F. CHECK VANCO RANDOM LEVEL-KEEP AROUND 15 OR SO. Bienvenido DOMINGUEZ MD, FACP Objective - Vital Signs/Intake and Output Vital Signs (last 24 hours): Temp Pulse Resp BP Pulse Ox 96.9 F L 115 H 20 134/91 H 98 01/11/18 13:48 01/11/18 13:48 01/11/18 13:48 01/11/18 13:48 01/11/18 13:48 - Medications Medications: Current Medications Acetaminophen (Tylenol 325mg Tab) 650 mg PO Q6 PRN PRN Reason: Fever >100.4 F Apixaban (Eliquis) 2.5 mg PO BID [facility] Last Admin: 01/11/18 10:17 Dose: Not Given Calcium Acetate (Phoslo) 667 mg PO TIDCC [facility] Last Admin: 01/11/18 11:54 Dose: Not Given Dextrose (Dextrose 50% Inj) 0 ml IV STAT PRN; Protocol PRN Reason: Hypoglycemia Protocol Dextrose (Glutose 15) 0 gm PO ONCE PRN; Protocol PRN Reason: Hypoglycemia Protocol Glucagon (Glucagen Diagnostic Kit) 0 mg IM STAT PRN; Protocol PRN Reason: Hypoglycemia Protocol Vancomycin HCl 1.5 gm/ Sodium (Chloride) 500 mls @ 166.7 mls/hr IVPB MWF [facility]; Protocol Last Admin: 01/11/18 11:21 Dose: 166.7 mls/hr Insulin Human Regular (Novolin R) 0 unit SC [facility]; Protocol Last Admin: 01/11/18 11:54 Dose: Not Given Ondansetron HCl (Zofran Inj) 4 mg IVP Q6 PRN PRN Reason: Nausea/Vomiting - Labs Labs: 01/11/18 07:44 01/11/18 07:44 PT 23.3 SECONDS (9.7-12.2) H 01/11/18 07:44 INR 2.1 D 01/11/18 07:44 APTT 40 SECONDS (21-34) H 01/11/18 07:44
[2018-01-12 07:05] LABS: BASO # 0.1 K/uL (0.0-0.2); EOS # 0.2 K/uL (0.0-0.7); EOS % 3.2 % (0.0-4.0); HEMOGLOBIN 9.7 g/dL (12.0-18.0); LYMPH # 0.7 K/uL (1.0-4.3); LYMPH % 11.2 % (20.0-40.0); MEAN CELL VOLUME 88.3 fL (80.0-94.0); MEAN CORPUSCULAR HEMOGLOBIN 28.9 pg (27.0-31.0); MEAN CORPUSCULAR HGB CONC 32.7 g/dL (33.0-37.0); MEAN PLATELET VOLUME 7.4 fL (7.2-11.7); MONO # 0.6 K/uL (0.0-0.8); MONO % 8.9 % (0.0-10.0); NEUT # 4.9 K/uL (1.8-7.0); NEUT % 75.7 % (50.0-75.0); RBC 3.34 Mil/uL (4.40-5.90); RED CELL DISTRIBUTION WIDTH 19.4 % (11.5-14.5); WHITE BLOOD COUNT 6.5 K/uL (4.8-10.8)
[2018-01-12 07:10] LABS: INR 1.9; PROTHROMBIN TIME 20.5 SECONDS (9.7-12.2)
[2018-01-12 08:10] LABS: ALBUMIN 3.3 g/dL (3.5-5.0); CALCIUM 8.4 mg/dl (8.6-10.4)
[2018-01-12] MEDS: (Novolin R) Insulin Human Regular 100 units/ml vial SC SCH ×3 (08:59→18:46)
--- NOTE | 2018-01-12 09:20 | CP.PCM.PN ---
Subjective - Date & Time of Evaluation Date of Evaluation: 01/12/18 Time of Evaluation: 09:22 - Subjective Subjective: PGY-[address] Zamora Patient seen and examined at bedside. No acute events overnight per nursing. Patient continues to state "I'm fine" in response to ROS questions. Yesterday the patient stated that he would not be staying in the hospital past today, however medically his condition will require him to remain hospitalized until vancomycin dose is at a therapeutic level. Patient has no other complaints at this time. Objective - Vital Signs/Intake and Output Vital Signs (last 24 hours): Temp Pulse Resp BP Pulse Ox 97.6 F 97 H 18 116/74 95 01/12/18 00:29 01/12/18 00:29 01/12/18 00:29 01/12/18 00:29 01/12/18 00:29 - Medications Medications: Current Medications Acetaminophen (Tylenol 325mg Tab) 650 mg PO Q6 PRN PRN Reason: Fever >100.4 F Apixaban (Eliquis) 2.5 mg PO BID [facility] Last Admin: 01/12/18 09:07 Dose: 2.5 mg Calcium Acetate (Phoslo) 667 mg PO TIDCC [facility] Last Admin: 01/12/18 09:04 Dose: 667 mg Dextrose (Dextrose 50% Inj) 0 ml IV STAT PRN; Protocol PRN Reason: Hypoglycemia Protocol Dextrose (Glutose 15) 0 gm PO ONCE PRN; Protocol PRN Reason: Hypoglycemia Protocol Glucagon (Glucagen Diagnostic Kit) 0 mg IM STAT PRN; Protocol PRN Reason: Hypoglycemia Protocol Vancomycin HCl 1.5 gm/ Sodium (Chloride) 500 mls @ 166.7 mls/hr IVPB MWF [facility]; Protocol Last Admin: 01/11/18 18:03 Dose: Not Given Insulin Human Regular (Novolin R) 0 unit SC ACHS [facility]; Protocol Last Admin: 01/12/18 08:59 Dose: Not Given Ondansetron HCl (Zofran Inj) 4 mg IVP Q6 PRN PRN Reason: Nausea/Vomiting - Labs Labs: 01/12/18 06:36 01/12/18 06:36 PT 20.5 SECONDS (9.7-12.2) H 01/12/18 06:36 INR 1.9 01/12/18 06:36 APTT 38 SECONDS (21-34) H 01/12/18 06:36 - Head Exam Head Exam: ATRAUMATIC, NORMAL INSPECTION - Eye Exam Eye Exam: EOMI, Normal appearance - ENT Exam ENT Exam: Mucous Membranes Moist - Respiratory Exam Respiratory Exam: Clear to Ausculation Bilateral, NORMAL BREATHING PATTERN - Cardiovascular Exam Cardiovascular Exam: REGULAR RHYTHM, +S1, +S2 - GI/Abdominal Exam GI & Abdominal Exam: Soft, Normal Bowel Sounds. absent: Tenderness - Extremities Exam Extremities Exam: Pedal Edema (Chronic venous stasis changes b/l extremities) Additional comments: R AVF with palpable thrill - Neurological Exam Neurological Exam: Alert, Awake, Oriented x3 - Psychiatric Exam Psychiatric exam: Anxious, Normal Mood - Skin Skin Exam: Dry, Intact Additional comments: Chronic venous stasis changes b/l extremities Assessment and Plan - Assessment and Plan (Free Text) Assessment: 62M with PMH ESRD, DM, CHF, A FIB W/RVR, AML, HTN, COPD, sleep apnea who presented with portacath infection, now s/p removal of portacath. INR therap eutic on low-dose eliquis. Vancomycin levels sub-therapeutic. Abscess/Infection of Portacath - Pt with portacath, draining white purulent fluid on R chest on admission; s/p removal by Surgery - Tmax 100.3F on admission. Patient continue to be afebrile. - Leukocytosis resolved - ID consulted, Dr. Lizarraga, help appreciated. - Cefepime discontinued - Vancomycin increased to 1.5 gm MWF with HD as per ID recs random vanc level 01/08 18:00 9.4; Random vanc level today 9.2, continues to be subtherapeutic. Will recheck a vanc level Thursday before dialysis. Per Dr. Lizarraga, patient may be discharged to receive IV vanc MWF at dialysis once he is at a therapeutic dose (ideally 15-20). - BCx: NG - FINAL - Wound Cx: S. aureus, penicillin resistent - 2D echo ordered to r/o endocarditis: LVEF 53%, LV function is mild to moderately reduced with anteroseptal hypokinesis, and septal flattening c/w elevated RV pressure. The aortic root is calcified and demonstrates mildly to moderately reduced opening. Peak gradient was 12mmHg, valve area was not performed. There is mildly increased left ventricular wall thickness. The right ventricle is severely dilated. Systolic function is severely reduced. There is likely severe pulmonary HTN, underestimated by doppler. ESRD - Nephro consulted, Dr. Rice, help appreciated. Pt to continue HD MWF. - BUN/Cr today 55/4.7 Atrial Fibrillation - INR 1.9 - recommended for INR check twice a week as outpatient - Patient now amenable to low-dose eliquis - receiving 2.5 mg PO BID - Coumadin discontinued - Heme/onc following DM - accuchecks q6h - low dose sliding scale - hypoglycemia protocol HTN - BP 97/52 on admission, BP stable today. Patient states his normal bp at home is 90s/50s. - Home metoprolol held for asymptomatic hypotension - Avoid IV fluid boluses if possible NIKOLE - Using home CPAP B/l LE Ulcers - On exam noted in L heel superior aspect, R achilles tendon area - Podiatry consulted (Dr. Nunn) for wound care, recs appreciated - Podiatry c/w wound care. Wounds stable, no signs of infection, no surgical intervention indicated. - Multipodus boots Hx Pacemaker, CHF - Per Pt's pt has not followed with cardiology outpatient in a while - Cardiology (Dr. Stiles) consulted, recs appreciated - Metoprolol held for low bps, continue to monitor PPX Eliquis 2.5 mg PO BID Renal diet Dispo: Blood cultures negative (final). INR is now therapeutic. Vancomycin levels remain sub-therapeutic. Recheck vanc levels Thursday prior to HD -can be discharged once levels are therapeutic. Case discussed with Dr. Noah Sy, PGY-1
--- NOTE | 2018-01-12 10:10 | CP.PCM.PN ---
Subjective - Date & Time of Evaluation Date of Evaluation: 01/12/18 Time of Evaluation: 10:01 - Subjective Subjective: Podiatry Progress Note- Dr. Nunn 62 y/o male seen at bedside this morning with attending Dr. Nunn at bedside for bilateral lower extremity ulcerations- stable. is seen at bedside during visitation. Dressing is clean, dry and intact. Multipodus boots are on. NAD. Denies pain to his lower extremities. Denies F/C/N/V/CP/SOB Objective - Vital Signs/Intake and Output Vital Signs (last 24 hours): Temp Pulse Resp BP Pulse Ox 97.6 F 97 H 18 116/74 95 01/12/18 00:29 01/12/18 00:29 01/12/18 00:29 01/12/18 00:29 01/12/18 00:29 - Medications Medications: Current Medications Acetaminophen (Tylenol 325mg Tab) 650 mg PO Q6 PRN PRN Reason: Fever >100.4 F Apixaban (Eliquis) 2.5 mg PO BID [facility] Last Admin: 01/12/18 09:07 Dose: 2.5 mg Calcium Acetate (Phoslo) 667 mg PO TIDCC [facility] Last Admin: 01/12/18 09:04 Dose: 667 mg Dextrose (Dextrose 50% Inj) 0 ml IV STAT PRN; Protocol PRN Reason: Hypoglycemia Protocol Dextrose (Glutose 15) 0 gm PO ONCE PRN; Protocol PRN Reason: Hypoglycemia Protocol Glucagon (Glucagen Diagnostic Kit) 0 mg IM STAT PRN; Protocol PRN Reason: Hypoglycemia Protocol Vancomycin HCl 1.5 gm/ Sodium (Chloride) 500 mls @ 166.7 mls/hr IVPB MWF [facility]; Protocol Last Admin: 01/11/18 18:03 Dose: Not Given Insulin Human Regular (Novolin R) 0 unit SC [facility]; Protocol Last Admin: 01/12/18 08:59 Dose: Not Given Ondansetron HCl (Zofran Inj) 4 mg IVP Q6 PRN PRN Reason: Nausea/Vomiting - Labs Labs: 01/12/18 06:36 01/12/18 06:36 PT 20.5 SECONDS (9.7-12.2) H 01/12/18 06:36 INR 1.9 01/12/18 06:36 APTT 38 SECONDS (21-34) H 01/12/18 06:36 - Constitutional Appears: Well, Non-toxic - Extremities Exam Extremities Exam: absent: Calf Tenderness Additional comments: Lower extremity focused exam: Vasc: Nonpalpable pulses to the DP and PT, delayed CFT to the digits, temperature gradient WNL, +1 pitting pedal edema Derm: chronic skin changes with hyperpigmented skin to entire lower extremity, skin thickening and flaking bilateral lower legs. Left: Left posterior heel ulceration now fully healed with overlying thin fragil e skin. Mild dark discoloration noted to skin area at site of prior ulceration. Right: Full thickness ulceration noted to posterior ankle at level of Achilles insertion measuring approximately 2 cm x 2 cm x 0.3cm, with mixture granular and fibrotic wound base. No active drainage noted. No fluctuance noted. Minor ibeth- wound erythema, no streaking appreciated. Neuro: Gross sensation absent B/L. protective sensation absent Ortho: no pain appreciated with palpation to surrounding ulceration sites. No pain with calf palpation bilaterally. - Neurological Exam Neurological Exam: Alert, Awake - Psychiatric Exam Psychiatric exam: Normal Affect, Normal Mood Assessment and Plan - Assessment and Plan (Free Text) Assessment: 61M with B/L lower extremity ulcerations- stable, improving Plan: Patient seen and evaluated at bedside with Dr. Nunn Patient afebrile, absent leukocytosis Podiatry to continue with local wound care: wounds cleansed with saline and dressed with ABD, DSD; betadine applied to R posterior ankle wound Wounds stable, no current signs of infection plan: No surgical intervention at this time Patient to wear multipodus boots at all times while in bed Will continue to follow
--- NOTE | 2018-01-12 10:28 | CP.PCM.PN ---
Subjective - Date & Time of Evaluation Date of Evaluation: 01/12/18 Time of Evaluation: 10:26 - Subjective Subjective: seen and examined no events denies any n/v/d/f/c/dizziness/headache wants to go home Objective - Vital Signs/Intake and Output Vital Signs (last 24 hours): Temp Pulse Resp BP Pulse Ox 97.6 F 97 H 18 116/74 95 01/12/18 00:29 01/12/18 00:29 01/12/18 00:29 01/12/18 00:29 01/12/18 00:29 - Medications Medications: Current Medications Acetaminophen (Tylenol 325mg Tab) 650 mg PO Q6 PRN PRN Reason: Fever >100.4 F Apixaban (Eliquis) 2.5 mg PO BID [facility] Last Admin: 01/12/18 09:07 Dose: 2.5 mg Calcium Acetate (Phoslo) 667 mg PO TIDCC [facility] Last Admin: 01/12/18 09:04 Dose: 667 mg Dextrose (Dextrose 50% Inj) 0 ml IV STAT PRN; Protocol PRN Reason: Hypoglycemia Protocol Dextrose (Glutose 15) 0 gm PO ONCE PRN; Protocol PRN Reason: Hypoglycemia Protocol Glucagon (Glucagen Diagnostic Kit) 0 mg IM STAT PRN; Protocol PRN Reason: Hypoglycemia Protocol Vancomycin HCl 1.5 gm/ Sodium (Chloride) 500 mls @ 166.7 mls/hr IVPB MWF [facility]; Protocol Last Admin: 01/11/18 18:03 Dose: Not Given Insulin Human Regular (Novolin R) 0 unit SC [facility]; Protocol Last Admin: 01/12/18 08:59 Dose: Not Given Ondansetron HCl (Zofran Inj) 4 mg IVP Q6 PRN PRN Reason: Nausea/Vomiting - Labs Labs: 01/12/18 06:36 01/12/18 06:36 PT 20.5 SECONDS (9.7-12.2) H 01/12/18 06:36 INR 1.9 01/12/18 06:36 APTT 38 SECONDS (21-34) H 01/12/18 06:36 - Constitutional Appears: Older Than Stated Age, Chronically Ill - Head Exam Head Exam: NORMAL INSPECTION, NORMOCEPHALIC - Eye Exam Eye Exam: Normal appearance, PERRL - ENT Exam ENT Exam: Mucous Membranes Moist, Normal Exam - Neck Exam Neck Exam: Full ROM, Normal Inspection - Respiratory Exam Respiratory Exam: Clear to Ausculation Bilateral, NORMAL BREATHING PATTERN - Cardiovascular Exam Cardiovascular Exam: Irregular Rhythm - GI/Abdominal Exam GI & Abdominal Exam: Distended, Soft - Extremities Exam Extremities Exam: Pedal Edema (b/l LE w/ chronic stasis, skin changes) - Neurological Exam Neurological Exam: Alert, Awake, Oriented x3 - Psychiatric Exam Psychiatric exam: Normal Affect, Normal Mood - Skin Skin Exam: Intact Assessment and Plan (1) Fever Status: Resolved (2) Infection due to Port-A-Cath Status: Acute (3) ESRD (end stage renal disease) Status: Acute (4) A-fib Status: Chronic (5) Anemia Status: Chronic - Assessment and Plan (Free Text) Assessment: maintain hd mwf VANCOMYCIN W/ HD
[2018-01-12 16:04] VITALS: BP 113/60; PULSE 88; RESP 20; TEMP 98; O2SAT 98
--- NOTE | 2018-01-12 17:36 | CP.PCM.DIS ---
Provider - Provider Date of Admission: 12/31/17 00:01 Attending physician: Jody Cuevas DO Time Spent in preparation of Discharge (in minutes): 45 Diagnosis - Discharge Diagnosis (1) Infection due to Port-A-Cath Status: Acute (2) Atrial fibrillation Status: Chronic (3) CHF (congestive heart failure) Status: Chronic (4) ESRD needing dialysis Status: Chronic (5) Peripheral edema Status: Chronic Hospital Course - Lab Results Lab Results: Micro Results 12/30/17 09:33 Blood Blood Culture - Final NO GROWTH AFTER 5 DAYS 12/30/17 09:33 Blood Gram Stain - Final TEST NOT PERFORMED 12/30/17 09:33 Blood Blood Culture - Final NO GROWTH AFTER 5 DAYS 12/30/17 09:33 Blood Gram Stain - Final TEST NOT PERFORMED 12/31/17 Unknown Chest Gram Stain - Final 12/31/17 Unknown Chest Wound Culture - Final Staphylococcus Aureus 12/30/17 Unknown Skin - Chest Gram Stain - Final 12/30/17 Unknown Skin - Chest Wound Culture - Final Staphylococcus Aureus Most Recent Lab Values WBC 6.5 K/uL (4.8-10.8) 01/12/18 06:36 RBC 3.34 Mil/uL (4.40-5.90) L 01/12/18 06:36 Hgb 9.7 g/dL (12.0-18.0) L 01/12/18 06:36 Hct 29.5 % (35.0-51.0) L 01/12/18 06:36 MCV 88.3 fL (80.0-94.0) 01/12/18 06:36 MCH 28.9 pg (27.0-31.0) 01/12/18 06:36 MCHC 32.7 g/dL (33.0-37.0) L 01/12/18 06:36 RDW 19.4 % (11.5-14.5) H 01/12/18 06:36 Plt Count 201 K/uL (130-400) 01/12/18 06:36 MPV 7.4 fL (7.2-11.7) 01/12/18 06:36 Neut % (Auto) 75.7 % (50.0-75.0) H 01/12/18 06:36 Lymph % (Auto) 11.2 % (20.0-40.0) L 01/12/18 06:36 [place] % (Auto) 8.9 % (0.0-10.0) 01/12/18 06:36 Eos % (Auto) 3.2 % (0.0-4.0) 01/12/18 06:36 Baso % (Auto) 1.0 % (0.0-2.0) 01/12/18 06:36 Neut # (Auto) 4.9 K/uL (1.8-7.0) 01/12/18 06:36 Lymph # (Auto) 0.7 K/uL (1.0-4.3) L 01/12/18 06:36 [place] # (Auto) 0.6 K/uL (0.0-0.8) 01/12/18 06:36 Eos # (Auto) 0.2 K/uL (0.0-0.7) 01/12/18 06:36 Baso # (Auto) 0.1 K/uL (0.0-0.2) 01/12/18 06:36 Neutrophils % (Manual) 84 % (50-75) H 01/01/18 09:39 Band Neutrophils % 1 % (0-2) 01/01/18 09:39 Lymphocytes % (Manual) 10 % (20-40) L 01/01/18 09:39 Monocytes % (Manual) 3 % (0-10) 01/01/18 09:39 Eosinophils % (Manual) 2 % (0-4) 01/01/18 09:39 Platelet Estimate Normal (NORMAL) 01/01/18 09:39 Polychromasia Slight 01/01/18 09:39 Hypochromasia (manual) Slight 01/01/18 09:39 Anisocytosis (manual) Slight 01/01/18 09:39 Microcytosis (manual) Slight 12/30/17 22:57 Ovalocytes Slight 01/01/18 09:39 PT 20.5 SECONDS (9.7-12.2) H 01/12/18 06:36 INR 1.9 01/12/18 06:36 APTT 38 SECONDS (21-34) H 01/12/18 06:36 Sodium 136 mmol/L (132-148) 01/12/18 06:36 Potassium 4.3 mmol/L (3.6-5.2) 01/12/18 06:36 Chloride 98 mmol/L (98-107) 01/12/18 06:36 Carbon Dioxide 25 mmol/L (22-30) 01/12/18 06:36 Anion Gap 18 (10-20) 01/12/18 06:36 BUN 55 mg/dL (9-20) H 01/12/18 06:36 Creatinine 4.7 mg/dL (0.8-1.5) H 01/12/18 06:36 Est GFR ( Amer) 15 01/12/18 06:36 Est GFR (Non-Af Amer) 13 01/12/18 06:36 POC Glucose (mg/dL) 146 mg/dL (65-110) H 01/12/18 16:15 Random Glucose 106 mg/dL (75-110) 01/12/18 06:36 Hemoglobin A1c 4.8 % (4.2-6.5) 01/07/18 07:20 Lactic Acid 0.9 mmol/L (0.7-2.1) 12/31/17 11:18 Calcium 8.4 mg/dl (8.6-10.4) L 01/12/18 06:36 Phosphorus 5.6 mg/dL (2.5-4.5) H 01/12/18 06:36 Magnesium 2.1 mg/dL (1.6-2.3) 01/12/18 06:36 Total Bilirubin 0.9 mg/dL (0.2-1.3) 01/12/18 06:36 AST 17 U/L (17-59) D 01/12/18 06:36 ALT 19 U/L (21-72) L 01/12/18 06:36 Alkaline Phosphatase 298 U/L (38-126) H 01/12/18 06:36 Total Protein 6.5 g/dL (6.3-8.3) 01/12/18 06:36 Albumin 3.3 g/dL (3.5-5.0) L 01/12/18 06:36 Globulin 3.2 gm/dL (2.2-3.9) 01/12/18 06:36 Albumin/Globulin Ratio 1.0 (1.0-2.1) 01/12/18 06:36 Procalcitonin 4.31 NG/ML (0.19-0.49) H 01/01/18 09:39 Random Vancomycin 6.2 ug/mL 01/11/18 11:32 - Hospital Course Hospital Course: Initial HPI: Pt is a 62M with PMH ESRD, DM, CHF, A FIB W/RVR, AML, HTN, COPD, sleep apnea presents to ED with port a cath infection s/p HD. He reports feeling a burning sensation two days ago and that today after HD his noticed some pus coming from the site. Pt reports nausea and dry heaving. He denies any fever, abdominal pain, shortness of breath, chest pain, diarrhea, constipation. In the ED, pt was given tylenol for Tmax 102F and BCx and wound Cx were obtained. SxH: back surgery, pacemaker FamH: mom heart disease, DM, dad CAD SocH: denies tobacco, etoh, recreational drug use Allergies: NKDA Meds: coumadin 1 daily, starlix 60 TID, procrit, metoprolol succinate 25 daily PMD: Dr. Rose This patient had initially presented to [facility] for port-a-cath infection, was treated with antibiotics, and then patient signed out AMA as he felt that the infection was improving. When the infection began to worsen again, patient came to [facility] [place] ER on 12/30 and was admitted for infection/abscess of port-a-cath site with fever of 102.0. Patient had port-a-cath placed due to difficulty obtaining vascular access during patient's multiple prior hospitalizations. Of note, patient has a history of multiple hospitalizations for infected wounds Surgery was consulted (Dr. Olguin) for possible I&D/port-a-cath removal. Port-a-cath was removed by the surgical team on 12/31, and a large amount of purulent drainage was pulled out within the pocket of the port. It was recommended to the patient that he have a new port-a-cath placed following removal, however patient refused. ID was consulted (Dr. Lizarraga), and per his recommendations, patient was treated throughout hospital course with IV Cefepime daily and IV Vancomycin MWF. Aside from initial temperature of 102.0, patient remained afebrile for the remainder of his hospital course. Cefepime course finished and patient remained on Vancomycine MWF. 2D echo was ordered to rule out endocarditis, and was negative for any valvular lesions or calcifications. Patient's has a history of hypertension, however was persistently hypotensive during hospital course with lower readings of about 90s/50-60s. Patient stated that these were normal pressures for him, and he remained assymptomatic. Home metoprolol was held. Podiatry was consulted for b/l LE ulcerations and wound care. Wounds were cleaned and dressed, requiring no further intervention. Patient is on chronic anticoagulation for Afib. Initially, patient was continued on Coumadin 3mg daily, however INR was subtherapeutic. Coumadin was then increased to 5mg daily, INR remained subtherapeutic. Patient was not amenable to heparin bridge, but agreed to switch to low dose eliquis 2.5 mg PO BID. Patient continued on vancomycin, however random vanc levels taken prior to HD continued to be subtherapeutic. Dose was increased from 1gm MWF to 1.5 gm MWF, with levels still remaining subtherapeutic. Patient was discharged with plans for MWF dialysis and prescription for 2mg Vanco IV MWF, with random vanc levels to be drawn prior to HD and phoned in to Dr. Lizarraga's office. Discharge Exam - Head Exam Head Exam: ATRAUMATIC, NORMAL INSPECTION - Eye Exam Eye Exam: EOMI, Normal appearance - ENT Exam ENT Exam: Mucous Membranes Moist - Respiratory Exam Respiratory Exam: NORMAL BREATHING PATTERN. absent: Rhonchi, Wheezes - Cardiovascular Exam Cardiovascular Exam: REGULAR RHYTHM, +S1, +S2 - GI/Abdominal Exam GI & Abdominal Exam: Normal Bowel Sounds, Soft. absent: Tenderness - Extremities Exam Extremities exam: normal inspection Additional comments: R AVF with palpable thrill. Chronic venous stasis changes of LEs with pedal edema b/l. - Neurological Exam Neurological exam: Alert, CN II-XII Intact, Normal Gait, Oriented x3 - Psychiatric Exam Psychiatric exam: Anxious, Normal Affect - Skin Skin Exam: Dry, Intact Additional comments: Chronic venous stasis changes b/l Discharge Plan - Discharge Medications Prescriptions: Apixaban [Eliquis] 2.5 mg PO BID #60 tab Carvedilol [Coreg] 3.125 mg PO BID #30 tab Vancomycin [Vancomycin Inj] 1.5 gm IVPB MWF #5 vial Vancomycin HCl in 5 % Dextrose [Vancomycin 2 Gram/500 ml-D5w] 2 gm IV MWF #5 plast..bag - Follow Up Plan Condition: STABLE Disposition: HOME/ ROUTINE Instructions: Heart Failure, Adult (DC), Apixaban, Central Line Infections (DC), Carvedilol, Vancomycin Additional Instructions: Patient is cleared for discharge per Dr. Zamora. Patient is to continue taking the following medications: Eliquis 2.5 mg one tab by mouth twice a day at 8am and 8pm Phoslo 667 one tab by mout three times a day at 8am 12pm and 8pm Colace 100mg by mouth daily at 8am Nateglinide 60mg tab by mouth daily at 8am Coreg 3.125 mg by mouth daily at 8am Vancomycin 2mg by IV at dialysis on MWF for 5 doses. Patient is to continue dialysis on Wednesdays and Fridays. Labs are to be drawn prior to dialysis and you may inform the lab company that the results should be called in to Dr. Lizarraga's office: Please return to ER if symptoms recur or worsen. Referrals: Radha Lizarraga MD [Staff Provider] - Peng Rice MD [Staff Provider] - Isreal Nunn DPM [Staff Provider] -
== END 2018-01-12 20:51 | disposition home or self-care (01) | DRG 314 ==
LOC: C.ER 21:04 → C.9E 12-31 00:01 → C.5S 12-31 00:47
PROVIDERS: ADMIT Hospitalist; ATTEND Hospitalist
PROC: 0JPT0WZ Removal of Totally Implantable Vascular Access Device from Trunk Subcutaneous Tissue and Fascia, Open Approach (ICD-10-PCS; principal; 2017-12-31 15:15)
PROC: 5A1D70Z Performance of Urinary Filtration, Intermittent, Less than 6 Hours Per Day (ICD-10-PCS; 2018-01-01)
PROC: 5A1D70Z Performance of Urinary Filtration, Intermittent, Less than 6 Hours Per Day (ICD-10-PCS; 2018-01-04)
PROC: 5A1D70Z Performance of Urinary Filtration, Intermittent, Less than 6 Hours Per Day (ICD-10-PCS; 2018-01-08)
PROC: 5A1D70Z Performance of Urinary Filtration, Intermittent, Less than 6 Hours Per Day (ICD-10-PCS; 2018-01-11)
DX: T80.212A Local infection due to central venous catheter, initial encounter (principal); N18.6 End stage renal disease; L02.213 Cutaneous abscess of chest wall; I13.2 Hypertensive heart and chronic kidney disease with heart failure and with stage 5 chronic kidney disease, or end stage renal disease; C95.91 Leukemia, unspecified, in remission; I42.8 Other cardiomyopathies; I50.22 Chronic systolic (congestive) heart failure; L97.929 Non-pressure chronic ulcer of unspecified part of left lower leg with unspecified severity; L97.919 Non-pressure chronic ulcer of unspecified part of right lower leg with unspecified severity; I48.91 Unspecified atrial fibrillation; B95.61 Methicillin susceptible Staphylococcus aureus infection as the cause of diseases classified elsewhere; E11.22 Type 2 diabetes mellitus with diabetic chronic kidney disease; I48.2 Chronic atrial fibrillation; D64.9 Anemia, unspecified; E11.51 Type 2 diabetes mellitus with diabetic peripheral angiopathy without gangrene; I27.20 Pulmonary hypertension, unspecified; E11.42 Type 2 diabetes mellitus with diabetic polyneuropathy; E11.622 Type 2 diabetes mellitus with other skin ulcer; J44.9 Chronic obstructive pulmonary disease, unspecified; G47.33 Obstructive sleep apnea (adult) (pediatric); M81.0 Age-related osteoporosis without current pathological fracture; I95.9 Hypotension, unspecified; Y84.8 Other medical procedures as the cause of abnormal reaction of the patient, or of later complication, without mention of misadventure at the time of the procedure; Z16.11 Resistance to penicillins; F17.290 Nicotine dependence, other tobacco product, uncomplicated; Z53.29 Procedure and treatment not carried out because of patient's decision for other reasons; Z99.2 Dependence on renal dialysis; Z79.4 Long term (current) use of insulin; Z95.810 Presence of automatic (implantable) cardiac defibrillator; Z79.01 Long term (current) use of anticoagulants; Z92.21 Personal history of antineoplastic chemotherapy; Z85.72 Personal history of non-Hodgkin lymphomas; I25.2 Old myocardial infarction; Z83.3 Family history of diabetes mellitus; Z82.49 Family history of ischemic heart disease and other diseases of the circulatory system

== ENCOUNTER 2018-01-22 19:45 | Inpatient (IN) | payer MEDICARE, BC ==
[2018-01-22 19:45] VITALS: PULSE 112; BMI 32.5
--- NOTE | 2018-01-22 20:30 | C.PDOC ---
History Of Present Illness 62 year old male presents to the ED complaining of abdominal discomfort and swelling for 2 days. Reports blood colored stool but denies any vomiting, nausea, diarrhea. Chief Complaint (Nursing): GI Problem History Per: Patient History/Exam Limitations: no limitations Onset/Duration Of Symptoms: Days (2) Current Symptoms Are (Timing): Still Present Location Of Pain/Discomfort: Diffuse Radiation Of Pain To:: None Associated Symptoms: denies: Fever, Chills, Nausea, Vomiting, Diarrhea Past Medical History Reviewed: Historical Data, Nursing Documentation, Vital Signs Vital Signs: Last Vital Signs Temp 97.6 F 01/22/18 19:51 Pulse 113 H 01/22/18 19:51 Resp 20 01/22/18 19:51 BP 107/61 01/22/18 19:51 Pulse Ox 97 01/22/18 19:51 - Medical History PMH: Anxiety, Arthritis, Asthma, Atrial Fibrillation, Cardia Arrhythmia (A FIB), CHF, COPD (uses CPAP for sleep apnea), Depression, Diabetes, Fractures, HTN, Malignancy (AML LEUKEMIA), Osteoporosis, Peripheral Edema, End Stage Renal Disease, Chronic Kidney Disease, Sleep Apnea (C-PAP) Surgical History: Back Surgery, Pacemaker - [facility] (12/31/17) BONE GRAFT NEC (08/23/13) BONE MARROW OPS NEC (08/23/13) CENTRAL VENOUS CATHETER PLACEMENT WITH GUIDANCE (08/23/13) CHEST CAGE BONE BIOPSY (08/23/13) DIALYSIS ARTERIOVENOSTOM (12/08/13) DORSAL & DORSOLUMBAR FUSION OF POSTERIOR COL/TECHNIQUE (08/23/13) DRAINAGE OF RIGHT LOWER LEG SKIN, EXTERNAL APPROACH, DIAGN (06/30/17) DX ULTRASOUND-HEART (08/23/13) EXCISE BONE FOR GFT NEC (08/23/13) EXCISION OF L FOOT SUBCU/FASCIA, OPEN APPROACH (09/15/16) EXCISION OF LEFT FOOT SKIN, EXTERNAL APPROACH (06/30/17) EXCISION OF LEFT TARSAL, OPEN APPROACH, DIAGNOSTIC (12/26/16) EXCISION OF RIGHT FOOT SKIN, EXTERNAL APPROACH (12/26/16) EXCISION OF RIGHT LOWER LEG SKIN, EXTERNAL APPROACH (06/30/17) EXTRACTION OF LEFT FOOT SKIN, EXTERNAL APPROACH (09/15/16) FUSION/REFUS OF 2-3 VERTEBRAE (08/23/13) HEAD SOFT TISS X-RAY NEC (12/08/13) HEMODIALYSIS (11/12/13) INSERTION OF INFUSION DEV INTO SUP VENA CAVA, PERC APPROACH (12/26/16) NON-INVASIVE MECHANICAL VENTILATION (11/12/13) OCCUPATIONAL THERAPY (09/27/13) PACKED CELL TRANSFUSION (08/23/13) PERFORMANCE OF URINARY FILTRATION, MULTIPLE (06/30/16) PHYSICAL THERAPY NEC (09/27/13) RECREATIONAL THERAPY (09/27/13) REMOVAL OF RESERVOIR FROM TRUNK SUBCU/FASCIA, OPEN APPROACH (12/31/17) REPOSITION RIGHT BASILIC VEIN, OPEN APPROACH (06/30/16) SPINAL CANAL EXPLOR NEC (08/23/13) SUPPLEMENT LEFT FOOT WITH NONAUT SUB, OPEN APPROACH (06/30/17) THORACENTESIS (11/12/13) TRANSFUSE NONAUT RED BLOOD CELLS IN PERIPH VEIN, PERC (10/29/17) VACCINATION NEC (11/12/13) VENOUS CATHETERIZATION FOR RENAL DIALYSIS (12/08/13) Family History: States: No Known Family Hx - Social History Hx Tobacco Use: No Hx Alcohol Use: No Hx Substance Use: No - Immunization History Hx Tetanus Toxoid Vaccination: Yes Hx Influenza Vaccination: Yes Hx Pneumococcal Vaccination: Yes Review Of Systems Except As Marked, All Systems Reviewed And Found Negative. Constitutional: Negative for: Fever, Chills Gastrointestinal: Positive for: Abdominal Pain, Hematochezia. Negative for: Nausea, Vomiting, Diarrhea Physical Exam - Physical Exam Appears: Non-toxic Skin: Warm, Dry, No Rash Head: Normacephalic Eye(s): bilateral: Normal Inspection Nose: Normal Oral Mucosa: Moist Neck: Normal ROM, Supple Chest: Symmetrical Cardiovascular: Rhythm Regular Respiratory: Normal Breath Sounds, No Rales, No Rhonchi, No Wheezing Gastrointestinal/Abdominal: Soft, Tenderness, Distention (mild ), No Guarding, No Rebound Rectal: Blood Streaked Stool Extremity: Pedal Edema (B/L 3+ ) Neurological/Psych: Oriented x3, Normal Speech Gait: Steady ED Course And Treatment - Laboratory Results Result Diagrams: 01/22/18 20:59 01/22/18 20:59 O2 Sat by Pulse Oximetry: 97 (RA) Pulse Ox Interpretation: Normal - CT Scan/US CT ABD/PEL Other Rad Studies (CT/US): Read By Radiologist, Radiology Report Reviewed CT/US Interpretation: History: Black stool. Rule out bleeding. Comparison: None. Technique: Noncontrast CT examination abdomen pelvis. Noncontrast CT examination of the abdomen pelvis is obtained. There is a moderate sized right pleural effusion. There is compressive atelectasis at the right lower lung. Left lung appears clear. Cardiac pacing wires noted. Heart appears enlarged. There is a large amount of ascites seen throughout the abdomen and pelvis. The liver is a small in size and lobulated in contour and likely cirrhotic. Spleen appears within normal limits in size. Advanced atherosclerotic changes are present. Some high density material seen at the posterior aspect of the gallbladder possibly representing sludge. Pancreas appears normal. Kidneys are small in size and demonstrate vascular calcifications. There is no mass or obstruction. There is no periaortic mass or lymphadenopathy. Visualized bowel appears grossly within normal limits keeping in mind the evaluation of bowel is limited due to lack of oral contrast. There is no distinct mass within the pelvis although a large amount of ascites present within the pelvis. Subcutaneous edema is seen about the abdomen and pelvis. Extensive postsurgical changes with orthopedic fixation devices are seen at the lower thoracic and upp er lumbar spine. Impression: Moderate sized right pleural effusion with compressive atelectasis right lower lung. Large amount of ascites within the abdomen and pelvis. Subcutaneous edema noted. Cirrhotic liver suspected. High density material within the gallbladder may represent sludge or calculi. Vascular calcifications within the kidneys. Kidney small in size. No distinct mass within the pelvis. Postsurgical changes seen at the thoracolumbar junction. . Electronically signed on Jan 22, 2018 9:01:51 PM EST by: Noe Parra M.D., Certified by [employer], Diagnostic Radiology. Medical Decision Making Medical Decision Making: Plan - Bloodwork - EKG - CXR - CT abd/pel 2026 Spoke with PAMELLA Celestin. Agrees with plan of care. Disposition Discussed With : [place] Doctor Will See Patient In The: Hospital Counseled Patient/Family Regarding: Diagnosis - Disposition Disposition: HOSPITALIZED Disposition Time: 21:49 Condition: STABLE Forms: [facility] (Togolese) - POA Present On Arrival: None - Clinical Impression Clinical Impression: ESRD (end stage renal disease) on dialysis, Ascites - Scribe Statement The provider has reviewed the documentation as recorded by the Garlandibeliud Tamayo All medical record entries made by the Scribe were at my direction and personally dictated by me. I have reviewed the chart and agree that the record accurately reflects my personal performance of the history, physical exam, medical decision making, and the department course for this patient. I have also personally directed, reviewed, and agree with the discharge instructions and disposition.
[2018-01-22 21:06] LABS: BASO % 1.1 % (0.0-2.0); EOS # 0.2 K/uL (0.0-0.7); EOS % 3.8 % (0.0-4.0); HEMOGLOBIN 9.6 g/dL (12.0-18.0); LYMPH # 0.6 K/uL (1.0-4.3); LYMPH % 14.2 % (20.0-40.0); MEAN CELL VOLUME 88.8 fL (80.0-94.0); MEAN CORPUSCULAR HEMOGLOBIN 28.9 pg (27.0-31.0); MEAN CORPUSCULAR HGB CONC 32.6 g/dL (33.0-37.0); MONO # 0.5 K/uL (0.0-0.8); MONO % 12.2 % (0.0-10.0); NEUT # 2.9 K/uL (1.8-7.0); NEUT % 68.7 % (50.0-75.0); NRBC % 0.1 % (0.0-2.0); RBC 3.3 Mil/uL (4.40-5.90); RED CELL DISTRIBUTION WIDTH 19.7 % (11.5-14.5); WHITE BLOOD COUNT 4.3 K/uL (4.8-10.8)
[2018-01-22 21:22] LABS: ALBUMIN 3.3 g/dL (3.5-5.0); CALCIUM 8.1 mg/dl (8.6-10.4)
[2018-01-22 21:25] LABS: INR 1.6; PROTHROMBIN TIME 17.4 SECONDS (9.7-12.2)
[2018-01-22] MEDS ORDERED: Pantoprazole 20 mg EC Tab PO STA ×2 (22:14→23:57)
[2018-01-22 23:46] VITALS: RESP 20
--- NOTE | 2018-01-23 11:19 | CP.PCM.CON ---
History of Present Illness - History of Present Illness History of Present Illness: This is a 62 year old man with ascites Patient states that he noted increased abdominal girth over the past few days. He also noted that he could not eat regular amounts of food because of distention. He denies having nausea, vomiting, difficulty swallowing, heartburn, loss of appetite and loss of weight. The bowel movements have been frequent, three times daily, formed. He denies having rectal bleeding. He has no history of viral hepatitis, jaundice or alcohol abuse. Ultrasound performed 01/08/2017 showed small abdominal ascites. The liver contour was described as nodular. Flow in the portal vein was hepatopetal. He has a known history of cardiomyopathy, arrhythmia with ICD. Echocardiogram from last month showed hypertrophic LV with a hypokinetic septum, slightly reduced LVEF, severe RV dilatation, severe reduction in RVEF, severe pulmonary hypertension, dilated RV, RA, IVC. Review of Systems - Review of Systems All systems: reviewed and no additional remarkable complaints except - Constitutional Constitutional: absent: Chills, Fever - Gastrointestinal Gastrointestinal: Early Satiety. absent: Constipation, Diarrhea, Dysphagia, Heartburn, Nausea, Vomiting Past Patient History - Infectious Disease Hx of Infectious Diseases: None - Tetanus Immunizations Tetanus Immunization: Unknown - Past Medical History & Family History Past Medical History?: Yes - Past Social History Smoking Status: Never Smoked - CARDIAC Hx Atrial Fibrillation: Yes Hx Cardia Arrhythmia: Yes (A FIB) Hx Congestive Heart Failure: Yes Hx Hypertension: Yes Hx Pacemaker: Yes Hx Peripheral Edema: Yes - PULMONARY Hx Respiratory Disorders: Yes Hx Asthma: Yes Hx Chronic Obstructive Pulmonary Disease (COPD): Yes (uses CPAP for sleep apnea) Hx Sleep Apnea: Yes (C-PAP) - NEUROLOGICAL Hx Neurological Disorder: Yes (PERIPHERAL NEUROPATHY) Hx Dizziness: Yes - HEENT Hx HEENT Problems: No - RENAL Hx Chronic Kidney Disease: Yes Date of Last Dialysis Treatment: 01/22/18 - ENDOCRINE/METABOLIC Hx Endocrine Disorders: Yes Hx Diabetes Mellitus Type 2: Yes - HEMATOLOGICAL/ONCOLOGICAL Hx Blood Disorders: Yes Hx Blood Transfusions: Yes Hx Cancer: Yes Hx Chemotherapy: Yes 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) - INTEGUMENTARY Hx Dermatological Problems: Yes Hx Cellulitis: Yes - MUSCULOSKELETAL/RHEUMATOLOGICAL Hx Musculoskeletal Disorders: Yes Hx Arthritis: Yes Hx Falls: Yes Hx Fractures: Yes Hx Osteoporosis: Yes - GASTROINTESTINAL Hx Gastrointestinal Disorders: Yes Hx Constipation: Yes - GENITOURINARY/GYNECOLOGICAL Hx Genitourinary Disorders: Yes Other/Comment: On HD-M-W- - PSYCHIATRIC Hx Psychophysiologic Disorder: Yes Hx Anxiety: Yes Hx Depression: Yes Hx Substance Use: No - SURGICAL HISTORY Hx Surgeries: Yes Hx Angiogram: Yes Hx Arteriovenous Shunt: Yes Hx Cardiac Catheterization: Yes Hx Orthopedic Surgery: Yes (KNEE) Hx Vascular Access Device: Yes (RIGHT BOZENA CATH removed) Other/Comment: hx back surgery T5. defibrillator/pacemaker placement. bilateral heel surgery - ANESTHESIA Hx Anesthesia: Yes Hx Anesthesia Reactions: No Hx Malignant Hyperthermia: No Meds Allergies/Adverse Reactions: Allergies Allergy/AdvReac Type Severity Reaction Status Date / Time No Known Allergies Allergy Verified 01/22/18 20:02 - Medications Medications: Current Medications Apixaban (Eliquis) 2.5 mg PO BID [facility] Last Admin: 01/23/18 09:32 Dose: 2.5 mg Calcium Acetate (Phoslo) 667 mg PO TID [facility] Last Admin: 01/23/18 09:32 Dose: 667 mg Carvedilol (Coreg) 3.125 mg PO BID [facility] Last Admin: 01/23/18 09:39 Dose: Not Given Nateglinide (Starlix) 60 mg PO ACTID [facility] Last Admin: 01/23/18 08:00 Dose: Not Given Physical Exam - Constitutional Appears: No Acute Distress - Head Exam Head Exam: ATRAUMATIC, NORMOCEPHALIC - Eye Exam Eye Exam: EOMI, PERRL - Neck Exam Neck exam: Negative for: Lymphadenopathy, Thyromegaly - Respiratory Exam Respiratory Exam: NORMAL BREATHING PATTERN. absent: Rales, Rhonchi, Wheezes - Cardiovascular Exam Cardiovascular Exam: REGULAR RHYTHM, +S1, +S2. absent: Gallop, Rubs, Systolic Murmur - GI/Abdominal Exam GI & Abdominal Exam: Distended, Normal Bowel Sounds, Soft. absent: Mass, Organomegaly, Tenderness Additional comments: Positive fluid wave - Rectal Exam Rectal Exam: Deferred - Extremities Exam Extremities exam: Negative for: calf tenderness Additional comments: Extensive stasis dermatitis Results - Vital Signs Recent Vital Signs: Last Vital Signs Temp 98.6 F 01/23/18 08:19 Pulse 96 H 01/23/18 08:19 Resp 20 01/23/18 08:19 BP 100/62 01/23/18 08:00 Pulse Ox 100 01/23/18 08:19 - Labs Result Diagrams: 01/22/18 20:59 01/22/18 20:59 Labs: Laboratory Results - last 24 hr 01/22/18 01/22/18 01/22/18 20:27 20:59 20:59 WBC 4.3 L RBC 3.30 L Hgb 9.6 L Hct 29.3 L MCV 88.8 MCH 28.9 MCHC 32.6 L RDW 19.7 H Plt Count 161 MPV 7.0 L Neut % (Auto) 68.7 Lymph % (Auto) 14.2 L [place] % (Auto) 12.2 H Eos % (Auto) 3.8 Baso % (Auto) 1.1 Neut # (Auto) 2.9 Lymph # (Auto) 0.6 L [place] # (Auto) 0.5 Eos # (Auto) 0.2 Baso # (Auto) 0.0 PT 17.4 H INR 1.6 APTT 37 H Sodium Potassium Chloride Carbon Dioxide Anion Gap BUN Creatinine Est GFR ( Amer) Est GFR (Non-Af Amer) Random Glucose Calcium Total Bilirubin AST ALT Alkaline Phosphatase Ammonia Total Protein Albumin Globulin Albumin/Globulin Ratio Stool Occult Blood Negative Blood Type Antibody Screen 01/22/18 01/22/18 01/22/18 20:59 20:59 21:06 WBC RBC Hgb Hct MCV MCH MCHC RDW Plt Count MPV Neut % (Auto) Lymph % (Auto) [place] % (Auto) Eos % (Auto) Baso % (Auto) Neut # (Auto) Lymph # (Auto) [place] # (Auto) Eos # (Auto) Baso # (Auto) PT INR APTT Sodium 135 Potassium 3.3 L Chloride 94 L Carbon Dioxide 27 Anion Gap 17 BUN 42 H Creatinine 3.4 H Est GFR ( Amer) 22 Est GFR (Non-Af Amer) 19 Random Glucose 108 Calcium 8.1 L Total Bilirubin 0.9 AST 23 ALT 17 L Alkaline Phosphatase 258 H Ammonia 11 Total Protein 6.6 Albumin 3.3 L Globulin 3.3 Albumin/Globulin Ratio 1.0 Stool Occult Blood Blood Type AB POSITIVE Antibody Screen Negative Assessment & Plan (1) Ascites Assessment and Plan: Patient has cardiomyopathy with severe pulmonary hypertension and RV failure. Ascites was documented last year, but is much more extensive today. Paracentesis should be performed. Please send fluid for cell count and differential, culture and sensitivity, cytology, albumin and total protein. Will also check serology for chronic liver disease. Status: Acute
--- NOTE | 2018-01-23 14:32 | CT ---
Date of service: 01/22/2018 PROCEDURE: CT Abdomen and Pelvis without intravenous contrast. HISTORY: GI Bleeding COMPARISON: Comparison made with CTA of the abdomen and pelvis 07/01/2017 TECHNIQUE: Contiguous axial images of the abdomen and pelvis performed without the use of oral or intravenous contrast material. Additional 2D sagittal and coronal reformats generated. Radiation dose: Total exam DLP = 1196.04 mGy-cm. This CT exam was performed using one or more of the following dose reduction techniques: Automated exposure control, adjustment of the mA and/or kV according to patient size, and/or use of iterative reconstruction technique. FINDINGS: LOWER THORAX: There is a small to medium size right-sided effusion with mild right basilar atelectasis. Minor linear atelectasis and/or scarring changes seen in the left lung base including the lingular region. The there is a trace left-sided effusion Heart is enlarged. No significant pericardial effusion. Small hiatal hernia. The the the LIVER: Liver exhibits a nodular surface contour and with a large amount of abdominal and pelvic ascites. Findings suggest underlying cirrhosis appear clinical correlation recommended. No obvious hepatic mass or collection. GALLBLADDER AND BILE DUCTS: Gallbladder is difficult to assess due to fatty infiltration as well as large amount of ascites however layering radiopaque material in the dependent portion of the gallbladder could represent sludge or gravel. PANCREAS: The pancreas appears atrophic and fatty replaced. No pancreatic mass or collection seen on this limited noncontrast study. SPLEEN: Spleen exhibits normal size and attenuation pattern without obvious mass or collection.. ADRENALS: No adrenal lesions KIDNEYS AND URETERS: Kidneys demonstrate diminutive though symmetric size. No evidence of nephrolithiasis or hydronephrosis. BLADDER: Urinary bladder is incompletely distended which may in part account for thick-walled appearance. Muscular hypertrophy presumably contributes. Rule out cystitis with urinalysis correlation.. REPRODUCTIVE: Unremarkable. APPENDIX: . The what appears represent normal appendix best seen on coronal axial image number [id number]. No periappendiceal inflammatory changes so far as can be seen BOWEL: Evaluation of the bowel is limited due to the lack of oral and intravenous contrast material as well as the aforementioned ascites. Stomach is distended with liquid food debris and air. Visualized loops of small bowel exhibit normal contour and caliber however are centralized due to a large amount of ascites.. No evidence of acute mechanical small bowel obstruction. Large bowel appears unremarkable so far as can be seen although all also appears centralized to some degree due to the aforementioned large amount of ascites. PERITONEUM: No gross free intraperitoneal air. Large amount of abdominal and pelvic ascites. The changes of anasarca felt be present as well. The LYMPH NODES: Unremarkable. No enlarged lymph nodes. VASCULATURE: Unremarkable. No aortic aneurysm. Minor aortic atherosclerotic calcification or mural plaque present however more extensive vascular calcifications of the aortic branch vessels. BONES: Bilateral Helm rods are again seen attached to the visualized mid and lower thoracic segments Multilevel degenerative spondylosis. OTHER FINDINGS: None. IMPRESSION: Small to medium size right-sided effusion and mild right basilar atelectasis. Trace left effusion. Cardiomegaly. Large amount of abdominal and pelvic ascites with cirrhotic appearing liver. Questionable cholelithiasis versus layering sludge. The. Diminutive kidneys. See above discussion for additional details and findings.
--- NOTE | 2018-01-23 15:11 | RAD ---
Date of service: 01/22/2018 HISTORY: ESRD/ abdominal distention COMPARISON: Correlation made with prior chest radiograph 12/31/[address] scan abdomen pelvis dated 01/22/2018 the latter of which imaged both lung bases. FINDINGS: LUNGS: Persistent right lower lobe atelectasis and small effusion. Trace left-sided effusion poorly seen PLEURA: As above. No pneumothorax apparent. CARDIOVASCULAR: Mild aortic atherosclerotic calcification present. Marked cardiomegaly. No pulmonary vascular congestion. OSSEOUS STRUCTURES: In situ bilateral Helm rods are again noted VISUALIZED UPPER ABDOMEN: Normal. OTHER FINDINGS: None. IMPRESSION: Mild right basilar atelectasis and small effusion.
--- NOTE | 2018-01-23 18:28 | CP.PCM.HP ---
History of Present Illness - History of Present Illness History of Present Illness: Chief complaint: Patient was sent from hemodialysis because of the abdominal distention. History present illness: 62-year-old male with history of end-stage renal disease on dialysis, history of leukemia in the past on the remission, chronic atrial fibrillation, episodes of hypotension, chronic leg ulcers,weakness and pedal edema, recent hospitalization with anasarca, CHF, Nonhealing leg ulcers, treated aggressively with the multiple wound debridement, and a dressing. Significant improvement in the leg ulcers noted. Patient was recently hospitalized elevated INR and bleeding. Coumadin was discontinued, patient was placed on newer oral anticoagulants. patient was getting the hemodialysis yesterday and he got increasing abdominal discomfort, and abdominal swelling and shortness of breath. Because of that patient was sent to the emergency room and. In the emergency room patient was having increasing abdominal distention. Also there was a black stools was noted. But guaiac was done in the emergency room was negative. Patient underwent a CAT scan of the abdomen showing evidence of large ascites. But otherwise patient to having good oxygenation and needed hospitalization. . Past medical history: End-stage renal disease on dialysis, history of leukemia in remission, chronic atrial fibrillation, chronic cellulitis, CHF, AICD, vertibral abscess and s/p surgery Allergy: No known drug allergy. Personal history: Currently patient is a nonsmoker nonalcoholic. Family history noncontributory. Review of systems: The patient is in significant weakness, tiredness, easy fatigability. Generalized weight gain, and anasarca. Denies any nausea. Patient started noticing left heel ulcer, initially started having blisterlike lesion, which burst into ulcer. On examination: HEENT PERRLA, neck supple No thyromegaly was noted and no cervical adenopathy noted Chest bilateral good air entry, no wheezing or rales noted CVS regular heart sound, systolic murmur, ACD noted Abdominal distention, tenderness, negative, Generalized edema noted, more pronounced in the both lower extremities. Right heel showing evidence of necrotic skin changes. Foul-smelling BONUS CLERK alert awake oriented x3 no functional neurological deficit. 01/22/18 20:59 01/22/18 20:59 Assessment/recommendation: 62-year-old male with history of end-stage renal disease on dialysis, history of leukemia in remission, atrial fibrillation on anticoagulation. He also had a back surgery recently. Chronic pain. History of Coumadin toxicity in the past. Now admitted with abdominal distention, worsening ascites. Patient also has a cirrhotic changes in the liver from the CAT scan. Will get a GI evaluation. We'll possibly hold off the anticoagulation. Patient will need a paracentesis therapeutically. Patient also needs dialysis. Meanwhile will continue the current treatment. I discussed with the extruder operator helper. DVT GI prophylaxis and will follow-up the patient Will continue the BiPAP Present on Admission - Present on Admission Any Indicators Present on Admission: No History of DVT/PE: No History of Uncontrolled Diabetes: No Urinary Catheter: No Decubitus Ulcer Present: No Past Patient History - Infectious Disease Hx of Infectious Diseases: None - Tetanus Immunizations Tetanus Immunization: Unknown - Past Medical History & Family History Past Medical History?: Yes - Past Social History Smoking Status: Never Smoked - CARDIAC Hx Atrial Fibrillation: Yes Hx Cardia Arrhythmia: Yes (A FIB) Hx Congestive Heart Failure: Yes Hx Hypertension: Yes Hx Pacemaker: Yes Hx Peripheral Edema: Yes - PULMONARY Hx Respiratory Disorders: Yes Hx Asthma: Yes Hx Chronic Obstructive Pulmonary Disease (COPD): Yes (uses CPAP for sleep apnea) Hx Sleep Apnea: Yes (C-PAP) - NEUROLOGICAL Hx Neurological Disorder: Yes (PERIPHERAL NEUROPATHY) Hx Dizziness: Yes - HEENT Hx HEENT Problems: No - RENAL Hx Chronic Kidney Disease: Yes Date of Last Dialysis Treatment: 01/22/18 - ENDOCRINE/METABOLIC Hx Endocrine Disorders: Yes Hx Diabetes Mellitus Type 2: Yes - HEMATOLOGICAL/ONCOLOGICAL Hx Blood Disorders: Yes Hx Blood Transfusions: Yes Hx Cancer: Yes Hx Chemotherapy: Yes 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) - INTEGUMENTARY Hx Dermatological Problems: Yes Hx Cellulitis: Yes - MUSCULOSKELETAL/RHEUMATOLOGICAL Hx Musculoskeletal Disorders: Yes Hx Arthritis: Yes Hx Falls: Yes Hx Fractures: Yes Hx Osteoporosis: Yes - GASTROINTESTINAL Hx Gastrointestinal Disorders: Yes Hx Constipation: Yes - GENITOURINARY/GYNECOLOGICAL Hx Genitourinary Disorders: Yes Other/Comment: On HD--- - PSYCHIATRIC Hx Psychophysiologic Disorder: Yes Hx Anxiety: Yes Hx Depression: Yes Hx Substance Use: No - SURGICAL HISTORY Hx Surgeries: Yes Hx Angiogram: Yes Hx Arteriovenous Shunt: Yes Hx Cardiac Catheterization: Yes Hx Orthopedic Surgery: Yes (KNEE) Hx Vascular Access Device: Yes (RIGHT BOZENA CATH removed) Other/Comment: hx back surgery T5. defibrillator/pacemaker placement. bilateral heel surgery - ANESTHESIA Hx Anesthesia: Yes Hx Anesthesia Reactions: No Hx Malignant Hyperthermia: No Meds Allergies/Adverse Reactions: Allergies Allergy/AdvReac Type Severity Reaction Status Date / Time No Known Allergies Allergy Verified 01/22/18 20:02 Results - Vital Signs Recent Vital Signs: Last Vital Signs Temp 97.4 F L 01/23/18 16:15 Pulse 118 H 01/23/18 16:15 Resp 20 01/23/18 16:15 BP 159/70 H 01/23/18 16:15 Pulse Ox 96 01/23/18 16:15 - Labs Result Diagrams: 01/22/18 20:59 01/22/18 20:59 Labs: Laboratory Results - last 24 hr 01/22/18 01/22/18 01/22/18 20:27 20:59 20:59 WBC 4.3 L RBC 3.30 L Hgb 9.6 L Hct 29.3 L MCV 88.8 MCH 28.9 MCHC 32.6 L RDW 19.7 H Plt Count 161 MPV 7.0 L Neut % (Auto) 68.7 Lymph % (Auto) 14.2 L Burleigh % (Auto) 12.2 H Eos % (Auto) 3.8 Baso % (Auto) 1.1 Neut # (Auto) 2.9 Lymph # (Auto) 0.6 L [place] # (Auto) 0.5 Eos # (Auto) 0.2 Baso # (Auto) 0.0 PT 17.4 H INR 1.6 APTT 37 H Sodium Potassium Chloride Carbon Dioxide Anion Gap BUN Creatinine Est GFR ( Amer) Est GFR (Non-Af Amer) Random Glucose Calcium Total Bilirubin AST ALT Alkaline Phosphatase Ammonia Total Protein Albumin Globulin Albumin/Globulin Ratio Stool Occult Blood Negative Blood Type Antibody Screen 01/22/18 01/22/18 01/22/18 20:59 20:59 21:06 WBC RBC Hgb Hct MCV MCH MCHC RDW Plt Count MPV Neut % (Auto) Lymph % (Auto) [place] % (Auto) Eos % (Auto) Baso % (Auto) Neut # (Auto) Lymph # (Auto) [place] # (Auto) Eos # (Auto) Baso # (Auto) PT INR APTT Sodium 135 Potassium 3.3 L Chloride 94 L Carbon Dioxide 27 Anion Gap 17 BUN 42 H Creatinine 3.4 H Est GFR ( Amer) 22 Est GFR (Non-Af Amer) 19 Random Glucose 108 Calcium 8.1 L Total Bilirubin 0.9 AST 23 ALT 17 L Alkaline Phosphatase 258 H Ammonia 11 Total Protein 6.6 Albumin 3.3 L Globulin 3.3 Albumin/Globulin Ratio 1.0 Stool Occult Blood Blood Type AB POSITIVE Antibody Screen Negative
[2018-01-24 08:03] LABS: IRON 57 ug/dL (49-181)
[2018-01-24 08:13] LABS: % IRON SATURATION 29 (20-55); TOTAL IRON BINDING CAPACITY 193 ug/dL (250-450)
[2018-01-24] MEDS ORDERED: Bismuth Subsalicylate 262 mg/15 ml Sus (240 ml) PO ONE ×2 (09:00→19:00)
--- NOTE | 2018-01-24 10:38 | CP.PCM.PN ---
Subjective - Date & Time of Evaluation Date of Evaluation: 01/24/18 Time of Evaluation: 10:00 - Subjective Subjective: Patient denies having shortness of breath, nausea, vomiting, abdominal pain. He had two "pasty" bowel movements today which were normal in color. Objective - Vital Signs/Intake and Output Vital Signs (last 24 hours): Temp Pulse Resp BP Pulse Ox 98.1 F 87 20 104/64 97 01/24/18 00:00 01/24/18 00:00 01/24/18 00:00 01/24/18 01:00 01/24/18 00:00 Intake and Output: 01/24/18 01/24/18 06:59 18:59 Intake Total 540 Balance 540 - Medications Medications: Current Medications Apixaban (Eliquis) 2.5 mg PO BID [facility] Last Admin: 01/23/18 17:19 Dose: Not Given Calcium Acetate (Phoslo) 667 mg PO TID [facility] Last Admin: 01/24/18 09:34 Dose: 667 mg Carvedilol (Coreg) 3.125 mg PO BID [facility] Last Admin: 01/24/18 09:36 Dose: Not Given Nateglinide (Starlix) 60 mg PO ACTID [facility] Last Admin: 01/24/18 08:30 Dose: 60 mg - Labs Labs: 01/22/18 20:59 01/22/18 20:59 PT 17.4 SECONDS (9.7-12.2) H 01/22/18 20:59 INR 1.6 01/22/18 20:59 APTT 37 SECONDS (21-34) H 01/22/18 20:59 - Constitutional Appears: No Acute Distress - Head Exam Head Exam: ATRAUMATIC, NORMOCEPHALIC - Eye Exam Eye Exam: EOMI, PERRL - Neck Exam Neck Exam: absent: Lymphadenopathy, Thyromegaly - Respiratory Exam Respiratory Exam: NORMAL BREATHING PATTERN. absent: Rales, Rhonchi, Wheezes - Cardiovascular Exam Cardiovascular Exam: REGULAR RHYTHM, +S1, +S2. absent: Gallop, Rubs, Murmur - GI/Abdominal Exam GI & Abdominal Exam: Distended, Firm, Soft, Normal Bowel Sounds. absent: Tenderness, Organomegaly Additional comments: Positive fluid wave - Rectal Exam Rectal Exam: Deferred - Extremities Exam Extremities Exam: Pedal Edema. absent: Calf Tenderness Assessment and Plan (1) Ascites Assessment & Plan: Patient has increased ascites, which is now tense. He does not complain of difficulty breathing. Paracentesis has been scheduled for tomorrow. Status: Acute
--- NOTE | 2018-01-24 19:00 | CP.PCM.PN ---
Subjective - Date & Time of Evaluation Date of Evaluation: 01/24/18 Time of Evaluation: 19:00 - Subjective Subjective: Patient is off anticoagulation since yesterday evening. Combining of abdominal distention. Mild SOB. Using CPAP. Vital signs stable. Patient will be getting the hemodialysis tomorrow. Will schedule the paracentesis possibly tomorrow. Will follow the patient Objective - Vital Signs/Intake and Output Vital Signs (last 24 hours): Temp Pulse Resp BP Pulse Ox 97.4 F L 104 H 20 101/72 100 01/24/18 16:00 01/24/18 16:00 01/24/18 16:00 01/24/18 16:00 01/24/18 16:00 Intake and Output: 01/24/18 01/25/18 18:59 06:59 Intake Total 300 Balance 300 - Medications Medications: Current Medications Apixaban (Eliquis) 2.5 mg PO BID [facility] Last Admin: 01/23/18 17:19 Dose: Not Given Bismuth Subsalicylate (Pepto-Bismol) 524 mg PO ONCE ONE Stop: 01/24/18 19:01 Calcium Acetate (Phoslo) 667 mg PO TID [facility] Last Admin: 01/24/18 18:43 Dose: 667 mg Carvedilol (Coreg) 3.125 mg PO BID [facility] Last Admin: 01/24/18 18:43 Dose: 3.125 mg Nateglinide (Starlix) 60 mg PO ACTID [facility] Last Admin: 01/24/18 17:00 Dose: 60 mg - Labs Labs: 01/22/18 20:59 01/22/18 20:59 PT 17.4 SECONDS (9.7-12.2) H 01/22/18 20:59 INR 1.6 01/22/18 20:59 APTT 37 SECONDS (21-34) H 01/22/18 20:59
[2018-01-25 08:23] LABS: HEPATITIS B SURFACE AG Negative (NEGATIVE)
[2018-01-25 08:28] LABS: HEPATITIS A IGM NEGATIVE (NEGATIVE); HEPATITIS B CORE AB NEGATIVE (NEGATIVE)
[2018-01-25 08:40] LABS: HEPATITIS C ANTIBODY NEGATIVE (NEGATIVE)
--- NOTE | 2018-01-25 10:04 | CP.PCM.CON ---
History of Present Illness - History of Present Illness History of Present Illness: Pt is a 62M with PMH ESRD, DM, CHF, A FIB W/RVR, AML, HTN, COPD, sleep apnea presents to ED for evaluation of abdominal pain, distention and dark tarry stools. Otherwise denies any n/v/ fevers chills sob dizziness chest pain. c/o decreased appetite and poor oral intake. On HD mwf, last hd thursday REcently dc from hospital after line sepsis. Pt had paracentesis this am, 8L removed. feels improved abdominal pain SxH: back surgery, pacemaker FamH: mom heart disease, DM, dad CAD SocH: denies tobacco, etoh, recreational drug use Allergies: NKDA Meds: coumadin 1 daily, starlix 60 TID, procrit, metoprolol succinate 25 daily Review of Systems - Review of Systems All systems: reviewed and no additional remarkable complaints except (as per HPI) Past Patient History - Infectious Disease Hx of Infectious Diseases: None - Tetanus Immunizations Tetanus Immunization: Unknown - Past Medical History & Family History Past Medical History?: Yes - Past Social History Smoking Status: Never Smoked - CARDIAC Hx Atrial Fibrillation: Yes Hx Cardia Arrhythmia: Yes (A FIB) Hx Congestive Heart Failure: Yes Hx Hypertension: Yes Hx Pacemaker: Yes Hx Peripheral Edema: Yes - PULMONARY Hx Respiratory Disorders: Yes Hx Asthma: Yes Hx Chronic Obstructive Pulmonary Disease (COPD): Yes (uses CPAP for sleep apnea) Hx Sleep Apnea: Yes (C-PAP) - NEUROLOGICAL Hx Neurological Disorder: Yes (PERIPHERAL NEUROPATHY) Hx Dizziness: Yes - HEENT Hx HEENT Problems: No - RENAL Hx Chronic Kidney Disease: Yes Date of Last Dialysis Treatment: 01/22/18 - ENDOCRINE/METABOLIC Hx Endocrine Disorders: Yes Hx Diabetes Mellitus Type 2: Yes - HEMATOLOGICAL/ONCOLOGICAL Hx Blood Disorders: Yes Hx Blood Transfusions: Yes Hx Cancer: Yes Hx Chemotherapy: Yes 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) - INTEGUMENTARY Hx Dermatological Problems: Yes Hx Cellulitis: Yes - MUSCULOSKELETAL/RHEUMATOLOGICAL Hx Musculoskeletal Disorders: Yes Hx Arthritis: Yes Hx Falls: Yes Hx Fractures: Yes Hx Osteoporosis: Yes - GASTROINTESTINAL Hx Gastrointestinal Disorders: Yes Hx Constipation: Yes - GENITOURINARY/GYNECOLOGICAL Hx Genitourinary Disorders: Yes Other/Comment: On HD--- - PSYCHIATRIC Hx Psychophysiologic Disorder: Yes Hx Anxiety: Yes Hx Depression: Yes Hx Substance Use: No - SURGICAL HISTORY Hx Surgeries: Yes Hx Angiogram: Yes Hx Arteriovenous Shunt: Yes Hx Cardiac Catheterization: Yes Hx Orthopedic Surgery: Yes (KNEE) Hx Vascular Access Device: Yes (RIGHT BOZENA CATH removed) Other/Comment: hx back surgery T5. defibrillator/pacemaker placement. bilateral heel surgery - ANESTHESIA Hx Anesthesia: Yes Hx Anesthesia Reactions: No Hx Malignant Hyperthermia: No Meds Allergies/Adverse Reactions: Allergies Allergy/AdvReac Type Severity Reaction Status Date / Time No Known Allergies Allergy Verified 01/22/18 20:02 - Medications Medications: Current Medications Apixaban (Eliquis) 2.5 mg PO BID [facility] Last Admin: 01/23/18 17:19 Dose: Not Given Calcium Acetate (Phoslo) 667 mg PO TID [facility] Last Admin: 01/24/18 18:43 Dose: 667 mg Carvedilol (Coreg) 3.125 mg PO BID [facility] Last Admin: 01/24/18 18:43 Dose: 3.125 mg Nateglinide (Starlix) 60 mg PO ACTID [facility] Last Admin: 01/25/18 07:59 Dose: Not Given Physical Exam - Constitutional Appears: Non-toxic, No Acute Distress, Chronically Ill - Head Exam Head Exam: NORMAL INSPECTION, NORMOCEPHALIC - Eye Exam Eye Exam: Normal appearance, PERRL - ENT Exam ENT Exam: Mucous Membranes Moist, Normal Exam - Neck Exam Neck exam: Positive for: Full Rom, Normal Inspection - Respiratory Exam Respiratory Exam: Decreased Breath Sounds, NORMAL BREATHING PATTERN - Cardiovascular Exam Cardiovascular Exam: Irregular Rhythm - GI/Abdominal Exam GI & Abdominal Exam: Distended, Hypoactive Bowel Sounds, Soft - Extremities Exam Extremities exam: Positive for: normal inspection, pedal edema (chronic stasis, b/l avf ) - Neurological Exam Neurological exam: Alert, Oriented x3 - Psychiatric Exam Psychiatric exam: Normal Affect, Normal Mood - Skin Skin Exam: Dry, Intact, Warm Results - Vital Signs Recent Vital Signs: Last Vital Signs Temp 98.1 F 01/25/18 08:31 Pulse 91 H 01/25/18 08:31 Resp 20 01/25/18 08:31 BP 90/58 L 01/25/18 08:31 Pulse Ox 98 01/25/18 08:31 - Labs Result Diagrams: 01/22/18 20:59 01/22/18 20:59 Labs: Laboratory Results - last 24 hr 01/23/18 01/23/18 01/23/18 07:41 07:43 08:29 POC Glucose (mg/dL) 66 67 108 Ferritin Hepatitis A IgM Ab Hep Bs Antigen Hep Bs Antibody Hep B Core IgM Ab Hepatitis C Antibody 01/23/18 01/23/18 01/23/18 11:21 16:13 21:56 POC Glucose (mg/dL) 74 155 H 171 H Ferritin Hepatitis A IgM Ab Hep Bs Antigen Hep Bs Antibody Hep B Core IgM Ab Hepatitis C Antibody 01/24/18 01/24/18 07:43 07:43 POC Glucose (mg/dL) Ferritin 502.0 Hepatitis A IgM Ab Negative Hep Bs Antigen Negative Hep Bs Antibody Negative Hep B Core IgM Ab Negative Hepatitis C Antibody Negative Assessment & Plan (1) Ascites Status: Acute (2) ESRD (end stage renal disease) on dialysis Status: Acute (3) Anasarca Status: Acute - Assessment and Plan (Free Text) Assessment: maintain hd mwf uf as tolerated paracentesis hemoglobin stable, no change
--- NOTE | 2018-01-25 10:32 | PCM.SURG1 ---
Surgeon's Initial Post Op Note - Surgeon's Notes Surgeon: Demetrio Hamilton MD [place] Former: None Type of Anesthesia: Local Pre-Operative Diagnosis: Cirrhosis, ascites Operative Findings: US showed a large amount of ascites Post-Operative Diagnosis: Cirrhosis, ascites Operation Performed: US guided paracentesis Specimen/Specimens Removed: 8 liters of straw colored fluid Estimated Blood Loss: EBL {In ML}: 0 Blood Products Given: N/A Drains Used: No Drains Post-Op Condition: Fair Date of Surgery/Procedure: 01/25/18 Time of Surgery/Procedure: 10:30
--- NOTE | 2018-01-25 14:53 | CP.PCM.PN ---
Subjective - Date & Time of Evaluation Date of Evaluation: 01/25/18 Time of Evaluation: 14:50 - Subjective Subjective: cc: ascites Seen in HD. Lethargic. Denies abdominal pain S/P 8 L paracentesis Objective - Vital Signs/Intake and Output Vital Signs (last 24 hours): Temp Pulse Resp BP Pulse Ox 97.3 F L 74 20 87/54 L 100 01/25/18 13:40 01/25/18 13:40 01/25/18 13:40 01/25/18 14:25 01/25/18 13:40 Intake and Output: 01/25/18 01/25/18 06:59 18:59 Intake Total 470 Balance 470 - Medications Medications: Current Medications Apixaban (Eliquis) 2.5 mg PO BID [facility] Last Admin: 01/23/18 17:19 Dose: Not Given Calcium Acetate (Phoslo) 667 mg PO TID [facility] Last Admin: 01/25/18 13:31 Dose: Not Given Carvedilol (Coreg) 3.125 mg PO BID [facility] Last Admin: 01/25/18 11:01 Dose: Not Given Nateglinide (Starlix) 60 mg PO ACTID [facility] Last Admin: 01/25/18 11:30 Dose: Not Given - Labs Labs: 01/22/18 20:59 01/22/18 20:59 PT 17.4 SECONDS (9.7-12.2) H 01/22/18 20:59 INR 1.6 01/22/18 20:59 APTT 37 SECONDS (21-34) H 01/22/18 20:59 - Constitutional Appears: Chronically Ill - Head Exam Head Exam: NORMOCEPHALIC - Eye Exam Eye Exam: absent: Scleral icterus - Respiratory Exam Respiratory Exam: NORMAL BREATHING PATTERN - Cardiovascular Exam Cardiovascular Exam: REGULAR RHYTHM - GI/Abdominal Exam GI & Abdominal Exam: Soft. absent: Tenderness - Extremities Exam Additional comments: massive bilat LE edema and skin changes of chronic cellulitis Assessment and Plan (1) Ascites Assessment & Plan: Due to right sided heart failure Treat underlying heart disease. S/P paracentesis. checking labwork for chronic liver disease D/W Dr Hill Status: Acute (2) ESRD (end stage renal disease) on dialysis Status: Acute (3) Severe anemia Assessment & Plan: chronic anemia due to chronic disease. Stable. Status: Acute
[2018-01-25 21:36] LABS: BODY FLUID TYPE PERITONEAL/ASCITES
[2018-01-25 22:14] LABS: BF GROSS APPEARANCE CLEAR (CLEAR)
[2018-01-25 22:15] LABS: BODY FLUID TOTAL COUNT 100 (0-0)
[2018-01-25 22:17] LABS: BODY FLUID MONO/MACROPHAGE 9 % (0-0)
[2018-01-26 07:49] VITALS: O2SAT 99
[2018-01-26] MEDS ORDERED: Bismuth Subsalicylate 262 mg Chew Tab PO PRN (09:35)
[2018-01-26] MEDS ORDERED: Pantoprazole 40 mg EC Tab PO SCH (10:00)
[2018-01-26] MEDS ORDERED: Hydrocortisone 2.5% Rectal Cream(30 gm) PR SCH (10:00)
--- NOTE | 2018-01-26 10:36 | CP.PCM.PN ---
Subjective - Date & Time of Evaluation Date of Evaluation: 01/26/18 Time of Evaluation: 10:34 - Subjective Subjective: no events chronically low bp, pt is awake and alert improved abdominal pain Objective - Vital Signs/Intake and Output Vital Signs (last 24 hours): Temp Pulse Resp BP Pulse Ox 97.4 F L 90 20 98/66 L 99 01/26/18 07:47 01/26/18 07:47 01/26/18 07:47 01/26/18 07:47 01/26/18 07:47 Intake and Output: 01/26/18 01/26/18 06:59 18:59 Intake Total 350 Balance 350 - Medications Medications: Current Medications Apixaban (Eliquis) 2.5 mg PO BID [facility] Last Admin: 01/23/18 17:19 Dose: Not Given Bismuth Subsalicylate (Pepto Bismol) 524 mg PO BID PRN PRN Reason: upset gi Calcium Acetate (Phoslo) 667 mg PO TID [facility] Last Admin: 01/25/18 18:21 Dose: 667 mg Carvedilol (Coreg) 3.125 mg PO BID [facility] Last Admin: 01/25/18 18:21 Dose: Not Given Hydrocortisone (Anusol-Hc) 0 gm [place] BID [facility] Nateglinide (Starlix) 60 mg PO ACTID [facility] Last Admin: 01/26/18 07:51 Dose: 60 mg Pantoprazole Sodium (Protonix Ec Tab) 40 mg PO DAILY [facility] - Labs Labs: 01/22/18 20:59 01/22/18 20:59 PT 17.4 SECONDS (9.7-12.2) H 01/22/18 20:59 INR 1.6 01/22/18 20:59 APTT 37 SECONDS (21-34) H 01/22/18 20:59 - Constitutional Appears: No Acute Distress, Older Than Stated Age, Chronically Ill - Head Exam Head Exam: NORMAL INSPECTION, NORMOCEPHALIC - Eye Exam Eye Exam: Normal appearance, PERRL - ENT Exam ENT Exam: Mucous Membranes Moist, Normal Exam - Neck Exam Neck Exam: Full ROM, Normal Inspection - Respiratory Exam Respiratory Exam: Clear to Ausculation Bilateral, NORMAL BREATHING PATTERN - Cardiovascular Exam Cardiovascular Exam: Irregular Rhythm - GI/Abdominal Exam GI & Abdominal Exam: Distended, Soft, Hypoactive Bowel Sounds - Extremities Exam Extremities Exam: Normal Inspection, Pedal Edema (chronic stasis) - Neurological Exam Neurological Exam: Alert, Awake - Psychiatric Exam Psychiatric exam: Normal Affect, Normal Mood - Skin Skin Exam: Dry, Intact Assessment and Plan (1) Ascites Status: Acute (2) ESRD (end stage renal disease) on dialysis Status: Acute (3) Anasarca Status: Acute - Assessment and Plan (Free Text) Assessment: maintain hd mwf fluid restriction advised GI work up ongoing
--- NOTE | 2018-01-26 13:27 | CP.PCM.PN ---
Subjective - Date & Time of Evaluation Date of Evaluation: 01/26/18 Time of Evaluation: 13:00 - Subjective Subjective: f/u ascites. Feels better after tap. Denies RB, melena, fever, dysphagia, WALDRON, SZ, Hemoptysis, hematuria Objective - Vital Signs/Intake and Output Vital Signs (last 24 hours): Temp Pulse Resp BP Pulse Ox 97.4 F L 90 20 98/66 L 99 01/26/18 07:47 01/26/18 07:47 01/26/18 07:47 01/26/18 07:47 01/26/18 07:47 Intake and Output: 01/26/18 01/26/18 06:59 18:59 Intake Total 350 Balance 350 - Medications Medications: Current Medications Apixaban (Eliquis) 2.5 mg PO BID [facility] Last Admin: 01/26/18 10:54 Dose: 2.5 mg Bismuth Subsalicylate (Pepto Bismol) 524 mg PO BID PRN PRN Reason: upset gi Last Admin: 01/26/18 10:55 Dose: 524 mg Calcium Acetate (Phoslo) 667 mg PO TID [facility] Last Admin: 01/26/18 10:54 Dose: 667 mg Carvedilol (Coreg) 3.125 mg PO BID [facility] Last Admin: 01/26/18 10:54 Dose: Not Given Hydrocortisone (Anusol-Hc) 0 gm [place] BID [facility] Last Admin: 01/26/18 10:53 Dose: 1 applic Nateglinide (Starlix) 60 mg PO ACTID [facility] Last Admin: 01/26/18 12:36 Dose: 60 mg Pantoprazole Sodium (Protonix Ec Tab) 40 mg PO DAILY [facility] Last Admin: 01/26/18 10:54 Dose: 40 mg - Labs Labs: 01/22/18 20:59 01/22/18 20:59 PT 17.4 SECONDS (9.7-12.2) H 01/22/18 20:59 INR 1.6 01/22/18 20:59 APTT 37 SECONDS (21-34) H 01/22/18 20:59 - Constitutional Appears: Chronically Ill - Respiratory Exam Respiratory Exam: Rales - Cardiovascular Exam Cardiovascular Exam: RRR - GI/Abdominal Exam GI & Abdominal Exam: Distended, Soft, Normal Bowel Sounds. absent: Mass, Rebound - Extremities Exam Extremities Exam: Pedal Edema - Neurological Exam Neurological Exam: Alert, Awake, Oriented x3 Assessment and Plan (1) Ascites Assessment & Plan: Multifactorial. Cirrhosis, renal, cardiac. s/p paracentesis- 8 liters removed Status: Acute (2) ESRD (end stage renal disease) on dialysis Status: Acute (3) Anasarca Status: Acute (4) Anemia of renal disease Status: Acute (5) ESRD needing dialysis Status: Chronic
[2018-01-26 16:04] LABS: CERULOPLASMIN 30 mg/dL (18-36)
--- NOTE | 2018-01-26 16:54 | CP.PCM.PN ---
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 states feels better after the paracnetesis, denies any chest pain, sob, abdominal pain, N/V/D vss reviewed a febrile - bp stable s/p paracentesis with 8 lit removed 01/25/18 s/p HD 01/25/18 Objective - Vital Signs/Intake and Output Vital Signs (last 24 hours): Temp Pulse Resp BP Pulse Ox 97.4 F L 90 20 98/66 L 99 01/26/18 07:47 01/26/18 07:47 01/26/18 07:47 01/26/18 07:47 01/26/18 07:47 Intake and Output: 01/26/18 01/26/18 06:59 18:59 Intake Total 350 Balance 350 - Medications Medications: Current Medications Apixaban (Eliquis) 2.5 mg PO BID [facility] Last Admin: 01/26/18 10:54 Dose: 2.5 mg Bismuth Subsalicylate (Pepto Bismol) 524 mg PO BID PRN PRN Reason: upset gi Last Admin: 01/26/18 10:55 Dose: 524 mg Calcium Acetate (Phoslo) 667 mg PO TID [facility] Last Admin: 01/26/18 14:49 Dose: 667 mg Carvedilol (Coreg) 3.125 mg PO BID [facility] Last Admin: 01/26/18 10:54 Dose: Not Given Hydrocortisone (Anusol-Hc) 0 gm [place] BID [facility] Last Admin: 01/26/18 10:53 Dose: 1 applic Nateglinide (Starlix) 60 mg PO ACTID [facility] Last Admin: 01/26/18 12:36 Dose: Not Given Pantoprazole Sodium (Protonix Ec Tab) 40 mg PO DAILY [facility] Last Admin: 01/26/18 10:54 Dose: 40 mg - Labs Labs: 01/22/18 20:59 01/22/18 20:59 PT 17.4 SECONDS (9.7-12.2) H 01/22/18 20:59 INR 1.6 01/22/18 20:59 APTT 37 SECONDS (21-34) H 01/22/18 20:59 Assessment and Plan - Assessment and Plan (Free Text) Assessment: A/P 62 yr old male with pmhx of Atrial Fibrillation, on elequis , , CHF, COPD, Depression, Diabetes, , HTN, ESRD on HD admitted with abdominal pain an dabdomnal distention s/p Paracentesis with 8 li fluid removed and abdominal pain improved after paracentesis and tolerated diet and bp being stable D/W Dr. Hill cleared for discharge home today and f/u with Dr. Hill office in 1 week and resume eliquis and continue HD as scheduled discharge plan discussed with patient patient instructed to returns to ED if symptoms returns or worsening of symptoms
--- NOTE | 2018-01-26 16:59 | PCM.HF ---
Heart Failure Core Measure - Heart Failure Ejection Fraction: 40 % or Greater AGUS Inhibitor Prescribed: No Contraindication/Reason for not providing: ESRD Beta-Tereza Prescribed: Carvedilol Angiotensin II Receptor Tereza Prescribed: No Contraindication/Reason for not providing: ESRD AnticoagulationTherapy for Atrial Fibrillation/Atrialflutter: Yes Aldosterone Antagonist Prescribed: No Contraindication/Reason for not providing: EF>45 / RISK FOR HYPERKALEMIA Hydralazine Nitrate Prescribed: No Contraindication/Reason for not providing: EF.45 Implantable Cardioverter Defibrillator Therapy: Yes Contraindication/Reason for not providing: aicd Cardiac Resynchronization Therapy Prescribed: No Contraindication/Reason for not providing: ef>45 - Follow up Will be discharged to: Home Follow Up Date (must be within 7 days from discharge): 02/01/18
[2018-01-26 17:16] VITALS: BP 106/66; PULSE 102; TEMP 98.7
--- NOTE | 2018-01-26 18:53 | CP.PCM.PN ---
Subjective - Date & Time of Evaluation Date of Evaluation: 01/25/18 Time of Evaluation: 18:53 - Subjective Subjective: Patient today underwent abdominal paracentesis. 8 L of of shabbir color fluid removed. Patient tolerated the hemodialysis. Patient is feeling weakness. Cough noted. His feeling otherwise well. Abdomen soft nontender. His clinical is stable. Possibly discharge plan tomorrow Objective - Vital Signs/Intake and Output Vital Signs (last 24 hours): Temp Pulse Resp BP Pulse Ox 98.7 F 102 H 20 106/66 99 01/26/18 17:15 01/26/18 17:15 01/26/18 17:15 01/26/18 17:15 01/26/18 17:15 Intake and Output: 01/26/18 01/26/18 06:59 18:59 Intake Total 350 Balance 350 - Labs Labs: 01/22/18 20:59 01/22/18 20:59 PT 17.4 SECONDS (9.7-12.2) H 01/22/18 20:59 INR 1.6 01/22/18 20:59 APTT 37 SECONDS (21-34) H 01/22/18 20:59
--- NOTE | 2018-01-26 18:55 | CP.PCM.DIS ---
Provider - Provider Date of Admission: 01/22/18 21:52 Attending physician: Jesus Hill MD Time Spent in preparation of Discharge (in minutes): 45 Hospital Course - Lab Results Lab Results: Micro Results 01/25/18 21:38 Peritoneal Fluid Gram Stain - Final Most Recent Lab Values WBC 4.3 K/uL (4.8-10.8) L 01/22/18 20:59 RBC 3.30 Mil/uL (4.40-5.90) L 01/22/18 20:59 Hgb 9.6 g/dL (12.0-18.0) L 01/22/18 20:59 Hct 29.3 % (35.0-51.0) L 01/22/18 20:59 MCV 88.8 fL (80.0-94.0) 01/22/18 20:59 MCH 28.9 pg (27.0-31.0) 01/22/18 20:59 MCHC 32.6 g/dL (33.0-37.0) L 01/22/18 20:59 RDW 19.7 % (11.5-14.5) H 01/22/18 20:59 Plt Count 161 K/uL (130-400) 01/22/18 20:59 MPV 7.0 fL (7.2-11.7) L 01/22/18 20:59 Neut % (Auto) 68.7 % (50.0-75.0) 01/22/18 20:59 Lymph % (Auto) 14.2 % (20.0-40.0) L 01/22/18 20:59 Amite % (Auto) 12.2 % (0.0-10.0) H 01/22/18 20:59 Eos % (Auto) 3.8 % (0.0-4.0) 01/22/18 20:59 Baso % (Auto) 1.1 % (0.0-2.0) 01/22/18 20:59 Neut # (Auto) 2.9 K/uL (1.8-7.0) 01/22/18 20:59 Lymph # (Auto) 0.6 K/uL (1.0-4.3) L 01/22/18 20:59 Amite # (Auto) 0.5 K/uL (0.0-0.8) 01/22/18 20:59 Eos # (Auto) 0.2 K/uL (0.0-0.7) 01/22/18 20:59 Baso # (Auto) 0.0 K/uL (0.0-0.2) 01/22/18 20:59 PT 17.4 SECONDS (9.7-12.2) H 01/22/18 20:59 INR 1.6 01/22/18 20:59 APTT 37 SECONDS (21-34) H 01/22/18 20:59 Sodium 135 mmol/L (132-148) 01/22/18 20:59 Potassium 3.3 mmol/L (3.6-5.2) L 01/22/18 20:59 Chloride 94 mmol/L (98-107) L 01/22/18 20:59 Carbon Dioxide 27 mmol/L (22-30) 01/22/18 20:59 Anion Gap 17 (10-20) 01/22/18 20:59 BUN 42 mg/dL (9-20) H 01/22/18 20:59 Creatinine 3.4 mg/dL (0.8-1.5) H 01/22/18 20:59 Est GFR ( Amer) 22 01/22/18 20:59 Est GFR (Non-Af Amer) 19 01/22/18 20:59 POC Glucose (mg/dL) 131 mg/dL (65-110) H 01/26/18 11:07 Random Glucose 108 mg/dL (75-110) 01/22/18 20:59 Calcium 8.1 mg/dl (8.6-10.4) L 01/22/18 20:59 Iron 57 ug/dL (49-181) 01/24/18 07:43 TIBC 193 ug/dL (250-450) L 01/24/18 07:43 % Saturation 29 (20-55) 01/24/18 07:43 Ferritin 502.0 ng/mL 01/24/18 07:43 Total Bilirubin 0.9 mg/dL (0.2-1.3) 01/22/18 20:59 AST 23 U/L (17-59) 01/22/18 20:59 ALT 17 U/L (21-72) L 11/09/18 20:59 Alkaline Phosphatase 258 U/L (38-126) H 01/22/18 20:59 Ammonia 11 umol/L (9-33) 01/22/18 20:59 Total Protein 6.6 g/dL (6.3-8.3) 01/22/18 20:59 Albumin 3.3 g/dL (3.5-5.0) L 01/22/18 20:59 Globulin 3.3 gm/dL (2.2-3.9) 01/22/18 20:59 Albumin/Globulin Ratio 1.0 (1.0-2.1) 01/22/18 20:59 Sefbg-9-[id number] 254 mg/dL (83-199) H 01/24/18 07:43 Ceruloplasmin 30 mg/dL (18-36) 01/24/18 07:43 Alpha Fetoprotein 1.1 ng/mL (0.0-7.5) 01/24/18 07:43 Fluid Source Peritoneal/ascites 01/25/18 21:33 Fluid Appearance Clear (CLEAR) 01/25/18 21:33 Fluid WBC 29.0 /mm3 (0.0-300.0) 01/25/18 21:33 Fluid RBC 6.0 /mm3 (0.0-0.0) H 01/25/18 21:33 Fluid Tot Cell Count 100 (0-0) H 01/25/18 21:33 Fluid Neutrophils 4.0 % (0-0) H 01/25/18 21:33 Fluid Lymphocytes 86.0 % (0-0) H 01/25/18 21:33 Fld Monocyte/Macrophag 9 % (0-0) H 01/25/18 21:33 Fluid Comment 01/25/18 21:33 Stool Occult Blood Negative (NEGATIVE) 01/22/18 20:27 Anti-Mitochondrial Ab Negative (Negative) 01/24/18 07:43 Smooth Muscle Ab Titer 1:160 Titer (< 1:20) H 01/24/18 07:43 Anti-Smooth Muscle Ab Positive (Negative) H 01/24/18 07:43 Hepatitis A IgM Ab Negative (NEGATIVE) 01/24/18 07:43 Hep Bs Antigen Negative (NEGATIVE) 01/24/18 07:43 Hep Bs Antibody Negative (NEGATIVE) 01/24/18 07:43 Hep B Core IgM Ab Negative (NEGATIVE) 01/24/18 07:43 Hepatitis C Antibody Negative (NEGATIVE) 01/24/18 07:43 Blood Type AB POSITIVE 01/22/18 21:06 Antibody Screen Negative 01/22/18 21:06 - Hospital Course Hospital Course: Chief complaint: Patient was sent from hemodialysis because of the abdominal distention. History present illness: 62-year-old male with history of end-stage renal disease on dialysis, history of leukemia in the past on the remission, chronic atrial fibrillation, episodes of hypotension, chronic leg ulcers,weakness and pedal edema, recent hospitalization with anasarca, CHF, Nonhealing leg ulcers, treated aggressively with the multiple wound debridement, and a dressing. Significant improvement in the leg ulcers noted. Patient was recently hospitalized elevated INR and bleeding. Coumadin was discontinued, patient was placed on newer oral anticoagulants. patient was getting the hemodialysis yesterday and he got increasing abdominal discomfort, and abdominal swelling and shortness of breath. Because of that patient was sent to the emergency room and. In the emergency room patient was having increasing abdominal distention. Also there was a black stools was noted. But guaiac was done in the emergency room was negative. Patient underwent a CAT scan of the abdomen showing evidence of large ascites. But otherwise patient to having good oxygenation and needed hospitalization. . Past medical history: End-stage renal disease on dialysis, history of leukemia in remission, chronic atrial fibrillation, chronic cellulitis, CHF, AICD, vertibral abscess and s/p surgery Allergy: No known drug allergy. Personal history: Currently patient is a nonsmoker nonalcoholic. Family history noncontributory. Review of systems: The patient is in significant weakness, tiredness, easy fatigability. Generalized weight gain, and anasarca. Denies any nausea. Patient started noticing left heel ulcer, initially started having blisterlike lesion, which burst into ulcer. On examination: HEENT PERRLA, neck supple No thyromegaly was noted and no cervical adenopathy noted Chest bilateral good air entry, no wheezing or rales noted CVS regular heart sound, systolic murmur, ACD noted Abdominal distention, tenderness, negative, Generalized edema noted, more pronounced in the both lower extremities. Right heel showing evidence of necrotic skin changes. 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 01/22/18 20:59 01/22/18 20:59 Assessment/recommendation: 62-year-old male with history of end-stage renal disease on dialysis, history of leukemia in remission, atrial fibrillation on anticoagulation. He also had a back surgery recently. Chronic pain. History of Coumadin toxicity in the past. Now admitted with abdominal distention, worsening ascites. Patient also has a cirrhotic changes in the liver from the CAT scan. Will get a GI evaluation. We'll possibly hold off the anticoagulation. Patient will need a paracentesis therapeutically. Patient also needs dialysis. Meanwhile will continue the current treatment. I discussed with the harpoon engagement planning operator. DVT GI prophylaxis and will follow-up the patient Will continue the BiPAP Course in the Hospital: Patient admitted to the hospital with acute intestinal abdominal distention. I discussed with the patient, there was a significant large ascites noted. GI evaluation was called in. Discussed with the patient, he agreed to have a paracentesis. Patient was on anticoagulation which was on hold. Finally patient underwent paracentesis yesterday. 8 L of fluid removed Patient abdomen got better. He was feeling well. Tolerated the dialysis. He will be discharged home. He will continue his home medication including anticoagulation. Final diagnosis acute decompensated right-sided heart failure. Cardiogenic liver disease. Liver cirrhosis. Ascites. Patient will continue the current treatment. He may need a recurrent the paracentesis and will follow the patient Discharge Exam - Head Exam Head Exam: NORMAL INSPECTION, NORMOCEPHALIC Discharge Plan - Discharge Medications Prescriptions: Pantoprazole [Protonix EC Tab] 40 mg PO DAILY #30 ect - Follow Up Plan Condition: STABLE Disposition: HOME/ ROUTINE Instructions: Heart Failure, Adult (DC), Fluid in the Belly (Ascites) (DC), Pantoprazole, Dialysis and Diet Additional Instructions: Please f/u with Dr. Hill office in 1 week Please f/c with HD as scheduled Please resume anticougulant continue medication as per med. rec. VNS for home care / home PT Referrals: Jesus Hill MD [Staff Provider] -
== END 2018-01-26 17:35 | disposition home or self-care (01) | DRG 432 ==
LOC: C.ER 19:45 → C.3T 21:52
PROVIDERS: ADMIT Internal Medicine; ATTEND Internal Medicine
PROC: 0W9G3ZZ Drainage of Peritoneal Cavity, Percutaneous Approach (ICD-10-PCS; principal; 2018-01-25)
PROC: 5A1D70Z Performance of Urinary Filtration, Intermittent, Less than 6 Hours Per Day (ICD-10-PCS; 2018-01-26)
DX: K74.60 Unspecified cirrhosis of liver (principal); N18.6 End stage renal disease; R18.8 Other ascites; I13.2 Hypertensive heart and chronic kidney disease with heart failure and with stage 5 chronic kidney disease, or end stage renal disease; I42.9 Cardiomyopathy, unspecified; C95.91 Leukemia, unspecified, in remission; L03.116 Cellulitis of left lower limb; L03.115 Cellulitis of right lower limb; L97.429 Non-pressure chronic ulcer of left heel and midfoot with unspecified severity; E11.52 Type 2 diabetes mellitus with diabetic peripheral angiopathy with gangrene; E11.22 Type 2 diabetes mellitus with diabetic chronic kidney disease; I50.9 Heart failure, unspecified; I48.2 Chronic atrial fibrillation; J44.9 Chronic obstructive pulmonary disease, unspecified; Z95.810 Presence of automatic (implantable) cardiac defibrillator; Z99.2 Dependence on renal dialysis; I27.20 Pulmonary hypertension, unspecified; D63.8 Anemia in other chronic diseases classified elsewhere; E11.621 Type 2 diabetes mellitus with foot ulcer

== ENCOUNTER 2018-03-14 14:44 | Inpatient (IN) | payer MEDICARE, BC ==
[2018-03-14 14:44] VITALS: PULSE 112
[2018-03-14 14:58] VITALS: BMI 33.7
[2018-03-14] MEDS ORDERED: Piperacill/Tazo 3.375gm in Dex 3.375 GM/50 ML BAG IVPB STA (15:20)
[2018-03-14 15:44] LABS: BASO % 0.3 % (0.0-2.0); EOS # 0.2 K/uL (0.0-0.7); EOS % 1.2 % (0.0-4.0); HEMOGLOBIN 7.7 g/dL (12.0-18.0); LYMPH # 1.2 K/uL (1.0-4.3); LYMPH % 8.1 % (20.0-40.0); MEAN CELL VOLUME 88.2 fL (80.0-94.0); MEAN CORPUSCULAR HEMOGLOBIN 28.3 pg (27.0-31.0); MEAN PLATELET VOLUME 8.2 fL (7.2-11.7); MONO # 0.8 K/uL (0.0-0.8); MONO % 5.3 % (0.0-10.0); NEUT # 12.7 K/uL (1.8-7.0); NEUT % 85.1 % (50.0-75.0); NRBC % 0.6 % (0.0-2.0); PLATELET COUNT 152 K/uL (130-400); RBC 2.73 Mil/uL (4.40-5.90); RED CELL DISTRIBUTION WIDTH 17.8 % (11.5-14.5); WHITE BLOOD COUNT 14.9 K/uL (4.8-10.8)
[2018-03-14] MEDS ORDERED: Piperacillin/Tazobact 3.375 gm 100 ML IVPB ONE (15:53)
[2018-03-14 16:12] LABS: ALB/GLOB RATIO 0.9 (1.0-2.1); ALBUMIN 2.8 g/dL (3.5-5.0); CALCIUM 6.8 mg/dl (8.6-10.4)
[2018-03-14 16:16] LABS: VENOUS BLOOD GAS BASE EXCESS -3.1 mmol/L (0.0-2.0); VENOUS BLOOD GAS PCO2 35 mmHg (40-60); VENOUS BLOOD GAS PO2 35 mm/Hg (30-55); VENOUS BLOOD PH 7.39 (7.32-7.43)
--- NOTE | 2018-03-14 16:41 | RAD ---
Date of service: 03/14/2018 PROCEDURE: Right Foot Radiographs. HISTORY: draining heel ulcer COMPARISON: None. FINDINGS: BONES: There is severe diffuse bone demineralization. There is no acute displaced fracture. There is apparent radiolucency and erosion in the superior calcaneus. JOINTS: Normal. SOFT TISSUES: There is soft tissue irregularity and ulceration overlying the superior calcaneus. OTHER FINDINGS: There are advanced atherosclerotic vascular calcifications.. IMPRESSION: Apparent radiolucency and erosion in the superior calcaneus underneath the large ulcer concerning for osteomyelitis. An MRI of the foot without and with intravenous contrast would be helpful for further evaluation.
[2018-03-14] MEDS ORDERED: Sodium Chloride 0.9% 1,000 ML IV SCH (17:00)
[2018-03-14 17:37] LABS: EOSINOPHIL 1 % (0-4); LYMPHOCYTE 9 % (20-40); MONOCYTE 4 % (0-10); NEUTROPHIL 86 % (50-75); PLATELET ESTIMATE NORMAL (NORMAL); TOTAL CELLS COUNTED 100
--- NOTE | 2018-03-14 17:54 | RAD ---
Date of service: 03/14/2018 HISTORY: Sepsis Patient COMPARISON: 01/22/2018 FINDINGS: LUNGS: There are low lung volumes. There is interval development of diffuse haziness in the right lung. There is subsegmental atelectasis in the left mid lung. PLEURA: No pleural effusions or pneumothorax. CARDIOVASCULAR: Persistent moderate cardiomegaly. There are aortic atherosclerotic calcifications present. There is stable appearance of left-sided AICD. OSSEOUS STRUCTURES: Within normal limits for the patient's age. Status post posterior spinal fixation in the mid and lower thoracic spine. VISUALIZED UPPER ABDOMEN: Normal. OTHER FINDINGS: None. IMPRESSION: Diffuse haziness in the right lung which may represent layering pleural effusion or alveolar pulmonary edema. No focal consolidation. Persistent moderate cardiomegaly.
--- NOTE | 2018-03-14 17:59 | CP.PCM.HP ---
History of Present Illness - History of Present Illness History of Present Illness: Chief complaint: Increasing drainage of the right leg ulcer HPI: Patient is a 62-year-old male with history of end-stage renal disease on dialysis, hypertension, diabetes, congestive heart failure, atrial fibrillation, history of leukemia in the past on remission, COPD, sleep apnea, on dialysis, recurrent leg ulcers admitted to the hospital with increasing fever, right leg and draining swelling swelling with the foul-smelling discharge noted. He was also having episodes of fever. Chills. He was not feeling well. Nausea vomiting and hives noted Social history: Patient is a non-smoker nonalcoholic Surgical history: History of back surgery spinal stabilization surgery pacemaker Family history: Mother had a history of heart disease and diabetes and also CAD Allergies no known drug allergy Medications reviewed Review of systems: Patient complaining of increasing fatigue. Weakness. Also nausea. He was also having episodes of fever. On examination: Patient is looking very sick. But he is able to communicate. Complaining of left ear pain. Nausea noted. Abdominal pain noted. Did not have any bowel movements. Right leg foul-smelling discharge noted in the heel. Patient was seen by [facility] [facility] already. Wound debridement was also being carried out Labs reviewed Elevated WBC noted. Patient was also seen by infectious disease. 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 On BiPAP. Now admitted with the severe sepsis, possible bacteremia associate with a severe septic symptoms. Foul-smelling the right leg ulcers. Patient in the past had a recurrent ulcers. We will get infectious disease evaluation. Surgical evaluation. Podiatry consultation renal evaluation. On antibiotic. I spoke to the family and patient in detail. We will follow the patient Present on Admission - Present on Admission Any Indicators Present on Admission: No History of DVT/PE: No History of Uncontrolled Diabetes: No Urinary Catheter: No Decubitus Ulcer Present: No Past Patient History - Infectious Disease Hx of Infectious Diseases: None - Tetanus Immunizations Tetanus Immunization: Unknown - Past Medical History & Family History Past Medical History?: Yes - Past Social History Smoking Status: Never Smoked - CARDIAC Hx Cardiac Disorders: Yes Hx Congestive Heart Failure: Yes Hx Hypertension: Yes - PULMONARY Hx Respiratory Disorders: Yes Hx Chronic Obstructive Pulmonary Disease (COPD): Yes (uses CPAP for sleep apnea) - NEUROLOGICAL Hx Neurological Disorder: Yes (PERIPHERAL NEUROPATHY) Hx Dizziness: Yes - HEENT Hx HEENT Problems: No - RENAL Hx Chronic Kidney Disease: Yes Hx Dialysis: Yes Type of Dialysis Access: R arm av shunt- MWF - ENDOCRINE/METABOLIC Hx Endocrine Disorders: Yes Hx Diabetes Mellitus Type 2: Yes - HEMATOLOGICAL/ONCOLOGICAL Hx Blood Disorders: Yes Hx Blood Transfusions: Yes Hx Cancer: Yes Hx Chemotherapy: Yes 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) - INTEGUMENTARY Hx Dermatological Problems: Yes Hx Cellulitis: Yes - MUSCULOSKELETAL/RHEUMATOLOGICAL Hx Musculoskeletal Disorders: Yes Hx Arthritis: Yes - GASTROINTESTINAL Hx Gastrointestinal Disorders: Yes Hx Constipation: Yes - GENITOURINARY/GYNECOLOGICAL Hx Genitourinary Disorders: Yes Other/Comment: On HD-M-W-- R arm AV shunt - PSYCHIATRIC Hx Psychophysiologic Disorder: Yes Hx Anxiety: Yes Hx Depression: Yes Hx Substance Use: No - SURGICAL HISTORY Hx Surgeries: Yes Hx Angiogram: Yes Hx Arteriovenous Shunt: Yes Hx Cardiac Catheterization: Yes Hx Orthopedic Surgery: Yes (KNEE) Hx Vascular Access Device: Yes Other/Comment: hx back surgery T5. defibrillator/pacemaker placement. bilateral heel surgery - ANESTHESIA Hx Anesthesia: Yes Hx Anesthesia Reactions: No Hx Malignant Hyperthermia: No Meds Allergies/Adverse Reactions: Allergies Allergy/AdvReac Type Severity Reaction Status Date / Time No Known Allergies Allergy Verified 03/14/18 14:49 Results - Vital Signs Recent Vital Signs: Last Vital Signs Temp 98.1 F 03/14/18 17:04 Pulse 103 H 03/14/18 17:04 Resp 22 03/14/18 17:04 BP 92/70 L 03/14/18 17:04 Pulse Ox 98 03/14/18 17:04 - Labs Result Diagrams: 03/16/18 11:32 03/16/18 11:32 Labs: Laboratory Results - last 24 hr 03/14/18 03/14/18 03/14/18 14:56 15:38 15:38 WBC 14.9 H D RBC 2.73 L Hgb 7.7 L Hct 24.1 L MCV 88.2 MCH 28.3 MCHC 32.0 L RDW 17.8 H Plt Count 152 MPV 8.2 Neut % (Auto) 85.1 H Lymph % (Auto) 8.1 L [place] % (Auto) 5.3 Eos % (Auto) 1.2 Baso % (Auto) 0.3 Neut # (Auto) 12.7 H Lymph # (Auto) 1.2 [place] # (Auto) 0.8 Eos # (Auto) 0.2 Baso # (Auto) 0.0 Neutrophils % (Manual) 86 H Lymphocytes % (Manual) 9 L Monocytes % (Manual) 4 Eosinophils % (Manual) 1 Platelet Estimate Normal PT 22.0 H INR 2.0 APTT 36 H pO2 VBG pH VBG pCO2 VBG HCO3 VBG Total CO2 VBG O2 Sat (Calc) VBG Base Excess VBG Potassium Glucose Lactate Sodium Potassium Chloride Carbon Dioxide Anion Gap BUN Creatinine Est GFR ( Amer) Est GFR (Non-Af Amer) POC Glucose (mg/dL) 78 Random Glucose Calcium Phosphorus Magnesium Total Bilirubin AST ALT Alkaline Phosphatase C-React Prot High Sens Total Protein Albumin Globulin Albumin/Globulin Ratio Venous Blood Potassium Blood Type Antibody Screen 03/14/18 03/14/18 03/14/18 15:38 15:38 16:13 WBC RBC Hgb Hct MCV MCH MCHC RDW Plt Count MPV Neut % (Auto) Lymph % (Auto) [place] % (Auto) Eos % (Auto) Baso % (Auto) Neut # (Auto) Lymph # (Auto) [place] # (Auto) Eos # (Auto) Baso # (Auto) Neutrophils % (Manual) Lymphocytes % (Manual) Monocytes % (Manual) Eosinophils % (Manual) Platelet Estimate PT INR APTT pO2 35 VBG pH 7.39 VBG pCO2 35 L VBG HCO3 21.7 VBG Total CO2 22.3 VBG O2 Sat (Calc) 70.4 H VBG Base Excess -3.1 L VBG Potassium 2.8 L Glucose 70 L Lactate 1.8 Sodium 128 L 130.0 L Potassium 3.1 L Chloride 93 L 95.0 L Carbon Dioxide 19 L Anion Gap 19 BUN 97 H Creatinine 7.4 H* D Est GFR ( Amer) 9 Est GFR (Non-Af Amer) 8 POC Glucose (mg/dL) Random Glucose 81 D Calcium 6.8 L Phosphorus 5.2 H Magnesium 2.0 Total Bilirubin 2.5 H AST 24 ALT 22 Alkaline Phosphatase 444 H D C-React Prot High Sens > 15.00 H Total Protein 5.9 L Albumin 2.8 L Globulin 3.1 Albumin/Globulin Ratio 0.9 L Venous Blood Potassium 2.8 L Blood Type Antibody Screen 03/14/18 16:25 WBC RBC Hgb Hct MCV MCH MCHC RDW Plt Count MPV Neut % (Auto) Lymph % (Auto) [place] % (Auto) Eos % (Auto) Baso % (Auto) Neut # (Auto) Lymph # (Auto) [place] # (Auto) Eos # (Auto) Baso # (Auto) Neutrophils % (Manual) Lymphocytes % (Manual) Monocytes % (Manual) Eosinophils % (Manual) Platelet Estimate PT INR APTT pO2 VBG pH VBG pCO2 VBG HCO3 VBG Total CO2 VBG O2 Sat (Calc) VBG Base Excess VBG Potassium Glucose Lactate Sodium Potassium Chloride Carbon Dioxide Anion Gap BUN Creatinine Est GFR ( Amer) Est GFR (Non-Af Amer) POC Glucose (mg/dL) Random Glucose Calcium Phosphorus Magnesium Total Bilirubin AST ALT Alkaline Phosphatase C-React Prot High Sens Total Protein Albumin Globulin Albumin/Globulin Ratio Venous Blood Potassium Blood Type AB POSITIVE Antibody Screen Negative
[2018-03-14] MEDS ORDERED: Dextrose 50% SYRINGE Inj (50 ml) IV PRN (18:01)
[2018-03-14] MEDS ORDERED: Glucagon Recombinant 1 mg Inj IM PRN (18:01)
--- NOTE | 2018-03-14 18:35 | C.PDOC ---
History Of Present Illness 62 year old male with PMHx of diabetes, COPD, CHF, and AFIB presents to the ED accompanied with for evaluation of draining right foot ulcer since last night. Denies any fever, chills, vomiting, or nausea. Patient has a history of multiple debridements for bilateral heel ulcers. As per and patient, patient has decreased appetite over past week. Patient is due for dialysis tomorrow morning. Time Seen by Provider: 03/14/18 14:56 Chief Complaint (Nursing): Abnormal Skin Integrity Past Medical History Vital Signs: Last Vital Signs Temp 98.1 F 03/14/18 17:04 Pulse 103 H 03/14/18 17:04 Resp 22 03/14/18 17:04 BP 92/70 L 03/14/18 17:04 Pulse Ox 98 03/14/18 17:04 - Medical History PMH: Anxiety, Arthritis, Asthma, Atrial Fibrillation, Cardia Arrhythmia (A FIB), CHF, COPD (uses CPAP for sleep apnea), Depression, Diabetes, Fractures, HTN, Malignancy (AML LEUKEMIA), Osteoporosis, Peripheral Edema, End Stage Renal Disease, Chronic Kidney Disease, Sleep Apnea (C-PAP) Surgical History: Back Surgery, Pacemaker - [facility] Procedures (01/22/18) BONE GRAFT NEC (08/23/13) BONE MARROW OPS NEC (08/23/13) CENTRAL VENOUS CATHETER PLACEMENT WITH GUIDANCE (08/23/13) CHEST CAGE BONE BIOPSY (08/23/13) DIALYSIS ARTERIOVENOSTOM (12/08/13) DORSAL & DORSOLUMBAR FUSION OF POSTERIOR COL/TECHNIQUE (08/23/13) DRAINAGE OF PERITONEAL CAVITY, PERCUTANEOUS APPROACH (01/22/18) DRAINAGE OF RIGHT LOWER LEG SKIN, EXTERNAL APPROACH, DIAGN (06/30/17) DX ULTRASOUND-HEART (08/23/13) EXCISE BONE FOR GFT NEC (08/23/13) EXCISION OF L FOOT SUBCU/FASCIA, OPEN APPROACH (09/15/16) EXCISION OF LEFT FOOT SKIN, EXTERNAL APPROACH (06/30/17) EXCISION OF LEFT TARSAL, OPEN APPROACH, DIAGNOSTIC (12/26/16) EXCISION OF RIGHT FOOT SKIN, EXTERNAL APPROACH (12/26/16) EXCISION OF RIGHT LOWER LEG SKIN, EXTERNAL APPROACH (06/30/17) EXTRACTION OF LEFT FOOT SKIN, EXTERNAL APPROACH (09/15/16) FUSION/REFUS OF 2-3 VERTEBRAE (08/23/13) HEAD SOFT TISS X-RAY NEC (12/08/13) HEMODIALYSIS (11/12/13) INSERTION OF INFUSION DEV INTO SUP VENA CAVA, PERC APPROACH (12/26/16) NON-INVASIVE MECHANICAL VENTILATION (11/12/13) OCCUPATIONAL THERAPY (09/27/13) PACKED CELL TRANSFUSION (08/23/13) PERFORMANCE OF URINARY FILTRATION, MULTIPLE (06/30/16) PHYSICAL THERAPY NEC (09/27/13) RECREATIONAL THERAPY (09/27/13) REMOVAL OF RESERVOIR FROM TRUNK SUBCU/FASCIA, OPEN APPROACH (12/31/17) REPOSITION RIGHT BASILIC VEIN, OPEN APPROACH (06/30/16) SPINAL CANAL EXPLOR NEC (08/23/13) SUPPLEMENT LEFT FOOT WITH NONAUT SUB, OPEN APPROACH (06/30/17) THORACENTESIS (11/12/13) TRANSFUSE NONAUT RED BLOOD CELLS IN PERIPH VEIN, PERC (10/29/17) VACCINATION NEC (11/12/13) VENOUS CATHETERIZATION FOR RENAL DIALYSIS (12/08/13) Family History: States: Unknown Family Hx - Social History Hx Tobacco Use: No Hx Alcohol Use: No Hx Substance Use: No - Immunization History Hx Tetanus Toxoid Vaccination: Yes Hx Influenza Vaccination: Yes Hx Pneumococcal Vaccination: Yes Physical Exam - Physical Exam Appears: Non-toxic, No Acute Distress Skin: Warm, Pale Head: Normacephalic Eye(s): bilateral: Conjunctiva Pale Nose: Normal Oral Mucosa: Moist Neck: Supple Chest: Symmetrical Cardiovascular: Other (irregularly irregular) Respiratory: Normal Breath Sounds, No Rales, No Rhonchi, No Wheezing Gastrointestinal/Abdominal: Distention, Other ((+) fluid wave ) Extremity: Normal ROM, No Deformity, Other (AV graft noted to right upper arm. chronic william skin changes to b/l lower extremities. actively draning right heel ulcer. ) Neurological/Psych: Oriented x3, Normal Speech ED Course And Treatment - Laboratory Results Result Diagrams: 03/14/18 15:38 03/14/18 15:38 ECG: Interpreted By Me, Viewed By Me ECG Rhythm: Atrial Fibrillation ECG Interpretation: No Acute Changes Rate From EC O2 Sat by Pulse Oximetry: 98 (RA) Pulse Ox Interpretation: Normal - Other Rad CXR X-Ray: Viewed By Me, Read By Radiologist Interpretation: Accession No. : [id number]. Patient Name / ID : CHUY MONROY V / [id number]. Exam Date : 03/14/2018 15:42:24 ( Approved ). Study Comment : Sex / Age : M / 62Y. Creator : Daniella Del Valle MD. Dictator : Daniella Del Valle MD. Civil Engineering Design Draftsperson : Supervisor Screen Printing : Daniella Del Valle MD. Approver2 : Report Date : 03/14/2018 17:50:33. My Comment : . Date of service: 03/14/2018. HISTORY: Sepsis Patient. COMPARISON: 01/22/2018. FINDINGS: LUNGS: There are low lung volumes. There is interval development of diffuse haziness in the right lung. There is subsegmental atelectasis in the left mid lung. PLEURA: No pleural effusions or pneumothorax. CARDIOVASCULAR: Persistent moderate cardiomegaly. There are aortic atherosclerotic calcifications present. There is stable appearance of left-sided AICD. OSSEOUS STRUCTURES: Within normal limits for the patient's age. Status post posterior spinal fixation in the mid and lower thoracic spine. VISUALIZED UPPER ABDOMEN: Normal. OTHER FINDINGS: None. IMPRESSION: Diffuse haziness in the right lung which may represent layering pleural effusion or alveolar pulmonary edema. No focal consolidation. Persistent moderate cardiomegaly. XR right foot X-Ray: Viewed By Me, Read By Radiologist Interpretation: Accession No. : [id number]. Patient Name / ID : CHUY CARDONA V / [id number]. Exam Date : 03/14/2018 15:48:52 ( Approved ). Study Comment : Sex / Age : M / 62Y. Creator : Daniella Del Valle MD. Dictator : Daniella Del Valle MD. Civil Engineering Design Draftsperson : Supervisor Screen Printing : Daniella Del Valle MD. Approver2 : Report Date : 03/14/2018 16:37:42. My Comment : . Date of service: 03/14/2018. PROCEDURE: Right Foot Radiographs. HISTORY: draining heel ulcer. COMPARISON: None. FINDINGS: BONES: There is severe diffuse bone demineralization. There is no acute displaced fracture. There is apparent radiolucency and erosion in the superior calcaneus. JOINTS: Normal. SOFT TISSUES: There is soft tissue irregularity and ulceration overlying the superior calcaneus. OTHER FINDINGS: There are advanced atherosclerotic vascular calcifications.. IMPRESSION: Apparent radiolucency and erosion in the superior calcaneus underneath the large ulcer concerning for osteomyelitis. An MRI of the foot without and with intravenous contrast would be helpful for further evaluation. Medical Decision Making Medical Decision Making: Plan - Bloodwork - EKG - UA Spoke with Dr. Hill. Patient will be admitted under his service. Disposition - Disposition Disposition: HOSPITALIZED Disposition Time: 17:00 Condition: FAIR - Clinical Impression Clinical Impression: Foot ulcer - Scribe Statement The provider has reviewed the documentation as recorded by the Scribe Oksana Tamayo All medical record entries made by the Garlandibe were at my direction and personally dictated by me. I have reviewed the chart and agree that the record accurately reflects my personal performance of the history, physical exam, medical decision making, and the department course for this patient. I have also personally directed, reviewed, and agree with the discharge instructions and disposition.
[2018-03-14] MEDS: Tramadol 25 mg PO PRN (20:35)
[2018-03-14] MEDS: (Novolin R) Insulin Human Regular 100 units/ml vial SC SCH (22:52)
[2018-03-15] MEDS ORDERED: Tramadol 25 mg PO ONE (01:01)
[2018-03-15] MEDS: (Novolin R) Insulin Human Regular 100 units/ml vial SC SCH ×4 (08:12→21:45)
--- NOTE | 2018-03-15 10:36 | CP.PCM.CON ---
History of Present Illness - History of Present Illness History of Present Illness: Podiatry consult note for Dr. Nunn 62M with pmhx of ESRD, leukemia in remission, afib, CHF, AICD seen and evaluated in the ED with right posterior ankle wound. Patient is well known to Dr. Nunn and has had multiple debridements of the wound in the past. Patient is confused today and does not respond to questions. Patient's is bedside. Patient does state that his right foot is in pain. PMHx: see above PSHx: pacemaker, knee sx, cardiac cath, AV shunt, foot surgery All: NKDA Past Patient History - Infectious Disease Hx of Infectious Diseases: None - Tetanus Immunizations Tetanus Immunization: Unknown - Past Medical History & Family History Past Medical History?: Yes - Past Social History Smoking Status: Never Smoked - CARDIAC Hx Atrial Fibrillation: Yes Hx Cardia Arrhythmia: Yes (A FIB) Hx Congestive Heart Failure: Yes Hx Hypertension: Yes Hx Pacemaker: Yes Hx Peripheral Edema: Yes - PULMONARY Hx Asthma: Yes Hx Chronic Obstructive Pulmonary Disease (COPD): Yes (uses CPAP for sleep apnea) Hx Sleep Apnea: Yes (C-PAP) - NEUROLOGICAL Hx Neurological Disorder: Yes (PERIPHERAL NEUROPATHY) Hx Dizziness: Yes - HEENT Hx HEENT Problems: No - RENAL Hx Chronic Kidney Disease: Yes - ENDOCRINE/METABOLIC Hx Endocrine Disorders: Yes Hx Diabetes Mellitus Type 2: Yes - HEMATOLOGICAL/ONCOLOGICAL Hx Blood Disorders: Yes Hx Blood Transfusions: Yes Hx Cancer: Yes Hx Chemotherapy: Yes 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) - INTEGUMENTARY Hx Dermatological Problems: Yes Hx Cellulitis: Yes - MUSCULOSKELETAL/RHEUMATOLOGICAL Hx Arthritis: Yes Hx Falls: No Hx Fractures: Yes Hx Osteoporosis: Yes - GASTROINTESTINAL Hx Gastrointestinal Disorders: Yes Hx Constipation: Yes - GENITOURINARY/GYNECOLOGICAL Hx Genitourinary Disorders: Yes Other/Comment: On HD-M-W-F- R arm AV shunt - PSYCHIATRIC Hx Anxiety: Yes Hx Depression: Yes Hx Substance Use: No - SURGICAL HISTORY Hx Surgeries: Yes Hx Angiogram: Yes Hx Arteriovenous Shunt: Yes Hx Cardiac Catheterization: Yes Hx Orthopedic Surgery: Yes (KNEE) Hx Vascular Access Device: Yes Other/Comment: hx back surgery T5. defibrillator/pacemaker placement. bilateral heel surgery - ANESTHESIA Hx Anesthesia: Yes Hx Anesthesia Reactions: No Hx Malignant Hyperthermia: No Meds Allergies/Adverse Reactions: Allergies Allergy/AdvReac Type Severity Reaction Status Date / Time No Known Allergies Allergy Verified 03/14/18 14:49 - Medications Medications: Current Medications Apixaban (Eliquis) 2.5 mg PO BID [facility] Last Admin: 03/14/18 20:35 Dose: 2.5 mg Calcium Acetate (Phoslo) 667 mg PO TIDCC [facility] Last Admin: 03/15/18 08:14 Dose: 667 mg Carvedilol (Coreg) 3.125 mg PO BID [facility] Last Admin: 03/14/18 20:35 Dose: 3.125 mg Dextrose (Dextrose 50% Inj) 0 ml IV STAT PRN; Protocol PRN Reason: Hypoglycemia Protocol Last Admin: 03/15/18 08:43 Dose: 25 ml Dextrose (Glutose 15) 0 gm PO ONCE PRN; Protocol PRN Reason: Hypoglycemia Protocol Glucagon (Glucagen Diagnostic Kit) 0 mg IM STAT PRN; Protocol PRN Reason: Hypoglycemia Protocol Sodium Chloride (Sodium Chloride 0.9%) 1,000 mls @ 40 mls/hr IV .Q24H [facility] Last Admin: 03/14/18 19:10 Dose: 40 mls/hr Dextrose (Dextrose 5% In Water 1000 Ml) 1,000 mls @ 0 mls/hr IV .Q0M PRN; P rotocol PRN Reason: Hypoglycemia Protocol Vancomycin HCl 1,500 mg/ (Sodium Chloride) 500 mls @ 125 mls/hr IVPB ONCE ONE; Protocol Stop: 03/15/18 14:29 Insulin Human Regular (Novolin R) 0 unit SC ACHS [facility]; Protocol Last Admin: 03/15/18 08:12 Dose: Not Given Nateglinide (Starlix) 60 mg PO ACTID [facility] Last Admin: 03/15/18 08:12 Dose: Not Given Pantoprazole Sodium (Protonix Ec Tab) 40 mg PO DAILY [facility] Tramadol HCl (Ultram) 25 mg PO Q12H PRN PRN Reason: Pain, moderate (4-7) Last Admin: 03/14/18 20:35 Dose: 25 mg Physical Exam - Constitutional Appears: Non-toxic - Head Exam Head Exam: ATRAUMATIC, NORMOCEPHALIC - Extremities Exam Additional comments: Vasc: Nonpalpable pulses to the DP and PT, delayed CFT to the digits, temperature gradient WNL, +1 pitting pedal edema Derm: chronic skin changes with hyperpigmented skin to entire lower extremity, skin thickening and flaking bilateral lower legs. Right: Full thickness ulceration noted to posterior ankle at level of Achilles insertion measuring approximately 2 cm x 2 cm x 1cm, with mixture granular and fibrotic wound base. No active drainage noted. No fluctuance noted. Minor bieth-wound erythema, no streaking appreciated. Neuro: Gross sensation absent B/L. protective sensation absent Ortho: pain on palpation to the right ankle and LE - Neurological Exam Neurological exam: Alert Results - Vital Signs Recent Vital Signs: Last Vital Signs Temp 98.0 F 03/15/18 01:45 Pulse 93 H 03/15/18 01:45 Resp 18 03/15/18 01:45 BP 144/76 03/14/18 23:50 Pulse Ox 97 03/15/18 01:45 - Labs Result Diagrams: 03/14/18 15:38 03/14/18 15:38 Labs: Laboratory Results - last 24 hr 03/14/18 03/14/18 03/14/18 14:56 15:38 15:38 WBC 14.9 H D RBC 2.73 L Hgb 7.7 L Hct 24.1 L MCV 88.2 MCH 28.3 MCHC 32.0 L RDW 17.8 H Plt Count 152 MPV 8.2 Neut % (Auto) 85.1 H Lymph % (Auto) 8.1 L [place] % (Auto) 5.3 Eos % (Auto) 1.2 Baso % (Auto) 0.3 Neut # (Auto) 12.7 H Lymph # (Auto) 1.2 [place] # (Auto) 0.8 Eos # (Auto) 0.2 Baso # (Auto) 0.0 Neutrophils % (Manual) 86 H Lymphocytes % (Manual) 9 L Monocytes % (Manual) 4 Eosinophils % (Manual) 1 Platelet Estimate Normal PT 22.0 H INR 2.0 APTT 36 H pO2 VBG pH VBG pCO2 VBG HCO3 VBG Total CO2 VBG O2 Sat (Calc) VBG Base Excess VBG Potassium Glucose Lactate Sodium Potassium Chloride Carbon Dioxide Anion Gap BUN Creatinine Est GFR ( Amer) Est GFR (Non-Af Amer) POC Glucose (mg/dL) 78 Random Glucose Calcium Phosphorus Magnesium Total Bilirubin AST ALT Alkaline Phosphatase C-React Prot High Sens Total Protein Albumin Globulin Albumin/Globulin Ratio Venous Blood Potassium Blood Type Antibody Screen 03/14/18 03/14/18 03/14/18 15:38 15:38 16:13 WBC RBC Hgb Hct MCV MCH MCHC RDW Plt Count MPV Neut % (Auto) Lymph % (Auto) [place] % (Auto) Eos % (Auto) Baso % (Auto) Neut # (Auto) Lymph # (Auto) [place] # (Auto) Eos # (Auto) Baso # (Auto) Neutrophils % (Manual) Lymphocytes % (Manual) Monocytes % (Manual) Eosinophils % (Manual) Platelet Estimate PT INR APTT pO2 35 VBG pH 7.39 VBG pCO2 35 L VBG HCO3 21.7 VBG Total CO2 22.3 VBG O2 Sat (Calc) 70.4 H VBG Base Excess -3.1 L VBG Potassium 2.8 L Glucose 70 L Lactate 1.8 Sodium 128 L 130.0 L Potassium 3.1 L Chloride 93 L 95.0 L Carbon Dioxide 19 L Anion Gap 19 BUN 97 H Creatinine 7.4 H* D Est GFR ( Amer) 9 Est GFR (Non-Af Amer) 8 POC Glucose (mg/dL) Random Glucose 81 D Calcium 6.8 L Phosphorus 5.2 H Magnesium 2.0 Total Bilirubin 2.5 H AST 24 ALT 22 Alkaline Phosphatase 444 H D C-React Prot High Sens > 15.00 H Total Protein 5.9 L Albumin 2.8 L Globulin 3.1 Albumin/Globulin Ratio 0.9 L Venous Blood Potassium 2.8 L Blood Type Antibody Screen 03/14/18 03/15/18 03/15/18 16:25 07:12 07:13 WBC RBC Hgb Hct MCV MCH MCHC RDW Plt Count MPV Neut % (Auto) Lymph % (Auto) [place] % (Auto) Eos % (Auto) Baso % (Auto) Neut # (Auto) Lymph # (Auto) [place] # (Auto) Eos # (Auto) Baso # (Auto) Neutrophils % (Manual) Lymphocytes % (Manual) Monocytes % (Manual) Eosinophils % (Manual) Platelet Estimate PT INR APTT pO2 VBG pH VBG pCO2 VBG HCO3 VBG Total CO2 VBG O2 Sat (Calc) VBG Base Excess VBG Potassium Glucose Lactate Sodium Potassium Chloride Carbon Dioxide Anion Gap BUN Creatinine Est GFR ( Amer) Est GFR (Non-Af Amer) POC Glucose (mg/dL) 53 L 53 L Random Glucose Calcium Phosphorus Magnesium Total Bilirubin AST ALT Alkaline Phosphatase C-React Prot High Sens Total Protein Albumin Globulin Albumin/Globulin Ratio Venous Blood Potassium Blood Type AB POSITIVE Antibody Screen Negative 03/15/18 07:58 WBC RBC Hgb Hct MCV MCH MCHC RDW Plt Count MPV Neut % (Auto) Lymph % (Auto) [place] % (Auto) Eos % (Auto) Baso % (Auto) Neut # (Auto) Lymph # (Auto) [place] # (Auto) Eos # (Auto) Baso # (Auto) Neutrophils % (Manual) Lymphocytes % (Manual) Monocytes % (Manual) Eosinophils % (Manual) Platelet Estimate PT INR APTT pO2 VBG pH VBG pCO2 VBG HCO3 VBG Total CO2 VBG O2 Sat (Calc) VBG Base Excess VBG Potassium Glucose Lactate Sodium Potassium Chloride Carbon Dioxide Anion Gap BUN Creatinine Est GFR ( Amer) Est GFR (Non-Af Amer) POC Glucose (mg/dL) 53 L Random Glucose Calcium Phosphorus Magnesium Total Bilirubin AST ALT Alkaline Phosphatase C-React Prot High Sens Total Protein Albumin Globulin Albumin/Globulin Ratio Venous Blood Potassium Blood Type Antibody Screen Assessment & Plan - Assessment and Plan (Free Text) Assessment: 62M with pmhx of ESRD, leukemia in remission, afib, CHF, AICD, and chronic posterior ankle ulceration seen and evaluated in the ED for right posterior ankle ulceration Plan: Patient seen and evaluated Discussed in detail with Dr. Nunn Afebrile, WBC 14.9 Wound cleansed with sterile saline and dressed with betadine and DSD Wound cx taken: f/u results Blood cx taken: f/u results X-ray taken: possible signs of acute OM, further imaging recommended/clinical presentation to evaluated ID consulted, Dr. Zia myers appreciated, f/u Nephro consult, Dr. Rice Will continue to follow Thank you for the consult - Date & Time Date: 03/14/18 Time: 16:30
--- NOTE | 2018-03-15 10:53 | CP.PCM.PN ---
<Sourav Bright - Last Filed: 03/15/18 10:50> Subjective - Date & Time of Evaluation Date of Evaluation: 03/15/18 Time of Evaluation: 10:50 - Subjective Subjective: Podiatry progress note for Dr. Nunn, 62 y/o male patient seen and evaluated at bedside with Dr. Nunn. Patient is resting comfortably. Patient denies any acute overnight events. Patient denies F/N/V/SOB/chills. Dressing was intact with sero-sanguinous strike-through Objective - Vital Signs/Intake and Output Vital Signs (last 24 hours): Temp Pulse Resp BP Pulse Ox 98.0 F 93 H 18 144/76 97 03/15/18 01:45 03/15/18 01:45 03/15/18 01:45 03/14/18 23:50 03/15/18 01:45 Intake and Output: 03/15/18 03/15/18 06:59 18:59 Intake Total 440 Balance 440 - Medications Medications: Current Medications Apixaban (Eliquis) 2.5 mg PO BID [facility] Last Admin: 03/14/18 20:35 Dose: 2.5 mg Calcium Acetate (Phoslo) 667 mg PO TIDCC [facility] Last Admin: 03/15/18 08:14 Dose: 667 mg Carvedilol (Coreg) 3.125 mg PO BID [facility] Last Admin: 03/14/18 20:35 Dose: 3.125 mg Dextrose (Dextrose 50% Inj) 0 ml IV STAT PRN; Protocol PRN Reason: Hypoglycemia Protocol Last Admin: 03/15/18 08:43 Dose: 25 ml Dextrose (Glutose 15) 0 gm PO ONCE PRN; Protocol PRN Reason: Hypoglycemia Protocol Glucagon (Glucagen Diagnostic Kit) 0 mg IM STAT PRN; Protocol PRN Reason: Hypoglycemia Protocol Sodium Chloride (Sodium Chloride 0.9%) 1,000 mls @ 40 mls/hr IV .Q24H [facility] Last Admin: 03/14/18 19:10 Dose: 40 mls/hr Dextrose (Dextrose 5% In Water 1000 Ml) 1,000 mls @ 0 mls/hr IV .Q0M PRN; Protocol PRN Reason: Hypoglycemia Protocol Vancomycin HCl 1,500 mg/ (Sodium Chloride) 500 mls @ 125 mls/hr IVPB ONCE ONE; Protocol Stop: 03/15/18 14:29 Insulin Human Regular (Novolin R) 0 unit SC ACHS [facility]; Protocol Last Admin: 03/15/18 08:12 Dose: Not Given Nateglinide (Starlix) 60 mg PO ACTID [facility] Last Admin: 03/15/18 08:12 Dose: Not Given Pantoprazole Sodium (Protonix Ec Tab) 40 mg PO DAILY [facility] Tramadol HCl (Ultram) 25 mg PO Q12H PRN PRN Reason: Pain, moderate (4-7) Last Admin: 03/14/18 20:35 Dose: 25 mg - Labs Labs: 03/14/18 15:38 03/14/18 15:38 PT 22.0 SECONDS (9.7-12.2) H 03/14/18 15:38 INR 2.0 03/14/18 15:38 APTT 36 SECONDS (21-34) H 03/14/18 15:38 - Constitutional Appears: Well, Non-toxic, No Acute Distress - Head Exam Head Exam: ATRAUMATIC, NORMOCEPHALIC - Extremities Exam Additional comments: Vasc: Nonpalpable pulses to the DP and PT, delayed CFT to the digits, temperature gradient WNL, +1 pitting pedal edema Derm: chronic skin changes with hyperpigmented skin to entire lower extremity, skin thickening and flaking bilateral lower legs. Right: Full thickness ulceration noted to posterior ankle at level of Achilles insertion measuring approximately 2 cm x 2 cm x 1cm, with mixture granular and fibrotic wound base. No active drainage noted. No fluctuance noted. Minor ibeth- wound erythema, no streaking appreciated. Neuro: Gross sensation absent B/L. protective sensation absent Ortho: pain on palpation to the right ankle and LE - Neurological Exam Neurological Exam: Alert, Awake, Oriented x3 - Psychiatric Exam Psychiatric exam: Normal Affect, Normal Mood Assessment and Plan - Assessment and Plan (Free Text) Assessment: 62M with pmhx of ESRD, leukemia in remission, afib, CHF, AICD, and chronic posterior ankle ulceration seen and evaluated in the ED for right posterior ankle ulceration Plan: Patient seen and evaluated with Dr. Nunn Discussed in detail with Dr. uNnn Afebrile, no new labs from today Wound cleansed with sterile saline and dressed with betadine and DSD Wound cx taken: f/u results Blood cx taken: Gram Positive Cocci X-ray taken: possible signs of acute OM, further imaging recommended/clinical presentation to evaluated ID consulted, Dr. Zia myers appreciated, f/u Nephro consult, Dr. Rice Will continue to follow Thank you for the consult <ArlineIsreal - Last Filed: 03/15/18 16:26> Objective - Vital Signs/Intake and Output Vital Signs (last 24 hours): Temp Pulse Resp BP Pulse Ox 97.6 F 86 20 144/76 96 03/15/18 16:09 03/15/18 16:09 03/15/18 16:09 03/14/18 23:50 03/15/18 16:09 Intake and Output: 03/15/18 03/15/18 06:59 18:59 Intake Total 440 380 Balance 440 380 - Medications Medications: Current Medications Apixaban (Eliquis) 2.5 mg PO BID [facility] Last Admin: 03/15/18 11:07 Dose: 2.5 mg Calcium Acetate (Phoslo) 667 mg PO TIDCC [facility] Last Admin: 03/15/18 11:56 Dose: 667 mg Carvedilol (Coreg) 3.125 mg PO BID [facility] Last Admin: 03/15/18 11:05 Dose: Not Given Dextrose (Dextrose 50% Inj) 0 ml IV STAT PRN; Protocol PRN Reason: Hypoglycemia Protocol Last Admin: 03/15/18 08:43 Dose: 25 ml Dextrose (Glutose 15) 0 gm PO ONCE PRN; Protocol PRN Reason: Hypoglycemia Protocol Glucagon (Glucagen Diagnostic Kit) 0 mg IM STAT PRN; Protocol PRN Reason: Hypoglycemia Protocol Dextrose (Dextrose 5% In Water 1000 Ml) 1,000 mls @ 0 mls/hr IV .Q0M PRN; Protocol PRN Reason: Hypoglycemia Protocol Insulin Human Regular (Novolin R) 0 unit SC ACHS [facility]; Protocol Last Admin: 03/15/18 11:53 Dose: Not Given Nateglinide (Starlix) 60 mg PO ACTID [facility] Last Admin: 03/15/18 08:12 Dose: Not Given Oxycodone/Acetaminophen (Percocet 5/325 Mg Tab) 1 tab PO Q6H PRN PRN Reason: Pain, severe (8-10) Stop: 03/18/18 13:11 Last Admin: 03/15/18 13:26 Dose: 1 tab Pantoprazole Sodium (Protonix Ec Tab) 40 mg PO DAILY [facility] Last Admin: 03/15/18 11:07 Dose: 40 mg - Labs Labs: 03/14/18 15:38 03/14/18 15:38 PT 22.0 SECONDS (9.7-12.2) H 03/14/18 15:38 INR 2.0 03/14/18 15:38 APTT 36 SECONDS (21-34) H 03/14/18 15:38 Assessment and Plan - Assessment and Plan (Free Text) Plan: above noted and agree. No abscess or gas in tissue noted . wound is stage 4 pressure ulcer . antibiotic coverage as per Dr Lizarraga ' to start Silversorb dressing in AM . /DR Nunn
[2018-03-15] MEDS: Tramadol 25 mg PO PRN (11:05)
[2018-03-15] MEDS: Pantoprazole 40 mg EC Tab PO SCH (11:07)
--- NOTE | 2018-03-15 11:53 | CARD ---
APPROVED REPORT Date of service: 03/14/2018 EKG Measurement Heart [id number] <Conclusion> Atrial fibrillation with rapid ventricular response with premature ventricular or aberrantly conducted complexes Right axis deviation Possible Right ventricular hypertrophy Nonspecific ST abnormality Abnormal ECG
[2018-03-15] MEDS: Oxycodone/Acetaminophen 5/325 mg Tab PO PRN ×2 (13:26→22:30)
--- NOTE | 2018-03-15 13:57 | CP.PCM.CON ---
History of Present Illness - History of Present Illness History of Present Illness: 62M with pmhx of ESRD, leukemia in remission, afib, CHF, AICD seen and presented to the ED with right posterior ankle wound. Patient is well known to Dr. Nunn and has had multiple debridements of the wound in the past. Patient is confused today and does not respond to questions. Patient's is bedside. Patient does state that his right foot is in pain. Last HD thursday PMHx: see above PSHx: pacemaker, knee sx, cardiac cath, AV shunt, foot surgery All: NKDA Review of Systems - Review of Systems All systems: reviewed and no additional remarkable complaints except (as per HPI) Past Patient History - Infectious Disease Hx of Infectious Diseases: None - Tetanus Immunizations Tetanus Immunization: Unknown - Past Medical History & Family History Past Medical History?: Yes - Past Social History Smoking Status: Never Smoked - CARDIAC Hx Atrial Fibrillation: Yes Hx Cardia Arrhythmia: Yes (A FIB) Hx Congestive Heart Failure: Yes Hx Hypertension: Yes Hx Pacemaker: Yes Hx Peripheral Edema: Yes - PULMONARY Hx Asthma: Yes Hx Chronic Obstructive Pulmonary Disease (COPD): Yes (uses CPAP for sleep apnea) Hx Sleep Apnea: Yes (C-PAP) - NEUROLOGICAL Hx Neurological Disorder: Yes (PERIPHERAL NEUROPATHY) Hx Dizziness: Yes - HEENT Hx HEENT Problems: No - RENAL Hx Chronic Kidney Disease: Yes - ENDOCRINE/METABOLIC Hx Endocrine Disorders: Yes Hx Diabetes Mellitus Type 2: Yes - HEMATOLOGICAL/ONCOLOGICAL Hx Blood Disorders: Yes Hx Blood Transfusions: Yes Hx Cancer: Yes Hx Chemotherapy: Yes 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) - INTEGUMENTARY Hx Dermatological Problems: Yes Hx Cellulitis: Yes - MUSCULOSKELETAL/RHEUMATOLOGICAL Hx Arthritis: Yes Hx Falls: No Hx Fractures: Yes Hx Osteoporosis: Yes - GASTROINTESTINAL Hx Gastrointestinal Disorders: Yes Hx Constipation: Yes - GENITOURINARY/GYNECOLOGICAL Hx Genitourinary Disorders: Yes Other/Comment: On HD-M-W-[id number]- R arm AV shunt - PSYCHIATRIC Hx Anxiety: Yes Hx Depression: Yes Hx Substance Use: No - SURGICAL HISTORY Hx Surgeries: Yes Hx Angiogram: Yes Hx Arteriovenous Shunt: Yes Hx Cardiac Catheterization: Yes Hx Orthopedic Surgery: Yes (KNEE) Hx Vascular Access Device: Yes Other/Comment: hx back surgery T5. defibrillator/pacemaker placement. bilateral heel surgery - ANESTHESIA Hx Anesthesia: Yes Hx Anesthesia Reactions: No Hx Malignant Hyperthermia: No Meds Allergies/Adverse Reactions: Allergies Allergy/AdvReac Type Severity Reaction Status Date / Time No Known Allergies Allergy Verified 03/14/18 14:49 - Medications Medications: Current Medications Apixaban (Eliquis) 2.5 mg PO BID [facility] Last Admin: 03/15/18 11:07 Dose: 2.5 mg Calcium Acetate (Phoslo) 667 mg PO TIDCC [facility] Last Admin: 03/15/18 11:56 Dose: 667 mg Carvedilol (Coreg) 3.125 mg PO BID [facility] Last Admin: 03/15/18 11:05 Dose: Not Given Dextrose (Dextrose 50% Inj) 0 ml IV STAT PRN; Protocol PRN Reason: Hypoglycemia Protocol Last Admin: 03/15/18 08:43 Dose: 25 ml Dextrose (Glutose 15) 0 gm PO ONCE PRN; Protocol PRN Reason: Hypoglycemia Protocol Glucagon (Glucagen Diagnostic Kit) 0 mg IM STAT PRN; Protocol PRN Reason: Hypoglycemia Protocol Sodium Chloride (Sodium Chloride 0.9%) 1,000 mls @ 40 mls/hr IV .Q24H [facility] Last Admin: 03/14/18 19:10 Dose: 40 mls/hr Dextrose (Dextrose 5% In Water 1000 Ml) 1,000 mls @ 0 mls/hr IV .Q0M PRN; Protocol PRN Reason: Hypoglycemia Protocol Vancomycin HCl 1,500 mg/ (Sodium Chloride) 500 mls @ 125 mls/hr IVPB ONCE ONE; Protocol Stop: 03/15/18 14:29 Insulin Human Regular (Novolin R) 0 unit SC ACHS [facility]; Protocol Last Admin: 03/15/18 11:53 Dose: Not Given Nateglinide (Starlix) 60 mg PO ACTID [facility] Last Admin: 03/15/18 08:12 Dose: Not Given Oxycodone/Acetaminophen (Percocet 5/325 Mg Tab) 1 tab PO Q6H PRN PRN Reason: Pain, severe (8-10) Stop: 03/18/18 13:11 Last Admin: 03/15/18 13:26 Dose: 1 tab Pantoprazole Sodium (Protonix Ec Tab) 40 mg PO DAILY [facility] Last Admin: 03/15/18 11:07 Dose: 40 mg Physical Exam - Constitutional Appears: Non-toxic, No Acute Distress, Chronically Ill - Head Exam Head Exam: NORMAL INSPECTION, NORMOCEPHALIC - Eye Exam Eye Exam: Normal appearance, PERRL - ENT Exam ENT Exam: Mucous Membranes Moist, Normal Exam - Respiratory Exam Respiratory Exam: Decreased Breath Sounds, NORMAL BREATHING PATTERN - Cardiovascular Exam Cardiovascular Exam: Irregular Rhythm - GI/Abdominal Exam GI & Abdominal Exam: Distended, Hypoactive Bowel Sounds, Soft - Extremities Exam Extremities exam: Positive for: normal inspection, pedal edema (RUE avf without thrill or bruit) - Neurological Exam Neurological exam: Alert, Oriented x3 - Psychiatric Exam Psychiatric exam: Anxious - Skin Skin Exam: Dry, Intact Results - Vital Signs Recent Vital Signs: Last Vital Signs Temp 98.0 F 03/15/18 01:45 Pulse 93 H 03/15/18 01:45 Resp 18 03/15/18 01:45 BP 144/76 03/14/18 23:50 Pulse Ox 97 03/15/18 01:45 - Labs Result Diagrams: 03/14/18 15:38 03/14/18 15:38 Labs: Laboratory Results - last 24 hr 03/14/18 03/14/18 03/14/18 14:56 15:38 15:38 WBC 14.9 H D RBC 2.73 L Hgb 7.7 L Hct 24.1 L MCV 88.2 MCH 28.3 MCHC 32.0 L RDW 17.8 H Plt Count 152 MPV 8.2 Neut % (Auto) 85.1 H Lymph % (Auto) 8.1 L Burt % (Auto) 5.3 Eos % (Auto) 1.2 Baso % (Auto) 0.3 Neut # (Auto) 12.7 H Lymph # (Auto) 1.2 Burt # (Auto) 0.8 Eos # (Auto) 0.2 Baso # (Auto) 0.0 Neutrophils % (Manual) 86 H Lymphocytes % (Manual) 9 L Monocytes % (Manual) 4 Eosinophils % (Manual) 1 Platelet Estimate Normal PT 22.0 H INR 2.0 APTT 36 H pO2 VBG pH VBG pCO2 VBG HCO3 VBG Total CO2 VBG O2 Sat (Calc) VBG Base Excess VBG Potassium Glucose Lactate Sodium Potassium Chloride Carbon Dioxide Anion Gap BUN Creatinine Est GFR ( Amer) Est GFR (Non-Af Amer) POC Glucose (mg/dL) 78 Random Glucose Calcium Phosphorus Magnesium Total Bilirubin AST ALT Alkaline Phosphatase C-React Prot High Sens Total Protein Albumin Globulin Albumin/Globulin Ratio Venous Blood Potassium Blood Type Antibody Screen 03/14/18 03/14/18 03/14/18 15:38 15:38 16:13 WBC RBC Hgb Hct MCV MCH MCHC RDW Plt Count MPV Neut % (Auto) Lymph % (Auto) Burt % (Auto) Eos % (Auto) Baso % (Auto) Neut # (Auto) Lymph # (Auto) Burt # (Auto) Eos # (Auto) Baso # (Auto) Neutrophils % (Manual) Lymphocytes % (Manual) Monocytes % (Manual) Eosinophils % (Manual) Platelet Estimate PT INR APTT pO2 35 VBG pH 7.39 VBG pCO2 35 L VBG HCO3 21.7 VBG Total CO2 22.3 VBG O2 Sat (Calc) 70.4 H VBG Base Excess -3.1 L VBG Potassium 2.8 L Glucose 70 L Lactate 1.8 Sodium 128 L 130.0 L Potassium 3.1 L Chloride 93 L 95.0 L Carbon Dioxide 19 L Anion Gap 19 BUN 97 H Creatinine 7.4 H* D Est GFR ( Amer) 9 Est GFR (Non-Af Amer) 8 POC Glucose (mg/dL) Random Glucose 81 D Calcium 6.8 L Phosphorus 5.2 H Magnesium 2.0 Total Bilirubin 2.5 H AST 24 ALT 22 Alkaline Phosphatase 444 H D C-React Prot High Sens > 15.00 H Total Protein 5.9 L Albumin 2.8 L Globulin 3.1 Albumin/Globulin Ratio 0.9 L Venous Blood Potassium 2.8 L Blood Type Antibody Screen 03/14/18 03/15/18 03/15/18 16:25 07:12 07:13 WBC RBC Hgb Hct MCV MCH MCHC RDW Plt Count MPV Neut % (Auto) Lymph % (Auto) Burt % (Auto) Eos % (Auto) Baso % (Auto) Neut # (Auto) Lymph # (Auto) Burt # (Auto) Eos # (Auto) Baso # (Auto) Neutrophils % (Manual) Lymphocytes % (Manual) Monocytes % (Manual) Eosinophils % (Manual) Platelet Estimate PT INR APTT pO2 VBG pH VBG pCO2 VBG HCO3 VBG Total CO2 VBG O2 Sat (Calc) VBG Base Excess VBG Potassium Glucose Lactate Sodium Potassium Chloride Carbon Dioxide Anion Gap BUN Creatinine Est GFR ( Amer) Est GFR (Non-Af Amer) POC Glucose (mg/dL) 53 L 53 L Random Glucose Calcium Phosphorus Magnesium Total Bilirubin AST ALT Alkaline Phosphatase C-React Prot High Sens Total Protein Albumin Globulin Albumin/Globulin Ratio Venous Blood Potassium Blood Type AB POSITIVE Antibody Screen Negative 03/15/18 03/15/18 03/15/18 07:58 09:09 11:38 WBC RBC Hgb Hct MCV MCH MCHC RDW Plt Count MPV Neut % (Auto) Lymph % (Auto) Burt % (Auto) Eos % (Auto) Baso % (Auto) Neut # (Auto) Lymph # (Auto) Burt # (Auto) Eos # (Auto) Baso # (Auto) Neutrophils % (Manual) Lymphocytes % (Manual) Monocytes % (Manual) Eosinophils % (Manual) Platelet Estimate PT INR APTT pO2 VBG pH VBG pCO2 VBG HCO3 VBG Total CO2 VBG O2 Sat (Calc) VBG Base Excess VBG Potassium Glucose Lactate Sodium Potassium Chloride Carbon Dioxide Anion Gap BUN Creatinine Est GFR ( Amer) Est GFR (Non-Af Amer) POC Glucose (mg/dL) 53 L 133 H 120 H Random Glucose Calcium Phosphorus Magnesium Total Bilirubin AST ALT Alkaline Phosphatase C-React Prot High Sens Total Protein Albumin Globulin Albumin/Globulin Ratio Venous Blood Potassium Blood Type Antibody Screen Assessment & Plan (1) Foot ulcer Status: Acute (2) Cellulitis Status: Acute Priority: High (3) ESRD (end stage renal disease) Status: Acute (4) Non-ischemic cardiomyopathy Status: Acute (5) A-fib Status: Chronic - Assessment and Plan (Free Text) Assessment: hd attempted today however avf clotted plan for hd tomorrow after vascular eval. would hold off blood transfusion until hd tomorrow dc iv fluids podiatry eval ongoing james w/ hd,
--- NOTE | 2018-03-15 14:10 | CP.PCM.CON ---
History of Present Illness - History of Present Illness History of Present Illness: INFECTIOUS DISEASE CONSULTATION IRIS DOMINGUEZ MD, FACP 03/15/2018 3T 369 CHART REVIEWED PT EXAMINED CASE DISCUSSED MR VERA IS A 62 YR OLD MALE WITH MULTPLE MEDICAL PROBLEMS, PRESENT TO ER/ED WITH RIGHT FOOT DRAINING AND PAIN WITH INCREASED CONFUSION-APPEARS SEPTIC. AN INFECTIOUS DISEASE CONSULTATION REQUESTED FOR POSSIBLE SEPSIS, AND NEW BACTEREMIA-GRAM POSITIVE BACTEREMIA, AND POOR PROTOPLASMA PMHX: LEUKEMIA 08/2007 ESRF- AV SHUNT KNEE SX CARDIAC CATH FOOT SX ATRIAL FIB CHF PACEMAKER/AICD COPD/CPAP DM BACK SX ETC, ETC. NO ALLERGIES NO RECENT TOBACCO/ETOH FAMILY HX OF HTN/CAD/DM ROS: PER H&P (01/22/18) BONE GRAFT NEC (08/23/13) BONE MARROW OPS NEC (08/23/13) CENTRAL VENOUS CATHETER PLACEMENT WITH GUIDANCE (08/23/13) CHEST CAGE BONE BIOPSY (08/23/13) DIALYSIS ARTERIOVENOSTOM (12/08/13) DORSAL & DORSOLUMBAR FUSION OF POSTERIOR COL/TECHNIQUE (08/23/13) DRAINAGE OF PERITONEAL CAVITY, PERCUTANEOUS APPROACH (01/22/18) DRAINAGE OF RIGHT LOWER LEG SKIN, EXTERNAL APPROACH, DIAGN (06/30/17) DX ULTRASOUND-HEART (08/23/13) EXCISE BONE FOR GFT NEC (08/23/13) EXCISION OF L FOOT SUBCU/FASCIA, OPEN APPROACH (09/15/16) EXCISION OF LEFT FOOT SKIN, EXTERNAL APPROACH (06/30/17) EXCISION OF LEFT TARSAL, OPEN APPROACH, DIAGNOSTIC (12/26/16) EXCISION OF RIGHT FOOT SKIN, EXTERNAL APPROACH (12/26/16) EXCISION OF RIGHT LOWER LEG SKIN, EXTERNAL APPROACH (06/30/17) EXTRACTION OF LEFT FOOT SKIN, EXTERNAL APPROACH (09/15/16) FUSION/REFUS OF 2-3 VERTEBRAE (08/23/13) HEAD SOFT TISS X-RAY NEC (12/08/13) HEMODIALYSIS (11/12/13) INSERTION OF INFUSION DEV INTO SUP VENA CAVA, PERC APPROACH (12/26/16) NON-INVASIVE MECHANICAL VENTILATION (11/12/13) OCCUPATIONAL THERAPY (09/27/13) PACKED CELL TRANSFUSION (08/23/13) PERFORMANCE OF URINARY FILTRATION, MULTIPLE (06/30/16) PHYSICAL THERAPY NEC (09/27/13) RECREATIONAL THERAPY (09/27/13) REMOVAL OF RESERVOIR FROM TRUNK SUBCU/FASCIA, OPEN APPROACH (12/31/17) REPOSITION RIGHT BASILIC VEIN, OPEN APPROACH (06/30/16) SPINAL CANAL EXPLOR NEC (08/23/13) SUPPLEMENT LEFT FOOT WITH NONAUT SUB, OPEN APPROACH (06/30/17) THORACENTESIS (11/12/13) TRANSFUSE NONAUT RED BLOOD CELLS IN PERIPH VEIN, PERC (10/29/17) VACCINATION NEC (11/12/13) VENOUS CATHETERIZATION FOR RENAL DIALYSIS (12/08/13) Family History: States: Unknown Family Hx - Social History Hx Tobacco Use: No Hx Alcohol Use: No Hx Substance Use: No - Immunization History Hx Tetanus Toxoid Vaccination: Yes Hx Influenza Vaccination: Yes Hx Pneumococcal Vaccination: Yes Physical Exam - Physical Exam Appears: Non-toxic, No Acute Distress Skin: Warm, Pale Head: Normacephalic Eye(s): bilateral: Conjunctiva Pale Nose: Normal Oral Mucosa: Moist Neck: Supple Chest: Symmetrical Cardiovascular: Other (irregularly irregular) Respiratory: Normal Breath Sounds, No Rales, No Rhonchi, No Wheezing Gastrointestinal/Abdominal: Distention, Other ((+) fluid wave ) Extremity: Normal ROM, No Deformity, Other (AV graft noted to right upper arm. chronic william skin changes to b/l lower extremities. actively draning right heel ulcer. ) Neurological/Psych: Oriented x3, Normal Speech ED Course And Treatment - Laboratory Results Result Diagrams: 03/14/18 15:38 03/14/18 15:38 ECG: Interpreted By Me, Viewed By Me ECG Rhythm: Atrial Fibrillation ECG Interpretation: No Acute Changes Rate From EC O2 Sat by Pulse Oximetry: 98 (RA) Pulse Ox Interpretation: Normal - Other Rad CXR X-Ray: Viewed By Me, Read By Radiologist Interpretation: Accession No. : [id number]. Patient Name / ID : CHUY CARDONA V / [id number]. Exam Date : 03/14/2018 15:42:24 ( Approved ). Study Comment : Sex / Age : M / 62Y. Creator : Daniella Del Valle MD. Dictator : Daniella Del Valle MD. Inhalation Therapy Teacher : [employer] Test Grader : Daniella Del Valle MD. Approver2 : Report Date : 03/14/2018 17:50:33. My Comment : . Date of service: 03/14/2018. HISTORY: Sepsis Patient. COMPARISON: 01/22/2018. FINDINGS: LUNGS: There are low lung volumes. There is interval development of diffuse haziness in the right lung. There is subsegmental atelectasis in the left mid lung. PLEURA: No pleural effusions or pneumothorax. CARDIOVASCULAR: Persistent moderate cardiomegaly. There are aortic atherosclerotic calcifications present. There is stable appearance of left-sided AICD. OSSEOUS STRUCTURES: Within normal limits for the patient's age. Status post posterior spinal fixation in the mid and lower thoracic spine. VISUALIZED UPPER ABDOMEN: Normal. OTHER FINDINGS: None. IMPRESSION: D iffuse haziness in the right lung which may represent layering pleural effusion or alveolar pulmonary edema. No focal consolidation. Persistent moderate cardiomegaly. XR right foot X-Ray: Interpretation: Accession No. : [id number]. Patient Name / ID : CHUY CARDONA V / [id number]. Exam Date : 03/14/2018 15:48:52 ( Approved ). Study Comment : Sex / Age : M / 62Y. Creator : Daniella Del Valle MD. Dictator : Daniella Del Valle MD. Inhalation Therapy Teacher : [employer]pt[employer] Test Grader : Danilela Del Valle MD. Approver2 : Report Date : 03/14/2018 16:37:42. . Date of service: 03/14/2018. PROCEDURE: Right Foot Radiographs. HISTORY: draining heel ulcer. COMPARISON: None. FINDINGS: BONES: There is severe diffuse bone demineralization. There is no acute displaced fracture. There is apparent radiolucency and erosion in the superior calcaneus. JOINTS: Normal. SOFT TISSUES: There is soft tissue irregularity and ulceration overlying the superior calcaneus. OTHER FINDINGS: There are advanced atherosclerotic vascular calcifications.. IMPRESSION: Apparent radiolucency and erosion in the superior calcaneus underneath the large ulcer concerning for osteomyelitis. An MRI of the foot without and with intravenous contrast would be helpful for further evaluation. START VANCOMYCIN 1.5 GM IVPB STAT AND WILL CONTINUE POST EACH DIALYSIS FOLLOWING VANCO LEVELS PRIOR TO EACH DOSE. PROGRNOSIS IS GUARDED MAY PREFER PO TREATMENT, IN THE LONG RUN SINCE "CURE" IS GOING TO BE IMPOSSIBLE- STILL PENDING C/S RESULTS. IRIS DOIMNGUEZ MD, FACP Past Patient History - Infectious Disease Hx of Infectious Diseases: None - Tetanus Immunizations Tetanus Immunization: Unknown - Past Medical History & Family History Past Medical History?: Yes - Past Social History Smoking Status: Never Smoked - CARDIAC Hx Atrial Fibrillation: Yes Hx Cardia Arrhythmia: Yes (A FIB) Hx Congestive Heart Failure: Yes Hx Hypertension: Yes Hx Pacemaker: Yes Hx Peripheral Edema: Yes - PULMONARY Hx Asthma: Yes Hx Chronic Obstructive Pulmonary Disease (COPD): Yes (uses CPAP for sleep apnea) Hx Sleep Apnea: Yes (C-PAP) - NEUROLOGICAL Hx Neurological Disorder: Yes (PERIPHERAL NEUROPATHY) Hx Dizziness: Yes - HEENT Hx HEENT Problems: No - RENAL Hx Chronic Kidney Disease: Yes - ENDOCRINE/METABOLIC Hx Endocrine Disorders: Yes Hx Diabetes Mellitus Type 2: Yes - HEMATOLOGICAL/ONCOLOGICAL Hx Blood Disorders: Yes Hx Blood Transfusions: Yes Hx Cancer: Yes Hx Chemotherapy: Yes 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) - INTEGUMENTARY Hx Dermatological Problems: Yes Hx Cellulitis: Yes - MUSCULOSKELETAL/RHEUMATOLOGICAL Hx Arthritis: Yes Hx Falls: No Hx Fractures: Yes Hx Osteoporosis: Yes - GASTROINTESTINAL Hx Gastrointestinal Disorders: Yes Hx Constipation: Yes - GENITOURINARY/GYNECOLOGICAL Hx Genitourinary Disorders: Yes Other/Comment: On HD-M-[id number]- R arm AV shunt - PSYCHIATRIC Hx Anxiety: Yes Hx Depression: Yes Hx Substance Use: No - SURGICAL HISTORY Hx Surgeries: Yes Hx Angiogram: Yes Hx Arteriovenous Shunt: Yes Hx Cardiac Catheterization: Yes Hx Orthopedic Surgery: Yes (KNEE) Hx Vascular Access Device: Yes Other/Comment: hx back surgery T5. defibrillator/pacemaker placement. bilateral heel surgery - ANESTHESIA Hx Anesthesia: Yes Hx Anesthesia Reactions: No Hx Malignant Hyperthermia: No Meds Allergies/Adverse Reactions: Allergies Allergy/AdvReac Type Severity Reaction Status Date / Time No Known Allergies Allergy Verified 03/14/18 14:49 - Medications Medications: Current Medications Apixaban (Eliquis) 2.5 mg PO BID [facility] Last Admin: 03/15/18 11:07 Dose: 2.5 mg Calcium Acetate (Phoslo) 667 mg PO TIDCC [facility] Last Admin: 03/15/18 11:56 Dose: 667 mg Carvedilol (Coreg) 3.125 mg PO BID [facility] Last Admin: 03/15/18 11:05 Dose: Not Given Dextrose (Dextrose 50% Inj) 0 ml IV STAT PRN; Protocol PRN Reason: Hypoglycemia Protocol Last Admin: 03/15/18 08:43 Dose: 25 ml Dextrose (Glutose 15) 0 gm PO ONCE PRN; Protocol PRN Reason: Hypoglycemia Protocol Glucagon (Glucagen Diagnostic Kit) 0 mg IM STAT PRN; Protocol PRN Reason: Hypoglycemia Protocol Dextrose (Dextrose 5% In Water 1000 Ml) 1,000 mls @ 0 mls/hr IV .Q0M PRN; Protocol PRN Reason: Hypoglycemia Protocol Vancomycin HCl 1,500 mg/ (Sodium Chloride) 500 mls @ 125 mls/hr IVPB ONCE ONE; Protocol Stop: 03/15/18 14:29 Insulin Human Regular (Novolin R) 0 unit SC [facility]; Protocol Last Admin: 03/15/18 11:53 Dose: Not Given Nateglinide (Starlix) 60 mg PO ACTID [facility] Last Admin: 03/15/18 08:12 Dose: Not Given Oxycodone/Acetaminophen (Percocet 5/325 Mg Tab) 1 tab PO Q6H PRN PRN Reason: Pain, severe (8-10) Stop: 03/18/18 13:11 Last Admin: 03/15/18 13:26 Dose: 1 tab Pantoprazole Sodium (Protonix Ec Tab) 40 mg PO DAILY [facility] Last Admin: 03/15/18 11:07 Dose: 40 mg Results - Vital Signs Recent Vital Signs: Last Vital Signs Temp 98.0 F 03/15/18 01:45 Pulse 93 H 03/15/18 01:45 Resp 18 12/31/18 01:45 BP 144/76 03/14/18 23:50 Pulse Ox 97 03/15/18 01:45 - Labs Result Diagrams: 03/14/18 15:38 03/14/18 15:38 Labs: Laboratory Results - last 24 hr 03/14/18 03/14/18 03/14/18 14:56 15:38 15:38 WBC 14.9 H D RBC 2.73 L Hgb 7.7 L Hct 24.1 L MCV 88.2 MCH 28.3 MCHC 32.0 L RDW 17.8 H Plt Count 152 MPV 8.2 Neut % (Auto) 85.1 H Lymph % (Auto) 8.1 L Glenn % (Auto) 5.3 Eos % (Auto) 1.2 Baso % (Auto) 0.3 Neut # (Auto) 12.7 H Lymph # (Auto) 1.2 Glenn # (Auto) 0.8 Eos # (Auto) 0.2 Baso # (Auto) 0.0 Neutrophils % (Manual) 86 H Lymphocytes % (Manual) 9 L Monocytes % (Manual) 4 Eosinophils % (Manual) 1 Platelet Estimate Normal PT 22.0 H INR 2.0 APTT 36 H pO2 VBG pH VBG pCO2 VBG HCO3 VBG Total CO2 VBG O2 Sat (Calc) VBG Base Excess VBG Potassium Glucose Lactate Sodium Potassium Chloride Carbon Dioxide Anion Gap BUN Creatinine Est GFR ( Amer) Est GFR (Non-Af Amer) POC Glucose (mg/dL) 78 Random Glucose Calcium Phosphorus Magnesium Total Bilirubin AST ALT Alkaline Phosphatase C-React Prot High Sens Total Protein Albumin Globulin Albumin/Globulin Ratio Venous Blood Potassium Blood Type Antibody Screen 03/14/18 03/14/18 03/14/18 15:38 15:38 16:13 WBC RBC Hgb Hct MCV MCH MCHC RDW Plt Count MPV Neut % (Auto) Lymph % (Auto) Glenn % (Auto) Eos % (Auto) Baso % (Auto) Neut # (Auto) Lymph # (Auto) Glenn # (Auto) Eos # (Auto) Baso # (Auto) Neutrophils % (Manual) Lymphocytes % (Manual) Monocytes % (Manual) Eosinophils % (Manual) Platelet Estimate PT INR APTT pO2 35 VBG pH 7.39 VBG pCO2 35 L VBG HCO3 21.7 VBG Total CO2 22.3 VBG O2 Sat (Calc) 70.4 H VBG Base Excess -3.1 L VBG Potassium 2.8 L Glucose 70 L Lactate 1.8 Sodium 128 L 130.0 L Potassium 3.1 L Chloride 93 L 95.0 L Carbon Dioxide 19 L Anion Gap 19 BUN 97 H Creatinine 7.4 H* D Est GFR ( Amer) 9 Est GFR (Non-Af Amer) 8 POC Glucose (mg/dL) Random Glucose 81 D Calcium 6.8 L Phosphorus 5.2 H Magnesium 2.0 Total Bilirubin 2.5 H AST 24 ALT 22 Alkaline Phosphatase 444 H D C-React Prot High Sens > 15.00 H Total Protein 5.9 L Albumin 2.8 L Globulin 3.1 Albumin/Globulin Ratio 0.9 L Venous Blood Potassium 2.8 L Blood Type Antibody Screen 03/14/18 03/15/18 03/15/18 16:25 07:12 07:13 WBC RBC Hgb Hct MCV MCH MCHC RDW Plt Count MPV Neut % (Auto) Lymph % (Auto) Glenn % (Auto) Eos % (Auto) Baso % (Auto) Neut # (Auto) Lymph # (Auto) Glenn # (Auto) Eos # (Auto) Baso # (Auto) Neutrophils % (Manual) Lymphocytes % (Manual) Monocytes % (Manual) Eosinophils % (Manual) Platelet Estimate PT INR APTT pO2 VBG pH VBG pCO2 VBG HCO3 VBG Total CO2 VBG O2 Sat (Calc) VBG Base Excess VBG Potassium Glucose Lactate Sodium Potassium Chloride Carbon Dioxide Anion Gap BUN Creatinine Est GFR ( Amer) Est GFR (Non-Af Amer) POC Glucose (mg/dL) 53 L 53 L Random Glucose Calcium Phosphorus Magnesium Total Bilirubin AST ALT Alkaline Phosphatase C-React Prot High Sens Total Protein Albumin Globulin Albumin/Globulin Ratio Venous Blood Potassium Blood Type AB POSITIVE Antibody Screen Negative 03/15/18 03/15/18 03/15/18 07:58 09:09 11:38 WBC RBC Hgb Hct MCV MCH MCHC RDW Plt Count MPV Neut % (Auto) Lymph % (Auto) Glenn % (Auto) Eos % (Auto) Baso % (Auto) Neut # (Auto) Lymph # (Auto) Glenn # (Auto) Eos # (Auto) Baso # (Auto) Neutrophils % (Manual) Lymphocytes % (Manual) Monocytes % (Manual) Eosinophils % (Manual) Platelet Estimate PT INR APTT pO2 VBG pH VBG pCO2 VBG HCO3 VBG Total CO2 VBG O2 Sat (Calc) VBG Base Excess VBG Potassium Glucose Lactate Sodium Potassium Chloride Carbon Dioxide Anion Gap BUN Creatinine Est GFR ( Amer) Est GFR (Non-Af Amer) POC Glucose (mg/dL) 53 L 133 H 120 H Random Glucose Calcium Phosphorus Magnesium Total Bilirubin AST ALT Alkaline Phosphatase C-React Prot High Sens Total Protein Albumin Globulin Albumin/Globulin Ratio Venous Blood Potassium Blood Type Antibody Screen
--- NOTE | 2018-03-15 15:53 | CP.PCM.CON ---
History of Present Illness - History of Present Illness History of Present Illness: Vascular Surgery Consult Note. Dr. Olguin 62yo M with PMHx of ESRD, Leukemia in remission, AFib, CHF, AICD here with right foot pain. He states that he was scheduled to have HD today however, his AVF was malfunctioning. He last had successful HD on Thursday. He denies any other arm complaints. No swelling. No other complaints. Vascular surgery consult requested to evaluate RUE AVF malfunction. PMHx: ESRD on HD, Leukemia (remission), AFib on Eliquis, CHF, COPD PSHx: AICD, Knee Surgery, Cardiac Cath, Multiple foot debridements, R AVF (revision 07/2016 w basilic vein transposition) Family Hx: non-contributory Social Hx: Denies Tobacco use, Denies ETOH use, Denies illicit drugs NKDA Review of Systems - Review of Systems All systems: reviewed and no additional remarkable complaints except - Constitutional Constitutional: absent: Chills, Fever - Cardiovascular Cardiovascular: absent: Chest Pain, Dyspnea - Respiratory Respiratory: absent: Cough, Dyspnea - Gastrointestinal Gastrointestinal: absent: Abdominal Pain, Nausea, Vomiting - Musculoskeletal Additional comments: foot pain - Integumentary Integumentary: Non-Healing Lesions Past Patient History - Infectious Disease Hx of Infectious Diseases: None - Tetanus Immunizations Tetanus Immunization: Unknown - Past Medical History & Family History Past Medical History?: Yes Past Family History: Reviewed and not pertinent - Past Social History Smoking Status: Never Smoked Alcohol: None Drugs: Denies - CARDIAC Hx Atrial Fibrillation: Yes Hx Cardia Arrhythmia: Yes (A FIB) Hx Congestive Heart Failure: Yes Hx Hypertension: Yes Hx Pacemaker: Yes Hx Peripheral Edema: Yes - PULMONARY Hx Asthma: Yes Hx Chronic Obstructive Pulmonary Disease (COPD): Yes (uses CPAP for sleep apnea) Hx Sleep Apnea: Yes (C-PAP) - NEUROLOGICAL Hx Neurological Disorder: Yes (PERIPHERAL NEUROPATHY) Hx Dizziness: Yes - HEENT Hx HEENT Problems: No - RENAL Hx Chronic Kidney Disease: Yes - ENDOCRINE/METABOLIC Hx Endocrine Disorders: Yes Hx Diabetes Mellitus Type 2: Yes - HEMATOLOGICAL/ONCOLOGICAL Hx Blood Disorders: Yes Hx Blood Transfusions: Yes Hx Cancer: Yes Hx Chemotherapy: Yes 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) - INTEGUMENTARY Hx Dermatological Problems: Yes Hx Cellulitis: Yes - MUSCULOSKELETAL/RHEUMATOLOGICAL Hx Arthritis: Yes Hx Falls: No Hx Fractures: Yes Hx Osteoporosis: Yes - GASTROINTESTINAL Hx Gastrointestinal Disorders: Yes Hx Constipation: Yes - GENITOURINARY/GYNECOLOGICAL Hx Genitourinary Disorders: Yes Other/Comment: On HD---- arm AV shunt - PSYCHIATRIC Hx Anxiety: Yes Hx Depression: Yes Hx Substance Use: No - SURGICAL HISTORY Hx Surgeries: Yes Hx Angiogram: Yes Hx Arteriovenous Shunt: Yes Hx Cardiac Catheterization: Yes Hx Orthopedic Surgery: Yes (KNEE) Hx Vascular Access Device: Yes Other/Comment: hx back surgery T5. defibrillator/pacemaker placement. bilateral heel surgery - ANESTHESIA Hx Anesthesia: Yes Hx Anesthesia Reactions: No Hx Malignant Hyperthermia: No Meds Allergies/Adverse Reactions: Allergies Allergy/AdvReac Type Severity Reaction Status Date / Time No Known Allergies Allergy Verified 03/14/18 14:49 - Medications Medications: Current Medications Apixaban (Eliquis) 2.5 mg PO BID [facility] Last Admin: 03/15/18 11:07 Dose: 2.5 mg Calcium Acetate (Phoslo) 667 mg PO TIDCC [facility] Last Admin: 03/15/18 11:56 Dose: 667 mg Carvedilol (Coreg) 3.125 mg PO BID [facility] Last Admin: 03/15/18 11:05 Dose: Not Given Dextrose (Dextrose 50% Inj) 0 ml IV STAT PRN; Protocol PRN Reason: Hypoglycemia Protocol Last Admin: 03/15/18 08:43 Dose: 25 ml Dextrose (Glutose 15) 0 gm PO ONCE PRN; Protocol PRN Reason: Hypoglycemia Protocol Glucagon (Glucagen Diagnostic Kit) 0 mg IM STAT PRN; Protocol PRN Reason: Hypoglycemia Protocol Dextrose (Dextrose 5% In Water 1000 Ml) 1,000 mls @ 0 mls/hr IV .Q0M PRN; Protocol PRN Reason: Hypoglycemia Protocol Insulin Human Regular (Novolin R) 0 unit SC [facility]; Protocol Last Admin: 03/15/18 11:53 Dose: Not Given Nateglinide (Starlix) 60 mg PO ACTID [facility] Last Admin: 03/15/18 08:12 Dose: Not Given Oxycodone/Acetaminophen (Percocet 5/325 Mg Tab) 1 tab PO Q6H PRN PRN Reason: Pain, severe (8-10) Stop: 03/18/18 13:11 Last Admin: 03/15/18 13:26 Dose: 1 tab Pantoprazole Sodium (Protonix Ec Tab) 40 mg PO DAILY [facility] Last Admin: 03/15/18 11:07 Dose: 40 mg Physical Exam - Constitutional Appears: Non-toxic, No Acute Distress - Head Exam Head Exam: ATRAUMATIC, NORMAL INSPECTION, NORMOCEPHALIC - Eye Exam Eye Exam: EOMI, Normal appearance. absent: Scleral icterus - ENT Exam ENT Exam: Mucous Membranes Moist - Respiratory Exam Respiratory Exam: absent: Accessory Muscle Use, Respiratory Distress - Cardiovascular Exam Cardiovascular Exam: absent: JVD - Extremities Exam Extremities exam: Negative for: calf tenderness Additional comments: Right upper Extremity AVF site with skin well healed. No palpable thrill or audible bruit over the AVF site. Warm - Neurological Exam Neurological exam: Alert - Psychiatric Exam Psychiatric exam: Anxious Results - Vital Signs Recent Vital Signs: Last Vital Signs Temp 98.0 F 03/15/18 01:45 Pulse 93 H 03/15/18 01:45 Resp 18 03/15/18 01:45 BP 144/76 03/14/18 23:50 Pulse Ox 97 03/15/18 01:45 - Labs Result Diagrams: 03/14/18 15:38 03/14/18 15:38 Labs: Laboratory Results - last 24 hr 03/14/18 03/14/18 03/14/18 15:38 15:38 15:38 WBC 14.9 H D RBC 2.73 L Hgb 7.7 L Hct 24.1 L MCV 88.2 MCH 28.3 MCHC 32.0 L RDW 17.8 H Plt Count 152 MPV 8.2 Neut % (Auto) 85.1 H Lymph % (Auto) 8.1 L Cooke % (Auto) 5.3 Eos % (Auto) 1.2 Baso % (Auto) 0.3 Neut # (Auto) 12.7 H Lymph # (Auto) 1.2 Cooke # (Auto) 0.8 Eos # (Auto) 0.2 Baso # (Auto) 0.0 Neutrophils % (Manual) 86 H Lymphocytes % (Manual) 9 L Monocytes % (Manual) 4 Eosinophils % (Manual) 1 Platelet Estimate Normal PT 22.0 H INR 2.0 APTT 36 H pO2 VBG pH VBG pCO2 VBG HCO3 VBG Total CO2 VBG O2 Sat (Calc) VBG Base Excess VBG Potassium Glucose Lactate Sodium 128 L Potassium 3.1 L Chloride 93 L Carbon Dioxide 19 L Anion Gap 19 BUN 97 H Creatinine 7.4 H* D Est GFR ( Amer) 9 Est GFR (Non-Af Amer) 8 POC Glucose (mg/dL) Random Glucose 81 D Calcium 6.8 L Phosphorus 5.2 H Magnesium 2.0 Total Bilirubin 2.5 H AST 24 ALT 22 Alkaline Phosphatase 444 H D C-React Prot High Sens Total Protein 5.9 L Albumin 2.8 L Globulin 3.1 Albumin/Globulin Ratio 0.9 L Venous Blood Potassium Blood Type Antibody Screen 03/14/18 03/14/18 03/14/18 15:38 16:13 16:25 WBC RBC Hgb Hct MCV MCH MCHC RDW Plt Count MPV Neut % (Auto) Lymph % (Auto) Cooke % (Auto) Eos % (Auto) Baso % (Auto) Neut # (Auto) Lymph # (Auto) Cooke # (Auto) Eos # (Auto) Baso # (Auto) Neutrophils % (Manual) Lymphocytes % (Manual) Monocytes % (Manual) Eosinophils % (Manual) Platelet Estimate PT INR APTT pO2 35 VBG pH 7.39 VBG pCO2 35 L VBG HCO3 21.7 VBG Total CO2 22.3 VBG O2 Sat (Calc) 70.4 H VBG Base Excess -3.1 L VBG Potassium 2.8 L Glucose 70 L Lactate 1.8 Sodium 130.0 L Potassium Chloride 95.0 L Carbon Dioxide Anion Gap BUN Creatinine Est GFR ( Amer) Est GFR (Non-Af Amer) POC Glucose (mg/dL) Random Glucose Calcium Phosphorus Magnesium Total Bilirubin AST ALT Alkaline Phosphatase C-React Prot High Sens > 15.00 H Total Protein Albumin Globulin Albumin/Globulin Ratio Venous Blood Potassium 2.8 L Blood Type AB POSITIVE Antibody Screen Negative 03/15/18 03/15/18 03/15/18 07:12 07:13 07:58 WBC RBC Hgb Hct MCV MCH MCHC RDW Plt Count MPV Neut % (Auto) Lymph % (Auto) Cooke % (Auto) Eos % (Auto) Baso % (Auto) Neut # (Auto) Lymph # (Auto) Cooke # (Auto) Eos # (Auto) Baso # (Auto) Neutrophils % (Manual) Lymphocytes % (Manual) Monocytes % (Manual) Eosinophils % (Manual) Platelet Estimate PT INR APTT pO2 VBG pH VBG pCO2 VBG HCO3 VBG Total CO2 VBG O2 Sat (Calc) VBG Base Excess VBG Potassium Glucose Lactate Sodium Potassium Chloride Carbon Dioxide Anion Gap BUN Creatinine Est GFR ( Amer) Est GFR (Non-Af Amer) POC Glucose (mg/dL) 53 L 53 L 53 L Random Glucose Calcium Phosphorus Magnesium Total Bilirubin AST ALT Alkaline Phosphatase C-React Prot High Sens Total Protein Albumin Globulin Albumin/Globulin Ratio Venous Blood Potassium Blood Type Antibody Screen 03/15/18 03/15/18 03/15/18 09:09 11:38 13:36 WBC RBC Hgb Hct MCV MCH MCHC RDW Plt Count MPV Neut % (Auto) Lymph % (Auto) Cooke % (Auto) Eos % (Auto) Baso % (Auto) Neut # (Auto) Lymph # (Auto) Cooke # (Auto) Eos # (Auto) Baso # (Auto) Neutrophils % (Manual) Lymphocytes % (Manual) Monocytes % (Manual) Eosinophils % (Manual) Platelet Estimate PT INR APTT pO2 VBG pH VBG pCO2 VBG HCO3 VBG Total CO2 VBG O2 Sat (Calc) VBG Base Excess VBG Potassium Glucose Lactate Sodium Potassium Chloride Carbon Dioxide Anion Gap BUN Creatinine Est GFR ( Amer) Est GFR (Non-Af Amer) POC Glucose (mg/dL) 133 H 120 H Random Glucose Calcium Phosphorus Magnesium Total Bilirubin AST ALT Alkaline Phosphatase C-React Prot High Sens Total Protein Albumin Globulin Albumin/Globulin Ratio Venous Blood Potassium Blood Type AB POSITIVE Antibody Screen Negative Assessment & Plan - Assessment and Plan (Free Text) Assessment: 62yo M with ESRD on HD with malfunctioning RUE AVF Plan: - NPO past mn - To OR tomorrow, 03/16 - Continue medical management as per primary and renal team - Podiatry recs for foot ulcers Further Recs as per Dr. Clau Us PGY2 surgery
--- NOTE | 2018-03-15 17:07 | CT ---
Date of service: 03/15/2018 PROCEDURE: CT HEAD WITHOUT CONTRAST. HISTORY: ear pain and hearing loss COMPARISON: Noncontrast head CT performed 08/19/12 TECHNIQUE: Axial computed tomography images were obtained through the head/brain without intravenous contrast. Radiation dose: Total exam DLP = 1146.62 mGy-cm. This CT exam was performed using one or more of the following dose reduction techniques: Automated exposure control, adjustment of the mA and/or kV according to patient size, and/or use of iterative reconstruction technique. FINDINGS: HEMORRHAGE: No intracranial hemorrhage. BRAIN: Diffuse atrophy with prominence of the ventricles and sulci noted. No mass effect or edema. Intracranial atherosclerosis. Scattered periventricular and subcortical white matter hypodensities, which are nonspecific, but often seen with chronic microvascular ischemic disease. Right basal ganglia lacunar type infarct. Please note that MRI with diffusion imaging is more sensitive in the detection of acute ischemic event. VENTRICLES: No hydrocephalus. CALVARIUM: Unremarkable. PARANASAL SINUSES: Unremarkable as visualized. No significant inflammatory changes. MASTOID AIR CELLS: Unremarkable as visualized. No inflammatory changes. OTHER FINDINGS: Vascular calcifications. IMPRESSION: Generalized atrophy. Nonspecific white matter changes. Right basal ganglia lacunar type infarct.
[2018-03-15] MEDS ORDERED: DAPTOmycin 700 MG in Sodium Chloride 0.9% 100 ML IV STA (22:04)
--- NOTE | 2018-03-15 23:53 | CP.PCM.PN ---
Subjective - Date & Time of Evaluation Date of Evaluation: 03/15/18 Time of Evaluation: 23:53 - Subjective Subjective: Patient overall doing somewhat very poor now. More pain in the right leg. Seen by vascular surgery. 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 Patient admitted with possible sepsis associate with the fever and antibiotic will continue to monitor. Objective - Vital Signs/Intake and Output Vital Signs (last 24 hours): Temp Pulse Resp BP Pulse Ox 97.6 F 86 20 144/76 96 03/15/18 16:09 03/15/18 16:09 03/15/18 16:09 03/14/18 23:50 03/15/18 16:09 Intake and Output: 03/15/18 03/16/18 18:59 06:59 Intake Total 380 Balance 380 - Medications Medications: Current Medications Apixaban (Eliquis) 2.5 mg PO BID [facility] Last Admin: 03/15/18 18:05 Dose: 2.5 mg Calcium Acetate (Phoslo) 667 mg PO TIDCC [facility] Last Admin: 03/15/18 17:05 Dose: 667 mg Carvedilol (Coreg) 3.125 mg PO BID [facility] Last Admin: 03/15/18 18:04 Dose: 3.125 mg Dextrose (Dextrose 50% Inj) 0 ml IV STAT PRN; Protocol PRN Reason: Hypoglycemia Protocol Last Admin: 03/15/18 08:43 Dose: 25 ml Dextrose (Glutose 15) 0 gm PO ONCE PRN; Protocol PRN Reason: Hypoglycemia Protocol Glucagon (Glucagen Diagnostic Kit) 0 mg IM STAT PRN; Protocol PRN Reason: Hypoglycemia Protocol Dextrose (Dextrose 5% In Water 1000 Ml) 1,000 mls @ 0 mls/hr IV .Q0M PRN; Protocol PRN Reason: Hypoglycemia Protocol Insulin Human Regular (Novolin R) 0 unit SC ACHS [facility]; Protocol Last Admin: 03/15/18 21:45 Dose: Not Given Nateglinide (Starlix) 60 mg PO ACTID [facility] Last Admin: 03/15/18 08:12 Dose: Not Given Oxycodone/Acetaminophen (Percocet 5/325 Mg Tab) 1 tab PO Q6H PRN PRN Reason: Pain, severe (8-10) Stop: 03/18/18 13:11 Last Admin: 03/15/18 22:30 Dose: 1 tab Pantoprazole Sodium (Protonix Ec Tab) 40 mg PO DAILY [facility] Last Admin: 03/15/18 11:07 Dose: 40 mg - Labs Labs: 03/14/18 15:38 03/14/18 15:38 PT 22.0 SECONDS (9.7-12.2) H 03/14/18 15:38 INR 2.0 03/14/18 15:38 APTT 36 SECONDS (21-34) H 03/14/18 15:38
[2018-03-16] MEDS: Oxycodone/Acetaminophen 5/325 mg Tab PO PRN (06:29)
[2018-03-16] MEDS: (Novolin R) Insulin Human Regular 100 units/ml vial SC SCH ×4 (08:42→22:59)
--- NOTE | 2018-03-16 09:12 | CP.PCM.PN ---
Subjective - Date & Time of Evaluation Date of Evaluation: 03/16/18 Time of Evaluation: 09:09 - Subjective Subjective: seen and examined hd deferred yesterday due to malfunctioning avf for surgical eval today pt is anxious and worried about the procedure he denies any pain nausea [id number] diarrhea sob cp dizziness f c Objective - Vital Signs/Intake and Output Vital Signs (last 24 hours): Temp Pulse Resp BP Pulse Ox 97.5 F L 74 20 96/56 L 99 03/16/18 07:48 03/16/18 07:48 03/16/18 07:48 03/16/18 07:48 03/16/18 07:48 Intake and Output: 03/16/18 03/16/18 06:59 18:59 Intake Total 0 Balance 0 - Medications Medications: Current Medications Apixaban (Eliquis) 2.5 mg PO BID [facility] Last Admin: 03/15/18 18:05 Dose: 2.5 mg Calcium Acetate (Phoslo) 667 mg PO TIDCC [facility] 234 BEDS AT [facility] Last Admin: 03/16/18 08:34 Dose: Not Given Carvedilol (Coreg) 3.125 mg PO BID [facility] 234 [facility]S AT [facility] Last Admin: 03/15/18 18:04 Dose: 3.125 mg Dextrose (Dextrose 50% Inj) 0 ml IV STAT PRN; Protocol PRN Reason: Hypoglycemia Protocol Last Admin: 03/15/18 08:43 Dose: 25 ml Dextrose (Glutose 15) 0 gm PO ONCE PRN; Protocol PRN Reason: Hypoglycemia Protocol Glucagon (Glucagen Diagnostic Kit) 0 mg IM STAT PRN; Protocol PRN Reason: Hypoglycemia Protocol Dextrose (Dextrose 5% In Water 1000 Ml) 1,000 mls @ 0 mls/hr IV .Q0M PRN; Protocol PRN Reason: Hypoglycemia Protocol Insulin Human Regular (Novolin R) 0 unit SC ACHS [facility] 234 [facility]S [facility]; Protocol Last Admin: 03/16/18 08:42 Dose: Not Given Nateglinide (Starlix) 60 mg PO ACTID [facility] 234 [facility]S AT [facility] Last Admin: 03/15/18 08:12 Dose: Not Given Oxycodone/Acetaminophen (Percocet 5/325 Mg Tab) 1 tab PO Q6H PRN PRN Reason: Pain, severe (8-10) Stop: 03/18/18 13:11 Last Admin: 03/16/18 06:29 Dose: 1 tab Pantoprazole Sodium (Protonix Ec Tab) 40 mg PO DAILY [facility] Last Admin: 03/15/18 11:07 Dose: 40 mg - Labs Labs: 03/14/18 15:38 03/14/18 15:38 PT 22.0 SECONDS (9.7-12.2) H 03/14/18 15:38 INR 2.0 03/14/18 15:38 APTT 36 SECONDS (21-34) H 03/14/18 15:38 - Constitutional Appears: No Acute Distress, Chronically Ill - Head Exam Head Exam: NORMAL INSPECTION, NORMOCEPHALIC - Eye Exam Eye Exam: Normal appearance Pupil Exam: PERRL - ENT Exam ENT Exam: Mucous Membranes Moist, Normal Exam - Neck Exam Neck Exam: Full ROM, Normal Inspection - Respiratory Exam Respiratory Exam: Decreased Breath Sounds, NORMAL BREATHING PATTERN - Cardiovascular Exam Cardiovascular Exam: Irregular Rhythm - GI/Abdominal Exam GI & Abdominal Exam: Distended, Soft - Extremities Exam Extremities Exam: Normal Inspection, Pedal Edema (chronic stasis) - Neurological Exam Neurological Exam: Alert, Awake - Psychiatric Exam Psychiatric exam: Anxious - Skin Skin Exam: Intact Assessment and Plan (1) Foot ulcer Status: Acute (2) Cellulitis Status: Acute (3) ESRD (end stage renal disease) Status: Acute (4) Non-ischemic cardiomyopathy Status: Acute (5) A-fib Status: Chronic - Assessment and Plan (Free Text) Assessment: esrd hypokalemia chronic hypotension foot ulcer / staph bacteremia antibiotics surgical avf eval / possible catheter hd today
[2018-03-16] MEDS: Pantoprazole 40 mg EC Tab PO SCH (10:06)
[2018-03-16] MEDS ORDERED: ceFAZolin 1 gm in NS 0 GM/0 ML BAG IVPB ONE (11:03)
[2018-03-16] MEDS ORDERED: Iohexol 240 200 ML ONE (11:03)
[2018-03-16] MEDS ORDERED: Lidocaine Hydrochloride 20 ML INJ ONE (11:04)
[2018-03-16] MEDS ORDERED: Vancomycin 1 gm/D5W 200 ml 0 GM/0 ML BAG IVPB ONE (11:04)
[2018-03-16] MEDS ORDERED: HEPARIN-NS 5,000 UNITS/500 ML 5,000 UNIT/500 ML BAG IV ONE (11:04)
[2018-03-16] MEDS: SILVASORB ANTIMICROBIAL WOUND GEL TOP SCH (11:23)
[2018-03-16 11:40] LABS: HEMOGLOBIN 6.9 g/dL (12.0-18.0); MEAN PLATELET VOLUME 8.3 fL (7.2-11.7)
[2018-03-16 11:48] LABS: MEAN CELL VOLUME 89.3 fL (80.0-94.0); MEAN CORPUSCULAR HGB CONC 32.4 g/dL (33.0-37.0); RED CELL DISTRIBUTION WIDTH 18.3 % (11.5-14.5); WHITE BLOOD COUNT 11.4 K/uL (4.8-10.8)
[2018-03-16 11:49] LABS: PLATELET COUNT 107 K/uL (130-400)
[2018-03-16 12:16] LABS: ALB/GLOB RATIO 0.8 (1.0-2.1); ALBUMIN 2.6 g/dL (3.5-5.0); CALCIUM 6.8 mg/dl (8.6-10.4)
[2018-03-16 12:19] LABS: EOS # 0.2 K/uL (0.0-0.7); LYMPH # 0.7 K/uL (1.0-4.3); MONO # 1.2 K/uL (0.0-0.8); NEUT # 9.3 K/uL (1.8-7.0)
[2018-03-16 12:21] LABS: BANDS 2 % (0-2); EOSINOPHIL 2 % (0-4); LYMPHOCYTE 7 % (20-40); MONOCYTE 7 % (0-10); NEUTROPHIL 82 % (50-75); PLATELET ESTIMATE SLIGHTLY DECREASED (NORMAL); TOTAL CELLS COUNTED 100
[2018-03-16 12:22] LABS: ANISOCYTOSIS MODERATE; HYPOCHROMIC SLIGHT; POIKILOCYTOSIS SLIGHT; POLYCHROMIC SLIGHT
[2018-03-16 12:23] LABS: OVALOCYTES SLIGHT
[2018-03-16] MEDS ORDERED: ePHEDrine 50 mg/ml Inj ONE (12:31)
--- NOTE | 2018-03-16 13:19 | PCM.SURG1 ---
Surgeon's Initial Post Op Note - Surgeon's Notes Surgeon: erasmo Turner And Former Automatic: rachel Type of Anesthesia: IV Sedation Anesthesia Administered By: aruna Pre-Operative Diagnosis: renal failure /clotted fistula Operative Findings: cath to svc ra via right jugular Post-Operative Diagnosis: same Operation Performed: permacath tight jugular with us guidance Specimen/Specimens Removed: 0 Estimated Blood Loss: EBL {In ML}: 15 Blood Products Given: N/A Drains Used: No Drains Post-Op Condition: Good Date of Surgery/Procedure: 03/16/18 Time of Surgery/Procedure: 13:19
[2018-03-16] MEDS ORDERED: HYDROmorphone 0.5 mg/0.5 ml ISec IVP PRN (13:48)
--- NOTE | 2018-03-16 14:26 | RAD ---
HISTORY: permacath right jugular COMPARISON: Chest x-ray performed 03/14/18 TECHNIQUE: Chest, one view. FINDINGS: Right IJ approach dialysis catheter terminates at the cavoatrial junction/SVC. LUNGS: Mild to moderate pulmonary venous congestion. No focal consolidation. Please note that chest x-ray has limited sensitivity for the detection of pulmonary masses. PLEURA: No significant pleural effusion identified. No definite pneumothorax . CARDIOVASCULAR: Single lead left-sided AICD. Cardiomegaly. Atherosclerotic calcification present. OSSEOUS STRUCTURES: Bilateral Helm rods, thoracolumbar spine. VISUALIZED UPPER ABDOMEN: Unremarkable. OTHER FINDINGS: None. IMPRESSION: Right-sided dialysis catheter. Mild to moderate pulmonary venous congestion. Cardiomegaly. Single lead left-sided AICD.
--- NOTE | 2018-03-16 23:38 | OP ---
PROCEDURE DATE: 03/16/2018 PREOPERATIVE DIAGNOSES: Renal failure, clotted fistula in the right arm. POSTOPERATIVE DIAGNOSES: Renal failure, clotted fistula in the right arm. PROCEDURE CARRIED OUT: Perm-A-cath in right jugular vein with C-arm fluoroscopy, ultrasound-guided puncture and micropuncture technique. INDICATIONS OF PROCEDURE: A 62-year-old man with renal insufficiency and a variety of other medical problems who presents with a clotted shunt during hospitalization. He is also on Eliquis, variety of other medical problems, required an urgent dialysis. OPERATIVE FINDINGS: The catheter was inserted relatively uneventfully via the right jugular vein. DESCRIPTION OF PROCEDURE: The patient was given local anesthesia. Intravenous antibiotics were previously and systemically administered. Using ultrasound guidance and micropuncture technique, the right internal jugular vein was punctured. Under fluoroscopic control, the guidewire was advanced centrally. This was exchanged for an 0.035 wire. A sheath dilator was passed over this, and then the catheter was positioned with the tip terminating in the superior vena cava of the right atrium and flowed through the jugular vein on the right chest wall. There were variety of other devices, already existing pacemaker and defibrillator in the central vasculature. Procedure was then terminated. Blood loss was 15 mL. There was no particular bleeding even though the patient was on Eliquis. We terminated the procedure and secured the catheter in the skin. Ultrasound images of the neck showed the vein was 14 mm in diameter, normal compressibility and no intraluminal thrombosis. Jerman Olguin Jr., MD
[2018-03-17] MEDS: (Novolin R) Insulin Human Regular 100 units/ml vial SC SCH ×3 (08:16→17:59)
--- NOTE | 2018-03-17 09:13 | CP.PCM.PN ---
Subjective - Date & Time of Evaluation Date of Evaluation: 03/17/18 Time of Evaluation: 09:13 - Subjective Subjective: Podiatry progress note for Dr. Nunn 62 y/o male patient seen and evaluated at bedside with Dr. Nunn. Patient is flustered and upset on visit. Patient denies any acute overnight events. Denies any pain to the lower extremities. Multipodus boots in place. Patient denies F/N/V/SOB/chills. Objective - Vital Signs/Intake and Output Vital Signs (last 24 hours): Temp Pulse Resp BP Pulse Ox 97.3 F L 62 20 102/64 97 03/17/18 07:29 03/17/18 07:29 03/17/18 07:29 03/17/18 07:29 03/17/18 07:29 - Medications Medications: Current Medications Apixaban (Eliquis) 2.5 mg PO BID [facility] Last Admin: 03/16/18 17:09 Dose: Not Given Calcium Acetate (Phoslo) 667 mg PO TIDCC [facility] Last Admin: 03/16/18 16:46 Dose: Not Given Carvedilol (Coreg) 3.125 mg PO BID [facility] Last Admin: 03/16/18 17:09 Dose: Not Given Dextrose (Dextrose 50% Inj) 0 ml IV STAT PRN; Protocol PRN Reason: Hypoglycemia Protocol Last Admin: 03/15/18 08:43 Dose: 25 ml Dextrose (Glutose 15) 0 gm PO ONCE PRN; Protocol PRN Reason: Hypoglycemia Protocol Glucagon (Glucagen Diagnostic Kit) 0 mg IM STAT PRN; Protocol PRN Reason: Hypoglycemia Protocol Dextrose (Dextrose 5% In Water 1000 Ml) 1,000 mls @ 0 mls/hr IV .Q0M PRN; Protocol PRN Reason: Hypoglycemia Protocol Insulin Human Regular (Novolin R) 0 unit SC ACHS [facility]; Protocol Last Admin: 03/17/18 08:16 Dose: Not Given Nateglinide (Starlix) 60 mg PO ACTID [facility] Last Admin: 03/16/18 16:46 Dose: Not Given Oxycodone/Acetaminophen (Percocet 5/325 Mg Tab) 1 tab PO Q6H PRN PRN Reason: Pain, severe (8-10) Stop: 03/18/18 13:11 Last Admin: 01/01/19 06:29 Dose: 1 tab Pantoprazole Sodium (Protonix Ec Tab) 40 mg PO DAILY [facility] Last Admin: 03/16/18 10:06 Dose: Not Given - Labs Labs: 03/16/18 11:32 03/16/18 11:32 PT 22.0 SECONDS (9.7-12.2) H 03/14/18 15:38 INR 2.0 03/14/18 15:38 APTT 36 SECONDS (21-34) H 03/14/18 15:38 - Constitutional Appears: Well, Non-toxic, No Acute Distress - Extremities Exam Additional comments: Lower extremity exam: Vasc: Nonpalpable pulses to the DP and PT, delayed CFT to the digits, temperature gradient WNL, +1 pitting pedal edema Derm: chronic skin changes with hyperpigmented skin to entire lower extremity, skin thickening and flaking bilateral lower legs. Full thickness ulceration noted to right posterior ankle at level of Achilles insertion measuring approximately 2 cm x 2 cm x 1cm, with mixture granular and fibrotic wound base. No active drainage noted. No fluctuance noted. Minor ibeth-wound erythema, no streaking appreciated. Neuro: Gross sensation absent B/L. protective sensation absent Ortho: pain on palpation to the right ankle and LE - Neurological Exam Neurological Exam: Alert, Awake - Psychiatric Exam Psychiatric exam: Normal Affect, Normal Mood Assessment and Plan - Assessment and Plan (Free Text) Assessment: 62 y/o male with right posterior ankle full thickness ulceration Plan: Patient seen and evaluated with Dr. Nunn Wound cx + for MRSA Blood cx taken:+ MRSA X-ray taken: possible signs of acute OM, further imaging recommended/clinical presentation to evaluated ID on board, appreciate recommendations Recommend possible surgical intervention in the future for debridement of wounds Will proceed with local wound care at this time Will continue to follow patient while in house
[2018-03-17] MEDS: Pantoprazole 40 mg EC Tab PO SCH (10:15)
[2018-03-17] MEDS: SILVASORB ANTIMICROBIAL WOUND GEL TOP SCH (10:16)
--- NOTE | 2018-03-17 10:17 | CP.PCM.PN ---
Subjective - Date & Time of Evaluation Date of Evaluation: 03/17/18 Time of Evaluation: 10:14 - Subjective Subjective: Vascular Surgery Progress Note for Dr. Olguin 62M seen and evaluated at bedside this morning. No acute events overnight. Patient complains of feeling weak and tired this morning. Due for dialysis today with newly inserted permacath. Denies f/c, n/v/d, SOB, CP, headaches, or dizziness. Objective - Vital Signs/Intake and Output Vital Signs (last 24 hours): Temp Pulse Resp BP Pulse Ox 97.3 F L 62 20 119/52 L 97 03/17/18 07:29 03/17/18 07:29 03/17/18 07:29 03/17/18 10:00 03/17/18 07:29 - Medications Medications: Current Medications Apixaban (Eliquis) 2.5 mg PO BID [facility] Last Admin: 03/16/18 17:09 Dose: Not Given Calcium Acetate (Phoslo) 667 mg PO TIDCC [facility] Last Admin: 03/16/18 16:46 Dose: Not Given Carvedilol (Coreg) 3.125 mg PO BID [facility] Last Admin: 03/16/18 17:09 Dose: Not Given Dextrose (Dextrose 50% Inj) 0 ml IV STAT PRN; Protocol PRN Reason: Hypoglycemia Protocol Last Admin: 03/15/18 08:43 Dose: 25 ml Dextrose (Glutose 15) 0 gm PO ONCE PRN; Protocol PRN Reason: Hypoglycemia Protocol Glucagon (Glucagen Diagnostic Kit) 0 mg IM STAT PRN; Protocol PRN Reason: Hypoglycemia Protocol Dextrose (Dextrose 5% In Water 1000 Ml) 1,000 mls @ 0 mls/hr IV .Q0M PRN; Protocol PRN Reason: Hypoglycemia Protocol Daptomycin 700 mg/ Sodium (Chloride) 100 mls @ 100 mls/hr IVPB ONCE ONE; Protocol Insulin Human Regular (Novolin R) 0 unit SC ACHS [facility]; Protocol Last Admin: 03/17/18 08:16 Dose: Not Given Nateglinide (Starlix) 60 mg PO ACTID [facility] Last Admin: 03/16/18 16:46 Dose: Not Given Oxycodone/Acetaminophen (Percocet 5/325 Mg Tab) 1 tab PO Q6H PRN PRN Reason: Pain, severe (8-10) Stop: 03/18/18 13:11 Last Admin: 03/16/18 06:29 Dose: 1 tab Pantoprazole Sodium (Protonix Ec Tab) 40 mg PO DAILY [facility] Last Admin: 03/16/18 10:06 Dose: Not Given - Labs Labs: 03/16/18 11:32 03/16/18 11:32 PT 22.0 SECONDS (9.7-12.2) H 03/14/18 15:38 INR 2.0 03/14/18 15:38 APTT 36 SECONDS (21-34) H 03/14/18 15:38 - Constitutional Appears: Chronically Ill - Head Exam Head Exam: ATRAUMATIC, NORMAL INSPECTION, NORMOCEPHALIC - Eye Exam Eye Exam: EOMI - ENT Exam ENT Exam: Mucous Membranes Dry - Respiratory Exam Respiratory Exam: absent: Respiratory Distress - Neurological Exam Neurological Exam: Alert, Awake - Psychiatric Exam Psychiatric exam: Normal Affect, Normal Mood Assessment and Plan - Assessment and Plan (Free Text) Assessment: 62M s/p right Permacath insertion POD1 Plan: Dialysis today Continue to monitor permacath function Will possibly need future surgical intervention Will need to be medically optimized before any intervention Further recommendations per Dr. Clau Ray PGY1
--- NOTE | 2018-03-17 13:02 | CP.PCM.PN ---
Subjective - Date & Time of Evaluation Date of Evaluation: 03/17/18 Time of Evaluation: 12:57 - Subjective Subjective: tolerated HD yesterday 2 U PRBC foot getting care feels better no chest pain no sob anuric no headache no fever no vomiting no rash no abdominal pain Objective - Vital Signs/Intake and Output Vital Signs (last 24 hours): Temp Pulse Resp BP Pulse Ox 97.3 F L 62 20 102/64 97 03/17/18 07:29 03/17/18 07:29 03/17/18 07:29 03/17/18 07:29 03/17/18 07:29 - Medications Medications: Current Medications Apixaban (Eliquis) 2.5 mg PO BID [facility] Last Admin: 03/17/18 10:15 Dose: 2.5 mg Calcium Acetate (Phoslo) 667 mg PO TIDCC [facility] Last Admin: 03/17/18 10:15 Dose: 667 mg Carvedilol (Coreg) 3.125 mg PO BID [facility] Last Admin: 03/17/18 10:14 Dose: Not Given Dextrose (Dextrose 50% Inj) 0 ml IV STAT PRN; Protocol PRN Reason: Hypoglycemia Protocol Last Admin: 03/15/18 08:43 Dose: 25 ml Dextrose (Glutose 15) 0 gm PO ONCE PRN; Protocol PRN Reason: Hypoglycemia Protocol Glucagon (Glucagen Diagnostic Kit) 0 mg IM STAT PRN; Protocol PRN Reason: Hypoglycemia Protocol Dextrose (Dextrose 5% In Water 1000 Ml) 1,000 mls @ 0 mls/hr IV .Q0M PRN; Protocol PRN Reason: Hypoglycemia Protocol Daptomycin 700 mg/ Sodium (Chloride) 100 mls @ 100 mls/hr IVPB ONCE ONE; Protocol [facility]; Protocol Last Admin: 03/17/18 08:16 Dose: Not Given Nateglinide (Starlix) 60 mg PO ACTID [facility] Last Admin: 03/17/18 10:15 Dose: 60 mg Oxycodone/Acetaminophen (Percocet 5/325 Mg Tab) 1 tab PO Q6H PRN PRN Reason: Pain, severe (8-10) Stop: 03/18/18 13:11 Last Admin: 03/16/18 06:29 Dose: 1 tab Pantoprazole Sodium (Protonix Ec Tab) 40 mg PO DAILY [facility] Last Admin: 03/17/18 10:15 Dose: 40 mg - Labs Labs: 03/16/18 11:32 03/16/18 11:32 PT 22.0 SECONDS (9.7-12.2) H 03/14/18 15:38 INR 2.0 03/14/18 15:38 APTT 36 SECONDS (21-34) H 03/14/18 15:38 - Constitutional Appears: Non-toxic, Chronically Ill - Head Exam Head Exam: ATRAUMATIC, NORMAL INSPECTION - Eye Exam Eye Exam: EOMI - ENT Exam ENT Exam: Mucous Membranes Moist - Neck Exam Neck Exam: Full ROM. absent: Lymphadenopathy - Respiratory Exam Respiratory Exam: Decreased Breath Sounds. absent: Rhonchi - Cardiovascular Exam Cardiovascular Exam: REGULAR RHYTHM. absent: Rubs - GI/Abdominal Exam GI & Abdominal Exam: Distended, Soft. absent: Tenderness - Extremities Exam Additional comments: feet bandaged - Neurological Exam Neurological Exam: Alert, Awake - Psychiatric Exam Psychiatric exam: Normal Affect Assessment and Plan - Assessment and Plan (Free Text) Assessment: esrd, for HD in am wound infection in foot, continue wound care and AB anemia of chronic disease, s/p blood transfusions
--- NOTE | 2018-03-17 14:42 | CP.PCM.PN ---
Subjective - Date & Time of Evaluation Date of Evaluation: 03/17/18 Time of Evaluation: 14:41 - Subjective Subjective: diminished pulse right arm with pain with occluded fistula full rom v good doppler signals at both wrist vessels formal duplex ordered Objective - Vital Signs/Intake and Output Vital Signs (last 24 hours): Temp Pulse Resp BP Pulse Ox 97.3 F L 62 20 102/64 97 03/17/18 07:29 03/17/18 07:29 03/17/18 07:29 03/17/18 07:29 03/17/18 07:29 - Medications Medications: Current Medications Apixaban (Eliquis) 2.5 mg PO BID [facility] Last Admin: 03/17/18 10:15 Dose: 2.5 mg Calcium Acetate (Phoslo) 667 mg PO TIDCC [facility] Last Admin: 03/17/18 12:25 Dose: 667 mg Carvedilol (Coreg) 3.125 mg PO BID [facility] Last Admin: 03/17/18 10:14 Dose: Not Given Dextrose (Dextrose 50% Inj) 0 ml IV STAT PRN; Protocol PRN Reason: Hypoglycemia Protocol Last Admin: 03/15/18 08:43 Dose: 25 ml Dextrose (Glutose 15) 0 gm PO ONCE PRN; Protocol PRN Reason: Hypoglycemia Protocol Glucagon (Glucagen Diagnostic Kit) 0 mg IM STAT PRN; Protocol PRN Reason: Hypoglycemia Protocol Dextrose (Dextrose 5% In Water 1000 Ml) 1,000 mls @ 0 mls/hr IV .Q0M PRN; Protocol PRN Reason: Hypoglycemia Protocol Daptomycin 700 mg/ Sodium (Chloride) 100 mls @ 100 mls/hr IVPB ONCE ONE; Protocol Stop: 03/18/18 18:59 Daptomycin 700 mg/ Sodium (Chloride) 100 mls @ 100 mls/hr IV ONCE ONE; Protocol Stop: 03/20/18 18:59 Insulin Human Regular (Novolin R) 0 unit SC ACHS [facility]; Protocol Last Admin: 03/17/18 14:26 Dose: Not Given Nateglinide (Starlix) 60 mg PO ACTID [facility] Last Admin: 03/17/18 12:25 Dose: 60 mg Oxycodone/Acetaminophen (Percocet 5/325 Mg Tab) 1 tab PO Q6H PRN PRN Reason: Pain, severe (8-10) Stop: 03/18/18 13:11 Last Admin: 03/16/18 06:29 Dose: 1 tab Pantoprazole Sodium (Protonix Ec Tab) 40 mg PO DAILY [facility] Last Admin: 03/17/18 10:15 Dose: 40 mg - Labs Labs: 03/16/18 11:32 03/16/18 11:32 PT 22.0 SECONDS (9.7-12.2) H 03/14/18 15:38 INR 2.0 03/14/18 15:38 APTT 36 SECONDS (21-34) H 03/14/18 15:38
[2018-03-17 21:11] LABS: BASO # 0.1 K/uL (0.0-0.2); BASO % 0.5 % (0.0-2.0); EOS # 0.2 K/uL (0.0-0.7); EOS % 1.4 % (0.0-4.0); HEMOGLOBIN 8.3 g/dL (12.0-18.0); LYMPH # 1.3 K/uL (1.0-4.3); LYMPH % 11.7 % (20.0-40.0); MEAN CELL VOLUME 87.5 fL (80.0-94.0); MEAN CORPUSCULAR HEMOGLOBIN 28.4 pg (27.0-31.0); MEAN CORPUSCULAR HGB CONC 32.5 g/dL (33.0-37.0); MONO # 0.4 K/uL (0.0-0.8); MONO % 3.3 % (0.0-10.0); NEUT # 9.2 K/uL (1.8-7.0); NEUT % 83.1 % (50.0-75.0); NRBC % 0.3 % (0.0-2.0); RBC 2.94 Mil/uL (4.40-5.90); WHITE BLOOD COUNT 11.1 K/uL (4.8-10.8)
--- NOTE | 2018-03-17 23:56 | CP.PCM.PN ---
Subjective - Date & Time of Evaluation Date of Evaluation: 03/17/18 Time of Evaluation: 23:56 - Subjective Subjective: Patient is morning looks comfortable. He was having pain in the legs. He has no chest pain. He had a hemodialysis yesterday along with the transfusion Patient had a problem in the AV shunt. Received a hemodialysis catheter on the right chest area. We will continue the current treatment. On antibiotic. Blood culture showing evidence of gram-positive cocci on antibiotic and will follow the patient Objective - Vital Signs/Intake and Output Vital Signs (last 24 hours): Temp Pulse Resp BP Pulse Ox 97.3 F L 62 20 102/64 97 03/17/18 07:29 03/17/18 07:29 03/17/18 07:29 03/17/18 07:29 03/17/18 07:29 Intake and Output: 03/17/18 03/18/18 18:59 06:59 Intake Total 100 Balance 100 - Medications Medications: Current Medications Apixaban (Eliquis) 2.5 mg PO BID [facility] Last Admin: 03/17/18 17:19 Dose: 2.5 mg Calcium Acetate (Phoslo) 667 mg PO TIDCC [facility] Last Admin: 03/17/18 17:19 Dose: 667 mg Carvedilol (Coreg) 3.125 mg PO BID [facility] Last Admin: 03/17/18 17:19 Dose: Not Given Dextrose (Dextrose 50% Inj) 0 ml IV STAT PRN; Protocol PRN Reason: Hypoglycemia Protocol Last Admin: 03/15/18 08:43 Dose: 25 ml Dextrose (Glutose 15) 0 gm PO ONCE PRN; Protocol PRN Reason: Hypoglycemia Protocol Glucagon (Glucagen Diagnostic Kit) 0 mg IM STAT PRN; Protocol PRN Reason: Hypoglycemia Protocol Dextrose (Dextrose 5% In Water 1000 Ml) 1,000 mls @ 0 mls/hr IV .Q0M PRN; Protocol PRN Reason: Hypoglycemia Protocol Daptomycin 700 mg/ Sodium (Chloride) 100 mls @ 100 mls/hr IVPB ONCE ONE; Protocol Stop: 03/18/18 18:59 Daptomycin 700 mg/ Sodium (Chloride) 100 mls @ 100 mls/hr IV ONCE ONE; Protocol Stop: 03/20/18 18:59 Insulin Human Regular (Novolin R) 0 unit SC [facility]; Protocol Last Admin: 03/17/18 17:59 Dose: Not Given Nateglinide (Starlix) 60 mg PO ACTID [facility] Last Admin: 03/17/18 17:59 Dose: Not Given Oxycodone/Acetaminophen (Percocet 5/325 Mg Tab) 1 tab PO Q6H PRN PRN Reason: Pain, severe (8-10) Stop: 03/18/18 13:11 Last Admin: 03/16/18 06:29 Dose: 1 tab Pantoprazole Sodium (Protonix Ec Tab) 40 mg PO DAILY [facility] Last Admin: 03/17/18 10:15 Dose: 40 mg - Labs Labs: 03/17/18 21:13 03/16/18 11:32 PT 22.0 SECONDS (9.7-12.2) H 03/14/18 15:38 INR 2.0 03/14/18 15:38 APTT 36 SECONDS (21-34) H 03/14/18 15:38
[2018-03-18] MEDS: (Novolin R) Insulin Human Regular 100 units/ml vial SC SCH ×4 (08:00→22:00)
[2018-03-18] MEDS ORDERED: Albumin Human 25% (12.5 gm/50 ml) IV STA ×2 (09:21→11:17)
--- NOTE | 2018-03-18 09:33 | CP.PCM.PN ---
Subjective - Date & Time of Evaluation Date of Evaluation: 03/18/18 Time of Evaluation: 09:30 - Subjective Subjective: Seen at dialysis - trying to UF +MRSA bacteremia being treated BP low- will hold carvedilol Appears lethargic Objective - Vital Signs/Intake and Output Vital Signs (last 24 hours): Temp Pulse Resp BP Pulse Ox 98.4 F 86 20 105/68 99 03/18/18 04:46 03/18/18 04:46 03/18/18 04:46 03/18/18 04:46 03/18/18 04:46 Intake and Output: 03/18/18 03/18/18 06:59 18:59 Intake Total 100 Balance 100 - Medications Medications: Current Medications Apixaban (Eliquis) 2.5 mg PO BID [facility] Last Admin: 03/17/18 17:19 Dose: 2.5 mg Calcium Acetate (Phoslo) 667 mg PO TIDCC [facility] Last Admin: 03/18/18 08:35 Dose: 667 mg Dextrose (Dextrose 50% Inj) 0 ml IV STAT PRN; Protocol PRN Reason: Hypoglycemia Protocol Last Admin: 03/15/18 08:43 Dose: 25 ml Dextrose (Glutose 15) 0 gm PO ONCE PRN; Protocol PRN Reason: Hypoglycemia Protocol Glucagon (Glucagen Diagnostic Kit) 0 mg IM STAT PRN; Protocol PRN Reason: Hypoglycemia Protocol Dextrose (Dextrose 5% In Water 1000 Ml) 1,000 mls @ 0 mls/hr IV .Q0M PRN; Protocol PRN Reason: Hypoglycemia Protocol Daptomycin 700 mg/ Sodium (Chloride) 100 mls @ 100 mls/hr IVPB ONCE ONE; Protocol Stop: 03/18/18 18:59 Daptomycin 700 mg/ Sodium (Chloride) 100 mls @ 100 mls/hr IV ONCE ONE; Protocol Stop: 03/20/18 18:59 Insulin Human Regular (Novolin R) 0 unit SC ACHS [facility]; Protocol Last Admin: 03/18/18 08:00 Dose: Not Given Nateglinide (Starlix) 60 mg PO ACTID [facility] Last Admin: 03/18/18 07:30 Dose: Not Given Oxycodone/Acetaminophen (Percocet 5/325 Mg Tab) 1 tab PO Q6H PRN PRN Reason: Pain, severe (8-10) Stop: 03/18/18 13:11 Last Admin: 03/16/18 06:29 Dose: 1 tab Pantoprazole Sodium (Protonix Ec Tab) 40 mg PO DAILY [facility] Last Admin: 03/17/18 10:15 Dose: 40 mg - Labs Labs: 03/17/18 21:13 03/16/18 11:32 PT 22.0 SECONDS (9.7-12.2) H 03/14/18 15:38 INR 2.0 03/14/18 15:38 APTT 36 SECONDS (21-34) H 03/14/18 15:38 - Constitutional Appears: No Acute Distress, Confused, Chronically Ill - Head Exam Head Exam: ATRAUMATIC, NORMAL INSPECTION - Eye Exam Eye Exam: EOMI, Normal appearance - Neck Exam Neck Exam: Normal Inspection. absent: Tenderness - Respiratory Exam Respiratory Exam: Clear to Ausculation Bilateral, NORMAL BREATHING PATTERN - Cardiovascular Exam Cardiovascular Exam: REGULAR RHYTHM, +S1 - GI/Abdominal Exam GI & Abdominal Exam: Soft. absent: Tenderness - Extremities Exam Extremities Exam: Pedal Edema, Tenderness - Neurological Exam Neurological Exam: Awake, CN II-XII Intact - Skin Skin Exam: Rash, Warm Assessment and Plan (1) Cellulitis Status: Acute (2) ESRD (end stage renal disease) Status: Acute (3) Fluid overload Status: Acute (4) Severe anemia Status: Acute (5) A-fib Status: Chronic - Assessment and Plan (Free Text) Plan: Repeat CBC IV ABs IV ABs
--- NOTE | 2018-03-18 10:03 | CP.PCM.PN ---
Subjective - Date & Time of Evaluation Date of Evaluation: 03/18/18 Time of Evaluation: 10:03 - Subjective Subjective: Podiatry Progress Note- Dr. Nunn 62 y/o male patient seen and evaluated at bedside for right posterior lower leg wound. Patient resting in bed at time of visit. Patient denies any acute overnight events. Denies any pain to the lower extremities. Multipodus boots in place. Patient denies F/N/V/SOB/chills. Objective - Vital Signs/Intake and Output Vital Signs (last 24 hours): Temp Pulse Resp BP Pulse Ox 98.4 F 86 20 105/68 99 03/18/18 04:46 03/18/18 04:46 03/18/18 04:46 03/18/18 04:46 03/18/18 04:46 Intake and Output: 03/18/18 03/18/18 06:59 18:59 Intake Total 100 Balance 100 - Medications Medications: Current Medications Apixaban (Eliquis) 2.5 mg PO BID [facility] Last Admin: 03/17/18 17:19 Dose: 2.5 mg Calcium Acetate (Phoslo) 667 mg PO TIDCC [facility] Last Admin: 03/18/18 08:35 Dose: 667 mg Dextrose (Dextrose 50% Inj) 0 ml IV STAT PRN; Protocol PRN Reason: Hypoglycemia Protocol Last Admin: 03/15/18 08:43 Dose: 25 ml Dextrose (Glutose 15) 0 gm PO ONCE PRN; Protocol PRN Reason: Hypoglycemia Protocol Glucagon (Glucagen Diagnostic Kit) 0 mg IM STAT PRN; Protocol PRN Reason: Hypoglycemia Protocol Dextrose (Dextrose 5% In Water 1000 Ml) 1,000 mls @ 0 mls/hr IV .Q0M PRN; Protocol PRN Reason: Hypoglycemia Protocol Daptomycin 700 mg/ Sodium (Chloride) 100 mls @ 100 mls/hr IVPB ONCE ONE; Protocol Stop: 03/18/18 18:59 Daptomycin 700 mg/ Sodium (Chloride) 100 mls @ 100 mls/hr IV ONCE ONE; Protocol Stop: 03/20/18 18:59 Insulin Human Regular (Novolin R) 0 unit SC ACHS [facility]; Protocol Last Admin: 03/18/18 08:00 Dose: Not Given Nateglinide (Starlix) 60 mg PO ACTID [facility] Last Admin: 03/18/18 07:30 Dose: Not Given Oxycodone/Acetaminophen (Percocet 5/325 Mg Tab) 1 tab PO Q6H PRN PRN Reason: Pain, severe (8-10) Stop: 03/18/18 13:11 Last Admin: 03/16/18 06:29 Dose: 1 tab Pantoprazole Sodium (Protonix Ec Tab) 40 mg PO DAILY [facility] Last Admin: 03/17/18 10:15 Dose: 40 mg - Labs Labs: 03/17/18 21:13 03/16/18 11:32 PT 22.0 SECONDS (9.7-12.2) H 03/14/18 15:38 INR 2.0 03/14/18 15:38 APTT 36 SECONDS (21-34) H 03/14/18 15:38 - Constitutional Appears: Well, Non-toxic, No Acute Distress - Extremities Exam Additional comments: Multipodus boots in place- Lower extremity exam: Vasc: Nonpalpable pulses to the DP and PT. Delayed CFT to the digits. Temperature gradient WNL. +1 pitting pedal edema Derm: Full thickness ulceration noted to right posterior ankle at level of Achilles insertion measuring approximately 2 cm x 2 cm x 1cm, with mixture granular and fibrotic wound base. No active drainage noted. No fluctuance noted. Minor ibeth-wound erythema, no streaking appreciated. Chronic skin changes with hyperpigmented skin to entire lower extremity, skin thickening and flaking bilateral lower legs. Neuro: Gross sensation absent B/L. protective sensation absent Ortho: pain on palpation to the right ankle and LE - Neurological Exam Neurological Exam: Alert, Awake, Oriented x3 Assessment and Plan - Assessment and Plan (Free Text) Assessment: 62 y/o male with right posterior ankle full thickness ulceration Plan: Patient seen and evaluated at bedside Discussed plan with Dr. Nunn Wound cx + for MRSA Blood cx taken:+ MRSA X-ray taken: possible signs of acute OM, further imaging recommended ID on board, appreciate recommendations Recommend possible surgical intervention in the future for debridement of wounds Will continue treating with local wound care at this time Will continue to follow patient while in house
[2018-03-18] MEDS: SILVASORB ANTIMICROBIAL WOUND GEL TOP SCH (11:06)
[2018-03-18] MEDS: Pantoprazole 40 mg EC Tab PO SCH (13:53)
--- NOTE | 2018-03-18 17:04 | RAD ---
PROCEDURE: HISTORY: As above COMPARISON: None TECHNIQUE: Total fluoroscopic time utilized during the procedure: 21.6 seconds ; 1.9 mGy FINDINGS: Submitted images from the current procedure: 2 Please refer to the physician's notes performing the procedure. IMPRESSION: Less than 1 hour fluoroscopic time utilized during performance of the procedure
[2018-03-18] MEDS ORDERED: DAPTOmycin 700 MG in Sodium Chloride 0.9% 100 ML IVPB ONE (18:00)
--- NOTE | 2018-03-18 19:00 | CP.PCM.PN ---
Subjective - Date & Time of Evaluation Date of Evaluation: 03/18/18 Time of Evaluation: 18:52 - Subjective Subjective: INFECTIOUS DISEASE PROGRESS NOTES 03/17-05/2018 IRIS DOMINGUEZ MD, FACP 6T 655 CHART REVIEWED PT EXAMINED CSE DISCUSSED WITH PHARMACY CLINICALLY RESPONDING TO IV CUBICIN, SINCE VANCOMYCIN LEVELS NOT CLEARLY APPRECIATED, AND ELEVATED LEVELS MAY NOT BE FESSABLE, ERGO WILL CONTINUE IV CUBICIN AROUND 6-8MG/KG, FOR HIS TREATMENT THERAPEUTIC PERIOD OF TIME NEEDED. C/C: BACL PAIN ESPECIALLY LYING IN BED. AFEBRILE AND MENTALLY MORE CLEAR NOW. LUNGS CLEAR COR RR ABD SOFT EXT ON IV ANTIBIOTICS FOR WOUND AND BLOOD C/S + FOR MRSA. SEE INCREASE IN DOSE. RECENT DOCUMENTATION OF POOR RESPONSE TO VANCO - I WOULD APPRECIATE THE ALESSIA'S NOT JUST S/R. IRIS DOMINGUEZ MD, FACP Objective - Vital Signs/Intake and Output Vital Signs (last 24 hours): Temp Pulse Resp BP Pulse Ox 97.3 F L 108 H 20 133/76 100 03/18/18 15:58 03/18/18 15:58 03/18/18 15:58 03/18/18 15:58 03/18/18 15:58 Intake and Output: 03/18/18 03/18/18 06:59 18:59 Intake Total 100 100 Balance 100 100 - Medications Medications: Current Medications Apixaban (Eliquis) 2.5 mg PO BID [facility] Last Admin: 03/18/18 17:48 Dose: 2.5 mg Calcium Acetate (Phoslo) 667 mg PO TIDCC [facility] Last Admin: 03/18/18 16:44 Dose: 667 mg Dextrose (Dextrose 50% Inj) 0 ml IV STAT PRN; Protocol PRN Reason: Hypoglycemia Protocol Last Admin: 03/15/18 08:43 Dose: 25 ml Dextrose (Glutose 15) 0 gm PO ONCE PRN; Protocol PRN Reason: Hypoglycemia Protocol Glucagon (Glucagen Diagnostic Kit) 0 mg IM STAT PRN; Protocol PRN Reason: Hypoglycemia Protocol Dextrose (Dextrose 5% In Water 1000 Ml) 1,000 mls @ 0 mls/hr IV .Q0M PRN; Protocol PRN Reason: Hypoglycemia Protocol Daptomycin 700 mg/ Sodium (Chloride) 100 mls @ 100 mls/hr IVPB ONCE ONE; Protocol Stop: 03/18/18 18:59 Last Admin: 03/18/18 17:00 Dose: 100 mls/hr Daptomycin 700 mg/ Sodium (Chloride) 100 mls @ 100 mls/hr IV ONCE ONE; Protocol Stop: 03/20/18 18:59 Insulin Human Regular (Novolin R) 0 unit SC ACHS [facility]; Protocol Last Admin: 03/18/18 16:45 Dose: Not Given Ketorolac Tromethamine (Toradol) 10 mg PO BID PRN PRN Reason: 4-8 Last Admin: 03/18/18 16:27 Dose: 10 mg Nateglinide (Starlix) 60 mg PO ACTID [facility] Last Admin: 03/18/18 17:49 Dose: 60 mg Pantoprazole Sodium (Protonix Ec Tab) 40 mg PO DAILY [facility] Last Admin: 03/18/18 13:53 Dose: 40 mg - Labs Labs: 03/17/18 21:13 03/16/18 11:32 PT 22.0 SECONDS (9.7-12.2) H 03/14/18 15:38 INR 2.0 03/14/18 15:38 APTT 36 SECONDS (21-34) H 03/14/18 15:38
--- NOTE | 2018-03-18 21:40 | CP.PCM.PN ---
Subjective - Date & Time of Evaluation Date of Evaluation: 03/18/18 Time of Evaluation: 21:36 - Subjective Subjective: Patient is currently feeling well. Complaining of pain in the lower back pain Also complaining of pain in the left leg. Also in the right leg. She he is able to eat better. Bowel movements are okay. No fever. Patient had a right arm DVT study. Right now patient is being using the right subclavian hemodialysis catheter On examination: Vital signs stable. Chest good air entry Regular heart sounds. Abdominal obesity, edema noted Assessment and recognition: 62-year-old male with a history of leukemia, in remission. History of spinal disease. Spinal surgical intervention in the past. End-stage renal disease on dialysis. Ischemic cardiomyopathy. Patient has a recurrent cellulitis of the bilateral legs. On antibiotic treatment. Now admitted with gram-positive bacteremia and on Cubicin. Discussed with infectious disease we will continue current treatment. Pain management and will follow the patient Objective - Vital Signs/Intake and Output Vital Signs (last 24 hours): Temp Pulse Resp BP Pulse Ox 97.3 F L 108 H 20 133/76 100 03/18/18 15:58 03/18/18 15:58 03/18/18 15:58 03/18/18 15:58 03/18/18 15:58 Intake and Output: 03/18/18 03/19/18 18:59 06:59 Intake Total 100 Balance 100 - Medications Medications: Current Medications Apixaban (Eliquis) 2.5 mg PO BID [facility] Last Admin: 03/18/18 17:48 Dose: 2.5 mg Calcium Acetate (Phoslo) 667 mg PO TIDCC [facility] Last Admin: 03/18/18 16:44 Dose: 667 mg Dextrose (Dextrose 50% Inj) 0 ml IV STAT PRN; Protocol PRN Reason: Hypoglycemia Protocol Last Admin: 03/15/18 08:43 Dose: 25 ml Dextrose (Glutose 15) 0 gm PO ONCE PRN; Protocol PRN Reason: Hypoglycemia Protocol Glucagon (Glucagen Diagnostic Kit) 0 mg IM STAT PRN; Protocol PRN Reason: Hypoglycemia Protocol Dextrose (Dextrose 5% In Water 1000 Ml) 1,000 mls @ 0 mls/hr IV .Q0M PRN; Protocol PRN Reason: Hypoglycemia Protocol Daptomycin 900 mg/ Sodium (Chloride) 100 mls @ 100 mls/hr IV ONCE ONE; Protocol Stop: 03/20/18 18:59 Insulin Human Regular (Novolin R) 0 unit SC ACHS [facility]; Protocol Last Admin: 03/18/18 16:45 Dose: Not Given Ketorolac Tromethamine (Toradol) 10 mg PO BID PRN PRN Reason: 4-8 Last Admin: 03/18/18 16:27 Dose: 10 mg Nateglinide (Starlix) 60 mg PO ACTID [facility] Last Admin: 03/18/18 17:49 Dose: 60 mg Pantoprazole Sodium (Protonix Ec Tab) 40 mg PO DAILY [facility] Last Admin: 03/18/18 13:53 Dose: 40 mg - Labs Labs: 03/17/18 21:13 03/16/18 11:32 PT 22.0 SECONDS (9.7-12.2) H 03/14/18 15:38 INR 2.0 03/14/18 15:38 APTT 36 SECONDS (21-34) H 03/14/18 15:38
[2018-03-19 07:04] LABS: HEMOGLOBIN 8.6 g/dL (12.0-18.0); MEAN CELL VOLUME 88.3 fL (80.0-94.0); MEAN CORPUSCULAR HEMOGLOBIN 29.3 pg (27.0-31.0); MEAN CORPUSCULAR HGB CONC 33.2 g/dL (33.0-37.0); MEAN PLATELET VOLUME 8.4 fL (7.2-11.7); RBC 2.95 Mil/uL (4.40-5.90); RED CELL DISTRIBUTION WIDTH 17.7 % (11.5-14.5); WHITE BLOOD COUNT 9.8 K/uL (4.8-10.8)
[2018-03-19 07:30] LABS: ALB/GLOB RATIO 0.9 (1.0-2.1); CALCIUM 7.5 mg/dl (8.6-10.4)
[2018-03-19] MEDS: (Novolin R) Insulin Human Regular 100 units/ml vial SC SCH ×4 (08:14→22:30)
[2018-03-19] MEDS: Pantoprazole 40 mg EC Tab PO SCH (10:47)
[2018-03-19] MEDS: SILVASORB ANTIMICROBIAL WOUND GEL TOP SCH (10:55)
[2018-03-19] MEDS ORDERED: Tobramycin/Dexamethasone OPHT OINT OS PRN (12:40)
[2018-03-19] MEDS ORDERED: Tobramycin/Dexamethasone (Tobradex) Opth Sol (2.5 ml) OS PRN (13:13)
--- NOTE | 2018-03-19 14:22 | CP.PCM.PN ---
Subjective - Date & Time of Evaluation Date of Evaluation: 03/19/18 Time of Evaluation: 14:19 - Subjective Subjective: s/p dialysis 1/3 s/p blood transfusion Hg increased to 8.6 On IV ABs for bacteremia More alert today, afebrile Objective - Vital Signs/Intake and Output Vital Signs (last 24 hours): Temp Pulse Resp BP Pulse Ox 97.7 F 98 H 20 107/55 L 100 03/18/18 23:35 03/18/18 23:35 03/18/18 23:35 03/18/18 23:35 03/18/18 23:35 Intake and Output: 03/19/18 03/19/18 06:59 18:59 Intake Total 480 Balance 480 - Medications Medications: Current Medications Apixaban (Eliquis) 2.5 mg PO BID [facility] Last Admin: 03/19/18 10:47 Dose: 2.5 mg Calcium Acetate (Phoslo) 667 mg PO TIDCC [facility] Last Admin: 03/19/18 12:30 Dose: 667 mg Daptomycin 900 mg/ Sodium (Chloride) 100 mls @ 100 mls/hr IV ONCE ONE; Protocol Stop: 03/20/18 18:59 Insulin Human Regular (Novolin R) 0 unit SC ACHS [facility]; Protocol Last Admin: 03/19/18 12:30 Dose: Not Given Ketorolac Tromethamine (Toradol) 10 mg PO BID PRN PRN Reason: 4-8 Last Admin: 03/19/18 10:56 Dose: 10 mg Nateglinide (Starlix) 60 mg PO ACTID [facility] Last Admin: 03/19/18 10:49 Dose: 60 mg Pantoprazole Sodium (Protonix Ec Tab) 40 mg PO DAILY [facility] Last Admin: 03/19/18 10:47 Dose: 40 mg Tobramycin/Dexamethasone (Tobradex Opht Susp) 0.1 ml OS BID PRN - Labs Labs: 03/19/18 06:49 03/19/18 06:49 PT 22.0 SECONDS (9.7-12.2) H 03/14/18 15:38 INR 2.0 03/14/18 15:38 APTT 36 SECONDS (21-34) H 03/14/18 15:38 - Constitutional Appears: No Acute Distress, Chronically Ill - Head Exam Head Exam: ATRAUMATIC, NORMAL INSPECTION - Eye Exam Eye Exam: EOMI, Normal appearance - Neck Exam Neck Exam: Normal Inspection. absent: Tenderness - Respiratory Exam Respiratory Exam: Clear to Ausculation Bilateral, NORMAL BREATHING PATTERN - Cardiovascular Exam Cardiovascular Exam: Irregular Rhythm, +S1 - GI/Abdominal Exam GI & Abdominal Exam: Soft. absent: Tenderness - Extremities Exam Extremities Exam: Normal Inspection. absent: Tenderness - Neurological Exam Neurological Exam: Awake, CN II-XII Intact - Skin Skin Exam: Dry, Warm Assessment and Plan (1) Cellulitis Status: Acute (2) ESRD (end stage renal disease) Status: Acute (3) Fluid overload Status: Acute (4) Severe anemia Status: Acute (5) A-fib Status: Chronic - Assessment and Plan (Free Text) Plan: IV ABs HD TTS Add EPO Eventually repeat cultures
--- NOTE | 2018-03-19 14:49 | VASCLAB ---
Date of service: 03/18/2018 PROCEDURE: Right Upper Extremity Arterial Exam. HISTORY: diminshed pulse right arm COMPARISON: None available. TECHNIQUE: Grayscale and duplex Doppler evaluation of the right upper extremity was performed. Report prepared by operating room surgical technologist. FINDINGS: RIGHT UPPER EXTREMITY: * Prox SCA : Peak Systolic Velocity - : Doppler Waveform: : Plaque description - * Distal SCA: Peak Systolic Velocity - : Doppler Waveform: : Plaque description - * Axillary: Peak Systolic Velocity - 48: Doppler Waveform: Biphasic: Plaque description - Calcific * Brachial o Proximal Segment: Peak Systolic Velocity - 46: Doppler Waveform: Biphasic: Plaque description - Calcific o Distal Segment: Peak Systolic Velocity - 32: Doppler Waveform: Biphasic: Plaque description - Calcific * Radial o Proximal Segment: Peak Systolic Velocity - 43: Doppler Waveform: Biphasic: Plaque description - Calcific o Distal Segment: Peak Systolic Velocity - 29: Doppler Waveform: Biphasic: Plaque description - Calcific * Radial o Proximal Segment: Peak Systolic Velocity - 43: Doppler Waveform: Biphasic: Plaque description - Calcific o Distal Segment: Peak Systolic Velocity - 39: Doppler Waveform: Biphasic: Plaque description - Calcific OTHER FINDINGS: Technically difficult study due to severe calcified arterial cuevas. Unable to image the right subclavian artery due to dialysis catheter in the chest. IMPRESSION: There is no evidence of hemodynamically significant arterial insufficiency in right upper extremity.
--- NOTE | 2018-03-19 20:15 | CP.PCM.PN ---
Subjective - Date & Time of Evaluation Date of Evaluation: 03/19/18 Time of Evaluation: 20:12 - Subjective Subjective: INFECTIOUS DISEASE PROGRESS NOTES IRIS DOMINGUEZ MD, FACP 03/19/2018 CHART REVIEWED PT EXAMINED CASE DISCUSSED WITH PHARMACY/PMD IN VIEW OF ALESSIA'S OF 1, VANCOMYCIN, IS NOT THE DRUG OF CHOICE IN THE PT'S MRSA. ERGO WILL CONTINUE TO GIVE CUBICIN 8-10MG/KG POST EACH DIALYSIS. s/p dialysis 1/3 s/p blood transfusion Hg increased to 8.6 On IV ABs for bacteremia More alert today, afebrile Objective - Vital Signs/Intake and Output Vital Signs (last 24 hours): Temp Pulse Resp BP Pulse Ox 97.7 F 98 H 20 107/55 L 100 03/18/18 23:35 03/18/18 23:35 03/18/18 23:35 03/18/18 23:35 03/18/18 23:35 Intake and Output: 03/19/18 03/19/18 06:59 18:59 Intake Total 480 Balance 480 - Medications Medications: Current Medications Apixaban (Eliquis) 2.5 mg PO BID [facility] Last Admin: 03/19/18 10:47 Dose: 2.5 mg Calcium Acetate (Phoslo) 667 mg PO TIDCC [facility] Last Admin: 03/19/18 12:30 Dose: 667 mg Daptomycin 900 mg/ Sodium (Chloride) 100 mls @ 100 mls/hr IV ONCE ONE; Protocol Stop: 03/20/18 18:59 Insulin Human Regular (Novolin R) 0 unit SC ACHS [facility]; Protocol Last Admin: 03/19/18 12:30 Dose: Not Given Ketorolac Tromethamine (Toradol) 10 mg PO BID PRN PRN Reason: 4-8 Last Admin: 03/19/18 10:56 Dose: 10 mg Nateglinide (Starlix) 60 mg PO ACTID [facility] Last Admin: 03/19/18 10:49 Dose: 60 mg Pantoprazole Sodium (Protonix Ec Tab) 40 mg PO DAILY [facility] Last Admin: 03/19/18 10:47 Dose: 40 mg Tobramycin/Dexamethasone (Tobradex Opht Susp) 0.1 ml OS BID PRN - Labs Labs: 03/19/18 06:49 03/19/18 06:49 PT 22.0 SECONDS (9.7-12.2) H 03/14/18 15:38 INR 2.0 03/14/18 15:38 APTT 36 SECONDS (21-34) H 03/14/18 15:38 - Constitutional Appears: No Acute Distress, Chronically Ill - Head Exam Head Exam: ATRAUMATIC, NORMAL INSPECTION - Eye Exam Eye Exam: EOMI, Normal appearance - Neck Exam Neck Exam: Normal Inspection. absent: Tenderness - Respiratory Exam Respiratory Exam: Clear to Ausculation Bilateral, NORMAL BREATHING PATTERN - Cardiovascular Exam Cardiovascular Exam: Irregular Rhythm, +S1 - GI/Abdominal Exam GI & Abdominal Exam: Soft. absent: Tenderness - Extremities Exam Extremities Exam: Normal Inspection. absent: Tenderness - Neurological Exam Neurological Exam: Awake, CN II-XII Intact - Skin Skin Exam: Dry, Warm Assessment and Plan (1) Cellulitis Status: Acute (2) ESRD (end stage renal disease) Status: Acute (3) Fluid overload Status: Acute (4) Severe anemia Status: Acute (5) A-fib Status: Chronic - Assessment and Plan (Free Text) Plan: IV ABs-CUBICIN HIGH DOSE POST EACH DIALYSIS HD TTS Add EPO Objective - Vital Signs/Intake and Output Vital Signs (last 24 hours): Temp Pulse Resp BP Pulse Ox 98.8 F 100 H 20 128/50 L 100 03/19/18 07:00 03/19/18 07:00 03/19/18 07:00 03/19/18 07:00 03/18/18 23:35 Intake and Output: 03/19/18 03/20/18 18:59 06:59 Intake Total 150 Balance 150 - Medications Medications: Current Medications Apixaban (Eliquis) 2.5 mg PO BID [facility] Last Admin: 03/19/18 17:21 Dose: 2.5 mg Calcium Acetate (Phoslo) 667 mg PO TIDCC [facility] Last Admin: 03/19/18 17:21 Dose: 667 mg Epoetin Elio (Procrit) 10,000 unit IV TTS [facility] Daptomycin 900 mg/ Sodium (Chloride) 100 mls @ 100 mls/hr IV ONCE ONE; Protocol Stop: 03/20/18 18:59 Insulin Human Regular (Novolin R) 0 unit SC [facility]; Protocol Last Admin: 03/19/18 16:30 Dose: Not Given Ketorolac Tromethamine (Toradol) 10 mg PO BID PRN PRN Reason: 4-8 Last Admin: 03/19/18 10:56 Dose: 10 mg Nateglinide (Starlix) 60 mg PO ACTID [facility] Last Admin: 03/19/18 17:21 Dose: 60 mg Pantoprazole Sodium (Protonix Ec Tab) 40 mg PO DAILY [facility] Last Admin: 03/19/18 10:47 Dose: 40 mg Tobramycin/Dexamethasone (Tobradex Opht Susp) 0.1 ml OS BID PRN - Labs Labs: 03/19/18 06:49 03/19/18 06:49 PT 22.0 SECONDS (9.7-12.2) H 03/14/18 15:38 INR 2.0 03/14/18 15:38 APTT 36 SECONDS (21-34) H 03/14/18 15:38
--- NOTE | 2018-03-20 08:53 | CP.PCM.PN ---
Subjective - Date & Time of Evaluation Date of Evaluation: 03/20/18 Time of Evaluation: 08:51 - Subjective Subjective: Notes reviewed Comfortable in bed Lower ext pain controlled No overnight events ID evaluation noted Appetite good, eating well NO cp or palp, no sob or cough No n/v/d No betancourt or vision changes 10 point ros negative other than stated above Objective - Vital Signs/Intake and Output Vital Signs (last 24 hours): Temp Pulse Resp BP Pulse Ox 98.0 F 98 H 20 109/67 96 03/20/18 07:00 03/20/18 07:00 03/20/18 07:00 03/20/18 07:00 03/20/18 07:00 Intake and Output: 03/20/18 03/20/18 06:59 18:59 Intake Total 400 Balance 400 - Medications Medications: Current Medications Apixaban (Eliquis) 2.5 mg PO BID [facility] Last Admin: 03/19/18 17:21 Dose: 2.5 mg Calcium Acetate (Phoslo) 667 mg PO TIDCC [facility] Last Admin: 03/20/18 07:46 Dose: 667 mg Epoetin Elio (Procrit) 10,000 unit IV TTS [facility] Daptomycin 900 mg/ Sodium (Chloride) 100 mls @ 100 mls/hr IV ONCE ONE; Protocol Stop: 03/20/18 18:59 Insulin Human Regular (Novolin R) 0 unit SC ACHS [facility]; Protocol Last Admin: 03/19/18 22:30 Dose: Not Given Ketorolac Tromethamine (Toradol) 10 mg PO BID PRN PRN Reason: 4-8 Last Admin: 03/19/18 20:22 Dose: 10 mg Nateglinide (Starlix) 60 mg PO ACTID [facility] Last Admin: 03/20/18 07:46 Dose: 60 mg Pantoprazole Sodium (Protonix Ec Tab) 40 mg PO DAILY [facility] Last Admin: 03/19/18 10:47 Dose: 40 mg Tobramycin/Dexamethasone (Tobradex Opht Susp) 0.1 ml OS BID PRN - Labs Labs: 03/19/18 06:49 03/19/18 06:49 PT 22.0 SECONDS (9.7-12.2) H 03/14/18 15:38 INR 2.0 03/14/18 15:38 APTT 36 SECONDS (21-34) H 03/14/18 15:38 - Constitutional Appears: Unkempt, Chronically Ill - Head Exam Head Exam: ATRAUMATIC, NORMAL INSPECTION - Eye Exam Eye Exam: EOMI, Normal appearance - ENT Exam ENT Exam: Mucous Membranes Moist, Normal Exam - Neck Exam Neck Exam: absent: Lymphadenopathy, Thyromegaly - Respiratory Exam Respiratory Exam: Clear to Ausculation Bilateral. absent: Rales, Rhonchi - Cardiovascular Exam Cardiovascular Exam: REGULAR RHYTHM, +S1, +S2. absent: Rubs - GI/Abdominal Exam GI & Abdominal Exam: Soft, Normal Bowel Sounds. absent: Organomegaly - Extremities Exam Extremities Exam: Pedal Edema, Tenderness - Neurological Exam Neurological Exam: Alert, Awake - Skin Skin Exam: Dry, Warm Additional comments: Chronic lower ext skin changes Assessment and Plan (1) Hypokalemia Status: Acute (2) Cellulitis Status: Acute (3) ESRD (end stage renal disease) on dialysis Status: Acute (4) PVD (peripheral vascular disease) Status: Acute (5) Type 2 diabetes mellitus with diabetic nephropathy Status: Acute (6) Coagulopathy Status: Chronic (7) Peripheral edema Status: Chronic - Assessment and Plan (Free Text) Assessment: Maintain dialysis schedule Dialysis today Uf as tolerated Monitor bp on hd Anticoagulation as ordered Abx per id - plan noted Continue wound care Pain management NAZ with dialysis Supportive care, stable renal hernandez
[2018-03-20] MEDS ORDERED: Epoetin Alfa 10,000 unit/ml Dialysis IV SCH (10:00)
[2018-03-20] MEDS: (Novolin R) Insulin Human Regular 100 units/ml vial SC SCH ×4 (10:38→22:15)
[2018-03-20] MEDS: Pantoprazole 40 mg EC Tab PO SCH (10:38)
[2018-03-20] MEDS: SILVASORB ANTIMICROBIAL WOUND GEL TOP SCH (10:39)
[2018-03-20] MEDS ORDERED: DAPTOmycin 700 MG in Sodium Chloride 0.9% 100 ML IV ONE (18:00)
--- NOTE | 2018-03-20 19:35 | CP.PCM.PN ---
Subjective - Date & Time of Evaluation Date of Evaluation: 03/20/18 Time of Evaluation: 19:33 - Subjective Subjective: INFECTIOUS DISEASE PROGRESS NOTES IRIS DOMINGUEZ MD, FACP 6T 655 03/20/2018 CHART REVIEWED PT EXAMINED CASE DISCUSSED CONTINUE CUBICIN POST EACH DIALYSIS MWF X 5 MORE WEEKS. Comfortable in bed, OCC BACK DISCOMFORT FROM LYING IN BED-CHRONIC Lower ext pain controlled No overnight events Appetite good, eating well NO cp or palp, no sob or cough No n/v/d No betancourt or vision changes 10 point ros negative other than stated above Objective - Vital Signs/Intake and Output Vital Signs (last 24 hours): Temp Pulse Resp BP Pulse Ox 98.0 F 98 H 20 109/67 96 03/20/18 07:00 03/20/18 07:00 03/20/18 07:00 03/20/18 07:00 03/20/18 07:00 Intake and Output: 03/20/18 03/20/18 06:59 18:59 Intake Total 400 Balance 400 - Medications Medications: Current Medications Apixaban (Eliquis) 2.5 mg PO BID [facility] Last Admin: 03/19/18 17:21 Dose: 2.5 mg Calcium Acetate (Phoslo) 667 mg PO TIDCC [facility] Last Admin: 03/20/18 07:46 Dose: 667 mg Epoetin Elio (Procrit) 10,000 unit IV TTS [facility] Daptomycin 900 mg/ Sodium (Chloride) 100 mls @ 100 mls/hr IV ONCE ONE; Protocol Stop: 03/20/18 18:59 Insulin Human Regular (Novolin R) 0 unit SC ACHS [facility]; Protocol Last Admin: 03/19/18 22:30 Dose: Not Given Ketorolac Tromethamine (Toradol) 10 mg PO BID PRN PRN Reason: 4-8 Last Admin: 03/19/18 20:22 Dose: 10 mg Nateglinide (Starlix) 60 mg PO ACTID [facility] Last Admin: 03/20/18 07:46 Dose: 60 mg Pantoprazole Sodium (Protonix Ec Tab) 40 mg PO DAILY [facility] Last Admin: 03/19/18 10:47 Dose: 40 mg Tobramycin/Dexamethasone (Tobradex Opht Susp) 0.1 ml OS BID PRN - Labs Labs: 03/19/18 06:49 03/19/18 06:49 PT 22.0 SECONDS (9.7-12.2) H 03/14/18 15:38 INR 2.0 03/14/18 15:38 APTT 36 SECONDS (21-34) H 03/14/18 15:38 - Constitutional Appears: Unkempt, Chronically Ill - Head Exam Head Exam: ATRAUMATIC, NORMAL INSPECTION - Eye Exam Eye Exam: EOMI, Normal appearance - ENT Exam ENT Exam: Mucous Membranes Moist, Normal Exam - Neck Exam Neck Exam: absent: Lymphadenopathy, Thyromegaly - Respiratory Exam Respiratory Exam: Clear to Ausculation Bilateral. absent: Rales, Rhonchi - Cardiovascular Exam Cardiovascular Exam: REGULAR RHYTHM, +S1, +S2. absent: Rubs - GI/Abdominal Exam GI & Abdominal Exam: Soft, Normal Bowel Sounds. absent: Organomegaly - Extremities Exam Extremities Exam: Pedal Edema, Tenderness - Neurological Exam Neurological Exam: Alert, Awake - Skin Skin Exam: Dry, Warm Additional comments: Chronic lower ext skin changes Assessment and Plan (1) Hypokalemia Status: Acute (2) Cellulitis Status: Acute (3) ESRD (end stage renal disease) on dialysis Status: Acute (4) PVD (peripheral vascular disease) Status: Acute (5) Type 2 diabetes mellitus with diabetic nephropathy Status: Acute (6) Coagulopathy Status: Chronic (7) Peripheral edema Status: Chronic - Assessment and Plan (Free Text) Assessment: Maintain dialysis schedule Dialysis today Uf as tolerated Monitor bp on hd Anticoagulation as ordered Abx per id - plan noted Continue wound care Pain management NAZ with dialysis Supportive care, stable renal hernandez Objective - Vital Signs/Intake and Output Vital Signs (last 24 hours): Temp Pulse Resp BP Pulse Ox 97.5 F L 100 H 20 109/70 100 03/20/18 15:00 03/20/18 15:00 03/20/18 15:00 03/20/18 15:00 03/20/18 15:00 - Medications Medications: Current Medications Apixaban (Eliquis) 2.5 mg PO BID [facility] Last Admin: 03/20/18 17:58 Dose: 2.5 mg Calcium Acetate (Phoslo) 667 mg PO TIDCC [facility] Last Admin: 03/20/18 17:58 Dose: 667 mg Epoetin Elio (Procrit) 10,000 unit IV TTS [facility] Last Admin: 03/20/18 12:04 Dose: 10,000 unit Insulin Human Regular (Novolin R) 0 unit SC ACHS [facility]; Protocol Last Admin: 03/20/18 17:28 Dose: Not Given Ketorolac Tromethamine (Toradol) 10 mg PO BID PRN PRN Reason: 4-8 Last Admin: 03/19/18 20:22 Dose: 10 mg Nateglinide (Starlix) 60 mg PO ACTID [facility] Last Admin: 03/20/18 17:29 Dose: Not Given Pantoprazole Sodium (Protonix Ec Tab) 40 mg PO DAILY [facility] Last Admin: 03/20/18 10:38 Dose: Not Given Tobramycin/Dexamethasone (Tobradex Opht Susp) 0.1 ml OS BID PRN - Labs Labs: 03/19/18 06:49 03/19/18 06:49 PT 22.0 SECONDS (9.7-12.2) H 03/14/18 15:38 INR 2.0 03/14/18 15:38 APTT 36 SECONDS (21-34) H 03/14/18 15:38
--- NOTE | 2018-03-20 23:57 | CP.PCM.PN ---
Subjective - Date & Time of Evaluation Date of Evaluation: 03/20/18 Time of Evaluation: 23:57 - Subjective Subjective: Patient received hemodialysis yesterday. He denies any chest pain. Complaining of pain in the lower extremities Denies any nausea, denies any vomiting. Left arm AV fistula noted. On examination: Vital signs stable. But the blood pressure slightly on the low side. Chest good air entry Abdominal distention, and obesity noted. Leg edema present. There is a wound dressing noted Labs reviewed Currently patient is on antibiotic as per the infectious disease. Gram-positive toxemia present. Patient will need antibiotic for at least a 6 weeks we will discuss with infectious disease about the proper antibiotic, patient wanted to leave home We will follow the patient Objective - Vital Signs/Intake and Output Vital Signs (last 24 hours): Temp Pulse Resp BP Pulse Ox 97.5 F L 100 H 20 109/70 100 03/20/18 15:00 03/20/18 15:00 03/20/18 15:00 03/20/18 15:00 03/20/18 15:00 - Medications Medications: Current Medications Apixaban (Eliquis) 2.5 mg PO BID [facility] Last Admin: 03/20/18 17:58 Dose: 2.5 mg Calcium Acetate (Phoslo) 667 mg PO TIDCC [facility] Last Admin: 03/20/18 17:58 Dose: 667 mg Epoetin Elio (Procrit) 10,000 unit IV TTS [facility] Last Admin: 03/20/18 12:04 Dose: 10,000 unit Insulin [facility]; Protocol Last Admin: 03/20/18 22:15 Dose: Not Given Ketorolac Tromethamine (Toradol) 10 mg PO BID PRN PRN Reason: 4-8 Last Admin: 03/19/18 20:22 Dose: 10 mg Nateglinide (Starlix) 60 mg PO ACTID [facility] Last Admin: 03/20/18 17:29 Dose: Not Given Pantoprazole Sodium (Protonix Ec Tab) 40 mg PO DAILY [facility] Last Admin: 03/20/18 10:38 Dose: Not Given Tobramycin/Dexamethasone (Tobradex Opht Susp) 0.1 ml OS BID PRN - Labs Labs: 03/19/18 06:49 03/19/18 06:49 PT 22.0 SECONDS (9.7-12.2) H 03/14/18 15:38 INR 2.0 03/14/18 15:38 APTT 36 SECONDS (21-34) H 03/14/18 15:38
[2018-03-21] MEDS: (Novolin R) Insulin Human Regular 100 units/ml vial SC SCH ×4 (07:23→22:19)
--- NOTE | 2018-03-21 08:09 | CP.PCM.PN ---
Subjective - Date & Time of Evaluation Date of Evaluation: 03/21/18 Time of Evaluation: 08:08 - Subjective Subjective: Patient received hemodialysis yesterday. He denies any chest pain. Complaining of pain in the lower extremities Denies any nausea, denies any vomiting. Left arm AV fistula noted. On examination: Vital signs stable. But the blood pressure slightly on the low side. Chest good air entry Abdominal distention, and obesity noted. Leg edema present. There is a wound dressing noted Labs reviewed Currently patient is on antibiotic as per the infectious disease. Gram-positive toxemia present. Patient will need antibiotic for at least a 6 weeks we will discuss with infectious disease about the proper antibiotic, patient wanted to leave home We will follow the patient Objective - Vital Signs/Intake and Output Vital Signs (last 24 hours): Temp Pulse Resp BP Pulse Ox 97.2 F L 108 H 20 103/45 L 100 03/20/18 23:20 03/20/18 23:20 03/20/18 23:20 03/20/18 23:20 03/20/18 23:20 - Medications Medications: Current Medications Apixaban (Eliquis) 2.5 mg PO BID [facility] Last Admin: 03/20/18 17:58 Dose: 2.5 mg Calcium Acetate (Phoslo) 667 mg PO TIDCC [facility] Last Admin: 03/21/18 07:49 Dose: 667 mg Epoetin Elio (Procrit) 10,000 unit IV TTS [facility] Last Admin: 03/20/18 12:04 Dose: 10,000 unit Insulin Human Regular (Novolin R) [facility]; Protocol Last Admin: 03/21/18 07:23 Dose: Not Given Ketorolac Tromethamine (Toradol) 10 mg PO BID PRN PRN Reason: 4-8 Last Admin: 03/19/18 20:22 Dose: 10 mg Nateglinide (Starlix) 60 mg PO ACTID [facility] Last Admin: 03/21/18 07:23 Dose: Not Given Pantoprazole Sodium (Protonix Ec Tab) 40 mg PO DAILY [facility] Last Admin: 03/20/18 10:38 Dose: Not Given Tobramycin/Dexamethasone (Tobradex Opht Susp) 0.1 ml OS BID PRN - Labs Labs: 03/19/18 06:49 03/19/18 06:49 PT 22.0 SECONDS (9.7-12.2) H 03/14/18 15:38 INR 2.0 03/14/18 15:38 APTT 36 SECONDS (21-34) H 03/14/18 15:38
[2018-03-21 08:35] LABS: BASO # 0.1 K/uL (0.0-0.2); BASO % 0.7 % (0.0-2.0); EOS # 0.1 K/uL (0.0-0.7); EOS % 1.6 % (0.0-4.0); HEMOGLOBIN 8.5 g/dL (12.0-18.0); LYMPH # 0.6 K/uL (1.0-4.3); LYMPH % 7.3 % (20.0-40.0); MEAN CELL VOLUME 89.7 fL (80.0-94.0); MEAN CORPUSCULAR HEMOGLOBIN 29.3 pg (27.0-31.0); MEAN CORPUSCULAR HGB CONC 32.6 g/dL (33.0-37.0); MEAN PLATELET VOLUME 7.6 fL (7.2-11.7); MONO # 0.5 K/uL (0.0-0.8); MONO % 6.7 % (0.0-10.0); NEUT # 6.7 K/uL (1.8-7.0); NEUT % 83.7 % (50.0-75.0); NRBC % 0.2 % (0.0-2.0); PLATELET COUNT 90 K/uL (130-400); RBC 2.89 Mil/uL (4.40-5.90); RED CELL DISTRIBUTION WIDTH 18.1 % (11.5-14.5)
--- NOTE | 2018-03-21 08:39 | CP.PCM.PN ---
Subjective - Date & Time of Evaluation Date of Evaluation: 03/21/18 Time of Evaluation: 08:34 - Subjective Subjective: Podiatry Progress Note: Dr. Nunn 62 year old male patient seen and evaluated at bedside for right lower leg wound. Patient resting in bed at time of visit and in NAD. Patient denies any acute overnight events. Patient wearing multipodus boots b/l. Patient denies F/N/V/SOB/chills. Objective - Vital Signs/Intake and Output Vital Signs (last 24 hours): Temp Pulse Resp BP Pulse Ox 98.3 F 101 H 18 80/50 L 99 03/21/18 07:00 03/21/18 07:00 03/21/18 07:00 03/21/18 07:00 03/21/18 07:00 - Medications Medications: Current Medications Apixaban (Eliquis) 2.5 mg PO BID [facility] Last Admin: 03/20/18 17:58 Dose: 2.5 mg Calcium Acetate (Phoslo) 667 mg PO TIDCC [facility] Last Admin: 03/21/18 07:49 Dose: 667 mg Epoetin Elio (Procrit) 10,000 unit IV TTS [facility] Last Admin: 03/20/18 12:04 Dose: 10,000 unit Insulin Human Regular (Novolin R) 0 unit SC ACHS [facility]; Protocol Last Admin: 03/21/18 07:23 Dose: Not Given Ketorolac Tromethamine (Toradol) 10 mg PO BID PRN PRN Reason: 4-8 Last Admin: 03/19/18 20:22 Dose: 10 mg Nateglinide (Starlix) 60 mg PO ACTID [facility] Last Admin: 03/21/18 07:23 Dose: Not Given Pantoprazole Sodium (Protonix Ec Tab) 40 mg PO DAILY [facility] Last Admin: 03/20/18 10:38 Dose: Not Given Tobramycin/Dexamethasone (Tobradex Opht Susp) 0.1 ml OS BID PRN - Labs Labs: 03/19/18 06:49 03/19/18 06:49 PT 22.0 SECONDS (9.7-12.2) H 03/14/18 15:38 INR 2.0 03/14/18 15:38 APTT 36 SECONDS (21-34) H 03/14/18 15:38 - Constitutional Appears: Non-toxic, No Acute Distress - Head Exam Head Exam: ATRAUMATIC, NORMOCEPHALIC - Extremities Exam Additional comments: Right lower extremity focused exam: Vasc: Nonpalpable pulses to the DP and PT, Delayed CFT to the digits, Temperature gradient WNL, +1 pitting pedal edema Derm: Full thickness ulceration noted to right posterior ankle at level of Achilles insertion measuring approximately 2 cm x 2 cm x 1cm, with mixture granular and fibrotic wound base. Mild serous drainage appreciated, no flu ctuance, no streaking, mild erythema appreciated periwound. Additional small ulceration appreciated to medail aspect of ankle measuring approximately 1cm x 1cm x .01cm. Mild serous drainage appreciated, no purulence. Hyperpigmentation appreciated circumfrentially to lower extremity. No fluctuance noted. Neuro: Gross sensation diminished, protective sensation absent Ortho: Tenderness to palpation of R heel ulceration - Neurological Exam Neurological Exam: Alert, Awake, Oriented x3 Assessment and Plan - Assessment and Plan (Free Text) Assessment: 62 year old male patient with right lower extremity ulcerations Plan: Patient seen and evaluated at bedside Discussed plan with Dr. Nunn WBC 8.0 R foot Wound cx taken; MRSA Blood cx taken;MRSA Foot X-ray taken: possible signs of acute OM, further imaging recommended ID on board, appreciate recommendations Recommend possible surgical intervention in the future for debridement of wounds Will continue to follow patient while in house
[2018-03-21] MEDS: Pantoprazole 40 mg EC Tab PO SCH (09:03)
[2018-03-21 09:08] LABS: ALB/GLOB RATIO 0.9 (1.0-2.1); ALBUMIN 2.9 g/dL (3.5-5.0); CALCIUM 7.7 mg/dl (8.6-10.4)
[2018-03-21 10:38] LABS: ANISOCYTOSIS MODERATE; BANDS 2 % (0-2); EOSINOPHIL 2 % (0-4); LYMPHOCYTE 3 % (20-40); MONOCYTE 6 % (0-10); NEUTROPHIL 87 % (50-75); PLATELET ESTIMATE DECREASED (NORMAL); TOTAL CELLS COUNTED 100
[2018-03-21 10:39] LABS: HYPOCHROMIC SLIGHT; OVALOCYTES SLIGHT
[2018-03-21] MEDS: SILVASORB ANTIMICROBIAL WOUND GEL TOP SCH (12:09)
[2018-03-22] MEDS: (Novolin R) Insulin Human Regular 100 units/ml vial SC SCH ×4 (07:48→21:32)
[2018-03-22] MEDS: SILVASORB ANTIMICROBIAL WOUND GEL TOP SCH (10:26)
[2018-03-22] MEDS: Pantoprazole 40 mg EC Tab PO SCH (10:26)
[2018-03-22] MEDS: Epoetin Alfa 10,000 unit/ml Dialysis IV SCH (10:49)
--- NOTE | 2018-03-22 11:41 | CP.PCM.PN ---
Subjective - Date & Time of Evaluation Date of Evaluation: 03/22/18 Time of Evaluation: 11:38 - Subjective Subjective: Seen at dialysis now; UF 3000ml BP at a more acceptable level On IV ABs for bacteremia Hg stable Objective - Vital Signs/Intake and Output Vital Signs (last 24 hours): Temp Pulse Resp BP Pulse Ox 97.4 F L 95 H 18 114/54 L 100 03/22/18 09:45 03/22/18 09:45 03/22/18 09:45 03/22/18 11:15 03/22/18 09:45 - Medications Medications: Current Medications Apixaban (Eliquis) 2.5 mg PO BID [facility] Last Admin: 03/22/18 10:26 Dose: Not Given Calcium Acetate (Phoslo) 667 mg PO TIDCC [facility] Last Admin: 03/22/18 10:26 Dose: Not Given Epoetin Elio (Procrit) 10,000 unit IV MWF [facility] Last Admin: 03/22/18 10:49 Dose: 10,000 unit Insulin Human Regular (Novolin R) 0 unit SC [facility]; Protocol Last Admin: 03/22/18 10:56 Dose: Not Given Ketorolac Tromethamine (Toradol) 10 mg PO BID PRN PRN Reason: 4-8 Last Admin: 03/21/18 13:58 Dose: 10 mg Nateglinide (Starlix) 60 mg PO ACTID [facility] Last Admin: 03/22/18 10:55 Dose: Not Given Pantoprazole Sodium (Protonix Ec Tab) 40 mg PO DAILY [facility] Last Admin: 03/22/18 10:26 Dose: Not Given Tobramycin/Dexamethasone (Tobradex Opht Susp) 0.1 ml OS BID PRN - Labs Labs: 03/21/18 08:17 03/21/18 08:17 PT 22.0 SECONDS (9.7-12.2) H 03/14/18 15:38 INR 2.0 03/14/18 15:38 APTT 36 SECONDS (21-34) H 03/14/18 15:38 - Constitutional Appears: No Acute Distress, Chronically Ill - Head Exam Head Exam: ATRAUMATIC, NORMAL INSPECTION - Eye Exam Eye Exam: EOMI, Normal appearance - Neck Exam Neck Exam: Normal Inspection. absent: Tenderness - Respiratory Exam Respiratory Exam: Clear to Ausculation Bilateral, NORMAL BREATHING PATTERN - Cardiovascular Exam Cardiovascular Exam: Irregular Rhythm, +S1 - GI/Abdominal Exam GI & Abdominal Exam: Soft. absent: Tenderness - Extremities Exam Extremities Exam: Normal Inspection. absent: Tenderness - Neurological Exam Neurological Exam: Awake, CN II-XII Intact - Skin Skin Exam: Dry, Warm Assessment and Plan (1) Cellulitis Status: Acute (2) ESRD (end stage renal disease) Status: Acute (3) Fluid overload Status: Acute (4) Severe anemia Status: Acute (5) A-fib Status: Chronic - Assessment and Plan (Free Text) Plan: Same dialysis orders- now MWF EPO; monitor Hg Same IV ABs as per ID monitor sonali
--- NOTE | 2018-03-22 12:54 | CP.PCM.PN ---
Subjective - Date & Time of Evaluation Date of Evaluation: 03/22/18 Time of Evaluation: 12:51 - Subjective Subjective: INFECTIOUS DISEASE PROGRESS NOTES IRIS DOMINGUEZ MD, FACP 655 03/22/2018 CHART REVIEWED PT EXAMINED CASE DISCUSSED WITH PHARMACIES HELP WE CONTINUED IN THE COMPUTER SYSTEM CUBICIN 900MG IVPB POST DIALYSIS MWF. WITH THIS WEEK HE WILL NEED 5 MORE WEEKS OF TREATMENT, OF NOTE THE ALESSIA'S TO HIS MRSA =1, USUALLY A RELATIVELY RESISTANT STRAIN, SO TO SPEAK. LUNGS CLEAR COR ABD SOFT Objective - Vital Signs/Intake and Output Vital Signs (last 24 hours): Temp Pulse Resp BP Pulse Ox 97.4 F L 95 H 18 109/55 L 100 03/22/18 09:45 03/22/18 09:45 03/22/18 09:45 03/22/18 11:45 03/22/18 09:45 - Medications Medications: Current Medications Apixaban (Eliquis) 2.5 mg PO BID [facility] Last Admin: 03/22/18 10:26 Dose: Not Given Calcium Acetate (Phoslo) 667 mg PO TIDCC [facility] Last Admin: 03/22/18 10:26 Dose: Not Given Epoetin Elio (Procrit) 10,000 unit IV MWF [facility] Last Admin: 03/22/18 10:49 Dose: 10,000 unit Daptomycin 900 mg/ Sodium (Chloride) 100 mls @ 100 mls/hr IV MWF@1400 [facility]; Protocol Insulin Human Regular (Novolin R) 0 unit SC ACHS [facility]; Protocol Last Admin: 03/22/18 10:56 Dose: Not Given Ketorolac Tromethamine (Toradol) 10 mg PO BID PRN PRN Reason: 4-8 Last Admin: 03/21/18 13:58 Dose: 10 mg Nateglinide (Starlix) 60 mg PO ACTID [facility] Last Admin: 03/22/18 10:55 Dose: Not Given Pantoprazole Sodium (Protonix Ec Tab) 40 mg PO DAILY [facility] Last Admin: 03/22/18 10:26 Dose: Not Given Tobramycin/Dexamethasone (Tobradex Opht Susp) 0.1 ml OS BID PRN - Labs Labs: 03/21/18 08:17 03/21/18 08:17 PT 22.0 SECONDS (9.7-12.2) H 03/14/18 15:38 INR 2.0 03/14/18 15:38 APTT 36 SECONDS (21-34) H 03/14/18 15:38
--- NOTE | 2018-03-22 18:16 | CP.PCM.PN ---
Subjective - Date & Time of Evaluation Date of Evaluation: 03/22/18 Time of Evaluation: 18:15 - Subjective Subjective: Patient had a hemodialysis today. Discussed with ID. Continue the current treatment. He is on antibiotic. Overall prognosis is guarded. Right leg ulcer. Wound is getting better at this time. Objective - Vital Signs/Intake and Output Vital Signs (last 24 hours): Temp Pulse Resp BP Pulse Ox 98.1 F 109 H 20 120/87 100 03/22/18 15:35 03/22/18 15:35 03/22/18 15:35 03/22/18 15:35 03/22/18 15:35 - Medications Medications: Current Medications Apixaban (Eliquis) 2.5 mg PO BID [facility] Last Admin: 03/22/18 17:33 Dose: 2.5 mg Calcium Acetate (Phoslo) 667 mg PO TIDCC [facility] Last Admin: 03/22/18 17:32 Dose: 667 mg Epoetin Elio (Procrit) 10,000 unit IV MWF [facility] Last Admin: 03/22/18 10:49 Dose: 10,000 unit Daptomycin 900 mg/ Sodium (Chloride) 100 mls @ 100 mls/hr IV MWF@1400 [facility]; Protocol Last Admin: 03/22/18 14:34 Dose: 100 mls/hr Insulin Human Regular (Novolin R) 0 unit SC ACHS [facility]; Protocol Last Admin: 03/22/18 17:33 Dose: Not Given Ketorolac Tromethamine (Toradol) 10 mg PO BID PRN PRN Reason: 4-8 Last Admin: 03/21/18 13:58 Dose: 10 mg Nateglinide (Starlix) 60 mg PO ACTID [facility] Last Admin: 03/22/18 17:30 Dose: 60 mg Pantoprazole Sodium (Protonix Ec Tab) 40 mg PO DAILY [facility] Last Admin: 03/22/18 10:26 Dose: Not Given Tobramycin/Dexamethasone (Tobradex Opht Susp) 0.1 ml OS BID PRN - Labs Labs: 03/21/18 08:17 03/21/18 08:17 PT 22.0 SECONDS (9.7-12.2) H 03/14/18 15:38 INR 2.0 03/14/18 15:38 APTT 36 SECONDS (21-34) H 03/14/18 15:38
--- NOTE | 2018-03-22 23:30 | CP.PCM.PN ---
Subjective - Date & Time of Evaluation Date of Evaluation: 03/22/18 Time of Evaluation: 12:00 - Subjective Subjective: Podiatry Progress Note - Dr. Nunn 62M seen and evaluated for right lower leg wound with attending Dr. Nunn. Patient is seen resting comfortably in bed at time of visit and in NAD. Patient denies any acute overnight events. Denies any pain. Patient seen wearing multipodus boots b/l. Patient denies F/N/V/SOB/chills. Objective - Vital Signs/Intake and Output Vital Signs (last 24 hours): Temp Pulse Resp BP Pulse Ox 98.1 F 109 H 20 120/87 100 03/22/18 15:35 03/22/18 15:35 03/22/18 15:35 03/22/18 15:35 03/22/18 15:35 - Medications Medications: Current Medications Apixaban (Eliquis) 2.5 mg PO BID [facility] Last Admin: 03/22/18 17:33 Dose: 2.5 mg Calcium Acetate (Phoslo) 667 mg PO TIDCC [facility] Last Admin: 03/22/18 17:32 Dose: 667 mg Epoetin Elio (Procrit) 10,000 unit IV MWF [facility] Last Admin: 03/22/18 10:49 Dose: 10,000 unit Daptomycin 900 mg/ Sodium (Chloride) 100 mls @ 100 mls/hr IV MWF@1400 [facility]; Protocol Last Admin: 03/22/18 14:34 Dose: 100 mls/hr Insulin Human Regular (Novolin R) 0 unit SC ACHS [facility]; Protocol Last Admin: 03/22/18 21:32 Dose: Not Given Ketorolac Tromethamine (Toradol) 10 mg PO BID PRN PRN Reason: 4-8 Last Admin: 03/21/18 13:58 Dose: 10 mg Nateglinide (Starlix) 60 mg PO ACTID [facility] Last Admin: 03/22/18 17:30 Dose: 60 mg Pantoprazole Sodium (Protonix Ec Tab) 40 mg PO DAILY [facility] Last Admin: 03/22/18 10:26 Dose: Not Given Tobramycin/Dexamethasone (Tobradex Opht Susp) 0.1 ml OS BID PRN - Labs Labs: 03/21/18 08:17 03/21/18 08:17 PT 22.0 SECONDS (9.7-12.2) H 03/14/18 15:38 INR 2.0 03/14/18 15:38 APTT 36 SECONDS (21-34) H 03/14/18 15:38 - Constitutional Appears: Well, Non-toxic, No Acute Distress - Extremities Exam Extremities Exam: absent: Calf Tenderness Additional comments: Right lower extremity focused exam: Vasc: Nonpalpable pulses to the DP and PT, Delayed CFT to the digits, Temperature gradient WNL, +1 pitting pedal edema Derm: Full thickness ulceration noted to right posterior ankle at level of Achilles insertion measuring approximately 2 cm x 2 cm x 1cm, with mixture granular and fibrotic wound base. Mild serous drainage appreciated, no fluctuance, no streaking, mild erythema appreciated periwound. Additional small ulceration appreciated to medail aspect of ankle measuring approximately 1cm x 1cm x .01cm. Mild serous drainage appreciated, no purulence. Hyperpigmentation appreciated circumfrentially to lower extremity. No fluctuance noted. Neuro: Gross sensation diminished, protective sensation absent Ortho: Tenderness to palpation of R heel ulceration Assessment and Plan - Assessment and Plan (Free Text) Assessment: 62 year old male patient with right lower extremity ulcerations- stable Plan: Patient seen and evaluated at bedside with attending Dr. Nunn Labs, vitals reviewed- Afebrile, absent leukocytosis WBC 8.0 R foot Wound cx MRSA Blood cx MRSA Foot X-ray taken: possible signs of acute OM, further imaging recommended IV abx per ID Recommend possible surgical intervention in the future for debridement of wounds Cleansed wounds with saline, dressed with saline sindi and paulino Will continue to follow patient while in house
[2018-03-23] MEDS: (Novolin R) Insulin Human Regular 100 units/ml vial SC SCH ×4 (06:52→21:58)
[2018-03-23] MEDS: Pantoprazole 40 mg EC Tab PO SCH (09:29)
[2018-03-23] MEDS: SILVASORB ANTIMICROBIAL WOUND GEL TOP SCH (12:41)
--- NOTE | 2018-03-23 12:53 | CP.PCM.PN ---
Subjective - Date & Time of Evaluation Date of Evaluation: 03/23/18 Time of Evaluation: 12:51 - Subjective Subjective: seen and examined s/p hd yesterday on iv cubicin, afebrile. feels tired otherwise no complaints 10 point ros negative Objective - Vital Signs/Intake and Output Vital Signs (last 24 hours): Temp Pulse Resp BP Pulse Ox 98.1 F 103 H 18 121/75 100 03/23/18 07:00 03/23/18 07:00 03/23/18 07:00 03/23/18 07:00 03/23/18 07:00 - Medications Medications: Current Medications Apixaban (Eliquis) 2.5 mg PO BID [facility] Last Admin: 03/23/18 09:29 Dose: 2.5 mg Calcium Acetate (Phoslo) 667 mg PO TIDCC [facility] Last Admin: 03/23/18 09:29 Dose: 667 mg Epoetin Elio (Procrit) 10,000 unit IV MWF [facility] Last Admin: 03/22/18 10:49 Dose: 10,000 unit Daptomycin 900 mg/ Sodium (Chloride) 100 mls @ 100 mls/hr IV MWF@1400 [facility]; Protocol Last Admin: 03/22/18 14:34 Dose: 100 mls/hr Insulin Human Regular (Novolin R) 0 unit SC ACHS [facility]; Protocol Last Admin: 03/23/18 06:52 Dose: Not Given Ketorolac Tromethamine (Toradol) 10 mg PO BID PRN PRN Reason: 4-8 Last Admin: 03/23/18 05:12 Dose: 10 mg Nateglinide (Starlix) 60 mg PO ACTID [facility] Last Admin: 03/23/18 06:48 Dose: 60 mg Pantoprazole Sodium (Protonix Ec Tab) 40 mg PO DAILY [facility] Last Admin: 03/23/18 09:29 Dose: 40 mg Tobramycin/Dexamethasone (Tobradex Opht Susp) 0.1 ml OS BID PRN - Labs Labs: 03/21/18 08:17 03/21/18 08:17 PT 22.0 SECONDS (9.7-12.2) H 03/14/18 15:38 INR 2.0 03/14/18 15:38 APTT 36 SECONDS (21-34) H 03/14/18 15:38 - Constitutional Appears: Older Than Stated Age (obese), Chronically Ill - Head Exam Head Exam: NORMAL INSPECTION, NORMOCEPHALIC - Eye Exam Eye Exam: Normal appearance, PERRL - ENT Exam ENT Exam: Mucous Membranes Moist, Normal Exam - Neck Exam Neck Exam: Full ROM, Normal Inspection - Respiratory Exam Respiratory Exam: Decreased Breath Sounds (b/l bases), NORMAL BREATHING PATTERN - Cardiovascular Exam Cardiovascular Exam: Irregular Rhythm - GI/Abdominal Exam GI & Abdominal Exam: Distended, Soft - Extremities Exam Extremities Exam: Pedal Edema (b/l chronic stasis, LLE ulcer in dressing) - Neurological Exam Neurological Exam: Alert, Awake, Oriented x3 - Psychiatric Exam Psychiatric exam: Normal Affect, Normal Mood - Skin Skin Exam: Dry, Intact Additional comments: chest permcath Assessment and Plan (1) Foot ulcer Status: Acute (2) Cellulitis Status: Acute (3) ESRD (end stage renal disease) Status: Acute (4) Non-ischemic cardiomyopathy Status: Acute (5) A-fib Status: Chronic - Assessment and Plan (Free Text) Assessment: maintain hd mwf aggressive uf as tolerated antibiotics per ID
--- NOTE | 2018-03-23 20:54 | CP.PCM.PN ---
Subjective - Date & Time of Evaluation Date of Evaluation: 03/23/18 Time of Evaluation: 20:35 - Subjective Subjective: INECTIOUS DISEASE PROGRESS NOTES IRIS DOMINGUEZ MD, FACP 6T 655 03/23/2018 CHART REVIEWED EXAM NOTED CASE DISCUSSED WITH DR [id number] TODAY AND PHYSICIAN ADVISOR, YESTERDAY CLINICALLY RESPONDING TO CUBICIN FOR MRSA BACTEREMIA/AND WOUND INFECTION PT'S CONDITION, GIVEN THE DEPTH AND EXTENT OF HIS TOTAL MEDICAL/SURGICAL WOUNDS-INCLUDING ALL THE EXTENSIVE HEALTH ISSUES OF THIS PATIENT PRECLUDES OTHER MANAGEMENT, DIRECT OR INDIRECT. IN HIS LAST ADMISSION HE DID NOT ACHIEVE OPTIMUM RESULTS WITH BACTEREMIA, DIFFICULTIES APPRECIATED EVEN IN THE BEST OF HANDS. Overall prognosis is guarded. Right leg ulcer. Wound is RESPONDING SLOWLY at this time. MANAGEMENT WILL BE CHALLENGING ESPECIALLY OUT OF DIRECT PT CARE. MRSA WITH ALESSIA'S OF 1 ARE DIFFICULT TO DEAL WITH. I WILL ATTEMPT TO ADMINISTER THE BEST ID CARE AVAILABLE, IF ALLOWED. Objective - Vital Signs/Intake and Output Vital Signs (last 24 hours): Temp Pulse Resp BP Pulse Ox 97.3 F L 90 20 101/61 100 03/23/18 15:00 03/23/18 15:00 03/23/18 15:00 03/23/18 15:00 03/23/18 15:00 - Medications Medications: Current Medications Apixaban (Eliquis) 2.5 mg PO BID [facility] Last Admin: 03/23/18 17:38 Dose: Not Given Calcium Acetate (Phoslo) 667 mg PO TIDCC [facility] Last Admin: 03/23/18 17:38 Dose: Not Given Epoetin Elio (Procrit) 10,000 unit IV MWF [facility] Last Admin: 03/22/18 10:49 Dose: 10,000 unit Daptomycin 900 mg/ Sodium (Chloride) 100 mls @ 100 mls/hr IV MWF@1400 [facility]; Protocol Last Admin: 03/22/18 14:34 Dose: 100 mls/hr Insulin Human Regular (Novolin R) 0 unit SC [facility]; Protocol Last Admin: 03/23/18 17:38 Dose: Not Given Ketorolac Tromethamine (Toradol) 10 mg PO BID PRN PRN Reason: 4-8 Last Admin: 03/23/18 05:12 Dose: 10 mg Nateglinide (Starlix) 60 mg PO ACTID [facility] Last Admin: 03/23/18 17:38 Dose: Not Given Pantoprazole Sodium (Protonix Ec Tab) 40 mg PO DAILY [facility] Last Admin: 03/23/18 09:29 Dose: 40 mg Tobramycin/Dexamethasone (Tobradex Opht Susp) 0.1 ml OS BID PRN - Labs Labs: 03/21/18 08:17 03/21/18 08:17 PT 22.0 SECONDS (9.7-12.2) H 03/14/18 15:38 INR 2.0 03/14/18 15:38 APTT 36 SECONDS (21-34) H 03/14/18 15:38
[2018-03-24] MEDS: (Novolin R) Insulin Human Regular 100 units/ml vial SC SCH ×4 (06:45→21:50)
[2018-03-24] MEDS: Pantoprazole 40 mg EC Tab PO SCH (09:06)
[2018-03-24] MEDS: SILVASORB ANTIMICROBIAL WOUND GEL TOP SCH (09:06)
[2018-03-24] MEDS: Epoetin Alfa 10,000 unit/ml Dialysis IV SCH (11:34)
--- NOTE | 2018-03-24 13:18 | CP.PCM.PN ---
Subjective - Date & Time of Evaluation Date of Evaluation: 03/24/18 Time of Evaluation: 13:16 - Subjective Subjective: seen on dialysis this AM tolerated UF 3000ml desite lower BP on IV daptomycin for bacteremia has been afebrile no new wound discharges feels same Objective - Vital Signs/Intake and Output Vital Signs (last 24 hours): Temp Pulse Resp BP Pulse Ox 97.5 F L 84 16 108/70 100 03/24/18 12:07 03/24/18 12:07 03/24/18 12:07 03/24/18 12:07 03/24/18 09:10 Intake and Output: 03/24/18 03/24/18 06:59 18:59 Intake Total 400 Balance 400 - Medications Medications: Current Medications Apixaban (Eliquis) 2.5 mg PO BID [facility] Last Admin: 03/24/18 09:05 Dose: Not Given Calcium Acetate (Phoslo) 667 mg PO TIDCC [facility] Last Admin: 03/24/18 13:08 Dose: Not Given Epoetin Elio (Procrit) 10,000 unit IV MWF [facility] Last Admin: 03/24/18 11:34 Dose: 10,000 unit Daptomycin 900 mg/ Sodium (Chloride) 100 mls @ 100 mls/hr IV MWF@1400 [facility]; Protocol Last Admin: 03/22/18 14:34 Dose: 100 mls/hr Insulin Human Regular (Novolin R) 0 unit SC ACHS [facility]; Protocol Last Admin: 03/24/18 13:07 Dose: Not Given Ketorolac Tromethamine (Toradol) 10 mg PO BID PRN PRN Reason: 4-8 Last Admin: 03/24/18 01:15 Dose: 10 mg Nateglinide (Starlix) 60 mg PO ACTID [facility] Last Admin: 03/24/18 13:08 Dose: Not Given Pantoprazole Sodium (Protonix Ec Tab) 40 mg PO DAILY [facility] Last Admin: 03/24/18 09:06 Dose: Not Given Tobramycin/Dexamethasone (Tobradex Opht Susp) 0.1 ml OS BID PRN - Labs Labs: 03/21/18 08:17 03/21/18 08:17 PT 22.0 SECONDS (9.7-12.2) H 03/14/18 15:38 INR 2.0 03/14/18 15:38 APTT 36 SECONDS (21-34) H 03/14/18 15:38 - Constitutional Appears: Non-toxic, No Acute Distress - Head Exam Head Exam: ATRAUMATIC, NORMAL INSPECTION - Eye Exam Eye Exam: EOMI, Normal appearance - Neck Exam Neck Exam: Normal Inspection. absent: Tenderness - Respiratory Exam Respiratory Exam: Clear to Ausculation Bilateral, NORMAL BREATHING PATTERN - Cardiovascular Exam Cardiovascular Exam: REGULAR RHYTHM, +S1 - GI/Abdominal Exam GI & Abdominal Exam: Soft. absent: Tenderness - Extremities Exam Extremities Exam: Pedal Edema, Tenderness - Neurological Exam Neurological Exam: Awake, CN II-XII Intact - Skin Skin Exam: Dry, Warm Assessment and Plan (1) Cellulitis Status: Acute (2) ESRD (end stage renal disease) Status: Acute (3) Fluid overload Status: Acute (4) Severe anemia Status: Acute (5) A-fib Status: Chronic - Assessment and Plan (Free Text) Plan: same dialysis MWF IV ABs wound care
--- NOTE | 2018-03-24 18:10 | CP.PCM.PN ---
Subjective - Date & Time of Evaluation Date of Evaluation: 03/24/18 Time of Evaluation: 18:03 - Subjective Subjective: INFECTIOUS DISEASE PROGRESS NOTES IRIS DOMINGUEZ MD, FACP 6T 655 03/24/2018CHART REVIEWED PT EXAMINED CASE DISCUSSED CHART REVIEWED RESTING COMFORTABLY LOOKS MORE AT REST CONTINUE CUBICIN WRITTEN QUESTION OF ALTERNATIVE PROBABLY NOT VIABLE, WILL CONTINUE TO REVIEW FOR THE PATIENTS BENEFIT. on IV daptomycin for bacteremia has been afebrile no new wound discharges feels same Objective - Vital Signs/Intake and Output Vital Signs (last 24 hours): Temp Pulse Resp BP Pulse Ox 97.5 F L 84 16 108/70 100 03/24/18 12:07 03/24/18 12:07 03/24/18 12:07 03/24/18 12:07 03/24/18 09:10 Intake and Output: 03/24/18 03/24/18 06:59 18:59 Intake Total 400 Balance 400 - Medications Medications: Current Medications Apixaban (Eliquis) 2.5 mg PO BID [facility] Last Admin: 03/24/18 09:05 Dose: Not Given Calcium Acetate (Phoslo) 667 mg PO TIDCC [facility] Last Admin: 03/24/18 13:08 Dose: Not Given Epoetin Elio (Procrit) 10,000 unit IV MWF [facility] Last Admin: 03/24/18 11:34 Dose: 10,000 unit Daptomycin 900 mg/ Sodium (Chloride) 100 mls @ 100 mls/hr IV MWF@1400 [facility]; Protocol Last Admin: 03/22/18 14:34 Dose: 100 mls/hr Insulin Human Regular (Novolin R) 0 unit SC ACHS [facility]; Protocol Last Admin: 03/24/18 13:07 Dose: Not Given Ketorolac Tromethamine (Toradol) 10 mg PO BID PRN PRN Reason: 4-8 Last Admin: 03/24/18 01:15 Dose: 10 mg Nateglinide (Starlix) 60 mg PO ACTID [facility] Last Admin: 03/24/18 13:08 Dose: Not Given Pantoprazole Sodium (Protonix Ec Tab) 40 mg PO DAILY [facility] Last Admin: 03/24/18 09:06 Dose: Not Given Tobramycin/Dexamethasone (Tobradex Opht Susp) 0.1 ml OS BID PRN - Labs Labs: 03/21/18 08:17 03/21/18 08:17 PT 22.0 SECONDS (9.7-12.2) H 03/14/18 15:38 INR 2.0 03/14/18 15:38 APTT 36 SECONDS (21-34) H 03/14/18 15:38 - Constitutional Appears: Non-toxic, No Acute Distress - Head Exam Head Exam: ATRAUMATIC, NORMAL INSPECTION - Eye Exam Eye Exam: EOMI, Normal appearance - Neck Exam Neck Exam: Normal Inspection. absent: Tenderness - Respiratory Exam Respiratory Exam: Clear to Ausculation Bilateral, NORMAL BREATHING PATTERN - Cardiovascular Exam Cardiovascular Exam: REGULAR RHYTHM, +S1 - GI/Abdominal Exam GI & Abdominal Exam: Soft. absent: Tenderness - Extremities Exam Extremities Exam: Pedal Edema, Tenderness - Neurological Exam Neurological Exam: Awake, CN II-XII Intact - Skin Skin Exam: Dry, Warm Assessment and Plan (1) Cellulitis Status: Acute (2) ESRD (end stage renal disease) Status: Acute (3) Fluid overload Status: Acute (4) Severe anemia Status: Acute (5) A-fib Status: Chronic - Assessment and Plan (Free Text) Plan: same dialysis MWF IV ABs wound care Objective - Vital Signs/Intake and Output Vital Signs (last 24 hours): Temp Pulse Resp BP Pulse Ox 97.8 F 84 16 89/76 L 100 03/24/18 13:36 03/24/18 12:07 03/24/18 13:36 03/24/18 13:36 03/24/18 13:36 Intake and Output: 03/24/18 03/24/18 06:59 18:59 Intake Total 400 Output Total 3000 Balance 400 -3000 - Medications Medications: Current Medications Apixaban (Eliquis) 2.5 mg PO BID [facility] Last Admin: 03/24/18 09:05 Dose: Not Given Calcium Acetate (Phoslo) 667 mg PO TIDCC [facility] Last Admin: 03/24/18 13:08 Dose: Not Given Epoetin Elio (Procrit) 10,000 unit IV MWF [facility] Last Admin: 03/24/18 11:34 Dose: 10,000 unit Daptomycin 900 mg/ Sodium (Chloride) 100 mls @ 100 mls/hr IV MWF@1400 [facility]; Protocol Last Admin: 03/24/18 15:02 Dose: 100 mls/hr Insulin Human Regular (Novolin R) 0 unit SC ACHS [facility]; Protocol Last Admin: 03/24/18 17:07 Dose: Not Given Ketorolac Tromethamine (Toradol) 10 mg PO BID PRN PRN Reason: 4-8 Last Admin: 03/24/18 15:03 Dose: 10 mg Nateglinide (Starlix) 60 mg PO ACTID [facility] Last Admin: 03/24/18 13:08 Dose: Not Given Pantoprazole Sodium (Protonix Ec Tab) 40 mg PO DAILY [facility] Last Admin: 03/24/18 09:06 Dose: Not Given Tobramycin/Dexamethasone (Tobradex Opht Susp) 0.1 ml OS BID PRN - Labs Labs: 03/21/18 08:17 03/21/18 08:17 PT 22.0 SECONDS (9.7-12.2) H 03/14/18 15:38 INR 2.0 03/14/18 15:38 APTT 36 SECONDS (21-34) H 03/14/18 15:38
[2018-03-25] MEDS: (Novolin R) Insulin Human Regular 100 units/ml vial SC SCH ×3 (09:13→22:23)
--- NOTE | 2018-03-25 10:18 | CP.PCM.PN ---
Subjective - Date & Time of Evaluation Date of Evaluation: 03/25/18 Time of Evaluation: 10:16 - Subjective Subjective: appears same s/p echo stable dialysis 03/24 on IV ABs for bacteremia Objective - Vital Signs/Intake and Output Vital Signs (last 24 hours): Temp Pulse Resp BP Pulse Ox 98.3 F 67 20 115/68 98 03/25/18 07:41 03/25/18 07:41 03/25/18 07:41 03/25/18 07:41 03/25/18 07:41 - Medications Medications: Current Medications Apixaban (Eliquis) 2.5 mg PO BID [facility] Last Admin: 03/24/18 21:52 Dose: 2.5 mg Calcium Acetate (Phoslo) 667 mg PO TIDCC [facility] Last Admin: 03/25/18 09:13 Dose: Not Given Epoetin Elio (Procrit) 10,000 unit IV MWF [facility] Last Admin: 03/24/18 11:34 Dose: 10,000 unit Daptomycin 900 mg/ Sodium (Chloride) 100 mls @ 100 mls/hr IV MWF@1400 [facility]; Protocol Last Admin: 03/24/18 15:02 Dose: 100 mls/hr Insulin Human Regular (Novolin R) 0 unit SC ACHS [facility]; Protocol Last Admin: 03/25/18 09:13 Dose: Not Given Ketorolac Tromethamine (Toradol) 10 mg PO BID PRN PRN Reason: 4-8 Last Admin: 03/24/18 15:03 Dose: 10 mg Nateglinide (Starlix) 60 mg PO ACTID [facility] Last Admin: 03/25/18 09:13 Dose: Not Given Pantoprazole Sodium (Protonix Ec Tab) 40 mg PO DAILY [facility] Last Admin: 03/24/18 09:06 Dose: Not Given Tobramycin/Dexamethasone (Tobradex Opht Susp) 0.1 ml OS BID PRN - Labs Labs: 03/21/18 08:17 03/21/18 08:17 PT 22.0 SECONDS (9.7-12.2) H 03/14/18 15:38 INR 2.0 03/14/18 15:38 APTT 36 SECONDS (21-34) H 03/14/18 15:38 - Constitutional Appears: No Acute Distress, Chronically Ill - Head Exam Head Exam: ATRAUMATIC, NORMAL INSPECTION - Eye Exam Eye Exam: EOMI, Normal appearance - Neck Exam Neck Exam: Normal Inspection. absent: Tenderness - Respiratory Exam Respiratory Exam: Clear to Ausculation Bilateral, NORMAL BREATHING PATTERN - Cardiovascular Exam Cardiovascular Exam: REGULAR RHYTHM, +S1 - GI/Abdominal Exam GI & Abdominal Exam: Soft. absent: Tenderness - Extremities Exam Extremities Exam: Pedal Edema, Tenderness - Neurological Exam Neurological Exam: Awake, CN II-XII Intact - Skin Skin Exam: Dry, Warm Assessment and Plan (1) Cellulitis Status: Acute (2) ESRD (end stage renal disease) Status: Acute (3) Fluid overload Status: Acute (4) Severe anemia Status: Acute (5) A-fib Status: Chronic - Assessment and Plan (Free Text) Plan: dialysis MWF IV ABs check labs
[2018-03-25] MEDS: SILVASORB ANTIMICROBIAL WOUND GEL TOP SCH (11:28)
[2018-03-25] MEDS: Pantoprazole 40 mg EC Tab PO SCH ×2 (11:29→12:14)
--- NOTE | 2018-03-25 13:45 | CP.PCM.PN ---
Subjective - Date & Time of Evaluation Date of Evaluation: 03/25/18 Time of Evaluation: 10:10 - Subjective Subjective: Podiatry Progress Note - Dr. Nunn 62M seen and evaluated for right lower leg wound with attending Dr. Nunn at bedside. Patient is seen resting comfortably in bed at time of visit and in NAD. Patient denies any acute overnight events. Denies any pain. Patient seen wearing multipodus boots b/l. Dressing clean, dry and intact. Patient denies F/N/V/SOB/chills. Objective - Vital Signs/Intake and Output Vital Signs (last 24 hours): Temp Pulse Resp BP Pulse Ox 98.3 F 67 20 115/68 98 03/25/18 07:41 03/25/18 07:41 03/25/18 07:41 03/25/18 07:41 03/25/18 07:41 - Medications Medications: Current Medications Apixaban (Eliquis) 2.5 mg PO BID [facility] Last Admin: 03/25/18 12:13 Dose: 2.5 mg Calcium Acetate (Phoslo) 667 mg PO TIDCC [facility] Last Admin: 03/25/18 12:13 Dose: 667 mg Epoetin Elio (Procrit) 10,000 unit IV MWF [facility] Last Admin: 03/24/18 11:34 Dose: 10,000 unit Daptomycin 900 mg/ Sodium (Chloride) 100 mls @ 100 mls/hr IV MWF@1400 [facility]; Protocol Last Admin: 03/24/18 15:02 Dose: 100 mls/hr Insulin Human Regular (Novolin R) 0 unit SC ACHS [facility]; Protocol Last Admin: 03/25/18 09:13 Dose: Not Given Ketorolac Tromethamine (Toradol) 10 mg PO BID PRN PRN Reason: 4-8 Last Admin: 03/25/18 12:18 Dose: 10 mg Nateglinide (Starlix) 60 mg PO ACTID [facility] Last Admin: 03/25/18 12:19 Dose: Not Given Pantoprazole Sodium (Protonix Ec Tab) 40 mg PO DAILY [facility] Last Admin: 03/25/18 12:14 Dose: 40 mg Tobramycin/Dexamethasone (Tobradex Opht Susp) 0.1 ml OS BID PRN - Labs Labs: 03/21/18 08:17 03/21/18 08:17 PT 22.0 SECONDS (9.7-12.2) H 03/14/18 15:38 INR 2.0 03/14/18 15:38 APTT 36 SECONDS (21-34) H 03/14/18 15:38 - Constitutional Appears: Well, Non-toxic, No Acute Distress - Extremities Exam Extremities Exam: absent: Calf Tenderness Additional comments: Right lower extremity focused exam: Vasc: Nonpalpable pulses to the DP and PT, Delayed CFT to the digits, Temperature gradient WNL, +1 pitting pedal edema Derm: Full thickness ulceration noted to right posterior ankle at level of Achilles insertion measuring approximately 2 cm x 2 cm x 1cm, with mixture granular and fibrotic wound base. Mild serous drainage appreciated, no fluctuance, no streaking, mild erythema appreciated periwound. Additional small ulceration appreciated to medail aspect of ankle measuring approximately 1cm x 1cm x .01cm. Mild serous drainage appreciated, no purulence. Hyperpigmentation appreciated circumfrentially to lower extremity. No fluctuance noted. Neuro: Gross sensation diminished, protective sensation absent Ortho: Tenderness to palpation of R heel ulceration - Neurological Exam Neurological Exam: Alert, Awake, Oriented x3 Assessment and Plan - Assessment and Plan (Free Text) Assessment: 62 year old male patient with right lower extremity ulcerations- stable Plan: Patient seen and evaluated at bedside with attending Dr. Nunn Labs, vitals reviewed- Afebrile, absent leukocytosis WBC 8.0 R foot Wound cx MRSA Blood cx MRSA Foot X-ray taken: possible signs of acute OM, further imaging recommended IV abx per ID No surgical intervention during hospital stay Will provide local wound care Cleansed wounds with saline, dressed with saline w2d and kerlix Will continue to follow patient while in house
--- NOTE | 2018-03-25 14:29 | CARD ---
APPROVED REPORT Date of service: 03/25/2018 EXAM: LIMITED Two-dimensional and M-mode echocardiogram. INDICATION Infection: Mitral Valve E/A ratio0.0 TDI E/Lateral E'0.0E/Medial E'0.0 <Conclusion> Nodefinite vegetation seen. Catheter seen in RA. Consider JAMIE if clinically indicated.
--- NOTE | 2018-03-25 19:50 | CP.PCM.PN ---
Subjective - Date & Time of Evaluation Date of Evaluation: 03/25/18 Time of Evaluation: 19:46 - Subjective Subjective: INFECTIOUS DISEASE PROGRESS NOTES IRIS DOMINGUEZ MD, FACP BOARD CERTIFIED ID X [id number] 6T 655 03/25/2018 CHART REVIEWED PT EXAMINED CASE DISCUSSED RESPONDING TO DAPTOMYCIN FOR MRSA BACTEREMIA/WOUND INFECTION IN A COMPROMISED PATIENT TOMORROW SHOULD FINISH 2 FULL WEEKS WILL NEED 4 MORE WEEKS OF DAPTOMYCIN-CUBICIN TREATMENT ORDERED appears same s/p echo stable dialysis 03/24 on IV ABs for bacteremia Objective - Vital Signs/Intake and Output Vital Signs (last 24 hours): Temp Pulse Resp BP Pulse Ox 98.3 F 67 20 115/68 98 03/25/18 07:41 03/25/18 07:41 03/25/18 07:41 03/25/18 07:41 03/25/18 07:41 - Medications Medications: Current Medications Apixaban (Eliquis) 2.5 mg PO BID [facility] Last Admin: 03/24/18 21:52 Dose: 2.5 mg Calcium Acetate (Phoslo) 667 mg PO TIDCC [facility] Last Admin: 03/25/18 09:13 Dose: Not Given Epoetin Elio (Procrit) 10,000 unit IV MWF [facility] Last Admin: 03/24/18 11:34 Dose: 10,000 unit Daptomycin 900 mg/ Sodium (Chloride) 100 mls @ 100 mls/hr IV MWF@1400 [facility]; Pro tocol Last Admin: 03/24/18 15:02 Dose: 100 mls/hr Insulin Human Regular (Novolin R) 0 unit SC ACHS [facility]; Protocol Last Admin: 03/25/18 09:13 Dose: Not Given Ketorolac Tromethamine (Toradol) 10 mg PO BID PRN PRN Reason: 4-8 Last Admin: 03/24/18 15:03 Dose: 10 mg Nateglinide (Starlix) 60 mg PO ACTID [facility] Last Admin: 03/25/18 09:13 Dose: Not Given Pantoprazole Sodium (Protonix Ec Tab) 40 mg PO DAILY [facility] Last Admin: 03/24/18 09:06 Dose: Not Given Tobramycin/Dexamethasone (Tobradex Opht Susp) 0.1 ml OS BID PRN - Labs Labs: 03/21/18 08:17 01/06/19 08:17 PT 22.0 SECONDS (9.7-12.2) H 03/14/18 15:38 INR 2.0 03/14/18 15:38 APTT 36 SECONDS (21-34) H 03/14/18 15:38 - Constitutional Appears: No Acute Distress, Chronically Ill - Head Exam Head Exam: ATRAUMATIC, NORMAL INSPECTION - Eye Exam Eye Exam: EOMI, Normal appearance - Neck Exam Neck Exam: Normal Inspection. absent: Tenderness - Respiratory Exam Respiratory Exam: Clear to Ausculation Bilateral, NORMAL BREATHING PATTERN - Cardiovascular Exam Cardiovascular Exam: REGULAR RHYTHM, +S1 - GI/Abdominal Exam GI & Abdominal Exam: Soft. absent: Tenderness - Extremities Exam Extremities Exam: Pedal Edema, Tenderness - Neurological Exam Neurological Exam: Awake, CN II-XII Intact - Skin Skin Exam: Dry, Warm Assessment and Plan (1) Cellulitis Status: Acute (2) ESRD (end stage renal disease) Status: Acute (3) Fluid overload Status: Acute (4) Severe anemia Status: Acute (5) A-fib Status: Chronic - Assessment and Plan (Free Text) Plan: dialysis MWF IV ABs check labs Objective - Vital Signs/Intake and Output Vital Signs (last 24 hours): Temp Pulse Resp BP Pulse Ox 98.3 F 67 20 115/68 98 03/25/18 07:41 03/25/18 07:41 03/25/18 07:41 03/25/18 07:41 03/25/18 07:41 Intake and Output: 03/25/18 03/26/18 18:59 06:59 Intake Total 400 Balance 400 - Medications Medications: Current Medications Apixaban (Eliquis) 2.5 mg PO BID [facility] Last Admin: 03/25/18 12:13 Dose: 2.5 mg Calcium Acetate (Phoslo) 667 mg PO TIDCC [facility] Last Admin: 03/25/18 12:13 Dose: 667 mg Epoetin Elio (Procrit) 10,000 unit IV MWF [facility] Last Admin: 03/24/18 11:34 Dose: 10,000 unit Daptomycin 900 mg/ Sodium (Chloride) 100 mls @ 100 mls/hr IV MWF@1400 [facility]; Prot ocol Last Admin: 03/24/18 15:02 Dose: 100 mls/hr Insulin Human Regular (Novolin R) 0 unit SC [facility]; Protocol Last Admin: 03/25/18 09:13 Dose: Not Given Ketorolac Tromethamine (Toradol) 10 mg PO BID PRN PRN Reason: 4-8 Last Admin: 03/25/18 12:18 Dose: 10 mg Nateglinide (Starlix) 60 mg PO ACTID [facility] Last Admin: 03/25/18 12:19 Dose: Not Given Pantoprazole Sodium (Protonix Ec Tab) 40 mg PO DAILY [facility] Last Admin: 03/25/18 12:14 Dose: 40 mg Tobramycin/Dexamethasone (Tobradex Opht Susp) 0.1 ml OS BID PRN - Labs Labs: 03/21/18 08:17 03/21/18 08:17 PT 22.0 SECONDS (9.7-12.2) H 03/14/18 15:38 INR 2.0 03/14/18 15:38 APTT 36 SECONDS (21-34) H 03/14/18 15:38
[2018-03-26 06:42] LABS: HEMOGLOBIN 8.2 g/dL (12.0-18.0); MEAN CELL VOLUME 89.7 fL (80.0-94.0); MEAN CORPUSCULAR HEMOGLOBIN 27.8 pg (27.0-31.0); MEAN PLATELET VOLUME 7.7 fL (7.2-11.7); RBC 2.94 Mil/uL (4.40-5.90); RED CELL DISTRIBUTION WIDTH 18.4 % (11.5-14.5); WHITE BLOOD COUNT 5.7 K/uL (4.8-10.8)
[2018-03-26 07:07] LABS: ALB/GLOB RATIO 0.8 (1.0-2.1); ALBUMIN 2.8 g/dL (3.5-5.0); CALCIUM 7.6 mg/dl (8.6-10.4)
[2018-03-26] MEDS: (Novolin R) Insulin Human Regular 100 units/ml vial SC SCH ×4 (07:37→21:43)
[2018-03-26] MEDS: Pantoprazole 40 mg EC Tab PO SCH (10:33)
[2018-03-26] MEDS: Epoetin Alfa 10,000 unit/ml Dialysis IV SCH (10:47)
[2018-03-26] MEDS: SILVASORB ANTIMICROBIAL WOUND GEL TOP SCH (11:08)
--- NOTE | 2018-03-26 13:15 | CP.PCM.PN ---
Subjective - Date & Time of Evaluation Date of Evaluation: 03/26/18 Time of Evaluation: 13:12 - Subjective Subjective: seen at dialysis; UF 3000ml same sluggishness afebrile course BP low Hg still low despite EPO echo- no vegetation remains on daptomycin Objective - Vital Signs/Intake and Output Vital Signs (last 24 hours): Temp Pulse Resp BP Pulse Ox 97.7 F 94 H 19 71/37 L 100 03/26/18 09:40 03/26/18 09:40 03/26/18 09:40 03/26/18 12:40 03/26/18 09:40 Intake and Output: 03/26/18 03/26/18 06:59 18:59 Intake Total 300 Balance 300 - Medications Medications: Current Medications Apixaban (Eliquis) 2.5 mg PO BID [facility] Last Admin: 03/26/18 10:33 Dose: Not Given Calcium Acetate (Phoslo) 667 mg PO TIDCC [facility] Last Admin: 03/26/18 13:03 Dose: Not Given Epoetin Elio (Procrit) 10,000 unit IV MWF [facility] Last Admin: 03/26/18 10:47 Dose: 10,000 unit Daptomycin 900 mg/ Sodium (Chloride) 100 mls @ 100 mls/hr IV MWF@1400 [facility]; Protocol Last Admin: 03/24/18 15:02 Dose: 100 mls/hr Insulin Human Regular (Novolin R) 0 unit SC ACHS [facility]; Protocol Last Admin: 03/26/18 12:11 Dose: Not Given Ketorolac Tromethamine (Toradol) 10 mg PO BID PRN PRN Reason: 4-8 Last Admin: 03/25/18 22:34 Dose: 10 mg Nateglinide (Starlix) 60 mg PO ACTID [facility] Last Admin: 03/26/18 13:03 Dose: Not Given Pantoprazole Sodium (Protonix Ec Tab) 40 mg PO DAILY [facility] Last Admin: 03/26/18 10:33 Dose: Not Given Tobramycin/Dexamethasone (Tobradex Opht Susp) 0.1 ml OS BID PRN - Labs Labs: 03/26/18 06:36 03/26/18 06:36 PT 22.0 SECONDS (9.7-12.2) H 03/14/18 15:38 INR 2.0 03/14/18 15:38 APTT 36 SECONDS (21-34) H 03/14/18 15:38 - Constitutional Appears: No Acute Distress, Chronically Ill - Head Exam Head Exam: ATRAUMATIC, NORMAL INSPECTION - Eye Exam Eye Exam: EOMI, Normal appearance - Neck Exam Neck Exam: Normal Inspection. absent: Tenderness - Respiratory Exam Respiratory Exam: Clear to Ausculation Bilateral, NORMAL BREATHING PATTERN - Cardiovascular Exam Cardiovascular Exam: REGULAR RHYTHM, +S1 - GI/Abdominal Exam GI & Abdominal Exam: Soft. absent: Tenderness - Extremities Exam Extremities Exam: Normal Inspection. absent: Tenderness - Neurological Exam Neurological Exam: Awake, CN II-XII Intact - Skin Skin Exam: Dry, Warm Assessment and Plan (1) Cellulitis Status: Acute (2) ESRD (end stage renal disease) Status: Acute (3) Fluid overload Status: Acute (4) Severe anemia Status: Acute (5) A-fib Status: Chronic - Assessment and Plan (Free Text) Plan: dialysis MWF Adequate UF IV ABs EPO Monitor BP
--- NOTE | 2018-03-26 18:53 | CP.PCM.PN ---
Subjective - Date & Time of Evaluation Date of Evaluation: 03/26/18 Time of Evaluation: 18:47 - Subjective Subjective: INFECTIOUS DISEASE PROGRESS NOTES IRIS DOMINGUEZ MD, FACP 6T 655 03/26/2018 CHART REVIEWED PT EXAMINED CASE DISCUSSED AWAKE, ALERT, UNDERSTANDS HIS ACUTE/CHRONIC CONDITION BEING TREATED PRESENTLY BY HIS PHYSICIANS. 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 WILL NEED 4 MORE WEEKS OF DAPTOMYCIN. Objective - Vital Signs/Intake and Output Vital Signs (last 24 hours): Temp Pulse Resp BP Pulse Ox 97.7 F 94 H 19 71/37 L 100 03/26/18 09:40 03/26/18 09:40 03/26/18 09:40 03/26/18 12:40 03/26/18 09:40 Intake and Output: 03/26/18 03/26/18 06:59 18:59 Intake Total 300 Balance 300 - Medications Medications: Current Medications Apixaban (Eliquis) 2.5 mg PO BID [facility] Last Admin: 03/26/18 10:33 Dose: Not Given Calcium Acetate (Phoslo) 667 mg PO TIDCC [facility] Last Admin: 03/26/18 13:03 Dose: Not Given Epoetin Elio (Procrit) 10,000 unit IV MWF [facility] Last Admin: 03/26/18 10:47 Dose: 10,000 unit Daptomycin 900 mg/ Sodium (Chloride) 100 mls @ 100 mls/hr IV MWF@1400 [facility]; Protocol Last Admin: 03/24/18 15:02 Dose: 100 mls/hr Insulin Human Regular (Novolin R) 0 unit SC ACHS [facility]; Protocol Last Admin: 03/26/18 12:11 Dose: Not Given Ketorolac Tromethamine (Toradol) 10 mg PO BID PRN PRN Reason: 4-8 Last Admin: 03/25/18 22:34 Dose: 10 mg Nateglinide (Starlix) 60 mg PO ACTID [facility] Last Admin: 03/26/18 13:03 Dose: Not Given Pantoprazole Sodium (Protonix Ec Tab) 40 mg PO DAILY [facility] Last Admin: 03/26/18 10:33 Dose: Not Given Tobramycin/Dexamethasone (Tobradex Opht Susp) 0.1 ml OS BID PRN - Labs Labs: 03/26/18 06:36 03/26/18 06:36 PT 22.0 SECONDS (9.7-12.2) H 03/14/18 15:38 INR 2.0 03/14/18 15:38 APTT 36 SECONDS (21-34) H 03/14/18 15:38 - Constitutional Appears: No Acute Distress, Chronically Ill - Head Exam Head Exam: ATRAUMATIC, NORMAL INSPECTION - Eye Exam Eye Exam: EOMI, Normal appearance - Neck Exam Neck Exam: Normal Inspection. absent: Tenderness - Respiratory Exam Respiratory Exam: Clear to Ausculation Bilateral, NORMAL BREATHING PATTERN - Cardiovascular Exam Cardiovascular Exam: REGULAR RHYTHM, +S1 - GI/Abdominal Exam GI & Abdominal Exam: Soft. absent: Tenderness - Extremities Exam Extremities Exam: Normal Inspection. absent: Tenderness - Neurological Exam Neurological Exam: Awake, CN II-XII Intact - Skin Skin Exam: Dry, Warm Assessment and Plan (1) Cellulitis Status: Acute (2) ESRD (end stage renal disease) Status: Acute (3) Fluid overload Status: Acute (4) Severe anemia Status: Acute (5) A-fib Status: Chronic - Assessment and Plan (Free Text) Plan: dialysis MWF Adequate UF CONTINUE DAPTOMYCIN AT MRSA DOSES WILL REVIEW AND DISCUSS ACCORDINGLY Monitor BP Objective - Vital Signs/Intake and Output Vital Signs (last 24 hours): Temp Pulse Resp BP Pulse Ox 97.5 F L 101 H 20 124/73 99 03/26/18 15:55 03/26/18 15:55 03/26/18 15:55 03/26/18 15:55 03/26/18 15:55 Intake and Output: 03/26/18 03/26/18 06:59 18:59 Intake Total 300 Balance 300 - Medications Medications: Current Medications Apixaban (Eliquis) 2.5 mg PO BID [facility] Last Admin: 03/26/18 17:58 Dose: 2.5 mg Calcium Acetate (Phoslo) 667 mg PO TIDCC [facility] Last Admin: 03/26/18 17:58 Dose: 667 mg Epoetin Elio (Procrit) 10,000 unit IV MWF [facility] Last Admin: 03/26/18 10:47 Dose: 10,000 unit Daptomycin 900 mg/ Sodium (Chloride) 100 mls @ 100 mls/hr IV MWF@1400 [facility]; Protocol Last Admin: 03/26/18 13:45 Dose: 100 mls/hr Insulin Human Regular (Novolin R) 0 unit SC ACHS [facility]; Protocol Last Admin: 03/26/18 17:16 Dose: Not Given Ketorolac Tromethamine (Toradol) 10 mg PO BID PRN PRN Reason: 4-8 Last Admin: 03/25/18 22:34 Dose: 10 mg Nateglinide (Starlix) 60 mg PO ACTID [facility] Last Admin: 03/26/18 17:17 Dose: Not Given Pantoprazole Sodium (Protonix Ec Tab) 40 mg PO DAILY [facility] Last Admin: 03/26/18 10:33 Dose: Not Given Tobramycin/Dexamethasone (Tobradex Opht Susp) 0.1 ml OS BID PRN - Labs Labs: 03/26/18 06:36 03/26/18 06:36 PT 22.0 SECONDS (9.7-12.2) H 03/14/18 15:38 INR 2.0 03/14/18 15:38 APTT 36 SECONDS (21-34) H 03/14/18 15:38
[2018-03-27] MEDS: (Novolin R) Insulin Human Regular 100 units/ml vial SC SCH ×4 (08:41→21:22)
--- NOTE | 2018-03-27 10:01 | CP.PCM.PN ---
Subjective - Date & Time of Evaluation Date of Evaluation: 03/27/18 Time of Evaluation: 09:59 - Subjective Subjective: Notes reviewed Remains in bed NO overnight events Family at bedside, care reviewed Tolerated dialysis well 03/26 Fatigue and weakness Poorly mobile in bed 10 point ros negative other than stated above Objective - Vital Signs/Intake and Output Vital Signs (last 24 hours): Temp Pulse Resp BP Pulse Ox 97.8 F 114 H 20 134/80 100 03/27/18 08:31 03/27/18 08:31 03/27/18 08:31 03/27/18 08:31 03/27/18 08:31 Intake and Output: 03/27/18 03/27/18 06:59 18:59 Intake Total 400 Balance 400 - Medications Medications: Current Medications Apixaban (Eliquis) 2.5 mg PO BID [facility] Last Admin: 03/26/18 17:58 Dose: 2.5 mg Calcium Acetate (Phoslo) 667 mg PO TIDCC [facility] Last Admin: 03/27/18 08:41 Dose: 667 mg Epoetin Elio (Procrit) 10,000 unit IV MWF [facility] Last Admin: 03/26/18 10:47 Dose: 10,000 unit Daptomycin 900 mg/ Sodium (Chloride) 100 mls @ 100 mls/hr IV MWF@1400 [facility]; Protocol Last Admin: 03/26/18 13:45 Dose: 100 mls/hr Insulin Human Regular (Novolin R) 0 unit SC ACHS [facility]; Protocol Last Admin: 03/27/18 08:41 Dose: Not Given Ketorolac Tromethamine (Toradol) 10 mg PO BID PRN PRN Reason: 4-8 Last Admin: 03/25/18 22:34 Dose: 10 mg Nateglinide (Starlix) 60 mg PO ACTID [facility] Last Admin: 03/27/18 08:41 Dose: 60 mg Pantoprazole Sodium (Protonix Ec Tab) 40 mg PO DAILY [facility] Last Admin: 03/26/18 10:33 Dose: Not Given Tobramycin/Dexamethasone (Tobradex Opht Susp) 0.1 ml OS BID PRN - Labs Labs: 03/26/18 06:36 03/26/18 06:36 PT 22.0 SECONDS (9.7-12.2) H 03/14/18 15:38 INR 2.0 03/14/18 15:38 APTT 36 SECONDS (21-34) H 03/14/18 15:38 - Constitutional Appears: Non-toxic, Chronically Ill - Head Exam Head Exam: ATRAUMATIC, NORMAL INSPECTION - Eye Exam Eye Exam: EOMI, Normal appearance - ENT Exam ENT Exam: Mucous Membranes Moist, Normal Oropharynx - Neck Exam Neck Exam: absent: Lymphadenopathy, Thyromegaly - Respiratory Exam Respiratory Exam: Rhonchi. absent: Rales - Cardiovascular Exam Cardiovascular Exam: +S1, +S2. absent: Rubs - GI/Abdominal Exam GI & Abdominal Exam: Soft, Normal Bowel Sounds - Extremities Exam Extremities Exam: Pedal Edema, Tenderness - Neurological Exam Neurological Exam: Alert, Awake - Skin Skin Exam: Dry, Intact Assessment and Plan (1) Hypokalemia Status: Acute (2) Cellulitis Status: Acute (3) ESRD (end stage renal disease) on dialysis Status: Acute (4) PVD (peripheral vascular disease) Status: Acute (5) Type 2 diabetes mellitus with diabetic nephropathy Status: Acute (6) Coagulopathy Status: Chronic (7) Peripheral edema Status: Chronic - Assessment and Plan (Free Text) Assessment: Maintain dialysis schedule Next treatment 03/29 Abx as ordered Wound care Continue current care
[2018-03-27] MEDS: Pantoprazole 40 mg EC Tab PO SCH (10:09)
[2018-03-27] MEDS: SILVASORB ANTIMICROBIAL WOUND GEL TOP SCH (10:10)
--- NOTE | 2018-03-27 15:50 | CP.PCM.PN ---
<Supriya Casey - Last Filed: 03/27/18 15:52> Subjective - Date & Time of Evaluation Date of Evaluation: 03/27/18 Time of Evaluation: 15:46 - Subjective Subjective: Podiatry Progress Note - Dr. Nunn 62M seen and evaluated for right lower leg wound with attending Dr. Nunn at bedside. Patient is seen resting comfortably in bed at time of visit and in NAD. Patient denies any acute overnight events. Denies any pain. Patient seen wearing multipodus boots b/l. Family at bedside. Dressing clean, and intact. Patient denies F/N/V/SOB/chills. Objective - Vital Signs/Intake and Output Vital Signs (last 24 hours): Temp Pulse Resp BP Pulse Ox 97.8 F 114 H 20 134/80 100 03/27/18 08:31 03/27/18 08:31 03/27/18 08:31 03/27/18 08:31 03/27/18 08:31 Intake and Output: 03/27/18 03/27/18 06:59 18:59 Intake Total 400 Balance 400 - Medications Medications: Current Medications Apixaban (Eliquis) 2.5 mg PO BID [facility] Last Admin: 03/27/18 10:09 Dose: 2.5 mg Calcium Acetate (Phoslo) 667 mg PO TIDCC [facility] Last Admin: 03/27/18 12:46 Dose: Not Given Epoetin Elio (Procrit) 10,000 unit IV [facility] Last Admin: 03/26/18 10:47 Dose: 10,000 unit Daptomycin 900 mg/ Sodium (Chloride) 100 mls @ 100 mls/hr IV [facility]; Protocol Stop: 04/03/18 14:01 Insulin Human Regular (Novolin R) 0 unit SC [facility]; Protocol Last Admin: 03/27/18 12:01 Dose: Not Given Ketorolac Tromethamine (Toradol) 10 mg PO BID PRN PRN Reason: 4-8 Last Admin: 03/25/18 22:34 Dose: 10 mg Nateglinide (Starlix) 60 mg PO ACTID [facility] Last Admin: 03/27/18 12:02 Dose: Not Given Pantoprazole Sodium (Protonix Ec Tab) 40 mg PO DAILY [facility] Last Admin: 03/27/18 10:09 Dose: 40 mg Tobramycin/Dexamethasone (Tobradex Opht Susp) 0.1 ml OS BID PRN - Labs Labs: 03/26/18 06:36 03/26/18 06:36 PT 22.0 SECONDS (9.7-12.2) H 03/14/18 15:38 INR 2.0 03/14/18 15:38 APTT 36 SECONDS (21-34) H 03/14/18 15:38 - Constitutional Appears: Well, Non-toxic, No Acute Distress - Head Exam Head Exam: ATRAUMATIC, NORMOCEPHALIC - Eye Exam Eye Exam: Normal appearance - ENT Exam ENT Exam: Mucous Membranes Moist - Respiratory Exam Respiratory Exam: Clear to Ausculation Bilateral - Extremities Exam Additional comments: Right lower extremity focused exam: Vasc: Nonpalpable pulses to the DP and PT, Delayed CFT to the digits, Temperature gradient WNL, +1 pitting pedal edema Derm: Full thickness ulceration noted to right posterior ankle at level of Achilles insertion measuring approximately 2 cm x 2 cm x 1cm, with mixture granular and fibrotic wound base. Mild serous drainage appreciated, no fluctuance, no streaking, mild erythema appreciated periwound. ulceration appreciated to medail aspect of ankle measuring approximately 2cm x 2cm x .01cm with 100% fibrotic macerated tissue Mild purulent drainage appreciated, Hyperpigmentation appreciated circumfrentially to lower extremity. No fluctuance noted. Neuro: Gross sensation diminished, protective sensation absent Ortho: Tenderness to palpation of R heel ulceration Assessment and Plan - Assessment and Plan (Free Text) Assessment: 62 year old male patient with right lower extremity ulceration with purulence Plan: Patient seen and evaluated at bedside with attending Dr. Nunn Labs, vitals reviewed- Afebrile, absent leukocytosis WBC 8.0 New wound cultures taken and ordered Blood cx MRSA Foot X-ray taken: possible signs of acute OM, further imaging recommended IV abx per ID bone scan triple phase ordered. Podiatry plan: plan for incision and drainage early this week (thursday/thursday). Please provide medical clearance. Will provide local wound care Cleansed wounds with saline, dressed with betadine soaked gauze and kerlix Will continue to follow patient while in house <Isreal Nunn - Last Filed: 03/28/18 11:01> Objective - Vital Signs/Intake and Output Vital Signs (last 24 hours): Temp Pulse Resp BP Pulse Ox 97.4 F L 110 H 20 111/68 100 03/28/18 07:00 03/28/18 07:00 03/28/18 07:00 03/28/18 07:00 03/28/18 07:00 Intake and Output: 03/28/18 03/28/18 06:59 18:59 Intake Total 150 Balance 150 - Medications Medications: Current Medications Apixaban (Eliquis) 2.5 mg PO BID [facility] Last Admin: 03/27/18 18:27 Dose: 2.5 mg Calcium Acetate (Phoslo) 667 mg PO TIDCC [facility] Last Admin: 03/28/18 08:25 Dose: Not Given Epoetin Elio (Procrit) 10,000 unit IV [facility] Last Admin: 03/26/18 10:47 Dose: 10,000 unit Daptomycin 900 mg/ Sodium (Chloride) 100 mls @ 100 mls/hr IV [facility]; Protocol Stop: 04/03/18 14:01 Insulin Human Regular (Novolin R) 0 unit SC [facility]; Protocol Last Admin: 03/28/18 08:25 Dose: Not Given Nateglinide (Starlix) 60 mg PO ACTID [facility] Last Admin: 03/28/18 08:25 Dose: Not Given Pantoprazole Sodium (Protonix Ec Tab) 40 mg PO DAILY [facility] Last Admin: 03/27/18 10:09 Dose: 40 mg Tobramycin/Dexamethasone (Tobradex Opht Susp) 0.1 ml OS BID PRN - Labs Labs: 03/26/18 06:36 03/26/18 06:36 PT 22.0 SECONDS (9.7-12.2) H 03/14/18 15:38 INR 2.0 03/14/18 15:38 APTT 36 SECONDS (21-34) H 03/14/18 15:38 Assessment and Plan - Assessment and Plan (Free Text) Plan: Patient was seen at bedside with resident . foot has new anterior ankle wound which was not present at last eval 03/25/18 . Increased drainage noted today .bone scan ordered . Plan is for debridement this week . /Dr Madyson Nunn .Eval performed 03/27/18
[2018-03-28] MEDS: (Novolin R) Insulin Human Regular 100 units/ml vial SC SCH ×4 (08:25→21:58)
[2018-03-28] MEDS: SILVASORB ANTIMICROBIAL WOUND GEL TOP SCH (10:00)
[2018-03-28] MEDS: Pantoprazole 40 mg EC Tab PO SCH (10:00)
--- NOTE | 2018-03-28 13:50 | CP.PCM.PN ---
Subjective - Date & Time of Evaluation Date of Evaluation: 03/28/18 Time of Evaluation: 13:49 - Subjective Subjective: Patient is lying down comfortably. He is having no fever. Currently he is tolerating the Cubicin antibiotic. Right leg ulcers are improving. The small is less. Tolerating the hemodialysis yesterday. We will continue to monitor. Speak with infectious disease for further management. According to the current treatment the patient will need this antibiotic for minimum of 4 weeks. We will follow the patient Objective - Vital Signs/Intake and Output Vital Signs (last 24 hours): Temp Pulse Resp BP Pulse Ox 97.4 F L 110 H 20 111/68 100 03/28/18 07:00 03/28/18 07:00 03/28/18 07:00 03/28/18 07:00 03/28/18 07:00 Intake and Output: 03/28/18 03/28/18 06:59 18:59 Intake Total 150 Balance 150 - Medications Medications: Current Medications Apixaban (Eliquis) 2.5 mg PO BID [facility] Last Admin: 03/28/18 10:00 Dose: Not Given Calcium Acetate (Phoslo) 667 mg PO TIDCC [facility] Last Admin: 03/28/18 13:11 Dose: 667 mg Epoetin Elio (Procrit) 10,000 unit IV MWF [facility] Last Admin: 03/26/18 10:47 Dose: 10,000 unit Daptomycin 900 mg/ Sodium (Chloride) 100 mls @ 100 mls/hr IV F [facility]; Protocol Stop: 04/03/18 14:01 Insulin Human Regular (Novolin R) 0 unit SC ACHS [facility]; Protocol Last Admin: 03/28/18 12:00 Dose: Not Given Nateglinide (Starlix) 60 mg PO ACTID [facility] Last Admin: 03/28/18 13:10 Dose: 60 mg Pantoprazole Sodium (Protonix Ec Tab) 40 mg PO DAILY [facility] Last Admin: 03/28/18 10:00 Dose: Not Given Tobramycin/Dexamethasone (Tobradex Opht Susp) 0.1 ml OS BID PRN - Labs Labs: 03/26/18 06:36 03/26/18 06:36 PT 22.0 SECONDS (9.7-12.2) H 03/14/18 15:38 INR 2.0 03/14/18 15:38 APTT 36 SECONDS (21-34) H 03/14/18 15:38
--- NOTE | 2018-03-28 16:08 | CP.PCM.PN ---
Subjective - Date & Time of Evaluation Date of Evaluation: 03/28/18 Time of Evaluation: 16:00 - Subjective Subjective: INFECTIOUS DISEASE PROGRESS NOTES IRIS DOMINGUEZ MD, FACP 03/28/2017 6T 655 CHART REVIEWED CASE DISCUSSED 62 YR OLD MALE WAS FOUND AND seen APPARENTLY - evaluated for right lower leg wound with attending Dr. Nunn at bedside, ON 03/27/2018. Patient is seen resting comfortably in bed at time of visit and in NAD, ON AND OFF. Patient denies any acute overnight events. Denies any pain. Patient seen wearing multipodus boots b/l. Family at bedside. Patient denies F/N/V/SOB/chills. Objective - Vital Signs/Intake and Output Vital Signs (last 24 hours): Temp Pulse Resp BP Pulse Ox 97.8 F 114 H 20 134/80 100 03/27/18 08:31 03/27/18 08:31 03/27/18 08:31 03/27/18 08:31 03/27/18 08:31 Intake and Output: 03/27/18 03/27/18 06:59 18:59 Intake Total 400 Balance 400 - Medications Medications: Current Medications Apixaban (Eliquis) 2.5 mg PO BID [facility] Last Admin: 03/27/18 10:09 Dose: 2.5 mg Calcium Acetate (Phoslo) 667 mg PO TIDCC [facility] Last Admin: 03/27/18 12:46 Dose: Not Given Epoetin Elio (Procrit) 10,000 unit IV [facility] Last Admin: 03/26/18 10:47 Dose: 10,000 unit Daptomycin 900 mg/ Sodium (Chloride) 100 mls @ 100 mls/hr IV [facility]; Protocol Stop: 04/03/18 14:01 Insulin Human Regular (Novolin R) 0 unit SC [facility]; Protocol Last Admin: 03/27/18 12:01 Dose: Not Given Ketorolac Tromethamine (Toradol) 10 mg PO BID PRN PRN Reason: 4-8 Last Admin: 03/25/18 22:34 Dose: 10 mg Nateglinide (Starlix) 60 mg PO ACTID [facility] Last Admin: 03/27/18 12:02 Dose: Not Given Pantoprazole Sodium (Protonix Ec Tab) 40 mg PO DAILY [facility] Last Admin: 03/27/18 10:09 Dose: 40 mg Tobramycin/Dexamethasone (Tobradex Opht Susp) 0.1 ml OS BID PRN - Labs Labs: 03/26/18 06:36 03/26/18 06:36 PT 22.0 SECONDS (9.7-12.2) H 03/14/18 15:38 INR 2.0 03/14/18 15:38 APTT 36 SECONDS (21-34) H 03/14/18 15:38 - Constitutional Appears: Well, Non-toxic, No Acute Distress - Head Exam Head Exam: ATRAUMATIC, NORMOCEPHALIC - Eye Exam Eye Exam: Normal appearance - ENT Exam ENT Exam: Mucous Membranes Moist - Respiratory Exam Respiratory Exam: Clear to Ausculation Bilateral - Extremities Exam Additional comments: Right lower extremity focused exam: Vasc: Nonpalpable pulses to the DP and PT, Delayed CFT to the digits, Temperature gradient WNL, +1 pitting pedal edema Derm: Full thickness ulceration noted to right posterior ankle at level of Achilles insertion measuring approximately 2 cm x 2 cm x 1cm, with mixture granular and fibrotic wound base. Mild serous drainage appreciated, no fluctuance, no streaking, mild erythema appreciated periwound. ulceration appreciated to medail aspect of ankle measuring approximately 2cm x 2cm x .01cm with 100% fibrotic macerated tissue Mild purulent drainage appreciated, Hyperpigmentation appreciated circumfrentially to lower extremity. No fluctuance noted. Neuro: Gross sensation diminished, protective sensation absent Ortho: Tenderness to palpation of R heel ulceration Assessment and Plan - Assessment and Plan (Free Text) Assessment: 62 year old male patient with right lower extremity ulceration with purulence Plan: Patient seen and evaluated at bedside with attending Dr. Nunn Labs, vitals reviewed- Afebrile, absent leukocytosis WBC 8.0 New wound cultures taken and ordered Blood cx MRSA Foot X-ray taken: possible signs of acute OM, further imaging recommended IV abx per ID APPARENTLY A bone scan, triple phase, ordered. Podiatry plan: plan for incision and drainage early this week (thursday/thursday). Please provide medical clearance. PT WITHOUT A DOUBT HAS A SEQUESTRUM OF INFECTION IN HIS LOWER EXTREMITIES. THE REAL QUESTION IS SHOULD A AMPUTATION BE EVEN CONSIDERED SINCE HE IS BEDRIDD EN AND DOESN'T FREELY AMBULATE. THESE AREAS HAVE BEEN SOURCES OF RECURRENT SITE/SYSTEMIC INFECTION. THIS TREATMENT COULD NOT BE DONE AT SOME OBSURE DISTANT REMOTE SITE WITHOUT SIMULTANEOUS CONCURRENT EXPERTISE. Cleansed wounds with saline, dressed with betadine soaked gauze and kerlix Will continue to follow patient while in house Objective - Vital Signs/Intake and Output Vital Signs (last 24 hours): Temp Pulse Resp BP Pulse Ox 97.4 F L 110 H 20 111/68 100 03/28/18 07:00 03/28/18 07:00 03/28/18 07:00 03/28/18 07:00 03/28/18 07:00 Intake and Output: 03/28/18 03/28/18 06:59 18:59 Intake Total 150 Balance 150 - Medications Medications: Current Medications Apixaban (Eliquis) 2.5 mg PO BID [facility] Last Admin: 03/27/18 18:27 Dose: 2.5 mg Calcium Acetate (Phoslo) 667 mg PO TIDCC [facility] Last Admin: 03/28/18 08:25 Dose: Not Given Epoetin Elio (Procrit) 10,000 unit IV [facility] Last Admin: 03/26/18 10:47 Dose: 10,000 unit Daptomycin 900 mg/ Sodium (Chloride) 100 mls @ 100 mls/hr IV [facility]; Protocol Stop: 04/03/18 14:01 Insulin Human Regular (Novolin R) 0 unit SC [facility]; Protocol Last Admin: 03/28/18 08:25 Dose: Not Given Nateglinide (Starlix) 60 mg PO ACTID [facility] Last Admin: 03/28/18 08:25 Dose: Not Given Pantoprazole Sodium (Protonix Ec Tab) 40 mg PO DAILY [facility] Last Admin: 03/27/18 10:09 Dose: 40 mg Tobramycin/Dexamethasone (Tobradex Opht Susp) 0.1 ml OS BID PRN - Labs Labs: 03/26/18 06:36 03/26/18 06:36 PT 22.0 SECONDS (9.7-12.2) H 03/14/18 15:38 INR 2.0 03/14/18 15:38 APTT 36 SECONDS (21-34) H 03/14/18 15:38 Objective - Vital Signs/Intake and Output Vital Signs (last 24 hours): Temp Pulse Resp BP Pulse Ox 97.4 F L 110 H 20 111/68 100 03/28/18 07:00 03/28/18 07:00 03/28/18 07:00 03/28/18 07:00 03/28/18 07:00 Intake and Output: 03/28/18 03/28/18 06:59 18:59 Intake Total 150 Balance 150 - Medications Medications: Current Medications Apixaban (Eliquis) 2.5 mg PO BID [facility] Last Admin: 03/28/18 10:00 Dose: Not Given Calcium Acetate (Phoslo) 667 mg PO TIDCC [facility] Last Admin: 03/28/18 13:11 Dose: 667 mg Epoetin Elio (Procrit) 10,000 unit IV [facility] Last Admin: 03/26/18 10:47 Dose: 10,000 unit Daptomycin 900 mg/ Sodium (Chloride) 100 mls @ 100 mls/hr IV [facility]; Protocol Stop: 04/03/18 14:01 Insulin Human Regular (Novolin R) 0 unit SC [facility]; Protocol Last Admin: 03/28/18 12:00 Dose: Not Given Nateglinide (Starlix) 60 mg PO ACTID [facility] Last Admin: 03/28/18 13:10 Dose: 60 mg Pantoprazole Sodium (Protonix Ec Tab) 40 mg PO DAILY [facility] Last Admin: 03/28/18 10:00 Dose: Not Given Tobramycin/Dexamethasone (Tobradex Opht Susp) 0.1 ml OS BID PRN - Labs Labs: 03/26/18 06:36 03/26/18 06:36 PT 22.0 SECONDS (9.7-12.2) H 03/14/18 15:38 INR 2.0 03/14/18 15:38 APTT 36 SECONDS (21-34) H 03/14/18 15:38
[2018-03-29] MEDS: (Novolin R) Insulin Human Regular 100 units/ml vial SC SCH ×4 (08:01→21:14)
[2018-03-29] MEDS: Pantoprazole 40 mg EC Tab PO SCH (09:18)
[2018-03-29] MEDS: SILVASORB ANTIMICROBIAL WOUND GEL TOP SCH (09:18)
--- NOTE | 2018-03-29 11:10 | CP.PCM.PN ---
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 To UF 3300ml; tolerating rx lytes were stable Objective - Vital Signs/Intake and Output Vital Signs (last 24 hours): Temp Pulse Resp BP Pulse Ox 97.5 F L 80 17 109/43 L 100 03/29/18 09:45 03/29/18 09:45 03/29/18 09:45 03/29/18 10:15 03/29/18 09:45 Intake and Output: 03/29/18 03/29/18 06:59 18:59 Intake Total 480 Balance 480 - Medications Medications: Current Medications Apixaban (Eliquis) 2.5 mg PO BID [facility] Last Admin: 03/29/18 09:18 Dose: Not Given Calcium Acetate (Phoslo) 667 mg PO TIDCC [facility] Last Admin: 03/29/18 08:02 Dose: Not Given Epoetin Elio (Procrit) 10,000 unit IV MWF [facility] Last Admin: 03/26/18 10:47 Dose: 10,000 unit Daptomycin 900 mg/ Sodium (Chloride) 100 mls @ 100 mls/hr IV F [facility]; Protocol Stop: 04/03/18 14:01 Insulin Human Regular (Novolin R) 0 unit SC [facility]; Protocol Last Admin: 03/29/18 08:01 Dose: Not Given Nateglinide (Starlix) 60 mg PO ACTID [facility] Last Admin: 03/29/18 08:02 Dose: Not Given Pantoprazole Sodium (Protonix Ec Tab) 40 mg PO DAILY [facility] Last Admin: 03/29/18 09:18 Dose: Not Given Tobramycin/Dexamethasone (Tobradex Opht Susp) 0.1 ml OS BID PRN - Labs Labs: 03/26/18 06:36 03/26/18 06:36 PT 22.0 SECONDS (9.7-12.2) H 03/14/18 15:38 INR 2.0 03/14/18 15:38 APTT 36 SECONDS (21-34) H 03/14/18 15:38 - Constitutional Appears: No Acute Distress, Chronically Ill - Head Exam Head Exam: ATRAUMATIC, NORMAL INSPECTION - Eye Exam Eye Exam: EOMI, Normal appearance - Neck Exam Neck Exam: Normal Inspection. absent: Tenderness - Respiratory Exam Respiratory Exam: Clear to Ausculation Bilateral, NORMAL BREATHING PATTERN - Cardiovascular Exam Cardiovascular Exam: REGULAR RHYTHM, +S1 - GI/Abdominal Exam GI & Abdominal Exam: Soft. absent: Tenderness - Extremities Exam Extremities Exam: Normal Inspection. absent: Tenderness - Neurological Exam Neurological Exam: Awake, CN II-XII Intact - Skin Skin Exam: Dry, Warm Assessment and Plan (1) Cellulitis Status: Acute (2) ESRD (end stage renal disease) Status: Acute (3) Fluid overload Status: Acute (4) Severe anemia Status: Acute (5) A-fib Status: Chronic - Assessment and Plan (Free Text) Plan: Dialysis MWF IV ABs monitor wound care as needed
[2018-03-29] MEDS: Epoetin Alfa 10,000 unit/ml Dialysis IV SCH (13:22)
--- NOTE | 2018-03-29 17:00 | CP.PCM.PN ---
Subjective - Date & Time of Evaluation Date of Evaluation: 03/29/18 Time of Evaluation: 16:54 - Subjective Subjective: INFECTIOUS DISEASE PROGRESS NOTES IRIS DOMINGUEZ MD, FACP 03/29/2018 6T 655 CHART REVIEWED CASE DISCUSSED WITH DR CASTRO HEEL IN QUESTION IS MOST PROBABLY THE DEEP SOURCE CAUSING RECURRENT LOCAL AND SYSTEMIC INFECTIONS ERGO AFTER DISCUSSING WITH DR CASTRO, AMPUTATION OF OFFENDING SITE SHOULD BE CONSIDERED. PRESENTLY REGROWING MRSA FROM SAME SITE-DESPITE OVER 2-3 WEEKS OF IV ANTIBIOTICS. afebrile, feels same remains on IV dapto for BACTEREMIA AND osteomylitis, WAS TTE DONE? lytes were stable Objective - Vital Signs/Intake and Output Vital Signs (last 24 hours): Temp Pulse Resp BP Pulse Ox 97.5 F L 80 17 109/43 L 100 03/29/18 09:45 03/29/18 09:45 03/29/18 09:45 03/29/18 10:15 03/29/18 09:45 Intake and Output: 03/29/18 03/29/18 06:59 18:59 Intake Total 480 Balance 480 - Medications Medications: Current Medications Apixaban (Eliquis) 2.5 mg PO BID [facility] Last Admin: 03/29/18 09:18 Dose: Not Given Calcium Acetate (Phoslo) 667 mg PO TIDCC [facility] Last Admin: 03/29/18 08:02 Dose: Not Given Epoetin Elio (Procrit) 10,000 unit IV [facility] Last Admin: 03/26/18 10:47 Dose: 10,000 unit Daptomycin 900 mg/ Sodium (Chloride) 100 mls @ 100 mls/hr IV [facility]; Protocol Stop: 04/03/18 14:01 Insulin Human Regular (Novolin R) 0 unit [facility]; Protocol Last Admin: 03/29/18 08:01 Dose: Not Given Nateglinide (Starlix) 60 mg PO ACTID [facility] Last Admin: 03/29/18 08:02 Dose: Not Given Pantoprazole Sodium (Protonix Ec Tab) 40 mg PO DAILY [facility] Last Admin: 03/29/18 09:18 Dose: Not Given Tobramycin/Dexamethasone (Tobradex Opht Susp) 0.1 ml OS BID PRN - Labs Labs: 03/26/18 06:36 03/26/18 06:36 PT 22.0 SECONDS (9.7-12.2) H 03/14/18 15:38 INR 2.0 03/14/18 15:38 APTT 36 SECONDS (21-34) H 03/14/18 15:38 - Constitutional Appears: No Acute Distress, Chronically Ill - Head Exam Head Exam: ATRAUMATIC, NORMAL INSPECTION - Eye Exam Eye Exam: EOMI, Normal appearance - Neck Exam Neck Exam: Normal Inspection. absent: Tenderness - Respiratory Exam Respiratory Exam: Clear to Ausculation Bilateral, NORMAL BREATHING PATTERN - Cardiovascular Exam Cardiovascular Exam: REGULAR RHYTHM, +S1 - GI/Abdominal Exam GI & Abdominal Exam: Soft. absent: Tenderness - Extremities Exam Extremities Exam: Normal Inspection. absent: Tenderness - Neurological Exam Neurological Exam: Awake, CN II-XII Intact - Skin Skin Exam: Dry, Warm Assessment and Plan (1) Cellulitis Status: Acute (2) ESRD (end stage renal disease) Status: Acute (3) Fluid overload Status: Acute (4) Severe anemia Status: Acute (5) A-fib Status: Chronic - Assessment and Plan (Free Text) Plan: Dialysis MWF IV ABs monitor wound care as needed Objective - Vital Signs/Intake and Output Vital Signs (last 24 hours): Temp Pulse Resp BP Pulse Ox 98.1 F 110 H 18 97/59 L 100 03/29/18 15:52 03/29/18 15:52 03/29/18 15:52 03/29/18 15:52 03/29/18 15:52 Intake and Output: 03/29/18 03/29/18 06:59 18:59 Intake Total 480 Balance 480 - Medications Medications: Current Medications Apixaban (Eliquis) 2.5 mg PO BID [facility] Last Admin: 03/29/18 09:18 Dose: Not Given Calcium Acetate (Phoslo) 667 mg PO TIDCC [facility] Last Admin: 03/29/18 13:18 Dose: Not Given Epoetin Elio (Procrit) 10,000 unit IV MWF [facility] Last Admin: 03/29/18 13:22 Dose: 10,000 unit Daptomycin 900 mg/ Sodium (Chloride) 100 mls @ 100 mls/hr IV MWF [facility]; Protocol Stop: 04/03/18 14:01 Last Admin: 03/29/18 14:31 Dose: 100 mls/hr Insulin Human Regular (Novolin R) 0 unit SC [facility]; Protocol Last Admin: 03/29/18 13:22 Dose: Not Given Nateglinide (Starlix) 60 mg PO ACTID [facility] Last Admin: 03/29/18 13:18 Dose: Not Given Pantoprazole Sodium (Protonix Ec Tab) 40 mg PO DAILY [facility] Last Admin: 03/29/18 09:18 Dose: Not Given Tobramycin/Dexamethasone (Tobradex Opht Susp) 0.1 ml OS BID PRN - Labs Labs: 03/26/18 06:36 03/26/18 06:36 PT 22.0 SECONDS (9.7-12.2) H 03/14/18 15:38 INR 2.0 03/14/18 15:38 APTT 36 SECONDS (21-34) H 03/14/18 15:38
--- NOTE | 2018-03-29 17:03 | PCM.ANES ---
Assessment & Plan - Assessment and Plan (Free Text) Assessment: Pt. is a 62 yo male ho esrd, dm, htn, afib, chf, and pacemaker scheduled for debridement of right foot ulcer. Please document medical optimization and any current information regarding pacemaker (i.e. last interrogation, make/model, year inserted, indication for pacemaker). thank you
--- NOTE | 2018-03-29 18:18 | CP.PCM.PN ---
Subjective - Date & Time of Evaluation Date of Evaluation: 03/30/18 Time of Evaluation: 18:00 - Subjective Subjective: Podiatry Progress Note - Dr. Nunn 62M seen and evaluated for worsening right lower leg wound. Patient is seen resting comfortably in bed at time of visit and in NAD. Patient denies any acute overnight events. Denies any pain. Dressing clean, and intact and multipodus boots intact. Patient denies F/N/V/SOB/chills. Objective - Vital Signs/Intake and Output Vital Signs (last 24 hours): Temp Pulse Resp BP Pulse Ox 98.1 F 110 H 18 97/59 L 100 03/29/18 15:52 03/29/18 15:52 03/29/18 15:52 03/29/18 15:52 03/29/18 15:52 Intake and Output: 03/29/18 03/29/18 06:59 18:59 Intake Total 480 Balance 480 - Medications Medications: Current Medications Apixaban (Eliquis) 2.5 mg PO BID [facility] Last Admin: 03/29/18 17:47 Dose: 2.5 mg Calcium Acetate (Phoslo) 667 mg PO TIDCC [facility] Last Admin: 03/29/18 17:47 Dose: 667 mg Epoetin Elio (Procrit) 10,000 unit IV MWF [facility] Last Admin: 03/29/18 13:22 Dose: 10,000 unit Daptomycin 900 mg/ Sodium (Chloride) 100 mls @ 100 mls/hr IV MWF [facility]; Protocol Stop: 04/03/18 14:01 Last Admin: 03/29/18 14:31 Dose: 100 mls/hr Insulin Human Regular (Novolin R) 0 unit SC [facility]; Protocol Last Admin: 03/29/18 17:07 Dose: Not Given Nateglinide (Starlix) 60 mg PO ACTID [facility] Last Admin: 03/29/18 17:08 Dose: Not Given Pantoprazole Sodium (Protonix Ec Tab) 40 mg PO DAILY [facility] Last Admin: 03/29/18 09:18 Dose: Not Given Tobramycin/Dexamethasone (Tobradex Opht Susp) 0.1 ml OS BID PRN - Labs Labs: 03/26/18 06:36 03/26/18 06:36 PT 22.0 SECONDS (9.7-12.2) H 1230/18 15:38 INR 2.0 03/14/18 15:38 APTT 36 SECONDS (21-34) H 03/14/18 15:38 - Constitutional Appears: Well, Non-toxic, No Acute Distress - Extremities Exam Extremities Exam: absent: Calf Tenderness Additional comments: Right lower extremity focused exam: Vasc: Nonpalpable pulses to the DP and PT, Delayed CFT to the digits, Temperature gradient WNL, +1 pitting pedal edema Derm: Full thickness ulceration noted to right posterior ankle at level of Achilles insertion measuring approximately 2 cm x 2 cm x 1cm, with mixture granular and fibrotic wound base. Mild serous drainage appreciated, no fluctuance, no streaking, mild erythema appreciated periwound. ulceration appreciated to medail aspect of ankle measuring approximately 2cm x 2cm x .01cm with 100% fibrotic macerated tissue Mild purulent drainage appreci ated, Hyperpigmentation appreciated circumfrentially to lower extremity. No fluctuance noted. Neuro: Gross sensation diminished, protective sensation absent Ortho: Tenderness to palpation of R heel ulceration - Neurological Exam Neurological Exam: Alert, Awake - Psychiatric Exam Psychiatric exam: Normal Affect, Normal Mood Assessment and Plan - Assessment and Plan (Free Text) Assessment: 62 year old male patient with right lower extremity 1) right anterior ankle ulceration-infected and macerated 2)right chronic nonhealing posterior ankle ulceration -stable Plan: Patient seen and evaluated at bedside with attending Dr. Nunn Labs, vitals reviewed- Afebrile, absent leukocytosis Right ankle wound culture- MRSA Foot X-ray taken: possible signs of acute OM, further imaging recommended IV abx per ID Bone scan triple phase ordered to r/o OM in right lower extremity Worsening right lower extremity ulcerations. Podiatry plans to bring patient to the OR for incision and drainage with debridement of right lower extremity ulcerations this week Please provide medical clearance. Thank you Will continue to provide local wound care Cleansed wounds with saline, dressed with betadine soaked gauze and paulino Will continue to follow patient while in house Patient to wear multipodus boots at all times while in bed
--- NOTE | 2018-03-29 22:17 | CP.PCM.PN ---
Subjective - Date & Time of Evaluation Date of Evaluation: 03/29/18 Time of Evaluation: 22:15 - Subjective Subjective: Patient today this morning had a hemodialysis. He is awake and responding. Feeling well. I spoke to the infectious disease specialist. Patient is currently on daptomycin for the MRSA infection. Suspected osteomyelitis of the heel Patient probably need aggressive treatment, will discuss with the pump runner to further plan. Overall patient is stable. But the patient is having recurrent episodes of infection because of the heel infection and possible osteomyelitis. Patient is a 62-year-old male with a history of diabetes hypertension end-stage renal disease on dialysis congestive heart failure pacemaker. Patient also had a history of leukemia in remission. Objective - Vital Signs/Intake and Output Vital Signs (last 24 hours): Temp Pulse Resp BP Pulse Ox 98.1 F 110 H 18 97/59 L 100 03/29/18 15:52 03/29/18 15:52 03/29/18 15:52 03/29/18 15:52 03/29/18 15:52 - Medications Medications: Current Medications Apixaban (Eliquis) 2.5 mg PO BID [facility] Last Admin: 03/29/18 17:47 Dose: 2.5 mg Calcium Acetate (Phoslo) 667 mg PO TIDCC [facility] Last Admin: 03/29/18 17:47 Dose: 667 mg Epoetin Elio (Procrit) 10,000 unit IV MWF [facility] Last Admin: 03/29/18 13:22 Dose: 10,000 unit Daptomycin 900 mg/ Sodium (Chloride) 100 mls @ 100 mls/hr IV MWF [facility]; Protocol Stop: 04/03/18 14:01 Last Admin: 03/29/18 14:31 Dose: 100 mls/hr Insulin Human Regular (Novolin R) 0 unit SC [facility]; Protocol Last Admin: 03/29/18 21:14 Dose: Not Given Nateglinide (Starlix) 60 mg PO ACTID [facility] Last Admin: 03/29/18 17:08 Dose: Not Given Pantoprazole Sodium (Protonix Ec Tab) 40 mg PO DAILY [facility] Last Admin: 03/29/18 09:18 Dose: Not Given Tobramycin/Dexamethasone (Tobradex Opht Susp) 0.1 ml OS BID PRN - Labs Labs: 03/26/18 06:36 03/26/18 06:36 PT 22.0 SECONDS (9.7-12.2) H 03/14/18 15:38 INR 2.0 03/14/18 15:38 APTT 36 SECONDS (21-34) H 03/14/18 15:38
[2018-03-30 06:43] LABS: BASO # 0.1 K/uL (0.0-0.2); BASO % 1.8 % (0.0-2.0); EOS # 0.2 K/uL (0.0-0.7); EOS % 4.2 % (0.0-4.0); LYMPH # 0.7 K/uL (1.0-4.3); LYMPH % 11.9 % (20.0-40.0); MEAN CELL VOLUME 90.1 fL (80.0-94.0); MEAN CORPUSCULAR HEMOGLOBIN 28.2 pg (27.0-31.0); MEAN CORPUSCULAR HGB CONC 31.4 g/dL (33.0-37.0); MEAN PLATELET VOLUME 7.2 fL (7.2-11.7); MONO # 0.5 K/uL (0.0-0.8); MONO % 8.1 % (0.0-10.0); NEUT # 4.2 K/uL (1.8-7.0); NRBC % 0.1 % (0.0-2.0); RBC 2.84 Mil/uL (4.40-5.90); RED CELL DISTRIBUTION WIDTH 18.9 % (11.5-14.5); WHITE BLOOD COUNT 5.6 K/uL (4.8-10.8)
[2018-03-30 06:57] LABS: CALCIUM 7.8 mg/dl (8.6-10.4)
[2018-03-30 07:08] LABS: INR 1.6; PROTHROMBIN TIME 17.5 SECONDS (9.7-12.2)
[2018-03-30] MEDS: (Novolin R) Insulin Human Regular 100 units/ml vial SC SCH ×4 (07:44→23:03)
[2018-03-30] MEDS: Pantoprazole 40 mg EC Tab PO SCH (10:31)
--- NOTE | 2018-03-30 10:33 | CP.PCM.PN ---
Subjective - Date & Time of Evaluation Date of Evaluation: 03/30/18 Time of Evaluation: 10:31 - Subjective Subjective: seen and examined comfortable. bed bound afebrile no n/v/d/dizziness/sob/chest pain c/o lower back and leg pains wound cultures noted, mrsa Objective - Vital Signs/Intake and Output Vital Signs (last 24 hours): Temp Pulse Resp BP Pulse Ox 97.5 F L 107 H 18 91/56 L 96 03/30/18 07:00 03/30/18 07:00 03/30/18 07:00 03/30/18 07:00 03/30/18 07:00 - Medications Medications: Current Medications Apixaban (Eliquis) 2.5 mg PO BID [facility] Last Admin: 03/29/18 17:47 Dose: 2.5 mg Calcium Acetate (Phoslo) 667 mg PO TIDCC [facility] Last Admin: 03/30/18 08:18 Dose: 667 mg Epoetin Elio (Procrit) 10,000 unit IV F [facility] Last Admin: 03/29/18 13:22 Dose: 10,000 unit Daptomycin 900 mg/ Sodium (Chloride) 100 mls @ 100 mls/hr IV F [facility]; Protocol Stop: 04/03/18 14:01 Last Admin: 03/29/18 14:31 Dose: 100 mls/hr Insulin Human Regular (Novolin R) 0 unit SC [facility]; Protocol Last Admin: 03/30/18 07:44 Dose: Not Given Nateglinide (Starlix) 60 mg PO ACTID [facility] Last Admin: 03/30/18 08:18 Dose: 60 mg Pantoprazole Sodium (Protonix Ec Tab) 40 mg PO DAILY [facility] Last Admin: 03/29/18 09:18 Dose: Not Given Tobramycin/Dexamethasone (Tobradex Opht Susp) 0.1 ml OS BID PRN - Labs Labs: 03/30/18 06:36 03/30/18 06:36 PT 17.5 SECONDS (9.7-12.2) H 03/30/18 06:36 INR 1.6 03/30/18 06:36 APTT 39 SECONDS (21-34) H 03/30/18 06:36 - Constitutional Appears: No Acute Distress, Chronically Ill (obese) - Head Exam Head Exam: NORMAL INSPECTION, NORMOCEPHALIC - Eye Exam Eye Exam: Normal appearance, PERRL - ENT Exam ENT Exam: Mucous Membranes Moist, Normal Exam - Neck Exam Neck Exam: Full ROM, Normal Inspection (permcath. ) - Respiratory Exam Respiratory Exam: Clear to Ausculation Bilateral, NORMAL BREATHING PATTERN - Cardiovascular Exam Cardiovascular Exam: Irregular Rhythm - GI/Abdominal Exam GI & Abdominal Exam: Distended, Soft - Extremities Exam Extremities Exam: Pedal Edema (b/l chronic stasis. b/l ue fistula no thrill) - Neurological Exam Neurological Exam: Alert, Awake, Oriented x3 - Skin Skin Exam: Intact Assessment and Plan (1) Foot ulcer Status: Acute (2) Cellulitis Status: Acute (3) ESRD (end stage renal disease) Status: Acute (4) Non-ischemic cardiomyopathy Status: Acute (5) A-fib Status: Chronic - Assessment and Plan (Free Text) Assessment: maintain hd mwf on iv daptomycin ?amputation chronic hypotension, at baseline
[2018-03-30] MEDS: SILVASORB ANTIMICROBIAL WOUND GEL TOP SCH (10:35)
--- NOTE | 2018-03-30 17:33 | CP.PCM.PN ---
Subjective - Date & Time of Evaluation Date of Evaluation: 03/30/18 Time of Evaluation: 15:00 - Subjective Subjective: Podiatry Progress Note- Dr. Nunn 62M seen and evaluated for worsening right lower extremity ulceration. Patient is seen laying in bed, in NAD. Patient reports no being in a good mood today. Express concerns for lower back wound. Patient denies acute overnight events. Denies nausea, fever, shortness of breath, chest pains or chills. No other pedal complaints at this time. Objective - Vital Signs/Intake and Output Vital Signs (last 24 hours): Temp Pulse Resp BP Pulse Ox 97.5 F L 114 H 20 90/52 L 100 03/30/18 16:00 03/30/18 16:00 03/30/18 16:00 03/30/18 16:00 03/30/18 16:00 - Medications Medications: Current Medications Apixaban (Eliquis) 2.5 mg PO BID [facility] Last Admin: 03/30/18 10:31 Dose: 2.5 mg Calcium Acetate (Phoslo) 667 mg PO TIDCC [facility] Last Admin: 03/30/18 13:01 Dose: Not Given Epoetin Elio (Procrit) 10,000 unit IV MWF [facility] Last Admin: 03/29/18 13:22 Dose: 10,000 unit Daptomycin 900 mg/ Sodium (Chloride) 100 mls @ 100 mls/hr IV MWF [facility]; Protocol Stop: 04/03/18 14:01 Last Admin: 03/29/18 14:31 Dose: 100 mls/hr Insulin Human Regular (Novolin R) 0 unit SC ACHS [facility]; Protocol Last Admin: 03/30/18 11:41 Dose: Not Given Nateglinide (Starlix) 60 mg PO ACTID [facility] Last Admin: 03/30/18 13:01 Dose: Not Given Pantoprazole Sodium (Protonix Ec Tab) 40 mg PO DAILY [facility] Last Admin: 03/30/18 10:31 Dose: 40 mg Tobramycin/Dexamethasone (Tobradex Opht Susp) 0.1 ml OS BID PRN - Labs Labs: 03/30/18 06:36 03/30/18 06:36 PT 17.5 SECONDS (9.7-12.2) H 03/30/18 06:36 INR 1.6 03/30/18 06:36 APTT 39 SECONDS (21-34) H 03/30/18 06:36 - Constitutional Appears: Well, Non-toxic, No Acute Distress - Extremities Exam Extremities Exam: absent: Calf Tenderness Additional comments: Right lower extremity focused exam: Vasc: Nonpalpable pulses to the DP and PT, Delayed CFT to the digits, Temperature gradient WNL, +1 pitting pedal edema Derm: Full thickness ulceration noted to right posterior ankle at level of Achilles insertion measuring approximately 2 cm x 2 cm x 1cm, with mixture granular and fibrotic wound base. Mild serous drainage appreciated, no fluctuance, no streaking, mild erythema appreciated periwound. ulceration appreciated to medail aspect of ankle measuring approximately 2cm x 2cm x .01cm with 100% fibrotic macerated tissue Mild purulent drainage appreciated, Hyperpigmentation appreciated circumfrentially to lower extremity. No fluctuance noted. Neuro: Gross sensation diminished, protective sensation absent Ortho: Tenderness to palpation of R heel ulceration - Neurological Exam Neurological Exam: Alert, Awake, Oriented x3 - Psychiatric Exam Psychiatric exam: Normal Affect Assessment and Plan - Assessment and Plan (Free Text) Assessment: 62 year old male patient with right lower extremity 1) right anterior ankle ulceration-infected and macerated 2)right chronic nonhealing posterior ankle ulceration -stable Plan: Patient seen and evaluated at bedside with attending Dr. Nunn Labs, vitals reviewed- Afebrile, absent leukocytosis Right ankle wound culture- MRSA Foot X-ray taken: possible signs of acute OM, further imaging recommended IV abx per ID Bone scan triple phase ordered to r/o OM in right lower extremity Worsening right lower extremity ulcerations. Podiatry plans to bring patient to the OR for incision and drainage with debridement of right lower extremity ulcerations this week Please provide medical clearance. Thank you Will continue to provide local wound care Cleansed wounds with saline, dressed with betadine soaked gauze and kerlix Will continue to follow patient while in house Patient to wear multipodus boots at all times while in bed
[2018-03-30] MEDS: Tramadol 25 mg PO PRN (19:13)
--- NOTE | 2018-03-30 20:12 | CP.PCM.PN ---
Subjective - Date & Time of Evaluation Date of Evaluation: 03/30/18 Time of Evaluation: 20:10 - Subjective Subjective: INFECTIOUS DISEASE PROGRESS NOTES IRSI DOMINGUEZ MD, FACP 03/30/2018 6T 655 CHART REVIEWED PT EXAMINED CASE DISCUSSED WITH DR NUNN AND PT, AGAIN TODAY. 62M seen and evaluated for worsening right lower extremity ulceration. Patient is seen laying in bed, in NAD. Patient reports no being in a good mood today. Express concerns for lower back wound. Patient denies acute overnight events. Denies nausea, fever, shortness of breath, chest pains or chills. No other pedal complaints at this time. Objective - Vital Signs/Intake and Output Vital Signs (last 24 hours): Temp Pulse Resp BP Pulse Ox 97.5 F L 114 H 20 90/52 L 100 03/30/18 16:00 03/30/18 16:00 03/30/18 16:00 03/30/18 16:00 03/30/18 16:00 - Medications Medications: Current Medications Apixaban (Eliquis) 2.5 mg PO BID [facility] Last Admin: 03/30/18 10:31 Dose: 2.5 mg Calcium Acetate (Phoslo) 667 mg PO TIDCC [facility] Last Admin: 03/30/18 13:01 Dose: Not Given Epoetin Elio (Procrit) 10,000 unit IV [facility] [place] Last Admin: 03/29/18 13:22 Dose: 10,000 unit Daptomycin 900 mg/ Sodium (Chloride) 100 mls @ 100 mls/hr IV F [facility]; Protocol Stop: 04/03/18 14:01 Last Admin: 03/29/18 14:31 Dose: 100 mls/hr Insulin Human Regular (Novolin R) 0 unit SC [facility]; Protocol Last Admin: 03/30/18 11:41 Dose: Not Given Nateglinide (Starlix) 60 mg PO ACTID [facility] Last Admin: 03/30/18 13:01 Dose: Not Given Pantoprazole Sodium (Protonix Ec Tab) 40 mg PO DAILY [facility] Last Admin: 03/30/18 10:31 Dose: 40 mg Tobramycin/Dexamethasone (Tobradex Opht Susp) 0.1 ml OS BID PRN - Labs Labs: 03/30/18 06:36 03/30/18 06:36 PT 17.5 SECONDS (9.7-12.2) H 03/30/18 06:36 INR 1.6 03/30/18 06:36 APTT 39 SECONDS (21-34) H 03/30/18 06:36 - Constitutional Appears: Well, Non-toxic, No Acute Distress - Extremities Exam Extremities Exam: absent: Calf Tenderness Additional comments: Right lower extremity focused exam: Vasc: Nonpalpable pulses to the DP and PT, Delayed CFT to the digits, Temperature gradient WNL, +1 pitting pedal edema Derm: Full thickness ulceration noted to right posterior ankle at level of Achilles insertion measuring approximately 2 cm x 2 cm x 1cm, with mixture granular and fibrotic wound base. Mild serous drainage appreciated, no fluctuance, no streaking, mild erythema appreciated periwound. ulceration appreciated to medail aspect of ankle measuring approximately 2cm x 2cm x .01cm with 100% fibrotic macerated tissue Mild purulent drainage appreciated, Hyperpigmentation appreciated circumfrentially to lower extremity. No fluctuance noted. Neuro: Gross sensation diminished, protective sensation absent Ortho: Tenderness to palpation of R heel ulceration - Neurological Exam Neurological Exam: Alert, Awake, Oriented x3 - Psychiatric Exam Psychiatric exam: Normal Affect Assessment and Plan - Assessment and Plan (Free Text) Assessment: 62 year old male patient with right lower extremity 1) right anterior ankle ulceration-infected and macerated 2)right chronic nonhealing posterior ankle ulceration -stable Plan: Patient seen and evaluated at bedside with attending Dr. Nunn Labs, vitals reviewed- Afebrile, absent leukocytosis Right ankle wound culture- MRSA Foot X-ray taken: possible signs of acute OM, further imaging recommended IV abx per ID Bone scan triple phase ordered to r/o OM in right lower extremity Worsening right lower extremity ulcerations. Podiatry plans to bring patient to the OR for incision and drainage with debridement of right lower extremity ulcerations this week CONSIDER AMPUTATION OF RIGHT FOOT/BKA-SINCE THIS IS THE PRIMARY SOURCE AND DESPITE ADEQUATE AB HE REPEATS INECTIONS WITH MRSA. Will continue to provide local wound care Cleansed wounds with saline, dressed with betadine soaked gauze and kerlix Will continue to follow patient while in house Objective - Vital Signs/Intake and Output Vital Signs (last 24 hours): Temp Pulse Resp BP Pulse Ox 97.5 F L 114 H 20 90/52 L 100 03/30/18 16:00 03/30/18 16:00 03/30/18 16:00 03/30/18 16:00 03/30/18 16:00 - Medications Medications: Current Medications Apixaban (Eliquis) 2.5 mg PO BID [facility] Last Admin: 03/30/18 10:31 Dose: 2.5 mg Calcium Acetate (Phoslo) 667 mg PO TIDCC [facility] Last Admin: 03/30/18 13:01 Dose: Not Given Epoetin Elio (Procrit) 10,000 unit IV [facility] [place] Last Admin: 03/29/18 13:22 Dose: 10,000 unit Daptomycin 900 mg/ Sodium (Chloride) 100 mls @ 100 mls/hr IV [facility]; Protocol Stop: 04/03/18 14:01 Last Admin: 03/29/18 14:31 Dose: 100 mls/hr Insulin Human Regular (Novolin R) 0 unit SC [facility]; Protocol Last Admin: 03/30/18 11:41 Dose: Not Given Nateglinide (Starlix) 60 mg PO ACTID [facility] Last Admin: 03/30/18 13:01 Dose: Not Given Pantoprazole Sodium (Protonix Ec Tab) 40 mg PO DAILY [facility] Last Admin: 03/30/18 10:31 Dose: 40 mg Tobramycin/Dexamethasone (Tobradex Opht Susp) 0.1 ml OS BID PRN Tramadol HCl (Ultram) 25 mg PO TID PRN PRN Reason: Pain, moderate (4-7) Last Admin: 03/30/18 19:13 Dose: 25 mg - Labs Labs: 03/30/18 06:36 03/30/18 06:36 PT 17.5 SECONDS (9.7-12.2) H 03/30/18 06:36 INR 1.6 03/30/18 06:36 APTT 39 SECONDS (21-34) H 03/30/18 06:36
--- NOTE | 2018-03-30 23:04 | CP.PCM.PN ---
Subjective - Date & Time of Evaluation Date of Evaluation: 03/30/18 Time of Evaluation: 23:02 - Subjective Subjective: Patient has a right lower extremity pain. Started on tramadol. Seen by visitor services technician. Patient was seen by earlier infectious disease. I also spoke to patient's in detail. Overall patient's prognosis is poor. May need a surgical intervention for the right leg ulcer chronic. We will follow the patient. Patient is a 62-year-old male Admitted with cellulitis of the right leg, with possible osteomyelitis. On Cubicin. Right leg ulcer, most likely patient will need help probably about surgical intervention. Objective - Vital Signs/Intake and Output Vital Signs (last 24 hours): Temp Pulse Resp BP Pulse Ox 97.5 F L 114 H 20 90/52 L 100 03/30/18 16:00 03/30/18 16:00 03/30/18 16:00 03/30/18 16:00 03/30/18 16:00 - Medications Medications: Current Medications Apixaban (Eliquis) 2.5 mg PO BID [facility] Last Admin: 03/30/18 21:10 Dose: 2.5 mg Calcium Acetate (Phoslo) 667 mg PO TIDCC [facility] Last Admin: 03/30/18 21:12 Dose: Not Given Epoetin Elio (Procrit) 10,000 unit [place] [facility] Last Admin: 03/29/18 13:22 Dose: 10,000 unit Daptomycin 900 mg/ Sodium (Chloride) 100 mls @ 100 mls/hr [place] [facility] Protocol Stop: 04/03/18 14:01 Last Admin: 03/29/18 14:31 Dose: 100 mls/hr Insulin Human Regular (Novolin R) 0 unit SC [facility]; Protocol Last Admin: 03/30/18 21:11 Dose: Not Given Nateglinide (Starlix) 60 mg PO ACTID [facility] Last Admin: 03/30/18 21:12 Dose: Not Given Pantoprazole Sodium (Protonix Ec Tab) 40 mg PO DAILY [facility] Last Admin: 03/30/18 10:31 Dose: 40 mg Tobramycin/Dexamethasone (Tobradex Opht Susp) 0.1 ml OS BID PRN Tramadol HCl (Ultram) 25 mg PO TID PRN PRN Reason: Pain, moderate (4-7) Last Admin: 03/30/18 19:13 Dose: 25 mg - Labs Labs: 03/30/18 06:36 03/30/18 06:36 PT 17.5 SECONDS (9.7-12.2) H 03/30/18 06:36 INR 1.6 03/30/18 06:36 APTT 39 SECONDS (21-34) H 03/30/18 06:36
--- NOTE | 2018-03-31 07:18 | NM ---
Date of service: c 03/30/2018 PROCEDURE: THREE-PHASE NUCLEAR BONE SCAN RIGHT ANKLE HISTORY: right posterior ankle possible deep abscess COMPARISON: Right foot radiographs 03/14/2018. TECHNIQUE: Following administration of 23.6 mCu of Tc MDP multiplanar whole body images were obtained. FINDINGS: Dynamic phase images demonstrate hyperactivity of the visualize lower right leg segment in the right ankle/foot. Immediate static uptake continues similar distribution with particular hyper activity identified at the posterior margins of the right foot likely in the upper calcaneus. Delayed static images concentrated this activity further in the posterior right calcaneus, suggestive of osteomyelitis. This confirms radiographic suspicion of osteomyelitis in the same locale at the posterior right calcaneus in right foot radiographs 03/14/2018. Lesser amount of uptake is appreciated at the posterior midfoot and hindfoot soft tissues which is felt to correspond to advanced osteoarthritis. IMPRESSION: Nuclear findings compatible with osteomyelitis at the posterior calcaneus confirming suspicion of same in right foot radiograph series 03/14/2018. Right lower extremity cellulitis identified as well.
[2018-03-31] MEDS: (Novolin R) Insulin Human Regular 100 units/ml vial SC SCH ×4 (08:14→22:19)
[2018-03-31] MEDS: Epoetin Alfa 10,000 unit/ml Dialysis IV SCH (09:00)
[2018-03-31] MEDS: Tramadol 25 mg PO PRN ×2 (10:10→19:30)
[2018-03-31] MEDS: Pantoprazole 40 mg EC Tab PO SCH (10:13)
[2018-03-31] MEDS: SILVASORB ANTIMICROBIAL WOUND GEL TOP SCH (10:30)
--- NOTE | 2018-03-31 13:43 | CP.PCM.PN ---
Subjective - Date & Time of Evaluation Date of Evaluation: 03/31/18 Time of Evaluation: 13:39 - Subjective Subjective: Spoke at length with patient and They do not want patient to undergo amputation LE- they believe risk is too high Refuses dialysis today- will reschedule in AM They will like to stop further dialysis after 04/02; they understand that patient will not survive without further dialysis Will schedule dialysis next 2 days; will follow up closely- will proceed as per family wishes Objective - Vital Signs/Intake and Output Vital Signs (last 24 hours): Temp Pulse Resp BP Pulse Ox 97.8 F 100 H 20 136/76 100 03/31/18 07:00 03/31/18 07:00 03/31/18 07:00 03/31/18 07:00 03/31/18 07:00 - Medications Medications: Current Medications Apixaban (Eliquis) 2.5 mg PO BID [facility] Last Admin: 03/31/18 10:12 Dose: 2.5 mg Calcium Acetate (Phoslo) 667 mg PO TIDCC [facility] Last Admin: 03/31/18 08:13 Dose: Not Given Epoetin Elio (Procrit) 10,000 unit [place] [facility] Last Admin: 03/29/18 13:22 Dose: 10,000 unit Daptomycin 900 mg/ Sodium (Chloride) 100 mls @ 100 mls/hr IV F [facility]; Protocol Stop: 04/03/18 14:01 Last Admin: 03/31/18 10:12 Dose: 100 mls/hr Insulin Human Regular (Novolin R) 0 unit SC [facility]; Protocol Last Admin: 03/31/18 08:14 Dose: Not Given Mupirocin (Bactroban Ointment) 1 gm TOP DAILY PRN Nateglinide (Starlix) 60 mg PO ACTID [facility] Last Admin: 03/31/18 07:15 Dose: Not Given Pantoprazole Sodium (Protonix Ec Tab) 40 mg PO DAILY [facility] Last Admin: 03/31/18 10:13 Dose: 40 mg Tobramycin/Dexamethasone (Tobradex Opht Susp) 0.1 ml OS BID PRN Tramadol HCl (Ultram) 25 mg PO TID PRN PRN Reason: Pain, moderate (4-7) Last Admin: 03/31/18 10:10 Dose: 25 mg - Labs Labs: 03/30/18 06:36 03/30/18 06:36 PT 17.5 SECONDS (9.7-12.2) H 03/30/18 06:36 INR 1.6 03/30/18 06:36 APTT 39 SECONDS (21-34) H 03/30/18 06:36 - Constitutional Appears: No Acute Distress, Chronically Ill - Head Exam Head Exam: ATRAUMATIC, NORMAL INSPECTION - Eye Exam Eye Exam: EOMI, Normal appearance - Neck Exam Neck Exam: Normal Inspection. absent: Tenderness - Respiratory Exam Respiratory Exam: Clear to Ausculation Bilateral, NORMAL BREATHING PATTERN - Cardiovascular Exam Cardiovascular Exam: Irregular Rhythm, +S1 - GI/Abdominal Exam GI & Abdominal Exam: Distended, Soft - Extremities Exam Extremities Exam: Pedal Edema, Tenderness - Neurological Exam Neurological Exam: Awake, CN II-XII Intact - Skin Skin Exam: Dry, Warm Assessment and Plan (1) Cellulitis Status: Acute (2) ESRD (end stage renal disease) Status: Acute (3) Fluid overload Status: Acute (4) Severe anemia Status: Acute (5) A-fib Status: Chronic - Assessment and Plan (Free Text) Plan: dialysis in AM, then 04/02 no further dialysis planned after 04/02 as per family wishes
--- NOTE | 2018-03-31 19:41 | CP.PCM.PN ---
Subjective - Date & Time of Evaluation Date of Evaluation: 03/31/18 Time of Evaluation: 19:39 - Subjective Subjective: INFECTIOUS DISEASE PROGRESS NOTES IRIS DOMINGUEZ MD, FACP 6T 655 03/31/2018 CHART REVIEWED PT EXAMINED CASE DISCUSSED EVENTS NOTED THEY MAY WANT TO STOP DIALYSIS?! PROGNOSIS IS EXTREMELY GUARDED Spoke at length with patient They do not want patient to undergo amputation LE- they believe risk is too high Refuses dialysis today- They will like to stop further dialysis after 04/02; they understand that patient will not survive without further dialysis Will schedule dialysis next 2 days; will follow up closely- will proceed as per family wishes Objective - Vital Signs/Intake and Output Vital Signs (last 24 hours): Temp Pulse Resp BP Pulse Ox 97.8 F 100 H 20 136/76 100 03/31/18 07:00 03/31/18 07:00 03/31/18 07:00 03/31/18 07:00 03/31/18 07:00 - Medications Medications: Current Medications Apixaban (Eliquis) 2.5 mg PO BID [facility] Last Admin: 03/31/18 10:12 Dose: 2.5 mg Calcium Acetate (Phoslo) 667 mg PO TIDCC [facility] Last Admin: 03/31/18 08:13 Dose: Not Given Epoetin Elio (Procrit) 10,000 unit IV [facility] Last Admin: 03/29/18 13:22 Dose: 10,000 unit Daptomycin 900 mg/ Sodium (Chloride) 100 mls @ 100 mls/hr IV F [facility]; Protocol Stop: 04/03/18 14:01 Last Admin: 03/31/18 10:12 Dose: 100 mls/hr Insulin Human Regular (Novolin R) 0 unit SC [facility]; Protocol Last Admin: 03/31/18 08:14 Dose: Not Given Mupirocin (Bactroban Ointment) 1 gm TOP DAILY PRN Nateglinide (Starlix) 60 mg PO ACTID [facility] Last Admin: 03/31/18 07:15 Dose: Not Given Pantoprazole Sodium (Protonix Ec Tab) 40 mg PO DAILY [facility] Last Admin: 03/31/18 10:13 Dose: 40 mg Tobramycin/Dexamethasone (Tobradex Opht Susp) 0.1 ml OS BID PRN Tramadol HCl (Ultram) 25 mg PO TID PRN PRN Reason: Pain, moderate (4-7) Last Admin: 03/31/18 10:10 Dose: 25 mg - Labs Labs: 03/30/18 06:36 03/30/18 06:36 PT 17.5 SECONDS (9.7-12.2) H 03/30/18 06:36 INR 1.6 03/30/18 06:36 APTT 39 SECONDS (21-34) H 03/30/18 06:36 - Constitutional Appears: No Acute Distress, Chronically Ill - Head Exam Head Exam: ATRAUMATIC, NORMAL INSPECTION - Eye Exam Eye Exam: EOMI, Normal appearance - Neck Exam Neck Exam: Normal Inspection. absent: Tenderness - Respiratory Exam Respiratory Exam: Clear to Ausculation Bilateral, NORMAL BREATHING PATTERN - Cardiovascular Exam Cardiovascular Exam: Irregular Rhythm, +S1 - GI/Abdominal Exam GI & Abdominal Exam: Distended, Soft - Extremities Exam Extremities Exam: Pedal Edema, Tenderness - Neurological Exam Neurological Exam: Awake, CN II-XII Intact - Skin Skin Exam: Dry, Warm Assessment and Plan (1) Cellulitis Status: Acute (2) ESRD (end stage renal disease) Status: Acute (3) Fluid overload Status: Acute (4) Severe anemia Status: Acute (5) A-fib Status: Chronic - Assessment and Plan (Free Text) Plan: dialysis in AM, then 04/02 no further dialysis planned after 04/02 as per family wishes Objective - Vital Signs/Intake and Output Vital Signs (last 24 hours): Temp Pulse Resp BP Pulse Ox 97.8 F 100 H 20 136/76 100 03/31/18 07:00 03/31/18 07:00 03/31/18 07:00 03/31/18 07:00 03/31/18 07:00 - Medications Medications: Current Medications Apixaban (Eliquis) 2.5 mg PO BID [facility] Last Admin: 03/31/18 19:30 Dose: 2.5 mg Calcium Acetate (Phoslo) 667 mg PO TIDCC [facility] Last Admin: 03/31/18 18:00 Dose: Not Given Epoetin Elio (Procrit) 10,000 unit IV MWF [facility] Last Admin: 03/31/18 09:00 Dose: Not Given Daptomycin 900 mg/ Sodium (Chloride) 100 mls @ 100 mls/hr IV MWF [facility]; Protocol Stop: 04/03/18 14:01 Last Admin: 03/31/18 10:12 Dose: 100 mls/hr Insulin Human Regular (Novolin R) 0 unit SC ACHS [facility]; Protocol Last Admin: 03/31/18 17:25 Dose: Not Given Mupirocin (Bactroban Ointment) 1 gm TOP DAILY PRN Nateglinide (Starlix) 60 mg PO ACTID [facility] Last Admin: 03/31/18 17:25 Dose: Not Given Pantoprazole Sodium (Protonix Ec Tab) 40 mg PO DAILY [facility] Last Admin: 03/31/18 10:13 Dose: 40 mg Tobramycin/Dexamethasone (Tobradex Opht Susp) 0.1 ml OS BID PRN Tramadol HCl (Ultram) 25 mg PO TID PRN PRN Reason: Pain, moderate (4-7) Last Admin: 03/31/18 19:30 Dose: 25 mg - Labs Labs: 03/30/18 06:36 03/30/18 06:36 PT 17.5 SECONDS (9.7-12.2) H 03/30/18 06:36 INR 1.6 03/30/18 06:36 APTT 39 SECONDS (21-34) H 03/30/18 06:36
--- NOTE | 2018-04-01 00:46 | CP.PCM.PN ---
Subjective - Date & Time of Evaluation Date of Evaluation: 03/31/18 Time of Evaluation: 16:00 - Subjective Subjective: Podiatry Progress Note- Dr. Nunn 62M seen and evaluated for worsening right lower extremity ulceration with attending Dr. Nunn. Patient is seen laying in bed, in NAD. Patient denies acute overnight events. Denies nausea, fever, shortness of breath, chest pains or chills. Patient states he does not want his dressing change. Reports will stop dialysis after Thursday Objective - Vital Signs/Intake and Output Vital Signs (last 24 hours): Temp Pulse Resp BP Pulse Ox 97.8 F 100 H 20 136/76 100 03/31/18 07:00 03/31/18 07:00 03/31/18 07:00 03/31/18 07:00 03/31/18 07:00 - Medications Medications: Current Medications Apixaban (Eliquis) 2.5 mg PO BID [facility] Last Admin: 03/31/18 19:30 Dose: 2.5 mg Calcium Acetate (Phoslo) 667 mg PO TIDCC [facility] Last Admin: 03/31/18 18:00 Dose: Not Given Epoetin Elio (Procrit) 10,000 unit IV F [facility] Last Admin: 03/31/18 09:00 Dose: Not Given Daptomycin 900 mg/ Sodium (Chloride) 100 mls @ 100 mls/hr IV F [facility]; Protocol Stop: 04/03/18 14:01 Last Admin: 03/31/18 10:12 Dose: 100 mls/hr Insulin Human Regular (Novolin R) 0 unit SC [facility]; Protocol Last Admin: 03/31/18 22:19 Dose: Not Given Mupirocin (Bactroban Ointment) 1 gm TOP DAILY PRN Nateglinide (Starlix) 60 mg PO ACTID [facility] Last Admin: 03/31/18 17:25 Dose: Not Given Pantoprazole Sodium (Protonix Ec Tab) 40 mg PO DAILY [facility] Last Admin: 03/31/18 10:13 Dose: 40 mg Tobramycin/Dexamethasone (Tobradex Opht Susp) 0.1 ml OS BID PRN Tramadol HCl (Ultram) 25 mg PO TID PRN PRN Reason: Pain, moderate (4-7) Last Admin: 03/31/18 19:30 Dose: 25 mg - Labs Labs: 03/30/18 06:36 03/30/18 06:36 PT 17.5 SECONDS (9.7-12.2) H 03/30/18 06:36 INR 1.6 03/30/18 06:36 APTT 39 SECONDS (21-34) H 03/30/18 06:36 - Constitutional Appears: Well, Non-toxic, No Acute Distress - Extremities Exam Extremities Exam: absent: Calf Tenderness Additional comments: Dressing intact Multipodus on - Neurological Exam Neurological Exam: Alert, Awake, Oriented x3 Assessment and Plan - Assessment and Plan (Free Text) Assessment: 62 year old male patient with right lower extremity 1) right anterior ankle ulceration-infected and macerated 2)right chronic nonhealing posterior ankle ulceration -stable Plan: Patient seen and evaluated at bedside with attending Dr. Nunn Labs, vitals reviewed- Afebrile, absent leukocytosis Right ankle wound culture- MRSA Foot X-ray taken: possible signs of acute OM, further imaging recommended IV abx per ID Bone scan triple phase positive OM Patient and family wishes to discontinue podiatry care.
[2018-04-01] MEDS: (Novolin R) Insulin Human Regular 100 units/ml vial SC SCH ×4 (07:35→22:43)
[2018-04-01] MEDS: Tramadol 25 mg PO PRN ×3 (07:57→22:42)
--- NOTE | 2018-04-01 09:56 | CP.PCM.PN ---
Subjective - Date & Time of Evaluation Date of Evaluation: 04/01/18 Time of Evaluation: 09:53 - Subjective Subjective: Seen pre dialysis today Will shorten dialysis time as per patient wishes BP stable, afebrile still Patient still wants just 2 more days of dialysis Objective - Vital Signs/Intake and Output Vital Signs (last 24 hours): Temp Pulse Resp BP Pulse Ox 97.4 F L 102 H 20 128/81 100 04/01/18 07:00 04/01/18 07:00 04/01/18 07:00 04/01/18 07:00 04/01/18 07:00 - Medications Medications: Current Medications Apixaban (Eliquis) 2.5 mg PO BID [facility] Last Admin: 03/31/18 19:30 Dose: 2.5 mg Calcium Acetate (Phoslo) 667 mg PO TIDCC [facility] Last Admin: 04/01/18 07:36 Dose: Not Given Epoetin Elio (Procrit) 10,000 unit IV [facility] [place] Last Admin: 03/31/18 09:00 Dose: Not Given Daptomycin 900 mg/ Sodium (Chloride) 100 mls @ 100 mls/hr IV F [facility]; Protocol Stop: 04/03/18 14:01 Last Admin: 03/31/18 10:12 Dose: 100 mls/hr Insulin Human Regular (Novolin R) 0 unit SC [facility]; Protocol Last Admin: 04/01/18 07:35 Dose: Not Given Mupirocin (Bactroban Ointment) 1 gm TOP DAILY PRN Nateglinide (Starlix) 60 mg PO ACTID [facility] Last Admin: 03/31/18 17:25 Dose: Not Given Pantoprazole Sodium (Protonix Ec Tab) 40 mg PO DAILY [facility] Last Admin: 03/31/18 10:13 Dose: 40 mg Tobramycin/Dexamethasone (Tobradex Opht Susp) 0.1 ml OS BID PRN Tramadol HCl (Ultram) 25 mg PO TID PRN PRN Reason: Pain, moderate (4-7) Last Admin: 04/01/18 07:57 Dose: 25 mg - Labs Labs: 03/30/18 06:36 03/30/18 06:36 PT 17.5 SECONDS (9.7-12.2) H 03/30/18 06:36 INR 1.6 03/30/18 06:36 APTT 39 SECONDS (21-34) H 03/30/18 06:36 - Constitutional Appears: No Acute Distress, Chronically Ill - Head Exam Head Exam: ATRAUMATIC, NORMAL INSPECTION - Eye Exam Eye Exam: EOMI, Normal appearance - Neck Exam Neck Exam: Normal Inspection. absent: Tenderness - Respiratory Exam Respiratory Exam: Clear to Ausculation Bilateral, NORMAL BREATHING PATTERN - Cardiovascular Exam Cardiovascular Exam: REGULAR RHYTHM, +S1 - GI/Abdominal Exam GI & Abdominal Exam: Soft. absent: Tenderness - Extremities Exam Extremities Exam: Normal Inspection. absent: Tenderness - Neurological Exam Neurological Exam: Awake, CN II-XII Intact - Skin Skin Exam: Dry, Warm Assessment and Plan (1) Cellulitis Status: Acute (2) ESRD (end stage renal disease) Status: Acute (3) Fluid overload Status: Acute (4) Severe anemia Status: Acute (5) A-fib Status: Chronic - Assessment and Plan (Free Text) Plan: dialysis today and in AM UF as tolerated no more plans for dialysis after tomorrow as per family wishes
[2018-04-01] MEDS: Pantoprazole 40 mg EC Tab PO SCH (09:57)
--- NOTE | 2018-04-01 10:09 | CP.PCM.CON ---
History of Present Illness - History of Present Illness History of Present Illness: palliative consult requested by Doctor armani for goals of care discussion, family and patient wish to discontinue life support measures Patient is a 62 yo male admitted from home with right foot draining ulcer. Patient had multiple debridements of B/L feet ulcers in the past. Bone scan of right foot was suggesting osteomyelitis. Doctor Mc. Kellogg discussed the possibility of amputation. patient and his Madalyn, who works at this hospital, have decided to discontinue all current treatment including HD and allow natural . Patient felt too tired from being sick for a long time and wanted to be allowed to naturally. Patient placed on Cubicin IV in meantime. PMH: DM, COPD, CHF, A Fib, AML, CKD with HD Soc. Hx: , lives at home, son lives in [facility]. Hx: Denied Review of Systems - Review of Systems All systems: reviewed and no additional remarkable complaints except Review of Systems: ROS unobtainable from patient due to lethargy. ROS obtained from nursing. Per nursing, patient complains of right foot pain and is medicated for it. Past Patient History - Infectious Disease Hx of Infectious Diseases: None - Tetanus Immunizations Tetanus Immunization: Unknown - Past Medical History & Family History Past Medical History?: Yes - Past Social History Smoking Status: Never Smoked - CARDIAC Hx Cardiac Disorders: Yes Hx Congestive Heart Failure: Yes Hx Hypertension: Yes - PULMONARY Hx Chronic Obstructive Pulmonary Disease (COPD): Yes (uses CPAP for sleep apnea) - NEUROLOGICAL Hx Neurological Disorder: Yes (PERIPHERAL NEUROPATHY) Hx Dizziness: Yes - HEENT Hx HEENT Problems: No - RENAL Hx Chronic Kidney Disease: Yes Hx Dialysis: Yes Type of Dialysis Access: R arm av shunt- MWF - ENDOCRINE/METABOLIC Hx Diabetes Mellitus Type 2: Yes - HEMATOLOGICAL/ONCOLOGICAL Hx Blood Disorders: Yes Hx Blood Transfusions: Yes Hx Cancer: Yes Hx Chemotherapy: Yes 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) - INTEGUMENTARY Hx Dermatological Problems: Yes Hx Cellulitis: Yes - MUSCULOSKELETAL/RHEUMATOLOGICAL Hx Arthritis: Yes - GASTROINTESTINAL Hx Gastrointestinal Disorders: Yes Hx Constipation: Yes - GENITOURINARY/GYNECOLOGICAL Hx Genitourinary Disorders: Yes Other/Comment: On HD-M-W-[id number]- R arm AV shunt - PSYCHIATRIC Hx Psychophysiologic Disorder: Yes Hx Anxiety: Yes Hx Depression: Yes Hx Substance Use: No - SURGICAL HISTORY Hx Surgeries: Yes Hx Angiogram: Yes Hx Arteriovenous Shunt: Yes Hx Cardiac Catheterization: Yes Hx Orthopedic Surgery: Yes (KNEE) Hx Vascular Access Device: Yes Other/Comment: hx back surgery T5. defibrillator/pacemaker placement. bilateral heel surgery - ANESTHESIA Hx Anesthesia: Yes Hx Anesthesia Reactions: No Hx Malignant Hyperthermia: No Meds Allergies/Adverse Reactions: Allergies Allergy/AdvReac Type Severity Reaction Status Date / Time No Known Allergies Allergy Verified 03/14/18 14:49 - Medications Medications: Current Medications Apixaban (Eliquis) 2.5 mg PO BID [facility] Last Admin: 03/31/18 19:30 Dose: 2.5 mg Calcium Acetate (Phoslo) 667 mg PO TIDCC [facility] Last Admin: 04/01/18 07:36 Dose: Not Given Epoetin Elio (Procrit) 10,000 unit IV [facility] [place] Last Admin: 03/31/18 09:00 Dose: Not Given Daptomycin 900 mg/ Sodium (Chloride) 100 mls @ 100 mls/hr IV [facility] [place]; Protocol Stop: 04/03/18 14:01 Last Admin: 03/31/18 10:12 Dose: 100 mls/hr Insulin Human Regular (Novolin R) 0 unit SC [facility]; Protocol Last Admin: 04/01/18 07:35 Dose: Not Given Mupirocin (Bactroban Ointment) 1 gm TOP DAILY PRN Nateglinide (Starlix) 60 mg PO ACTID [facility] Last Admin: 03/31/18 17:25 Dose: Not Given Pantoprazole Sodium (Protonix Ec Tab) 40 mg PO DAILY [facility] Last Admin: 03/31/18 10:13 Dose: 40 mg Tobramycin/Dexamethasone (Tobradex Opht Susp) 0.1 ml OS BID PRN Tramadol HCl (Ultram) 25 mg PO TID PRN PRN Reason: Pain, moderate (4-7) Last Admin: 04/01/18 07:57 Dose: 25 mg Physical Exam - Constitutional Appears: Chronically Ill - Head Exam Head Exam: ATRAUMATIC, NORMAL INSPECTION - Eye Exam Eye Exam: EOMI, Normal appearance, PERRL Pupil Exam: NORMAL ACCOMODATION, PERRL - ENT Exam ENT Exam: Mucous Membranes Dry - Neck Exam Neck exam: Positive for: Normal Inspection - Respiratory Exam Respiratory Exam: Decreased Breath Sounds, NORMAL BREATHING PATTERN - Cardiovascular Exam Cardiovascular Exam: Tachycardia, Irregular Rhythm - GI/Abdominal Exam GI & Abdominal Exam: Hypoactive Bowel Sounds, Soft - Rectal Exam Rectal Exam: Deferred - Exam Exam: NORMAL INSPECTION - Extremities Exam Additional comments: right foot dressing - Back Exam Back exam: NORMAL INSPECTION - Neurological Exam Neurological exam: Alert - Psychiatric Exam Psychiatric exam: Normal Affect, Normal Mood - Skin Skin Exam: Mottled, Urticaria, Warm Results - Vital Signs Recent Vital Signs: Last Vital Signs Temp 97.4 F L 04/01/18 07:00 Pulse 102 H 04/01/18 07:00 Resp 20 04/01/18 07:00 BP 128/81 04/01/18 07:00 Pulse Ox 100 04/01/18 07:00 - Labs Result Diagrams: 03/30/18 06:36 03/30/18 06:36 Labs: Laboratory Results - last 24 hr 03/31/18 12:15 POC Glucose (mg/dL) 93 Assessment & Plan - Assessment and Plan (Free Text) Assessment: Palliative consult Full Code,prior to consult, PPS 30% I reviewed all medical records and diagnostic studies and examined patient in the bed Patient examined in bed, alert, looking chronically ill and tired. patient keeps his attention on and off and often falls a sleep. Madalyn at bed side. Skin is pale, right foot dressing on. Patient is seen by wound nurse. Right foot severe pain is elicited by touch or reposition. Ultram 25 mg PO PRN on board. There is excoriation to peritoneal area due to incontinence. Breathing regular, shallow, there is no cough. Abdomen soft. patient will have HD today. BP 136/76, HR 100, afebrile WBC 5.6, Hb 8.0 + MRSA Right foot wound, blood cultures + MRSA I spoke to Madalyn, patient's , who asked me to let patient sleep, and have discussion away from the bed. She understands patient's condition very well. She said, that her and her were in Peace with the decision about discontinuing HD and promoting natural . They made a plan to have last HD on Thursday and eat dinner together with their son on Thursday . The son should be arriving from [place] on Thursday. Madalyn said that her and her understand that symptoms as a respiratory distress and AMS could appear once HD was stopped and that he may need to start Morphine drip to control respiratory distress. Madalyn stated that her was completely fine with the decision. Madalyn also said that her talked to her about his wishes after . He wanted to be cremated. Doctor Dwayne spoke to the and agreed to arrange HD as per 's and patient's wishes. This was shared with Marielos YU. Code status discussed. was very familiar with DNR DNI status and signed POLST. This morning I spoke to Mandy, News [employer] Person about hospice evaluation as next step in care of this patient. Impression * Chronically ill male * Lethargy and weakness * Right foot draining wound * Right foot pain * Patient feels tired from being sick for a long time and wishes to stop all life supporting treatment. Patient understands will come as a result of that action. Patient's is supportive of his decision * Patient and agreed to stop HD as of Thursday * POLST signed, DNR DNI Suggestion * Promote comfort and control pain * Last HD on Thursday as per patient's wishes * DNR/DNI * Hospice eval for in house hospice Palliative care will sign off at this time Advance care planing 50 min
--- NOTE | 2018-04-01 19:30 | CP.PCM.PN ---
Subjective - Date & Time of Evaluation Date of Evaluation: 03/31/18 Time of Evaluation: 19:29 - Subjective Subjective: I had a discussion with the patient, patient's as well as relative community affairs manager today. At that time patient was telling me that he does not want to continue the treatment because of the chronic nature. And also he is feeling extremely sick for a long time, not feeling well, no improvement. He wants to stop. I called evaluation by palliative care nurse. Multiple discussion was made. Family agreed for DNR/DNI. I agree with the patient's decision. Supportive treatment at this time. Hemodialysis last will be done on Thursday. Palliative care. Hospice care may be needed will follow the patient Objective - Vital Signs/Intake and Output Vital Signs (last 24 hours): Temp Pulse Resp BP Pulse Ox 97.5 F L 98 H 18 101/74 100 04/01/18 16:00 04/01/18 16:00 04/01/18 16:00 04/01/18 16:00 04/01/18 16:00 - Medications Medications: Current Medications Apixaban (Eliquis) 2.5 mg PO BID [facility] Last Admin: 04/01/18 10:00 Dose: Not Given Calcium Acetate (Phoslo) 667 mg PO TIDCC [facility] Last Admin: 04/01/18 17:00 Dose: Not Given Epoetin Elio (Procrit) 10,000 [place] [facility] [place] Last Admin: 03/31/18 09:00 Dose: Not Given Daptomycin 900 mg/ Sodium (Chloride) 100 mls @ 100 mls/hr [place] [facility] [place] Protocol Stop: 04/03/18 14:01 Last Admin: 03/31/18 10:12 Dose: 100 mls/hr Insulin Human Regular (Novolin R) 0 unit SC [facility]; Protocol Last Admin: 04/01/18 16:30 Dose: Not Given Mupirocin (Bactroban Ointment) 1 gm TOP DAILY PRN Nateglinide (Starlix) 60 mg PO ACTID [facility] Last Admin: 04/01/18 17:30 Dose: Not Given Pantoprazole Sodium (Protonix Ec Tab) 40 mg PO DAILY [facility] Last Admin: 04/01/18 09:57 Dose: Not Given Tramadol HCl (Ultram) 25 mg PO TID PRN PRN Reason: Pain, moderate (4-7) Last Admin: 04/01/18 15:04 Dose: 25 mg - Labs Labs: 03/30/18 06:36 03/30/18 06:36 PT 17.5 SECONDS (9.7-12.2) H 03/30/18 06:36 INR 1.6 03/30/18 06:36 APTT 39 SECONDS (21-34) H 03/30/18 06:36
--- NOTE | 2018-04-01 19:31 | CP.PCM.PN ---
Subjective - Date & Time of Evaluation Date of Evaluation: 04/01/18 Time of Evaluation: 19:30 - Subjective Subjective: Patient is somewhat sleepy. But arousable. DNR/DNI today. Will be getting the last hemodialysis tomorrow. Following that the patient will be placed on possibly hospice we will get a hospice evaluation and management. Continue the current supportive treatment Objective - Vital Signs/Intake and Output Vital Signs (last 24 hours): Temp Pulse Resp BP Pulse Ox 97.5 F L 98 H 18 101/74 100 04/01/18 16:00 04/01/18 16:00 04/01/18 16:00 04/01/18 16:00 04/01/18 16:00 - Medications Medications: Current Medications Apixaban (Eliquis) 2.5 mg PO BID [facility] Last Admin: 04/01/18 10:00 Dose: Not Given Calcium Acetate (Phoslo) 667 mg PO TIDCC [facility] Last Admin: 04/01/18 17:00 Dose: Not Given Epoetin Elio (Procrit) 10,000 unit IV [facility] [place] Last Admin: 03/31/18 09:00 Dose: Not Given Daptomycin 900 mg/ Sodium (Chloride) 100 mls @ 100 mls/hr IV [facility] [place]; Protocol Stop: 04/03/18 14:01 Last Admin: 03/31/18 10:12 Dose: 100 mls/hr Insulin Human Regular (Novolin R) 0 unit SC [facility]; Protocol Last Admin: 04/01/18 16:30 Dose: Not Given Mupirocin (Bactroban Ointment) 1 gm TOP DAILY PRN Nateglinide (Starlix) 60 mg PO ACTID [facility] Last Admin: 04/01/18 17:30 Dose: Not Given Pantoprazole Sodium (Protonix Ec Tab) 40 mg PO DAILY [facility] Last Admin: 04/01/18 09:57 Dose: Not Given Tramadol HCl (Ultram) 25 mg PO TID PRN PRN Reason: Pain, moderate (4-7) Last Admin: 04/01/18 15:04 Dose: 25 mg - Labs Labs: 03/30/18 06:36 03/30/18 06:36 PT 17.5 SECONDS (9.7-12.2) H 03/30/18 06:36 INR 1.6 03/30/18 06:36 APTT 39 SECONDS (21-34) H 03/30/18 06:36
--- NOTE | 2018-04-01 19:47 | CP.PCM.PN ---
Subjective - Date & Time of Evaluation Date of Evaluation: 04/01/18 Time of Evaluation: 19:44 - Subjective Subjective: INFECTIOUS DISEASE PROGRESS NOTES IRIS DOMINGUEZ MD, FACP 04/01/2018 6T 655 CHART REVIEWED PT EXAMINED CASE DISCUSSED WITH [facility] UPHOLSTERER ALEXY PT APPEARS TO BE GIVING UP DISCUSSED THE NEED FOR RIGHT BKA A WAY OF REMOVING THE MRSA SOURCE-RECURRENT, NON HEALING OSTEOMYLITIS/ULCERS. HE HAS BECOME DEPRESSED AND WITHDRAWN REFUSING DIALYSIS AND IV AB GIVEN THEN Patient is somewhat sleepy. But arousable. DNR/DNI today. Will be getting the last hemodialysis tomorrow. Following that the patient will be placed on possibly hospice HE will get a hospice evaluation and management. Continue the current supportive treatment Objective - Vital Signs/Intake and Output Vital Signs (last 24 hours): Temp Pulse Resp BP Pulse Ox 97.5 F L 98 H 18 101/74 100 04/01/18 16:00 04/01/18 16:00 04/01/18 16:00 04/01/18 16:00 04/01/18 16:00 - Medications Medications: Current Medications Apixaban (Eliquis) 2.5 mg PO BID [facility] Last Admin: 04/01/18 19:00 Dose: 2.5 mg Calcium Acetate (Phoslo) 667 mg PO TIDCC [facility] Last Admin: 04/01/18 17:00 Dose: Not Given Epoetin Elio (Procrit) 10,000 [place] [facility] [place] Last Admin: 03/31/18 09:00 Dose: Not Given Daptomycin 900 mg/ Sodium (Chloride) 100 mls @ 100 mls/hr [place] [facility] [place] Protocol Stop: 04/03/18 14:01 Last Admin: 03/31/18 10:12 Dose: 100 mls/hr Insulin Human Regular (Novolin R) 0 unit SC [facility]; Protocol Last Admin: 04/01/18 16:30 Dose: Not Given Mupirocin (Bactroban Ointment) 1 gm TOP DAILY PRN Nateglinide (Starlix) 60 mg PO ACTID [facility] Last Admin: 04/01/18 17:30 Dose: Not Given Pantoprazole Sodium (Protonix Ec Tab) 40 mg PO DAILY [facility] Last Admin: 04/01/18 09:57 Dose: Not Given Tramadol HCl (Ultram) 25 mg PO TID PRN PRN Reason: Pain, moderate (4-7) Last Admin: 04/01/18 15:04 Dose: 25 mg - Labs Labs: 03/30/18 06:36 03/30/18 06:36 PT 17.5 SECONDS (9.7-12.2) H 03/30/18 06:36 INR 1.6 03/30/18 06:36 APTT 39 SECONDS (21-34) H 03/30/18 06:36
[2018-04-02] MEDS: Tramadol 25 mg PO PRN ×2 (07:23→16:20)
[2018-04-02] MEDS: (Novolin R) Insulin Human Regular 100 units/ml vial SC SCH ×4 (08:28→22:22)
[2018-04-02] MEDS: Pantoprazole 40 mg EC Tab PO SCH (09:35)
--- NOTE | 2018-04-02 13:16 | CP.PCM.PN ---
Subjective - Date & Time of Evaluation Date of Evaluation: 04/02/18 Time of Evaluation: 13:14 - Subjective Subjective: Seen at dialysis Same depressed state, withdrawn Insisting on this being last dialysis To UF 2500ml with dialysis now No new labs Objective - Vital Signs/Intake and Output Vital Signs (last 24 hours): Temp Pulse Resp BP Pulse Ox 97.7 F 112 H 18 95/51 L 100 04/02/18 07:00 04/02/18 07:00 04/02/18 07:00 04/02/18 07:00 04/02/18 07:00 Intake and Output: 04/02/18 04/02/18 06:59 18:59 Intake Total 240 Balance 240 - Medications Medications: Current Medications Apixaban (Eliquis) 2.5 mg PO BID [facility] Last Admin: 04/02/18 09:58 Dose: 2.5 mg Calcium Acetate (Phoslo) 667 mg PO TIDCC [facility] Last Admin: 04/02/18 11:49 Dose: Not Given Epoetin Elio (Procrit) 10,000 unit IV [facility] [place] Last Admin: 03/31/18 09:00 Dose: Not Given Daptomycin 900 mg/ Sodium (Chloride) 100 mls @ 100 mls/hr IV MWF [facility]; Protocol Stop: 04/03/18 14:01 Last Admin: 04/02/18 09:57 Dose: 100 mls/hr Insulin Human Regular (Novolin R) 0 unit SC [facility]; Protocol Last Admin: 04/02/18 11:48 Dose: Not Given Mupirocin (Bactroban Ointment) 1 gm TOP DAILY PRN Nateglinide (Starlix) 60 mg PO ACTID [facility] Last Admin: 04/02/18 11:49 Dose: Not Given Pantoprazole Sodium (Protonix Ec Tab) 40 mg PO DAILY [facility] Last Admin: 04/02/18 09:35 Dose: Not Given Tramadol HCl (Ultram) 25 mg PO TID PRN PRN Reason: Pain, moderate (4-7) Last Admin: 04/02/18 07:23 Dose: 25 mg - Labs Labs: 03/30/18 06:36 03/30/18 06:36 PT 17.5 SECONDS (9.7-12.2) H 03/30/18 06:36 INR 1.6 03/30/18 06:36 APTT 39 SECONDS (21-34) H 03/30/18 06:36 - Constitutional Appears: No Acute Distress, Chronically Ill - Head Exam Head Exam: ATRAUMATIC, NORMAL INSPECTION - Eye Exam Eye Exam: EOMI, Normal appearance - Neck Exam Neck Exam: Normal Inspection. absent: Tenderness - Respiratory Exam Respiratory Exam: Decreased Breath Sounds, NORMAL BREATHING PATTERN - Cardiovascular Exam Cardiovascular Exam: REGULAR RHYTHM, +S1 - GI/Abdominal Exam GI & Abdominal Exam: Soft. absent: Tenderness - Extremities Exam Extremities Exam: Pedal Edema, Tenderness - Neurological Exam Neurological Exam: Awake, CN II-XII Intact - Skin Skin Exam: Dry, Warm Assessment and Plan (1) Cellulitis Status: Acute (2) ESRD (end stage renal disease) Status: Acute (3) Fluid overload Status: Acute (4) Severe anemia Status: Acute (5) A-fib Status: Chronic - Assessment and Plan (Free Text) Plan: Dialysis now; UF 2500ml Supportive care Will follow up for now
[2018-04-02] MEDS: Epoetin Alfa 10,000 unit/ml Dialysis IV SCH (15:28)
--- NOTE | 2018-04-02 18:02 | CP.PCM.PN ---
Subjective - Date & Time of Evaluation Date of Evaluation: 04/02/18 Time of Evaluation: 17:59 - Subjective Subjective: INFECTIOUS DISEASE PROGRESS XUAN DOMINGUEZ MD, FACP 6T 655 04/02/2018 CHART REVIEWED PT EXAMINED CASE DISCUSSED WITH HIS PERSONALLY PT AND HIS ARE REFUSING FURTHER ANTIBIOTIC/MEDICALLY MANAGEMENT, EVEN ACCESS LINES ARE BECOMING A PROBLEM. Same depressed state, withdrawn Insisting on this being last dialysis No new labs Objective - Vital Signs/Intake and Output Vital Signs (last 24 hours): Temp Pulse Resp BP Pulse Ox 97.7 F 112 H 18 95/51 L 100 04/02/18 07:00 04/02/18 07:00 04/02/18 07:00 04/02/18 07:00 04/02/18 07:00 Intake and Output: 04/02/18 04/02/18 06:59 18:59 Intake Total 240 Balance 240 - Medications Medications: Current Medications Apixaban (Eliquis) 2.5 mg PO BID [facility] Last Admin: 04/02/18 09:58 Dose: 2.5 mg Calcium Acetate (Phoslo) 667 mg PO TIDCC [facility] Last Admin: 04/02/18 11:49 Dose: Not Given Epoetin [place] (Procrit) 10,000 [place] [facility] [place] Admin: 03/31/18 09:00 Dose: Not Given Daptomycin 900 mg/ Sodium (Chloride) 100 mls @ 100 mls/hr IV F [facility]; Protocol Stop: 04/03/18 14:01 Last Admin: 04/02/18 09:57 Dose: 100 mls/hr Insulin Human Regular (Novolin R) 0 unit SC [facility]; Protocol Last Admin: 04/02/18 11:48 Dose: Not Given Mupirocin (Bactroban Ointment) 1 gm TOP DAILY PRN Nateglinide (Starlix) 60 mg PO ACTID [facility] Last Admin: 04/02/18 11:49 Dose: Not Given Pantoprazole Sodium (Protonix Ec Tab) 40 mg PO DAILY [facility] Last Admin: 04/02/18 09:35 Dose: Not Given Tramadol HCl (Ultram) 25 mg PO TID PRN PRN Reason: Pain, moderate (4-7) Last Admin: 04/02/18 07:23 Dose: 25 mg - Labs Labs: 03/30/18 06:36 03/30/18 06:36 PT 17.5 SECONDS (9.7-12.2) H 03/30/18 06:36 INR 1.6 03/30/18 06:36 APTT 39 SECONDS (21-34) H 03/30/18 06:36 - Constitutional Appears: No Acute Distress, Chronically Ill - Head Exam Head Exam: ATRAUMATIC, NORMAL INSPECTION - Eye Exam Eye Exam: EOMI, Normal appearance - Neck Exam Neck Exam: Normal Inspection. absent: Tenderness - Respiratory Exam Respiratory Exam: Decreased Breath Sounds, NORMAL BREATHING PATTERN - Cardiovascular Exam Cardiovascular Exam: REGULAR RHYTHM, +S1 - GI/Abdominal Exam GI & Abdominal Exam: Soft. absent: Tenderness - Extremities Exam Extremities Exam: Pedal Edema, Tenderness - Neurological Exam Neurological Exam: Awake, CN II-XII Intact - Skin Skin Exam: Dry, Warm Assessment and Plan (1) Cellulitis Status: Acute (2) ESRD (end stage renal disease) Status: Acute (3) Fluid overload Status: Acute (4) Severe anemia Status: Acute (5) A-fib Status: Chronic - Assessment and Plan (Free Text) Plan: Dialysis now; UF 2500ml Supportive care Will follow up for now Objective - Vital Signs/Intake and Output Vital Signs (last 24 hours): Temp Pulse Resp BP Pulse Ox 97.5 F L 112 H 20 125/81 97 04/02/18 15:10 04/02/18 15:10 04/02/18 15:10 04/02/18 15:10 04/02/18 15:10 Intake and Output: 04/02/18 04/02/18 06:59 18:59 Intake Total 240 500 Balance 240 500 - Medications Medications: Current Medications Apixaban (Eliquis) 2.5 mg PO BID [facility] Last Admin: 04/02/18 17:09 Dose: 2.5 mg Calcium Acetate (Phoslo) 667 mg PO TIDCC [facility] Last Admin: 04/02/18 16:21 Dose: Not Given Epoetin Elio (Procrit) 10,000 unit IV MWF [facility] Last Admin: 04/02/18 15:28 Dose: 10,000 unit Daptomycin 900 mg/ Sodium (Chloride) 100 mls @ 100 mls/hr IV F [facility]; Protocol Stop: 04/03/18 14:01 Last Admin: 04/02/18 09:57 Dose: 100 mls/hr Insulin Human Regular (Novolin R) 0 unit SC [facility]; Protocol Last Admin: 04/02/18 17:58 Dose: Not Given Mupirocin (Bactroban Ointment) 1 gm TOP DAILY PRN Nateglinide (Starlix) 60 mg PO ACTID [facility] Last Admin: 04/02/18 16:07 Dose: Not Given Pantoprazole Sodium (Protonix Ec Tab) 40 mg PO DAILY [facility] Last Admin: 04/02/18 09:35 Dose: Not Given Tramadol HCl (Ultram) 25 mg PO TID PRN PRN Reason: Pain, moderate (4-7) Last Admin: 04/02/18 16:20 Dose: 25 mg - Labs Labs: 03/30/18 06:36 03/30/18 06:36 PT 17.5 SECONDS (9.7-12.2) H 03/30/18 06:36 INR 1.6 03/30/18 06:36 APTT 39 SECONDS (21-34) H 03/30/18 06:36
[2018-04-03] MEDS: Tramadol 25 mg PO PRN ×2 (00:36→10:16)
[2018-04-03 07:28] VITALS: RESP 20; O2SAT 100
[2018-04-03] MEDS: (Novolin R) Insulin Human Regular 100 units/ml vial SC SCH ×4 (08:30→21:43)
[2018-04-03] MEDS: Pantoprazole 40 mg EC Tab PO SCH (12:01)
[2018-04-03] MEDS: Oxycodone/Acetaminophen 5/325 mg Tab PO PRN ×2 (14:19→20:57)
[2018-04-04] MEDS: (Novolin R) Insulin Human Regular 100 units/ml vial SC SCH ×4 (08:16→21:24)
[2018-04-04] MEDS: Pantoprazole 40 mg EC Tab PO SCH (10:38)
[2018-04-04] MEDS: Oxycodone/Acetaminophen 5/325 mg Tab PO PRN ×2 (13:16→21:21)
[2018-04-04 17:35] VITALS: BP 105/76; PULSE 95; TEMP 98
[2018-04-04] MEDS: Morphine 4 MG/ML VIAL IVP PRN ×2 (17:35→22:52)
[2018-04-05] MEDS: Morphine 4 MG/ML VIAL IVP PRN ×5 (02:41→17:47)
[2018-04-05] MEDS: Oxycodone/Acetaminophen 5/325 mg Tab PO PRN ×3 (06:13→19:13)
[2018-04-05] MEDS: (Novolin R) Insulin Human Regular 100 units/ml vial SC SCH ×4 (08:09→21:05)
--- NOTE | 2018-04-05 08:33 | CP.PCM.PN ---
Subjective - Date & Time of Evaluation Date of Evaluation: 04/04/18 Time of Evaluation: 08:33 - Subjective Subjective: Patient family at bedside. Spoke to the patient family in detail. We will continue the supportive treatment at this time. Patient is a 62-year-old male with the end-stage renal disease, congestive heart failure, atrial flutter fibrillation, anticoagulation. Currently patient is refusing further treatment. Plan for hospice on Thursday Objective - Vital Signs/Intake and Output Vital Signs (last 24 hours): Temp Pulse Resp BP Pulse Ox 98 F 95 H 20 105/76 100 04/04/18 10:00 04/04/18 10:00 04/04/18 10:00 04/04/18 10:00 04/04/18 10:00 - Medications Medications: Current Medications Apixaban (Eliquis) 2.5 mg PO BID [facility] Last Admin: 04/04/18 17:35 Dose: 2.5 mg Calcium Acetate (Phoslo) 667 mg PO TIDCC [facility] Last Admin: 04/05/18 08:10 Dose: Not Given Epoetin Elio (Procrit) 10,000 unit IV MWF [facility] Last Admin: 04/02/18 15:28 Dose: 10,000 unit Insulin Human Regular (Novolin R) 0 unit SC [facility]; Protocol Last Admin: 04/05/18 08:09 Dose: Not Given Morphine Sulfate (Morphine) 1 mg IVP Q4 PRN PRN Reason: Pain, severe (8-10) Last Admin: 04/05/18 07:46 Dose: 1 mg Mupirocin (Bactroban Ointment) 1 gm TOP DAILY PRN Nateglinide (Starlix) 60 mg PO ACTID [facility] Last Admin: 04/05/18 08:11 Dose: Not Given Oxycodone/Acetaminophen (Percocet 5/325 Mg Tab) 1 tab PO Q6H PRN PRN Reason: Pain, severe (8-10) Stop: 04/06/18 14:12 Last Admin: 04/05/18 06:13 Dose: 1 tab Pantoprazole Sodium (Protonix Ec Tab) 40 mg PO DAILY [facility] Last Admin: 04/04/18 10:38 Dose: Not Given - Labs Labs: 03/30/18 06:36 03/30/18 06:36 PT 17.5 SECONDS (9.7-12.2) H 03/30/18 06:36 INR 1.6 03/30/18 06:36 APTT 39 SECONDS (21-34) H 03/30/18 06:36
--- NOTE | 2018-04-05 08:33 | CP.PCM.PN ---
Subjective - Date & Time of Evaluation Date of Evaluation: 04/02/18 Time of Evaluation: 08:32 - Subjective Subjective: I discussed with the patient as well as patient's family in detail. Patient does not want to go any aggressive treatment. Family also decided for comfort care. Patient will be getting the hemodialysis on Thursday. We will continue the supportive treatment. Possible evaluation for hospice on Thursday. Objective - Vital Signs/Intake and Output Vital Signs (last 24 hours): Temp Pulse Resp BP Pulse Ox 98 F 95 H 20 105/76 100 04/04/18 10:00 04/04/18 10:00 04/04/18 10:00 04/04/18 10:00 04/04/18 10:00 - Medications Medications: Current Medications Apixaban (Eliquis) 2.5 mg PO BID [facility] Last Admin: 04/04/18 17:35 Dose: 2.5 mg Calcium Acetate (Phoslo) 667 mg PO TIDCC [facility] Last Admin: 04/05/18 08:10 Dose: Not Given Epoetin Elio (Procrit) 10,000 unit IV MWF [facility] Last Admin: 04/02/18 15:28 Dose: 10,000 unit Insulin Human Regular (Novolin R) 0 unit SC [facility]; Protocol Last Admin: 04/05/18 08:09 Dose: Not Given Morphine Sulfate (Morphine) 1 mg IVP Q4 PRN PRN Reason: Pain, severe (8-10) Last Admin: 04/05/18 07:46 Dose: 1 mg Mupirocin (Bactroban Ointment) 1 gm TOP DAILY PRN Nateglinide (Starlix) 60 mg PO ACTID [facility] Last Admin: 04/05/18 08:11 Dose: Not Given Oxycodone/Acetaminophen (Percocet 5/325 Mg Tab) 1 tab PO Q6H PRN PRN Reason: Pain, severe (8-10) Stop: 04/06/18 14:12 Last Admin: 04/05/18 06:13 Dose: 1 tab Pantoprazole Sodium (Protonix Ec Tab) 40 mg PO DAILY [facility] Last Admin: 04/04/18 10:38 Dose: Not Given - Labs Labs: 03/30/18 06:36 03/30/18 06:36 PT 17.5 SECONDS (9.7-12.2) H 03/30/18 06:36 INR 1.6 03/30/18 06:36 APTT 39 SECONDS (21-34) H 03/30/18 06:36
--- NOTE | 2018-04-05 08:33 | CP.PCM.PN ---
Subjective - Date & Time of Evaluation Date of Evaluation: 04/03/18 Time of Evaluation: 08:33 - Subjective Subjective: Patient received hemodialysis yesterday. He is complaining of pain in the right lower leg. No chest pain. No nausea no vomiting. Patient seems to be comfortable at this time. We will continue the current treatment. And will follow the patient. Objective - Vital Signs/Intake and Output Vital Signs (last 24 hours): Temp Pulse Resp BP Pulse Ox 98 F 95 H 20 105/76 100 04/04/18 10:00 04/04/18 10:00 04/04/18 10:00 04/04/18 10:00 04/04/18 10:00 - Medications Medications: Current Medications Apixaban (Eliquis) 2.5 mg PO BID [facility] Last Admin: 04/04/18 17:35 Dose: 2.5 mg Calcium Acetate (Phoslo) 667 mg PO TIDCC [facility] Last Admin: 04/05/18 08:10 Dose: Not Given Epoetin Elio (Procrit) 10,000 unit IV MWF [facility] Last Admin: 04/02/18 15:28 Dose: 10,000 unit Insulin Human Regular (Novolin R) 0 unit SC [facility]; Protocol Last Admin: 04/05/18 08:09 Dose: Not Given Morphine Sulfate (Morphine) 1 mg IVP Q4 PRN PRN Reason: Pain, severe (8-10) Last Admin: 04/05/18 07:46 Dose: 1 mg Mupirocin (Bactroban Ointment) 1 gm TOP DAILY PRN Nateglinide (Starlix) 60 mg PO ACTID [facility] Last Admin: 04/05/18 08:11 Dose: Not Given Oxycodone/Acetaminophen (Percocet 5/325 Mg Tab) 1 tab PO Q6H PRN PRN Reason: Pain, severe (8-10) Stop: 04/06/18 14:12 Last Admin: 04/05/18 06:13 Dose: 1 tab Pantoprazole Sodium (Protonix Ec Tab) 40 mg PO DAILY [facility] Last Admin: 04/04/18 10:38 Dose: Not Given - Labs Labs: 03/30/18 06:36 03/30/18 06:36 PT 17.5 SECONDS (9.7-12.2) H 01/15/19 06:36 INR 1.6 03/30/18 06:36 APTT 39 SECONDS (21-34) H 03/30/18 06:36
--- NOTE | 2018-04-05 08:33 | CP.PCM.PN ---
Subjective - Date & Time of Evaluation Date of Evaluation: 04/05/18 Time of Evaluation: 08:33 - Subjective Subjective: Patient is now comfortably lying down. Patient's brother at bedside. Patient received the pain medicine this morning, including morphine. Patient refusing any further treatment. He is refusing hemodialysis. He is also refusing any blood draws, or testing. Vital signs otherwise stable. I discussed with the family. Will possibly arrange for hospice evaluation today. Continue the supportive treatment. Pain management. We will follow the patient. Objective - Vital Signs/Intake and Output Vital Signs (last 24 hours): Temp Pulse Resp BP Pulse Ox 98 F 95 H 20 105/76 100 04/04/18 10:00 04/04/18 10:00 04/04/18 10:00 04/04/18 10:00 04/04/18 10:00 - Medications Medications: Current Medications Apixaban (Eliquis) 2.5 mg PO BID [facility] Last Admin: 04/04/18 17:35 Dose: 2.5 mg Calcium Acetate (Phoslo) 667 mg PO TIDCC [facility] Last Admin: 04/05/18 08:10 Dose: Not Given Epoetin Elio (Procrit) 10,000 [place] [facility] [place] Admin: 04/02/18 15:28 Dose: 10,000 unit Insulin Human Regular (Novolin R) 0 unit SC [facility]; Protocol Last Admin: 04/05/18 08:09 Dose: Not Given Morphine Sulfate (Morphine) 1 mg IVP Q4 PRN PRN Reason: Pain, severe (8-10) Last Admin: 04/05/18 07:46 Dose: 1 mg Mupirocin (Bactroban Ointment) 1 gm TOP DAILY PRN Nateglinide (Starlix) 60 mg PO ACTID [facility] Last Admin: 04/05/18 08:11 Dose: Not Given Oxycodone/Acetaminophen (Percocet 5/325 Mg Tab) 1 tab PO Q6H PRN PRN Reason: Pain, severe (8-10) Stop: 04/06/18 14:12 Last Admin: 04/05/18 06:13 Dose: 1 tab Pantoprazole Sodium (Protonix Ec Tab) 40 mg PO DAILY [facility] Last Admin: 04/04/18 10:38 Dose: Not Given - Labs Labs: 03/30/18 06:36 03/30/18 06:36 PT 17.5 SECONDS (9.7-12.2) H 03/30/18 06:36 INR 1.6 03/30/18 06:36 APTT 39 SECONDS (21-34) H 03/30/18 06:36
[2018-04-05] MEDS: Pantoprazole 40 mg EC Tab PO SCH (10:19)
[2018-04-06] MEDS: Morphine 4 MG/ML VIAL IVP PRN ×4 (00:36→13:54)
[2018-04-06] MEDS: Oxycodone/Acetaminophen 5/325 mg Tab PO PRN ×2 (03:21→09:41)
[2018-04-06] MEDS: Pantoprazole 40 mg EC Tab PO SCH (09:45)
--- NOTE | 2018-04-06 16:43 | CP.PCM.PN ---
Subjective - Date & Time of Evaluation Date of Evaluation: 04/06/18 Time of Evaluation: 11:00 - Subjective Subjective: confused, awake, lethargic Objective - Vital Signs/Intake and Output Vital Signs (last 24 hours): Temp Pulse Resp BP Pulse Ox 98 F 95 H 20 105/76 100 04/04/18 10:00 04/04/18 10:00 04/04/18 10:00 04/04/18 10:00 04/04/18 10:00 Intake and Output: 04/06/18 04/06/18 06:59 18:59 Intake Total 120 Balance 120 - Labs Labs: 03/30/18 06:36 03/30/18 06:36 PT 17.5 SECONDS (9.7-12.2) H 03/30/18 06:36 INR 1.6 03/30/18 06:36 APTT 39 SECONDS (21-34) H 03/30/18 06:36 Assessment and Plan - Assessment and Plan (Free Text) Assessment: Patient is placed under [facility] hospice care as per family request. Comfort care and morphine sedation will be given as per protocol. Discussed with DR Hill.
--- NOTE | 2018-04-06 20:08 | CP.PCM.PN ---
Subjective - Date & Time of Evaluation Date of Evaluation: 04/05/18 Time of Evaluation: 20:05 - Subjective Subjective: INFECTIOUS DISEASE PROGRESS NOTES IRIS DOMINGUEZ MD, FACP 04/05/2018 CHART REVIEWED PT EXAMINED CASE DISCUSSED WITH PT, SON, BROTHERS AND SISTERS-PRESENT PT GIVING UP REFUSING ANY FURTHER TREATMENT CALL NEEDED Patient is now comfortably lying down. Patient's brother at bedside. Patient received the pain medicine this morning, including morphine. Patient refusing any further treatment. He is refusing hemodialysis. He is also refusing any blood draws, or testing. Vital signs otherwise stable. I discussed with the family. Will possibly arrange for hospice evaluation today. Continue the supportive treatment. Pain management. I will follow the patient. Objective - Vital Signs/Intake and Output Vital Signs (last 24 hours): Temp Pulse Resp BP Pulse Ox 98 F 95 H 20 105/76 100 04/04/18 10:00 04/04/18 10:00 04/04/18 10:00 04/04/18 10:00 04/04/18 10:00 - Labs Labs: 03/30/18 06:36 03/30/18 06:36 PT 17.5 SECONDS (9.7-12.2) H 03/30/18 06:36 INR 1.6 03/30/18 06:36 APTT 39 SECONDS (21-34) H 03/30/18 06:36
--- NOTE | 2018-05-11 10:27 | PN ---
DATE: 04/02/2018 SUBJECTIVE: The patient is feeling well, he has received dialysis yesterday on . PHYSICAL EXAMINATION: VITAL SIGNS: Stable otherwise. MEDICATIONS: Currently on multiple medications including antibiotic through daptomycin Mondays, Wednesdays,and Fridays he is getting. LABORATORY DATA: INR is 2. Rest of the labs are reviewed. ASSESSMENT AND PLAN: Clinically stable otherwise. We will continue the current treatment and we will follow up the patient. Jesus Hill MD
--- NOTE | 2018-05-11 10:31 | PN ---
DATE: 03/24/2018 SUBJECTIVE: The patient was seen by me around 6:30 p.m. The patient has received hemodialysis. He tolerated the dialysis well. Currently, he is on daptomycin for ongoing gram-positive bacteremia. Clinically stable otherwise. Concerned about overall condition. We will continue the current treatment. DIAGNOSES: Severe recurrent bacteremia, cellulitis of the leg, end-stage renal disease, heart failure. Jesus Hill MD
--- NOTE | 2018-05-11 10:33 | PN ---
DATE: 03/25/2018 SUBJECTIVE: The patient's vital signs are stable. Blood pressure is 115/68. On antibiotic as per ID. She received echocardiogram. Also dialysis done yesterday. ASSESSMENT AND PLAN: Vital signs are otherwise stable. We will continue the current treatment and we will follow up the patient. Jesus Hill MD
--- NOTE | 2018-05-11 10:37 | PN ---
DATE: 03/26/2018 SUBJECTIVE: The patient earlier was seen by management lecturer to receive dialysis, tolerating the dialysis well. Blood pressure is stable otherwise but latest blood pressure is 71/37 noted. The patient is somewhat weak, tired, and he was not eating well. Afebrile. ASSESSMENT AND PLAN: We will continue the current treatment. Currently, the patient is on daptomycin, receiving on Mondays, Wednesdays, and Fridays and we will followup the patient. Jesus Hill MD
--- NOTE | 2018-05-11 10:42 | PN ---
DATE: 03/27/2018 SUBJECTIVE: The patient is doing okay. He is feeling somewhat week, tired, and fatigued. He has also had multiple discussions with the family member about the overall prognosis. The patient is somewhat very upset with not improving. PHYSICAL EXAMINATION: VITAL SIGNS: Stable otherwise. CHEST: Good air entry. HEART: Regular heart sound. EXTREMITIES: Draining ulcers noted in the leg. ASSESSMENT AND PLAN: The patient does not want to do any further treatments. We will discuss with the family about the further treatment and we will followup the patient. Jesus Hill MD
--- NOTE | 2018-05-11 11:51 | PN ---
DATE: 03/16/2018 SUBJECTIVE: The patient today underwent PermCath tightening because of the clotted fistula. Recanalization was done. The patient tolerated the procedure well. PHYSICAL EXAMINATION: VITAL SIGNS: Temperature 97.5, pulse 74, respirations 20, blood pressure 96/56, saturation is 99%. ASSESSMENT AND PLAN: The patient is otherwise doing well. He is somewhat very anxious and worried about the procedure, but he did well after the procedure. There was significant malfunctioning of the arteriovenous fistula noted on the other side. The patient is currently on Eliquis 2.5 mg twice a day. He is also taking PhosLo, Coreg, Starlix, Percocet, and pantoprazole. We will continue the current treatment. We will follow up. Jesus Hill MD
--- NOTE | 2018-05-12 04:48 | DS ---
DATE OF VISIT: 04/06/2018 HISTORY: This is a 62-year-old male with a history of end-stage renal disease, on dialysis; hypertension; hypercholesterolemia; congestive heart failure; atrial flutter/fibrillation; history of leukemia; COPD; sleep apnea; on hemodialysis with chronic leg ulcers, draining ulcers associated with recurrent cellulitis and bacteremia. The patient again hospitalized at this time with similar problems. The patient is having increasing symptoms of weakness, tiredness, fever, and chills. The patient admitted to the hospital with acute bacteremia, acute sepsis, and also hypertension. The patient started on antibiotics as per ID. Seen by electrician journeyman wireman. Also seen by public safety director. The patient started showing some improvement. His bacteremia was started improving. Because of the recurrent infections, the patient will need continuous antibiotics. After multiple discussions with the patient as well as the patient's family, they decided the family does not want further aggressive treatment. He wants to stop the dialysis, and he wants to take hospice treatment because of the ongoing chronic illness and not improving. I discussed with the patient in detail, and he agreed to continue with the hospice treatment. We will discharge the patient from medical service to hospice, and he will follow up in the hospice treatment. Jesus Hill MD
--- NOTE | 2018-05-12 06:19 | PN ---
DATE: 03/19/2018 SUBJECTIVE: The patient received hemodialysis, also received transfusion. Hemoglobin right now is 8.6. Currently, he is on antibiotic for ongoing bacteremia, seen by Infectious Disease specialist. PHYSICAL EXAMINATION: VITAL SIGNS: Otherwise stable. ASSESSMENT AND PLAN: We will continue the current treatment and we will follow up the patient. Jesus Hill MD
== END 2018-04-06 15:36 | disposition hospice, inpatient (51) | DRG 871 ==
LOC: C.ER 14:44 → C.9E 17:00 → C.3T 17:09 → C.6T 03-16 14:30
PROVIDERS: ADMIT Internal Medicine; ATTEND Internal Medicine
PROC: 5A1D70Z Performance of Urinary Filtration, Intermittent, Less than 6 Hours Per Day (ICD-10-PCS; 2018-03-16)
PROC: 02HV33Z Insertion of Infusion Device into Superior Vena Cava, Percutaneous Approach (ICD-10-PCS; principal; 2018-03-16 12:00)
DX: A41.9 Sepsis, unspecified organism (principal); N18.6 End stage renal disease; I42.9 Cardiomyopathy, unspecified; C95.91 Leukemia, unspecified, in remission; I13.2 Hypertensive heart and chronic kidney disease with heart failure and with stage 5 chronic kidney disease, or end stage renal disease; I48.92 Unspecified atrial flutter; L03.115 Cellulitis of right lower limb; M86.171 Other acute osteomyelitis, right ankle and foot; T82.868A Thrombosis due to vascular prosthetic devices, implants and grafts, initial encounter; E11.69 Type 2 diabetes mellitus with other specified complication; R65.20 Severe sepsis without septic shock; D63.8 Anemia in other chronic diseases classified elsewhere; E11.21 Type 2 diabetes mellitus with diabetic nephropathy; E11.51 Type 2 diabetes mellitus with diabetic peripheral angiopathy without gangrene; E11.22 Type 2 diabetes mellitus with diabetic chronic kidney disease; E87.6 Hypokalemia; G47.30 Sleep apnea, unspecified; E78.00 Pure hypercholesterolemia, unspecified; I48.91 Unspecified atrial fibrillation; I50.9 Heart failure, unspecified; J44.9 Chronic obstructive pulmonary disease, unspecified; E11.621 Type 2 diabetes mellitus with foot ulcer; L97.519 Non-pressure chronic ulcer of other part of right foot with unspecified severity; Z79.4 Long term (current) use of insulin; Y83.2 Surgical operation with anastomosis, bypass or graft as the cause of abnormal reaction of the patient, or of later complication, without mention of misadventure at the time of the procedure; Z95.0 Presence of cardiac pacemaker; I95.89 Other hypotension

== ENCOUNTER 2018-04-06 14:35 | Inpatient (IN) | payer OTHER ==
[2018-04-06] MEDS ORDERED: Morphine Sulfate 250 MG in Dextrose 5% In Water 240 ML IV SCH (16:30)
[2018-04-06] MEDS ORDERED: Morphine 4 MG/ML VIAL IVP PRN (16:38)
[2018-04-07] MEDS: Morphine Sulfate 250 MG in Dextrose 5% In Water 240 ML IV SCH (10:34)
[2018-04-08] MEDS: Morphine Sulfate 250 MG in Dextrose 5% In Water 240 ML IV SCH ×2 (10:12→21:40)
[2018-04-08] MEDS ORDERED: Morphine Sulfate 250 MG in Dextrose 5% In Water 240 ML IV SCH ×3 (19:18→21:04)
[2018-04-08] MEDS ORDERED: DiphenhydrAMINE 50 mg/ml Inj IVP PRN (19:18)
--- NOTE | 2018-04-08 19:19 | CP.PCM.PN ---
Subjective - Date & Time of Evaluation Date of Evaluation: 04/08/18 Time of Evaluation: 19:18 - Subjective Subjective: pt is currently in hospice on iv morphine drip discussed with family comfort care to continue Objective - Medications Medications: Current Medications Acetaminophen (Tylenol 650 Mg Supp) 650 mg HI Q6 PRN PRN Reason: Fever >100.4 F Morphine Sulfate 250 mg/ (Dextrose) 250 mls @ 2 mls/hr IV .Q24H [facility] Last Admin: 04/08/18 10:12 Dose: 2 mls/hr Lorazepam (Ativan) 1 mg IVP Q6H PRN PRN Reason: Anxiety Morphine Sulfate (Morphine) 2 mg IVP Q1H PRN PRN Reason: Pain, severe (8-10) Ondansetron HCl (Zofran Inj) 4 mg IVP Q6H PRN PRN Reason: Nausea/Vomiting
[2018-04-09] MEDS: Morphine Sulfate 250 MG in Dextrose 5% In Water 240 ML IV SCH (21:43)
[2018-04-10] MEDS: Morphine Sulfate 250 MG in Dextrose 5% In Water 240 ML IV SCH (22:48)
--- NOTE | 2018-04-11 12:47 | CP.PCM.PN ---
Subjective - Date & Time of Evaluation Date of Evaluation: 04/11/18 Time of Evaluation: 12:45 - Subjective Subjective: The patient was in hospice. He was also receiving pain medications and comfort care. Family was at bedside. Around 12:30 PM on 04/11/2018 patient become apneic and asystolic. Pronounced . Patient son in the bedside. Objective - Vital Signs/Intake and Output Intake and Output: 04/11/18 04/11/18 06:59 18:59 Intake Total 32 Balance 32 - Medications Medications: Current Medications Acetaminophen (Tylenol 650 Mg Supp) 650 mg MD Q6 PRN PRN Reason: Fever >100.4 F Diphenhydramine HCl (Benadryl) 25 mg PO Q6 PRN PRN Reason: Itching / Pruritus Last Admin: 04/08/18 21:13 Dose: 25 mg Morphine Sulfate 250 mg/ (Dextrose) 250 mls @ 4 mls/hr IV .Q24H [facility] Last Admin: 04/10/18 22:48 Dose: Not Given Lorazepam (Ativan) 1 mg IVP Q6H PRN PRN Reason: Anxiety Last Admin: 04/11/18 04:22 Dose: 1 mg Morphine Sulfate (Morphine) 2 mg IVP Q1H PRN PRN Reason: Pain, severe (8-10) Last Admin: 04/10/18 16:23 Dose: 2 mg Ondansetron HCl (Zofran Inj) 4 mg IVP Q6H PRN PRN Reason: Nausea/Vomiting
--- NOTE | 2018-05-26 06:11 | HP ---
ADMISSION NOTE HISTORY: The patient was actually discharged from medical service into hospice on the day. The patient is seeing them on 04/07/2018. The patient is a 62-year-old male with a history of multiple medical problems including end-stage renal disease, on dialysis, hypertension, diabetes, hypercholesterolemia, congestive heart failure, atrial fibrillation/flutter, history of leukemia, on remission, COPD, sleep apnea, recurrent leg ulcers, increasing fever, lethargy, draining and swelling in the legs, and foul smelling ulcer. The patient was initially hospitalized to the medical service. At that time patient was treated aggressively with antibiotic, frequent dialysis, but as the treatment was not showing any improvement, the patient got frustrated. The patient was actually very increasingly depressed. He does not want any further treatment. He decided to go for a hospice treatment, and the patient was placed on inpatient medical hospice treatment. The patient is now receiving morphine drip, pain management. Hospice management is on board. Rest of the medications as per hospice. The patient's family is supportive of the patient's decision and the family is being supported by the hospital staff. Further management will be continued with Hospice. Jesus Hill MD
--- NOTE | 2018-05-26 06:14 | PN ---
DATE: 04/09/2018 The patient is currently under hospice care and hospice treatment. The patient is currently receiving intravenous morphine drip, increasing the dose of Ativan also given. Family was at bedside. Family support and emotional support was given to the patient and family. The patient is still more awake and responding, but some weakness and lethargy noted but he is being kept very comfortable. We will continue the current supportive treatment. Jesus Hill MD
--- NOTE | 2018-05-26 08:04 | DS ---
HISTORY: This is a 62-year-old male with a history of end-stage renal disease on dialysis, ischemic cardiomyopathy, AICD placement, history of lymphoma remission, history of spinal surgery for spinal abscess in the past, and also frequent hospitalizations secondary to recurrent infection in the leg with significant lymphedema and recurrent septicemia, septic shock, multiorgan failure, admitted to the hospice on 04/06/2018. The patient was placed on full hospice treatment as per the patient's request as well as the family's request because of the failed further management and was imminent. The patient understood the situation, and he was placed on morphine drip continuously as well as pain management after the hospice management. The patient slowly became unconscious, and he became asystole on 04/11/2018 at 12:30 p.m. The patient was pronounced . Family was at bedside. Explained to the family. Support was given. FINAL DIAGNOSES: Multi-organ failure, sepsis, and end-stage renal disease, and cardiomyopathy. Jesus Hill MD
== END 2018-04-11 12:35 | DRG 871 ==
LOC: C.6T 14:35
PROVIDERS: ADMIT Internal Medicine; ATTEND Internal Medicine
DX: A41.9 Sepsis, unspecified organism (principal); N18.6 End stage renal disease; R65.21 Severe sepsis with septic shock; I13.2 Hypertensive heart and chronic kidney disease with heart failure and with stage 5 chronic kidney disease, or end stage renal disease; C95.91 Leukemia, unspecified, in remission; L97.909 Non-pressure chronic ulcer of unspecified part of unspecified lower leg with unspecified severity; I48.92 Unspecified atrial flutter; Z51.5 Encounter for palliative care; E11.22 Type 2 diabetes mellitus with diabetic chronic kidney disease; I50.9 Heart failure, unspecified; Z99.2 Dependence on renal dialysis; E78.00 Pure hypercholesterolemia, unspecified; I48.91 Unspecified atrial fibrillation; J44.9 Chronic obstructive pulmonary disease, unspecified; E11.622 Type 2 diabetes mellitus with other skin ulcer; I25.5 Ischemic cardiomyopathy; Z95.810 Presence of automatic (implantable) cardiac defibrillator